=== PATIENT | female | born 1955 | race Caucasian/White ===

== ENCOUNTER 2022-10-06 12:01 | Inpatient (IN) | payer MEDICARE, OTHER ==
[~2022-10-06] VITALS: Ht 154.9 cm; Wt 30.0 kg
--- OUTSIDE RECORDS SUMMARY | ~2022-10-06 | XMS | Continuity of Care Document ---
Demographics + + + | Address | [address] | | | [place] [address] | + + + | Preferred Language | Unknown | + + + | Marital Status | | + + + | Mosque Affiliation | Unknown | + + + | Race | White | + + + | Ethnic Group | Not or | + + + Author + + + | Author | [facility] | + + + | Organization | [facility] | + + + | Address | [address] | | | [place] [address] | + + + | Phone | | + + + Care Team Providers + + + + | Care Market Sales Manager Name | Role | Phone | + + + + Unavailable | Unavailable | + + + + Unavailable | Unavailable | + + + + Unavailable | Unavailable | + + + + Unavailable | Unavailable | + + + + Unavailable | Unavailable | + + + + Unavailable | Unavailable | + + + + Unavailable | Unavailable | + + + + Allergies and Intolerances + + + + + + | date | description | facility | reaction | severity | + + + + + + | (no date) | [facility] | (no reaction) | (no severity) | [facility] | | | | | | Pc - Main | | | | | | Office | | | + + + + + + | (no date) | [facility] | [facility] | (no reaction) | (no severity) | | | [facility] | | | | | | [place] | | | + + + + + + | (no date) | Anaphylaxis | [facility] | (no reaction) | (no severity) | | | | [facility] | | | | | | Hospital | | | + + + + + + | (no date) | Anaphylaxis | [facility] | (no reaction) | (no severity) | | | | Advanced | | | | | | Illness | | | | | | Management | | | + + + + + + | (no date) | Anaphylaxis | [facility] | (no reaction) | (no severity) | | | | [facility] | | | | | | [place] | | | + + + + + + | (no date) | Anaphylaxis | [facility] | (no reaction) | (no severity) | | | | [facility] | | | | | | [place] | | | + + + + + + | (no date) | Anaphylaxis | [facility] | (no reaction) | (no severity) | | | | [facility] | | | | | | [facility] [place] | | | + + + + + + | (no date) | [facility] | [facility] | (no reaction) | (no severity) | | | | [facility] - | | | | | | [place] | | | + + + + + + | (no date) | [facility] | [facility] | (no reaction) | (no severity) | | | | [facility] - | | | | | | [facility] | | | + + + + + + | (no date) | [facility] | [facility] | (no reaction) | (no severity) | | | | [facility] - | | | | | | [place] | | | + + + + + + | (no date) | [facility] | [facility] | (no reaction) | (no severity) | | | | [facility] | | | + + + + + + | (no date) | [facility] | [facility] | (no reaction) | (no severity) | | | | Advanced | | | | | | Illness | | | | | | Management | | | + + + + + + | (no date) | [facility] | [facility] | (no reaction) | (no severity) | | | | [facility] | | | | | | [place] | | | + + + + + + | (no date) | [facility] | [facility] | (no reaction) | (no severity) | | | | [facility] | | | | | | [place] | | | + + + + + + | (no date) | [facility] | [facility] | (no reaction) | (no severity) | | | | Pulmonary | | | | | | [facility] [place] | | | + + + + + + | (no date) | Penicillin | [facility] | (no reaction) | (no severity) | | | | [facility] | | | | | | Hospital | | | + + + + + + | (no date) | Penicillin | [facility] | (no reaction) | (no severity) | | | | [facility] | | | | | | Hospital | | | + + + + + + | (no date) | Penicillins | [facility] | (no reaction) | (no severity) | + + + + + + | (no date) | Penicillin | [facility] | (no reaction) | (no severity) | | | | [facility] | | | | | | Hospital | | | + + + + + + | (no date) | Penicillin | [facility] | (no reaction) | (no severity) | | | | [facility] | | | | | | Hospital | | | + + + + + + Encounters No information. Functional Status No information. Immunizations + + + + | date | description | facility | + + + + | 2014-02-07 00:00 | pneumococcal conjugate PCV | OR - [facility] | | | 13 | - Main Office | + + + + | 2019-11-29 00:00 | pneumococcal conjugate PCV | OR - [facility] | | | 13 | - Main Office | + + + + | 2011-11-29 00:00 | influenza, seasonal, | OR - [facility] | | | injectable, preservative | - Main Office | | | free | | + + + + | 2012-10-31 00:00 | influenza, seasonal, | OR - [facility] | | | injectable, preservative | - Main Office | | | free | | + + + + | 2014-02-07 00:00 | influenza, seasonal, | [facility] | | | injectable, preservative | - Main Office | | | free | | + + + + | 2018-01-18 00:00 | influenza, injectable, | [facility] | | | quadrivalent, preservative | - Main Office | | | free | | + + + + | 2018-10-16 00:00 | influenza, injectable, | [facility] | | | quadrivalent, preservative | - Main Office | | | free | | + + + + | 2019-11-29 00:00 | influenza, injectable, | [facility] | | | quadrivalent, preservative | - Main Office | | | free | | + + + + | 2015-12-25 00:00 | influenza, injectable, | [facility] | | | quadrivalent | Pc - Main Office | + + + + | 2016-12-20 00:00 | influenza, injectable, | OR [facility] | | | quadrivalent | - Main Office | + + + + | 2020-05-21 00:00 | COVID-19, mRNA, LNP-S, PF, | [facility] | | | 100 mcg/0.5 mL dose | Pc - Main Office | | | (Moderna) | | + + + + | 2020-06-18 00:00 | COVID-19, mRNA, LNP-S, PF, | [facility] | | | 100 mcg/0.5 mL dose | Pc - Main Office | | | (Moderna) | | + + + + | 2021-03-26 00:00 | COVID-19, mRNA, LNP-S, PF, | OR - [facility] | | | 100 mcg/0.5 mL dose | Pc - Main Office | | | (Moderna) | | + + + + | 2011-11-29 00:00 | pneumococcal | OR - [facility] | | | polysaccharide PPV23 | Pc - Main Office | + + + + | 2018-01-18 00:00 | pneumococcal | OR - [facility] | | | polysaccharide PPV23 | P[facility] - Main Office | + + + + Medications + + + + | date | description | facility | + + + + | 2021-08-20 00:00 | {2 (480 ML) (Magnesium | [facility] | | | Sulfate 0.0277 MEQ/ML / | Illness Management | | | potassium sulfate 0.0374 | | | | MEQ/ML / sodium sulfate | | | | 0.257 MEQ/ML Oral Solution) | | | | } Pack [Suprep Bowel Prep | | | | Kit] | | + + + + | 2021-08-20 00:00 | {2 (480 ML) (Magnesium | [facility] | | | Sulfate 0.0277 MEQ/ML / | [place] | | | potassium sulfate 0.0374 | | | | MEQ/ML / sodium sulfate | | | | 0.257 MEQ/ML Oral Solution) | | | | } Pack [Suprep Bowel Prep | | | | Kit] | | + + + + | 2021-08-20 00:00 | {2 (480 ML) (Magnesium | [facility] | | | Sulfate 0.0277 MEQ/ML / | [place] | | | potassium sulfate 0.0374 | | | | MEQ/ML / sodium sulfate | | | | 0.257 MEQ/ML Oral Solution) | | | | } Pack [Suprep Bowel Prep | | | | Kit] | | + + + + | 2021-08-20 00:00 | {2 (480 ML) (Magnesium | [facility] | | | Sulfate 0.0277 MEQ/ML / | [facility] [place] | | | potassium sulfate 0.0374 | | | | MEQ/ML / sodium sulfate | | | | 0.257 MEQ/ML Oral Solution) | | | | } Pack [Suprep Bowel Prep | | | | Kit] | | + + + + | 2021-10-20 00:00 | abuse-deterrent 12 hr | [facility] | | | oxycodone hydrochloride 15 | [place] | | | mg extended release oral | | | | tablet [oxycontin] | | + + + + | 2021-09-08 00:00 | oxycodone hcl 5 mg oral | [facility] | | | tablet | [place] | + + + + | 2021-09-29 00:00 | oxycodone hcl 5 mg oral | [facility] | | | tablet | [place] | + + + + | 2021-10-27 00:00 | oxycodone hcl 5 mg oral | [facility] | | | tablet | [place] | + + + + | 2021 00:00 | oxycodone hcl 5 mg oral | [facility] | | | tablet | [place] | + + + + | 2021 00:00 | oxycodone hcl 5 mg oral | [facility] | | | tablet | [place] | + + + + | 2021-12-29 00:00 | oxycodone hcl 5 mg oral | [facility] | | | tablet | [place] | + + + + | 2021-09-08 00:00 | oxycodone hydrochloride 5 | [facility] | | | mg oral tablet [roxicodone] | [place] | | | | | + + + + | 2021-09-29 00:00 | oxycodone hydrochloride 5 | [facility] | | | mg oral tablet [roxicodone] | [place] | | | | | + + + + | 2021-08-18 00:00 | valtrex 500 mg oral tablet | [facility] | | | | Illness Management | + + + + | 2021-08-18 00:00 | valtrex 500 mg oral tablet | [facility] | | | | [place] | + + + + | 2021-08-18 00:00 | valtrex 500 mg oral tablet | [facility] | | | | [place] | + + + + | 2021-08-18 00:00 | valtrex 500 mg oral tablet | [facility] | | | | [facility] [place] | + + + + | 2021-10-20 00:00 | senokot-s 8.6 mg / 50 mg | [facility] | | | oral tablet | [place] | + + + + | 2021-10-20 00:00 | senokot-s 8.6 mg / 50 mg | [facility] | | | oral tablet | [place] | + + + + | 2021-02-26 00:00 | atorvastatin 80 MG Oral | OR - [facility] | | | Tablet | - Main Office | + + + + | 2021-02-27 00:00 | atorvastatin 80 MG Oral | OR - [facility] | | | Tablet | P[facility] - Main Office | + + + + | 2021-03-26 00:00 | atorvastatin 80 MG Oral | OR - [facility] | | | Tablet | [facility] - Main Office | + + + + | 2021-02-26 00:00 | potassium chloride 10 MEQ | OR - [facility] | | | Extended Release Oral | Pc - Main Office | | | Capsule | | + + + + | 2021-02-27 00:00 | potassium chloride 10 MEQ | OR - [facility] | | | Extended Release Oral | Pc - Main Office | | | Capsule | | + + + + | 2021-03-26 00:00 | potassium chloride 10 MEQ | OR - [facility] | | | Extended Release Oral | - Main Office | | | Capsule | | + + + + | 2021-09-04 00:00 | doxycycline hyclate 100 mg | [facility] | | | oral capsule | [place] | + + + + | 2021-09-04 00:00 | doxycycline hyclate 100 mg | [facility] | | | oral capsule | [facility] [place] | + + + + | 2021-02-26 00:00 | trazodone hydrochloride 50 | OR - [facility] | | | MG Oral Tablet | - Main Office | + + + + | 2021-02-27 00:00 | trazodone hydrochloride 50 | [facility] | | | MG Oral Tablet | - Main Office | + + + + | 2021-03-26 00:00 | trazodone hydrochloride 50 | [facility] | | | MG Oral Tablet | [facility] Main Office | + + + + | 2021-09-08 00:00 | naloxone hcl 4 mg per 0.1 | [facility] | | | ml nasal spray | Illness Management | + + + + | 2021-09-08 00:00 | naloxone hcl 4 mg per 0.1 | [facility] | | | ml nasal spray | [place] | + + + + | 2021-09-08 00:00 | naloxone hcl 4 mg per 0.1 | [facility] | | | ml nasal spray | [place] | + + + + | 2021-02-26 00:00 | naloxone hydrochloride 40 | OR [facility] | | | MG/ML Nasal [place] [Narcan] | - Main Office | + + + + | 2021-02-27 00:00 | naloxone hydrochloride 40 | [facility] | | | MG/ML Nasal [place] [Narcan] | - Main Office | + + + + | 2021-03-26 00:00 | naloxone hydrochloride 40 | OR [facility] | | | MG/ML Nasal [place] [Narcan] | - Main Office | + + + + | 2021-09-08 00:00 | naloxone hydrochloride 40 | [facility] | | | mg/ml nasal spray [narcan] | Illness Management | + + + + | 2021-09-08 00:00 | naloxone hydrochloride 40 | [facility] | | | mg/ml nasal spray [narcan] | [place] | + + + + | 2021-09-08 00:00 | naloxone hydrochloride 40 | [facility] | | | mg/ml nasal spray [narcan] | [place] | + + + + | 2021-02-26 00:00 | ibuprofen 800 MG Oral | OR - [facility] | | | Tablet | [facility] - Main Office | + + + + | 2021-02-27 00:00 | ibuprofen 800 MG Oral | OR - [facility] | | | Tablet | [facility] - Main Office | + + + + | 2021-03-26 00:00 | ibuprofen 800 MG Oral | OR - [facility] | | | Tablet | Pc - Main Office | + + + + | 2021-02-26 00:00 | tizanidine 4 MG Oral | OR - [facility] | | | Tablet | P[facility] - Main Office | + + + + | 2021-02-27 00:00 | tizanidine 4 MG Oral | OR - [facility] | | | Tablet | Pc - Main Office | + + + + | 2021-03-26 00:00 | tizanidine 4 MG Oral | OR - [facility] | | | Tablet | [facility] - Main Office | + + + + | 2021-02-26 00:00 | benzonatate 200 MG Oral | OR - [facility] | | | Capsule | - Main Office | + + + + | 2021-02-27 00:00 | benzonatate 200 MG Oral | OR - [facility] | | | Capsule | - Main Office | + + + + | 2021-03-26 00:00 | benzonatate 200 MG Oral | OR [facility] | | | Capsule | - Main Office | + + + + | 2021-09-29 00:00 | microencapsulated | [facility] | | | potassium chloride 10 meq | [place] | | | extended release oral | | | | tablet | | + + + + | 2021-09-29 00:00 | microencapsulated | [facility] | | | potassium chloride 10 meq | [place] | | | extended release oral | | | | tablet | | + + + + | 2021-02-26 00:00 | sucralfate 100 MG/ML Oral | OR - [facility] | | | Suspension | - Main Office | + + + + | 2021-02-27 00:00 | sucralfate 100 MG/ML Oral | OR - [facility] | | | Suspension | - Main Office | + + + + | 2021-03-26 00:00 | sucralfate 100 MG/ML Oral | OR - [facility] | | | Suspension | - Main Office | + + + + | 2021-10-20 00:00 | abuse-deterrent 12 hr | [facility] | | | oxycodone hydrochloride 15 | [place] | | | mg extended release oral | | | | tablet | | + + + + | 2021-12-22 00:00 | abuse-deterrent 12 hr | [facility] | | | oxycodone hydrochloride 10 | [place] | | | mg extended release oral | | | | tablet | | + + + + | 2021-12-22 00:00 | abuse-deterrent 12 hr | [facility] | | | oxycodone hydrochloride 10 | [place] | | | mg extended release oral | | | | tablet | | + + + + | 2022-01-06 00:00 | abuse-deterrent 12 hr | [facility] | | | oxycodone hydrochloride 10 | [place] | | | mg extended release oral | | | | tablet | | + + + + | 2021-02-26 00:00 | fluticasone furoate 0.1 | OR [facility] | | | MG/ACTUAT / umeclidinium | - Main Office | | | 0.0625 MG/ACTUAT / | | | | vilanterol 0.025 MG/ACTUAT | | | | Dry Powder Inhaler | | + + + + | 2021-02-27 00:00 | fluticasone furoate 0.1 | [facility] | | | MG/ACTUAT / umeclidinium | [facility] Main Office | | | 0.0625 MG/ACTUAT / | | | | vilanterol 0.025 MG/ACTUAT | | | | Dry Powder Inhaler | | + + + + | 2021-03-26 00:00 | fluticasone furoate 0.1 | [facility] | | | MG/ACTUAT / umeclidinium | [facility] Main Office | | | 0.0625 MG/ACTUAT / | | | | vilanterol 0.025 MG/ACTUAT | | | | Dry Powder Inhaler | | + + + + | 2021-08-19 00:00 | juventino garcia | [facility] | | | (fluticasone furoate 100 | [place] | | | mcg/actuat / umeclidinium | | | | (as umeclidinium br) 62.5 | | | | mcg/actuat / vilanterol (as | | | | vilanterol trifenatate) 25 | | | | mcg/actuat) dry powder | | | | inhaler, 30 actuat | | + + + + | 2021-09-05 00:00 | juventino garcia | [facility] | | | (fluticasone furoate 100 | [facility] [place] | | | mcg/actuat / umeclidinium | | | | (as umeclidinium br) 62.5 | | | | mcg/actuat / vilanterol (as | | | | vilanterol trifenatate) 25 | | | | mcg/actuat) dry powder | | | | inhaler, 30 actuat | | + + + + | 2021-09-09 00:00 | juventino garcia | [facility] | | | (fluticasone furoate 100 | [place] | | | mcg/actuat / umeclidinium | | | | (as umeclidinium br) 62.5 | | | | mcg/actuat / vilanterol (as | | | | vilanterol trifenatate) 25 | | | | mcg/actuat) dry powder | | | | inhaler, 30 actuat | | + + + + | 2021-09-29 00:00 | trelegy ellipta | [facility] | | | (fluticasone furoate 100 | [place] | | | mcg/actuat / umeclidinium | | | | (as umeclidinium br) 62.5 | | | | mcg/actuat / vilanterol (as | | | | vilanterol trifenatate) 25 | | | | mcg/actuat) dry powder | | | | inhaler, 30 actuat | | + + + + | 2021-09-29 00:00 | trelegy ellipta | [facility] | | | (fluticasone furoate 100 | [place] | | | mcg/actuat / umeclidinium | | | | (as umeclidinium br) 62.5 | | | | mcg/actuat / vilanterol (as | | | | vilanterol trifenatate) 25 | | | | mcg/actuat) dry powder | | | | inhaler, 30 actuat | | + + + + | 2021-09-30 00:00 | trelegy ellipta | [facility] | | | (fluticasone furoate 100 | [place] | | | mcg/actuat / umeclidinium | | | | (as umeclidinium br) 62.5 | | | | mcg/actuat / vilanterol (as | | | | vilanterol trifenatate) 25 | | | | mcg/actuat) dry powder | | | | inhaler, 30 actuat | | + + + + | 2021-07-21 00:00 | dexamethasone 4 mg oral | [facility] | | | tablet | [place] | + + + + | 2021-09-24 00:00 | dexamethasone 4 mg oral | [facility] | | | tablet | Illness Management | + + + + | 2021-09-24 00:00 | dexamethasone 4 mg oral | [facility] | | | tablet | [place] | + + + + | 2021-09-24 00:00 | dexamethasone 4 mg oral | [facility] | | | tablet | [place] | + + + + | 2021-02-26 00:00 | ibuprofen 800 MG Oral | OR - [facility] | | | Tablet | [facility] - Main Office | + + + + | 2021-02-27 00:00 | ibuprofen 800 MG Oral | OR - [facility] | | | Tablet | [facility] - Main [facility] | + + + + | 2021-03-26 00:00 | ibuprofen 800 MG Oral | OR - [facility] | | | Tablet | [facility] - Main Office | + + + + | 2020-10-08 00:00 | ibuprofen 800 mg oral | [facility] | | | tablet | Illness Management | + + + + | 2020-10-08 00:00 | ibuprofen 800 mg oral | [facility] | | | tablet | [place] | + + + + | 2020-10-08 00:00 | ibuprofen 800 mg oral | [facility] | | | tablet | [place] | + + + + | 2020-10-08 00:00 | ibuprofen 800 mg oral | [facility] | | | tablet | [facility] [place] | + + + + | 2021-07-21 00:00 | lorazepam 0.5 mg oral | [facility] | | | tablet | [place] | + + + + | 2021-02-26 00:00 | nitroglycerin 0.4 MG | OR - [facility] | | | Sublingual Tablet | - Main Office | + + + + | 2021-02-27 00:00 | nitroglycerin 0.4 MG | [facility] | | | Sublingual Tablet | [facility] - Main Office | + + + + | 2021-03-26 00:00 | nitroglycerin 0.4 MG | [facility] | | | Sublingual Tablet | [facility] - Main Office | + + + + | 2018-05-03 00:00 | nitroglycerin 400 mcg | [facility] | | | sublingual tablet | Illness Management | + + + + | 2018-05-03 00:00 | nitroglycerin 400 mcg | [facility] | | | sublingual tablet | [place] | + + + + | 2018-05-03 00:00 | nitroglycerin 400 mcg | [facility] | | | sublingual tablet | [place] | + + + + | 2018-05-03 00:00 | nitroglycerin 400 mcg | [facility] | | | sublingual tablet | [facility] [place] | + + + + | 2021-08-20 00:00 | ondansetron 4 mg oral | [facility] | | | tablet | [place] | + + + + | 2021-08-20 00:00 | ondansetron 4 mg oral | [facility] | | | tablet | [facility] [place] | + + + + | 2018-07-05 00:00 | ranitidine 150 mg (as | [facility] | | | ranitidine hcl 168 mg) oral | [place] | | | tablet | | + + + + | 2021-07-21 00:00 | prochlorperazine 10 mg | [facility] | | | oral tablet | [place] | + + + + | 2021-08-26 00:00 | prochlorperazine 10 mg | [facility] | | | oral tablet | Illness Management | + + + + | 2021-08-26 00:00 | prochlorperazine 10 mg | [facility] | | | oral tablet | [place] | + + + + | 2021-08-26 00:00 | prochlorperazine 10 mg | [facility] | | | oral tablet | [place] | + + + + | 2021-08-26 00:00 | prochlorperazine 10 mg | [facility] | | | oral tablet | [facility] [place] | + + + + | 2021-10-20 00:00 | levofloxacin 500 mg oral | [facility] | | | tablet | [place] | + + + + | 2021-07-21 00:00 | compazine 10 mg oral | [facility] | | | tablet | [place] | + + + + | 2021-05-21 00:00 | [id number] 200 actuat | [facility] | | | albuterol 0.09 mg/actuat | [place] | | | metered dose inhaler | | + + + + | 2021-06-25 00:00 | [id number] 200 actuat | [facility] | | | albuterol 0.09 mg/actuat | [place] | | | metered dose inhaler | | + + + + | 2021-07-08 00:00 | [id number] 200 actuat | [facility] | | | albuterol 0.09 mg/actuat | [place] | | | metered dose inhaler | | + + + + | 2021-07-16 00:00 | [id number] 200 actuat | [facility] | | | albuterol 0.09 mg/actuat | [place] | | | metered dose inhaler | | + + + + | 2021-07-29 00:00 | [id number] 200 actuat | [facility] | | | albuterol 0.09 mg/actuat | [place] | | | metered dose inhaler | | + + + + | 2021-08-19 00:00 | [id number] 200 actuat | [facility] | | | albuterol 0.09 mg/actuat | [place] | | | metered dose inhaler | | + + + + | 2021-09-05 00:00 | [id number] 200 actuat | [facility] | | | albuterol 0.09 mg/actuat | [facility] [place] | | | metered dose inhaler | | + + + + | 2021-09-09 00:00 | [id number] 200 actuat | [facility] | | | albuterol 0.09 mg/actuat | [place] | | | metered dose inhaler | | + + + + | 2021-09-30 00:00 | [id number] 200 actuat | [facility] | | | albuterol 0.09 mg/actuat | Ill[facility] | | | metered dose inhaler | | + + + + | 2021-09-30 00:00 | [id number] 200 actuat | [facility] | | | albuterol 0.09 mg/actuat | [place] | | | metered dose inhaler | | + + + + | 2021-10-21 00:00 | [id number] 200 actuat | [facility] | | | albuterol 0.09 mg/actuat | [place] | | | metered dose inhaler | | + + + + | 2021-10-28 00:00 | [id number] 200 actuat | [facility] | | | albuterol 0.09 mg/actuat | [place] | | | metered dose inhaler | | + + + + | 2021-11-18 00:00 | [id number] 200 actuat | [facility] | | | albuterol 0.09 mg/actuat | [place] | | | metered dose inhaler | | + + + + | 2021 00:00 | [id number] 200 actuat | [facility] | | | albuterol 0.09 mg/actuat | [place] | | | metered dose inhaler | | + + + + | 2021-12-23 00:00 | [id number] 200 actuat | [facility] | | | albuterol 0.09 mg/actuat | [place] | | | metered dose inhaler | | + + + + | 2021-12-25 00:00 | [id number] 200 actuat | [facility] | | | albuterol 0.09 mg/actuat | [place] | | | metered dose inhaler | | + + + + | 2021-12-31 00:00 | [id number] 200 actuat | [facility] | | | albuterol 0.09 mg/actuat | [place] | | | metered dose inhaler | | + + + + | 2022-01-20 00:00 | [id number] 200 actuat | [facility] | | | albuterol 0.09 mg/actuat | [place] | | | metered dose inhaler | | + + + + | 2021-02-26 00:00 | levothyroxine sodium 0.1 | OR [facility] | | | MG Oral Tablet | - Main Office | + + + + | 2021-02-27 00:00 | levothyroxine sodium 0.1 | OR - [facility] | | | MG Oral Tablet | - Main Office | + + + + | 2021-03-26 00:00 | levothyroxine sodium 0.1 | [facility] | | | MG Oral Tablet | - Main Office | + + + + | 2021-02-26 00:00 | pantoprazole 40 MG Delayed | [facility] | | | Release Oral Tablet | - Main Office | + + + + | 2021-02-27 00:00 | pantoprazole 40 MG Delayed | [facility] | | | Release Oral Tablet | - Main Office | + + + + | 2021-03-26 00:00 | pantoprazole 40 MG Delayed | [facility] | | | Release Oral Tablet | - Main Office | + + + + | 2021-02-26 00:00 | lisinopril 10 MG Oral | [facility] | | | Tablet | - Main Office | + + + + | 2021-02-27 00:00 | lisinopril 10 MG Oral | [facility] | | | Tablet | - Main Office | + + + + | 2021-03-26 00:00 | lisinopril 10 MG Oral | [facility] | | | Tablet | - Main Office | + + + + | 2021-02-26 00:00 | nitroglycerin 0.4 MG | [facility] | | | Sublingual Tablet | Pc - Main Office | + + + + | 2021-02-27 00:00 | nitroglycerin 0.4 MG | [facility] | | | Sublingual Tablet | [facility] - Main Office | + + + + | 2021-03-26 00:00 | nitroglycerin 0.4 MG | [facility] - [facility] [facility] | | | Sublingual Tablet | Pc - Main Office | + + + + | 2021-02-26 00:00 | atorvastatin 80 MG Oral | OR - [facility] | | | Tablet | Pc - Main Office | + + + + | 2021-02-27 00:00 | atorvastatin 80 MG Oral | OR - [facility] | | | Tablet | Pc - Main Office | + + + + | 2021-03-26 00:00 | atorvastatin 80 MG Oral | OR - [facility] | | | Tablet | Pc - Main Office | + + + + | 2015-03-26 00:00 | atorvastatin 80 mg oral | [facility] | | | tablet | Illness Management | + + + + | 2015-03-26 00:00 | atorvastatin 80 mg oral | [facility] | | | tablet | [place] | + + + + | 2015-03-26 00:00 | atorvastatin 80 mg oral | [facility] | | | tablet | [place] | + + + + | 2015-03-26 00:00 | atorvastatin 80 mg oral | [facility] | | | tablet | [facility] [place] | + + + + | 2021-02-26 00:00 | buspirone hydrochloride | OR [facility] | | | 7.5 MG Oral Tablet | - Main Office | + + + + | 2021-02-27 00:00 | buspirone hydrochloride | [facility] | | | 7.5 MG Oral Tablet | - Main Office | + + + + | 2021-03-26 00:00 | buspirone hydrochloride | [facility] | | | 7.5 MG Oral Tablet | - Main Office | + + + + | 2021-02-26 00:00 | hydrochlorothiazide 25 MG | [facility] | | | Oral Tablet | Pc - Main Office | + + + + | 2021-02-27 00:00 | hydrochlorothiazide 25 MG | [facility] | | | Oral Tablet | Pc - Main Office | + + + + | 2021-03-26 00:00 | hydrochlorothiazide 25 MG | OR - [facility] | | | Oral Tablet | Pc - Main Office | + + + + | 2021-02-26 00:00 | gabapentin 100 MG Oral | OR - [facility] | | | Capsule | Pc - Main Office | + + + + | 2021-02-27 00:00 | gabapentin 100 MG Oral | OR - [facility] | | | Capsule | Pc - Main Office | + + + + | 2021-03-26 00:00 | gabapentin 100 MG Oral | OR - [facility] | | | Capsule | Pc - Main Office | + + + + | 2021-02-26 00:00 | polyethylene glycol 3350 | [facility] | | | 65650 MG Powder for Oral | - Main Office | | | Solution | | + + + + | 2021-02-27 00:00 | polyethylene glycol 3350 | [facility] | | | 14294 MG Powder for Oral | - Main Office | | | Solution | | + + + + | 2021-03-26 00:00 | polyethylene glycol 3350 | [facility] | | | 33599 MG Powder for Oral | - Main Office | | | Solution | | + + + + | 2021-02-26 00:00 | benzonatate 200 MG Oral | OR [facility] | | | Capsule | - Main Office | + + + + | 2021-02-27 00:00 | benzonatate 200 MG Oral | [facility] | | | Capsule | Pc - Main Office | + + + + | 2021-03-26 00:00 | benzonatate 200 MG Oral | OR - [facility] | | | Capsule | Pc - Main Office | + + + + | 2020-07-03 00:00 | benzonatate 200 mg oral | [facility] | | | capsule | [place] | + + + + | 2021-07-14 00:00 | benzonatate 200 mg oral | [facility] | | | capsule | Illness Management | + + + + | 2021-07-14 00:00 | benzonatate 200 mg oral | [facility] | | | capsule | [place] | + + + + | 2021-07-14 00:00 | benzonatate 200 mg oral | [facility] | | | capsule | [place] | + + + + | 2021-07-14 00:00 | benzonatate 200 mg oral | [facility] | | | capsule | [facility] [place] | + + + + | 2021-12-08 00:00 | levofloxacin 750 mg oral | [facility] | | | tablet [levaquin] | [place] | + + + + | 2021-02-26 00:00 | gabapentin 100 MG Oral | OR [facility] | | | Capsule | - Main Office | + + + + | 2021-02-27 00:00 | gabapentin 100 MG Oral | OR - [facility] | | | Capsule | Pc - Main Office | + + + + | 2021-03-26 00:00 | gabapentin 100 MG Oral | OR [facility] | | | Capsule | Pc - Main Office | + + + + | 2020-08-06 00:00 | gabapentin 100 mg oral | [facility] | | | capsule | Illness Management | + + + + | 2020-08-06 00:00 | gabapentin 100 mg oral | [facility] | | | capsule | [place] | + + + + | 2020-08-06 00:00 | gabapentin 100 mg oral | [facility] | | | capsule | [place] | + + + + | 2020-08-06 00:00 | gabapentin 100 mg oral | [facility] | | | capsule | [facility] [place] | + + + + | 2021-02-26 00:00 | hydrochlorothiazide 25 MG | OR - [facility] | | | Oral Tablet | - Main Office | + + + + | 2021-02-27 00:00 | hydrochlorothiazide 25 MG | OR [facility] | | | Oral Tablet | Pc - Main Office | + + + + | 2021-03-26 00:00 | hydrochlorothiazide 25 MG | OR - [facility] | | | Oral Tablet | Pc - Main Office | + + + + | 2021-05-21 00:00 | hydrochlorothiazide 25 mg | [facility] | | | oral tablet | [place] | + + + + | 2021-06-25 00:00 | hydrochlorothiazide 25 mg | [facility] | | | oral tablet | [place] | + + + + | 2021-07-08 00:00 | hydrochlorothiazide 25 mg | [facility] | | | oral tablet | [place] | + + + + | 2021-07-16 00:00 | hydrochlorothiazide 25 mg | [facility] | | | oral tablet | [place] | + + + + | 2021-07-29 00:00 | hydrochlorothiazide 25 mg | [facility] | | | oral tablet | [place] | + + + + | 2021-08-19 00:00 | hydrochlorothiazide 25 mg | [facility] | | | oral tablet | [place] | + + + + | 2021-09-05 00:00 | hydrochlorothiazide 25 mg | [facility] | | | oral tablet | [facility] [place] | + + + + | 2021-09-09 00:00 | hydrochlorothiazide 25 mg | [facility] | | | oral tablet | [place] | + + + + | 2021-09-30 00:00 | hydrochlorothiazide 25 mg | [facility] | | | oral tablet | Illness Management | + + + + | 2021-09-30 00:00 | hydrochlorothiazide 25 mg | [facility] | | | oral tablet | [place] | + + + + | 2021-10-21 00:00 | hydrochlorothiazide 25 mg | [facility] | | | oral tablet | [place] | + + + + | 2021-10-28 00:00 | hydrochlorothiazide 25 mg | [facility] | | | oral tablet | [place] | + + + + | 2021-11-18 00:00 | hydrochlorothiazide 25 mg | [facility] | | | oral tablet | [place] | + + + + | 2021 00:00 | hydrochlorothiazide 25 mg | [facility] | | | oral tablet | [place] | + + + + | 2021-12-23 00:00 | hydrochlorothiazide 25 mg | [facility] | | | oral tablet | [place] | + + + + | 2021-12-25 00:00 | hydrochlorothiazide 25 mg | [facility] | | | oral tablet | [place] | + + + + | 2021-12-31 00:00 | hydrochlorothiazide 25 mg | [facility] | | | oral tablet | [place] | + + + + | 2022-01-20 00:00 | hydrochlorothiazide 25 mg | [facility] | | | oral tablet | [place] | + + + + | 2021-12-08 00:00 | levofloxacin 750 mg oral | [facility] | | | tablet | [place] | + + + + | 2021-10-06 00:00 | mirtazapine 15 mg oral | [facility] | | | tablet | [place] | + + + + | 2021-11-17 00:00 | mirtazapine 15 mg oral | [facility] | | | tablet | [place] | + + + + | 2021-11-17 00:00 | mirtazapine 15 mg oral | [facility] | | | tablet | [place] | + + + + | 2021-07-21 00:00 | ondansetron 8 mg oral | [facility] | | | tablet | [place] | + + + + | 2021-09-08 00:00 | ondansetron 8 mg oral | [facility] | | | tablet | Illness Management | + + + + | 2021-09-08 00:00 | ondansetron 8 mg oral | [facility] | | | tablet | [place] | + + + + | 2021-09-08 00:00 | ondansetron 8 mg oral | [facility] | | | tablet | [place] | + + + + | 2022-01-19 00:00 | ondansetron 8 mg oral | [facility] | | | tablet | [place] | + + + + | 2022-09-06 00:00 | ONDANSETRON | [facility] | + + + + | 2022-09-06 00:00 | ONDANSETRON | [facility] | + + + + | 2021-02-26 00:00 | potassium chloride 10 MEQ | OR [facility] | | | Extended Release Oral | Pc - Main Office | | | Capsule | | + + + + | 2021-02-27 00:00 | potassium chloride 10 MEQ | OR [facility] | | | Extended Release Oral | Pc - Main Office | | | Capsule | | + + + + | 2021-03-26 00:00 | potassium chloride 10 MEQ | OR [facility] | | | Extended Release Oral | Pc - Main Office | | | Capsule | | + + + + | 2018-08-03 00:00 | potassium chloride 10 meq | [facility] | | | extended release oral | Illness Management | | | capsule | | + + + + | 2018-08-03 00:00 | potassium chloride 10 meq | [facility] | | | extended release oral | [place] | | | capsule | | + + + + | 2018-08-03 00:00 | potassium chloride 10 meq | [facility] | | | extended release oral | [facility] [place] | | | capsule | | + + + + | 2021-09-04 00:00 | prednisone 20 mg oral | [facility] | | | tablet | [place] | + + + + | 2021-09-04 00:00 | prednisone 20 mg oral | [facility] | | | tablet | [facility] [place] | + + + + | 2021-10-20 00:00 | prednisone 20 mg oral | [facility] | | | tablet | [place] | + + + + | 2021-12-22 00:00 | prednisone 20 mg oral | [facility] | | | tablet | [place] | + + + + | 2021-12-22 00:00 | prednisone 20 mg oral | [facility] | | | tablet | [place] | + + + + | 2021-12-29 00:00 | prednisone 20 mg oral | [facility] | | | tablet | [place] | + + + + | 2022-01-12 00:00 | prednisone 5 mg oral | [facility] | | | tablet | [place] | + + + + | 2021-02-26 00:00 | sucralfate 100 MG/ML Oral | OR [facility] | | | Suspension | - Main Office | + + + + | 2021-02-27 00:00 | sucralfate 100 MG/ML Oral | OR [facility] | | | Suspension | Pc - Main Office | + + + + | 2021-03-26 00:00 | sucralfate 100 MG/ML Oral | OR [facility] | | | Suspension | Pc - Main Office | + + + + | 2021-02-26 00:00 | tizanidine 4 MG Oral | OR - [facility] | | | Tablet | Pc - Main Office | + + + + | 2021-02-27 00:00 | tizanidine 4 MG Oral | OR [facility] | | | Tablet | Pc - Main Office | + + + + | 2021-03-26 00:00 | tizanidine 4 MG Oral | OR - [facility] | | | Tablet | Pc - Main Office | + + + + | 2021-05-21 00:00 | tizanidine 4 mg oral | [facility] | | | tablet | [place] | + + + + | 2021-06-25 00:00 | tizanidine 4 mg oral | [facility] | | | tablet | [place] | + + + + | 2021-07-08 00:00 | tizanidine 4 mg oral | [facility] | | | tablet | [place] | + + + + | 2021-07-16 00:00 | tizanidine 4 mg oral | [facility] | | | tablet | [place] | + + + + | 2021-07-29 00:00 | tizanidine 4 mg oral | [facility] | | | tablet | [place] | + + + + | 2021-08-19 00:00 | tizanidine 4 mg oral | [facility] | | | tablet | [place] | + + + + | 2021-08-21 00:00 | tizanidine 4 mg oral | [facility] | | | tablet | Illness Management | + + + + | 2021-08-21 00:00 | tizanidine 4 mg oral | [facility] | | | tablet | [place] | + + + + | 2021-08-21 00:00 | tizanidine 4 mg oral | [facility] | | | tablet | [facility] [place] | + + + + | 2021-08-18 00:00 | valacyclovir 500 mg oral | [facility] | | | tablet | Illness Management | + + + + | 2021-08-18 00:00 | valacyclovir 500 mg oral | [facility] | | | tablet | [place] | + + + + | 2021-08-18 00:00 | valacyclovir 500 mg oral | [facility] | | | tablet | [place] | + + + + | 2021-08-18 00:00 | valacyclovir 500 mg oral | [facility] | | | tablet | [facility] [place] | + + + + | 2021-05-21 00:00 | acetaminophen 325 mg oral | [facility] | | | tablet | [place] | + + + + | 2021-02-26 00:00 | lisinopril 10 MG Oral | OR - [facility] | | | Tablet | Pc - Main Office | + + + + | 2021-02-27 00:00 | lisinopril 10 MG Oral | OR - [facility] | | | Tablet | Pc - Main Office | + + + + | 2021-03-26 00:00 | lisinopril 10 MG Oral | OR - [facility] | | | Tablet | Pc - Main Office | + + + + | 2018-06-01 00:00 | lisinopril 10 mg oral | [facility] | | | tablet | Illness Management | + + + + | 2018-06-01 00:00 | lisinopril 10 mg oral | [facility] | | | tablet | [place] | + + + + | 2018-06-01 00:00 | lisinopril 10 mg oral | [facility] | | | tablet | [place] | + + + + | 2018-06-01 00:00 | lisinopril 10 mg oral | [facility] | | | tablet | [facility] [place] | + + + + | 2021-02-26 00:00 | pantoprazole 40 MG Delayed | OR - [facility] | | | Release Oral Tablet | - Main Office | + + + + | 2021-02-27 00:00 | pantoprazole 40 MG Delayed | OR - [facility] | | | Release Oral Tablet | Pc - Main Office | + + + + | 2021-03-26 00:00 | pantoprazole 40 MG Delayed | OR - [facility] | | | Release Oral Tablet | - Main Office | + + + + | 2020-10-08 00:00 | pantoprazole sodium 40 mg | [facility] | | | delayed release oral tablet | Illness Management | | | | | + + + + | 2020-10-08 00:00 | pantoprazole sodium 40 mg | [facility] | | | delayed release oral tablet | [place] | | | | | + + + + | 2020-10-08 00:00 | pantoprazole sodium 40 mg | [facility] | | | delayed release oral tablet | [place] | | | | | + + + + | 2020-10-08 00:00 | pantoprazole sodium 40 mg | [facility] | | | delayed release oral tablet | [facility] [place] | | | | | + + + + | 2021-02-26 00:00 | escitalopram 10 MG Oral | OR - [facility] | | | Tablet | Pc - Main Office | + + + + | 2021-02-27 00:00 | escitalopram 10 MG Oral | OR - [facility] | | | Tablet | Pc - Main Office | + + + + | 2021-03-26 00:00 | escitalopram 10 MG Oral | OR - [facility] | | | Tablet | Pc - Main Office | + + + + | 2020-10-07 00:00 | escitalopram 10 mg oral | [facility] | | | tablet | Illness Management | + + + + | 2020-10-07 00:00 | escitalopram 10 mg oral | [facility] | | | tablet | [place] | + + + + | 2020-10-07 00:00 | escitalopram 10 mg oral | [facility] | | | tablet | [place] | + + + + | 2020-10-07 00:00 | escitalopram 10 mg oral | [facility] | | | tablet | [facility] [place] | + + + + | 2021-03-26 00:00 | buprenorphine 8 MG / | OR - [facility] | | | naloxone 2 MG Sublingual | - Main Office | | | Tablet | | + + + + | 2021-03-26 00:00 | buprenorphine 8 mg / | [facility] | | | naloxone 2 mg sublingual | [place] | | | tablet | | + + + + | 2021-05-21 00:00 | Drug or medicament | [facility] | | | (substance) | [place] | + + + + | 2021-06-25 00:00 | Drug or medicament | [facility] | | | (substance) | [place] | + + + + | 2021-07-08 00:00 | Drug or medicament | [facility] | | | (substance) | [place] | + + + + | 2021-07-16 00:00 | Drug or medicament | [facility] | | | (substance) | [place] | + + + + | 2021-07-29 00:00 | Drug or medicament | [facility] | | | (substance) | [place] | + + + + | 2021-02-26 00:00 | escitalopram 10 MG Oral | OR - [facility] | | | Tablet | Pc - Main Office | + + + + | 2021-02-27 00:00 | escitalopram 10 MG Oral | OR - [facility] | | | Tablet | Pc - Main Office | + + + + | 2021-03-26 00:00 | escitalopram 10 MG Oral | OR - [facility] | | | Tablet | Pc - Main Office | + + + + | 2021-03-26 00:00 | buprenorphine 8 MG / | OR - [facility] | | | naloxone 2 MG Sublingual | Pc - Main Office | | | Tablet | | + + + + | 2022-10-01 00:00 | NITROFURANTOIN MONOHYD | [facility] | | | MACROCR | | + + + + | 2021-02-26 00:00 | varenicline 1 MG Oral | OR - [facility] | | | Tablet | Pc - Main Office | + + + + | 2021-02-27 00:00 | varenicline 1 MG Oral | OR - [facility] | | | Tablet | Pc - Main Office | + + + + | 2021-03-26 00:00 | varenicline 1 MG Oral | OR [facility] | | | Tablet | Pc - Main Office | + + + + | 2021-02-26 00:00 | varenicline 0.5 MG Oral | OR - [facility] | | | Tablet | Pc - Main Office | + + + + | 2021-02-27 00:00 | varenicline 0.5 MG Oral | OR - [facility] | | | Tablet | Pc - Main Office | + + + + | 2021-03-26 00:00 | varenicline 0.5 MG Oral | OR - [facility] | | | Tablet | Pc - Main Office | + + + + | 2021-02-26 00:00 | [id number] 200 ACTUAT | OR [facility] | | | albuterol 0.09 MG/ACTUAT | Pc - Main Office | | | Metered Dose Inhaler | | | | [ProAir] | | + + + + | 2021-02-27 00:00 | [id number] 200 ACTUAT | OR - [facility] | | | albuterol 0.09 MG/ACTUAT | - Main Office | | | Metered Dose Inhaler | | | | [ProAir] | | + + + + | 2021-03-26 00:00 | [id number] 200 ACTUAT | OR [facility] | | | albuterol 0.09 MG/ACTUAT | - Main Office | | | Metered Dose Inhaler | | | | [ProAir] | | + + + + | 2021-02-26 00:00 | 100 ML zoledronic acid | OR - [facility] | | | 0.05 MG/ML Injection | - Main Office | | | [Reclast] | | + + + + | 2021-02-27 00:00 | 100 ML zoledronic acid | OR [facility] | | | 0.05 MG/ML Injection | - Main Office | | | [Reclast] | | + + + + | 2021-03-26 00:00 | 100 ML zoledronic acid | OR - [facility] | | | 0.05 MG/ML Injection | - Main Office | | | [Reclast] | | + + + + | 2022-10-01 00:00 | MEGESTROL ACETATE | [facility] | + + + + | 2021-02-26 00:00 | naloxone hydrochloride 40 | OR [facility] | | | MG/ML Nasal [place] [Narcan] | - Main Office | + + + + | 2021-02-27 00:00 | naloxone hydrochloride 40 | [facility] | | | MG/ML Nasal [place] [Narcan] | - Main Office | + + + + | 2021-03-26 00:00 | naloxone hydrochloride 40 | [facility] | | | MG/ML Nasal [place] [Narcan] | - Main Office | + + + + | 2021-02-26 00:00 | fluticasone furoate 0.1 | [facility] | | | MG/ACTUAT / umeclidinium | - Main Office | | | 0.0625 MG/ACTUAT / | | | | vilanterol 0.025 MG/ACTUAT | | | | Dry Powder Inhaler | | + + + + | 2021-02-27 00:00 | fluticasone furoate 0.1 | [facility] | | | MG/ACTUAT / umeclidinium | - Main Office | | | 0.0625 MG/ACTUAT / | | | | vilanterol 0.025 MG/ACTUAT | | | | Dry Powder Inhaler | | + + + + | 2021-03-26 00:00 | fluticasone furoate 0.1 | OR - [facility] | | | MG/ACTUAT / umeclidinium | Pc - Main Office | | | 0.0625 MG/ACTUAT / | | | | vilanterol 0.025 MG/ACTUAT | | | | Dry Powder Inhaler | | + + + + | 2021-02-26 00:00 | varenicline 0.5 MG Oral | OR - [facility] | | | Tablet | Pc - Main Office | + + + + | 2021-02-27 00:00 | varenicline 0.5 MG Oral | OR - [facility] | | | Tablet | Pc - Main Office | + + + + | 2021-03-26 00:00 | varenicline 0.5 MG Oral | OR - [facility] | | | Tablet | Pc - Main Office | + + + + | 2020-11-13 00:00 | varenicline 0.5 mg oral | [facility] | | | tablet | [place] | + + + + | 2021-02-26 00:00 | varenicline 1 MG Oral | OR - [facility] | | | Tablet | Pc - Main Office | + + + + | 2021-02-27 00:00 | varenicline 1 MG Oral | OR - [facility] | | | Tablet | Pc - Main Office | + + + + | 2021-03-26 00:00 | varenicline 1 MG Oral | OR - [facility] | | | Tablet | Pc - Main Office | + + + + | 2020-11-13 00:00 | chantix 0.5 mg oral tablet | [facility] | | | | [place] | + + + + | 2021-02-26 00:00 | 100 ML zoledronic acid | OR [facility] | | | 0.05 MG/ML Injection | - Main Office | | | [Reclast] | | + + + + | 2021-02-27 00:00 | 100 ML zoledronic acid | OR [facility] | | | 0.05 MG/ML Injection | Pc - Main Office | | | [Reclast] | | + + + + | 2021-03-26 00:00 | 100 ML zoledronic acid | OR [facility] | | | 0.05 MG/ML Injection | - Main Office | | | [Reclast] | | + + + + | 2021-02-26 00:00 | [id number] 200 ACTUAT | [facility] | | | albuterol 0.09 MG/ACTUAT | - Main Office | | | Metered Dose Inhaler | | | | [ProAir] | | + + + + | 2021-02-27 00:00 | [id number] 200 ACTUAT | [facility] | | | albuterol 0.09 MG/ACTUAT | - Main Office | | | Metered Dose Inhaler | | | | [ProAir] | | + + + + | 2021-03-26 00:00 | [id number] 200 ACTUAT | [facility] | | | albuterol 0.09 MG/ACTUAT | - Main Office | | | Metered Dose Inhaler | | | | [ProAir] | | + + + + | 2021-08-18 00:00 | cyclobenzaprine | [facility] | | | hydrochloride 5 mg oral | [place] | | | tablet | | + + + + | 2021-08-18 00:00 | cyclobenzaprine | [facility] | | | hydrochloride 5 mg oral | [facility] [place] | | | tablet | | + + + + | 2021-09-29 00:00 | cyclobenzaprine | [facility] | | | hydrochloride 5 mg oral | [place] | | | tablet | | + + + + | 2021-12-02 00:00 | cyclobenzaprine | [facility] | | | hydrochloride 5 mg oral | [place] | | | tablet | | + + + + | 2021-12-02 00:00 | cyclobenzaprine | [facility] | | | hydrochloride 5 mg oral | [place] | | | tablet | | + + + + | 2021-02-26 00:00 | trazodone hydrochloride 50 | OR [facility] | | | MG Oral Tablet | - Main Office | + + + + | 2021-02-27 00:00 | trazodone hydrochloride 50 | OR [facility] | | | MG Oral Tablet | - Main Office | + + + + | 2021-03-26 00:00 | trazodone hydrochloride 50 | OR [facility] | | | MG Oral Tablet | Pc - Main Office | + + + + | 2021-05-05 00:00 | trazodone hydrochloride 50 | [facility] | | | mg oral tablet | Ill[facility] | + + + + | 2021-05-05 00:00 | trazodone hydrochloride 50 | [facility] | | | mg oral tablet | [place] | + + + + | 2021-05-05 00:00 | trazodone hydrochloride 50 | [facility] | | | mg oral tablet | [place] | + + + + | 2021-05-05 00:00 | trazodone hydrochloride 50 | [facility] | | | mg oral tablet | [facility] [place] | + + + + | 2021-02-26 00:00 | buspirone hydrochloride | OR - [facility] | | | 7.5 MG Oral Tablet | - Main Office | + + + + | 2021-02-27 00:00 | buspirone hydrochloride | [facility] | | | 7.5 MG Oral Tablet | - Main Office | + + + + | 2021-03-26 00:00 | buspirone hydrochloride | [facility] | | | 7.5 MG Oral Tablet | - Main Office | + + + + | 2020-08-06 00:00 | buspirone hydrochloride | [facility] | | | 7.5 mg oral tablet | [facility] | + + + + | 2020-08-06 00:00 | buspirone hydrochloride | [facility] | | | 7.5 mg oral tablet | [place] | + + + + | 2020-08-06 00:00 | buspirone hydrochloride | [facility] | | | 7.5 mg oral tablet | [place] | + + + + | 2020-08-06 00:00 | buspirone hydrochloride | [facility] | | | 7.5 mg oral tablet | [facility] [place] | + + + + | 2021-10-20 00:00 | polyethylene glycol 3350 | [facility] | | | 17 gm powder for oral | [place] | | | solution | | + + + + | 2021-10-20 00:00 | polyethylene glycol 3350 | [facility] | | | 17 gm powder for oral | [place] | | | solution | | + + + + | 2021-02-26 00:00 | polyethylene glycol 3350 | OR [facility] | | | [address]40 MG Powder for Oral | [facility] Main Office | | | Solution | | + + + + | 2021-02-27 00:00 | polyethylene glycol 3350 | [facility] | | | 98152 MG Powder for Oral | - Main Office | | | Solution | | + + + + | 2021-03-26 00:00 | polyethylene glycol 3350 | [facility] | | | 10182 MG Powder for Oral | - Main Office | | | Solution | | + + + + | 2021-10-27 00:00 | morphine sulfate 15 mg | [facility] | | | extended release oral | [place] | | | tablet | | + + + + | 2021-11-17 00:00 | morphine sulfate 15 mg | [facility] | | | extended release oral | [place] | | | tablet | | + + + + | 2021-02-26 00:00 | levothyroxine sodium 0.1 | [facility] | | | MG Oral Tablet | Pc - Main Office | + + + + | 2021-02-27 00:00 | levothyroxine sodium 0.1 | [facility] | | | MG Oral Tablet | - Main Office | + + + + | 2021-03-26 00:00 | levothyroxine sodium 0.1 | [facility] | | | MG Oral Tablet | Pc - Main Office | + + + + | 2020-06-20 00:00 | levothyroxine sodium 100 | [facility] | | | mcg oral tablet | [place] | + + + + | 2021-09-08 00:00 | levothyroxine sodium 0.075 | [facility] | | | mg oral tablet [synthroid] | Illness Management | | | | | + + + + | 2021-09-08 00:00 | levothyroxine sodium 0.075 | [facility] | | | mg oral tablet [synthroid] | [place] | | | | | + + + + | 2021-10-20 00:00 | levothyroxine sodium 0.05 | [facility] | | | mg oral tablet | [place] | + + + + | 2021-09-08 00:00 | levothyroxine sodium 0.075 | [facility] | | | mg oral tablet | Illness Management | + + + + | 2021-09-08 00:00 | levothyroxine sodium 0.075 | [facility] | | | mg oral tablet | [place] | + + + + | 2021-10-20 00:00 | synthroid 50 mcg oral | [facility] | | | tablet | [place] | + + + + | 2020-06-20 00:00 | levothyroxine sodium 88 | [facility] | | | mcg oral tablet | [place] | + + + + | 2021-10-21 00:00 | levothyroxine sodium 88 | [facility] | | | mcg oral tablet | [place] | + + + + | 2021-12-22 00:00 | levothyroxine sodium 0.025 | [facility] | | | mg oral capsule | [place] | + + + + | 2021-12-22 00:00 | levothyroxine sodium 0.025 | [facility] | | | mg oral capsule | [place] | + + + + | 2022-01-12 00:00 | levothyroxine sodium 0.025 | [facility] | | | mg oral capsule | [place] | + + + + | 2021-12-22 00:00 | tirosint 25 mcg oral | [facility] | | | capsule | [place] | + + + + | 2021-12-22 00:00 | tirosint 25 mcg oral | [facility] | | | capsule | [place] | + + + + | 2022-01-12 00:00 | tirosint 25 mcg oral | [facility] | | | capsule | [place] | + + + + | 2021-10-20 00:00 | cindy sodium 50 mg / | [facility] | | | sennosides, mcc 8.6 mg oral | [place] | | | tablet | | + + + + | 2021-10-20 00:00 | cindy sodium 50 mg / | [facility] | | | sennosides, mcc 8.6 mg oral | [place] | | | tablet | | + + + + Problems + + + + | date | description | facility | + + + + | (no date) | 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, left bronchus | [place] | | | or lung | | + + + + | (no date) | 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, left bronchus | [place] | | | or lung | | + + + + | (no date) | Malignant neoplasm of | [facility] - | | | unspecified part of | [place] | | | unspecified bronchus or | | | | lung | | + + + + | (no date) | Malignant neoplasm of | [facility] - | | | unspecified part of | [place] | | | unspecified bronchus or | | | | lung | | + + + + | (no date) | 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 - | | | pulmonary disease with | [facility] | | | (acute) exacerbation | | + + + + | (no date) | Hemorrhage of anus and | [facility] - | | | rectum | [place] | + + + + | (no date) | Cardiac murmur, | [facility] - | | | unspecified | [place] | + + + + | (no date) | Cough | [facility] - | | | | [place] | + + + + | (no date) | Abnormal findings on | [facility] - | | | diagnostic imaging of other | [place] | | | specified body structures | | + + + + | (no date) | Abnormal findings on | [facility] - | | | diagnostic imaging of other | [place] | | | specified body structures | | + + + + | (no date) | Encounter for screening | [facility] - | | | for malignant neoplasm of | [facility] | | | colon | | + + + + | (no date) | Encounter for palliative | [facility] - | | | care | [place] | + + + + | 2012-09-11 00:00 | cafl - chronic airflow | [facility] | | | limitation | Illness Management | + + + + | 2012-09-11 00:00 | cafl - chronic airflow | [facility] | | | limitation | [place] | + + + + | 2012-09-11 00:00 | cafl - chronic airflow | [facility] | | | limitation | [place] | + + + + | 2012-09-11 00:00 | cafl - chronic airflow | [facility] | | | limitation | [facility] [place] | + + + + | 2012-09-11 00:00 | 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) | Illness Management | + + + + | 2012-09-11 00:00 | cobalamin deficiency | [facility]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) | [place] | + + + + | 2012-09-11 00:00 | cobalamin deficiency | [facility]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) | [place] | + + + + | 2012-09-11 00:00 | cobalamin deficiency | [facility]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) | [facility] [place] | + + + + | 2012-09-11 00:00 | sleeplessness | [facility] | | | | Ill[facility] | + + + + | 2012-09-11 00:00 | sleeplessness | [facility] | | | | [place] | + + + + | 2012-09-11 00:00 | sleeplessness | [facility] | | | | [place] | + + + + | 2012-09-11 00:00 | sleeplessness | [facility] | | | | [facility] [place] | + + + + | 2012-09-11 00:00 | fibromyalgia (disorder) | [facility] | | | | Ill[facility] | + + + + | 2012-09-11 00:00 | fibromyalgia (disorder) | [facility] | | | | [place] | + + + + | 2012-09-11 00:00 | fibromyalgia (disorder) | [facility] | | | | [place] | + + + + | 2012-09-11 00:00 | fibromyalgia (disorder) | [facility] | | | | [facility] [place] | + + + + | 2012-09-11 00:00 | depressive disorder | [facility]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) | Ill[facility] | + + + + | 2012-09-11 00:00 | depressive disorder | [facility]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) | [place] | + + + + | 2012-09-11 00:00 | depressive disorder | [facility]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) | [place] | + + + + | 2012-09-11 00:00 | depressive disorder | [facility]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) | [facility] [place] | + + + + | 2012-09-11 00:00 | arthritis (disorder) | [facility] | | | | Illness [facility] | + + + + | 2012-09-11 00:00 | arthritis (disorder) | [facility] | | | | [place] | + + + + | 2012-09-11 00:00 | arthritis (disorder) | [facility] | | | | [place] | + + + + | 2012-09-11 00:00 | arthritis (disorder) | [facility] | | | | [facility] [place] | + + + + | 2012-09-11 00:00 | hypertensive disorder, | [facility] | | | systemic arterial | Illness Management | + + + + | 2012-09-11 00:00 | hypertensive disorder, | [facility] | | | systemic arterial | [place] | + + + + | 2012-09-11 00:00 | hypertensive disorder, | [facility] | | | systemic arterial | [place] | + + + + | 2012-09-11 00:00 | hypertensive disorder, | [facility] | | | systemic arterial | [facility] [place] | + + + + | 2012-09-11 00:00 | hypothyroidism (disorder) | [facility] | | | | Illness [facility] | + + + + | 2012-09-11 00:00 | hypothyroidism (disorder) | [facility] | | | | [place] | + + + + | 2012-09-11 00:00 | hypothyroidism (disorder) | [facility] | | | | [place] | + + + + | 2012-09-11 00:00 | hypothyroidism (disorder) | [facility] | | | | [facility] [place] | + + + + | 2012-09-11 00:00 | anxiousness | [facility] | | | | Ill[facility] | + + + + | 2012-09-11 00:00 | anxiousness | [facility] | | | | [place] | + + + + | 2012-09-11 00:00 | anxiousness | [facility] | | | | [place] | + + + + | 2012-09-11 00:00 | anxiousness | [facility] | | | | [facility] [place] | + + + + | 2012-09-11 00:00 | hld - hyperlipidemia | [facility] | | | | Ill[facility] | + + + + | 2012-09-11 00:00 | hld - hyperlipidemia | [facility] | | | | [place] | + + + + | 2012-09-11 00:00 | hld - hyperlipidemia | [facility] | | | | [place] | + + + + | 2012-09-11 00:00 | hld - hyperlipidemia | [facility] | | | | [facility] [place] | + + + + | 2012-09-11 00:00 | chronic pain (finding) | [facility] | | | | Illness [facility] | + + + + | 2012-09-11 00:00 | chronic pain (finding) | [facility] | | | | [place] | + + + + | 2012-09-11 00:00 | chronic pain (finding) | [facility] | | | | [place] | + + + + | 2012-09-11 00:00 | chronic pain (finding) | [facility] | | | | [facility] [place] | + + + + | 2012-09-11 00:00 | fitting | [facility] | | | | Illness Management | + + + + | 2012-09-11 00:00 | fitting | [facility] | | | | [place] | + + + + | 2012-09-11 00:00 | fitting | [facility] | | | | [place] | + + + + | 2012-09-11 00:00 | fitting | [facility] | | | | [facility] [place] | + + + + | 2012-09-11 00:00 | Hypothyroidism | [facility] | | | | Illness [facility] | + + + + | 2012-09-11 00:00 | Hypothyroidism | [facility] | | | | [place] | + + + + | 2012-09-11 00:00 | Hypothyroidism | [facility] | | | | [place] | + + + + | 2012-09-11 00:00 | Hypothyroidism | [facility] | | | | [facility] [place] | + + + + | 2012-09-11 00:00 | Vitamin B12 deficiency | [facility] | | | | Illness [facility] | + + + + | 2012-09-11 00:00 | Vitamin B12 deficiency | [facility] | | | | [place] | + + + + | 2012-09-11 00:00 | Vitamin B12 deficiency | [facility] | | | | [place] | + + + + | 2012-09-11 00:00 | Vitamin B12 deficiency | [facility] | | | | [facility] [place] | + + + + | 2012-09-11 00:00 | Hyperlipidemia | [facility] | | | | Illness [facility] | + + + + | 2012-09-11 00:00 | Hyperlipidemia | [facility] | | | | [place] | + + + + | 2012-09-11 00:00 | Hyperlipidemia | [facility] | | | | [place] | + + + + | 2012-09-11 00:00 | Hyperlipidemia | [facility] | | | | [facility] [place] | + + + + | 2012-09-11 00:00 | Depression | [facility] | | | | Illness Management | + + + + | 2012-09-11 00:00 | Depression | [facility] | | | | [place] | + + + + | 2012-09-11 00:00 | Depression | [facility] | | | | [place] | + + + + | 2012-09-11 00:00 | Depression | [facility] | | | | [facility] [place] | + + + + | 2012-09-11 00:00 | Anxiety | [facility] | | | | Illness Management | + + + + | 2012-09-11 00:00 | Anxiety | [facility] | | | | [place] | + + + + | 2012-09-11 00:00 | Anxiety | [facility] | | | | [place] | + + + + | 2012-09-11 00:00 | Anxiety | [facility] | | | | [facility] [place] | + + + + | 2012-09-11 00:00 | Insomnia | [facility] | | | | Illness [facility] | + + + + | 2012-09-11 00:00 | Insomnia | [facility] | | | | [place] | + + + + | 2012-09-11 00:00 | Insomnia | [facility] | | | | [place] | + + + + | 2012-09-11 00:00 | Insomnia | [facility] | | | | [facility] [place] | + + + + | 2012-09-11 00:00 | Chronic pain | [facility] | | | | Illness Management | + + + + | 2012-09-11 00:00 | Chronic pain | [facility] | | | | [place] | + + + + | 2012-09-11 00:00 | Chronic pain | [facility] | | | | [place] | + + + + | 2012-09-11 00:00 | Chronic pain | [facility] | | | | [facility] [place] | + + + + | 2012-09-11 00:00 | Hypertension | [facility] | | | | Illness [facility] | + + + + | 2012-09-11 00:00 | Hypertension | [facility] | | | | [place] | + + + + | 2012-09-11 00:00 | Hypertension | [facility] | | | | [place] | + + + + | 2012-09-11 00:00 | Hypertension | [facility] | | | | [facility] [place] | + + + + | 2012-09-11 00:00 | Chronic obstructive | [facility] | | | pulmonary disease | Illness Management | + + + + | 2012-09-11 00:00 | Chronic obstructive | [facility] | | | pulmonary disease | [place] | + + + + | 2012-09-11 00:00 | Chronic obstructive | [facility] | | | pulmonary disease | [place] | + + + + | 2012-09-11 00:00 | Chronic obstructive | [facility] | | | pulmonary disease | [facility] [place] | + + + + | 2012-09-11 00:00 | Arthritis | [facility] | | | | Illness [facility] | + + + + | 2012-09-11 00:00 | Arthritis | [facility] | | | | [place] | + + + + | 2012-09-11 00:00 | Arthritis | [facility] | | | | [place] | + + + + | 2012-09-11 00:00 | Arthritis | [facility] | | | | [facility] [place] | + + + + | 2012-09-11 00:00 | Fibromyalgia | [facility] | | | | Illness Management | + + + + | 2012-09-11 00:00 | Fibromyalgia | [facility] | | | | [place] | + + + + | 2012-09-11 00:00 | Fibromyalgia | [facility] | | | | [place] | + + + + | 2012-09-11 00:00 | Fibromyalgia | [facility] | | | | [facility] [place] | + + + + | 2012-09-11 00:00 | Seizure | [facility] | | | | Illness Management | + + + + | 2012-09-11 00:00 | Seizure | [facility] | | | | [place] | + + + + | 2012-09-11 00:00 | Seizure | [facility] | | | | [place] | + + + + | 2012-09-11 00:00 | Seizure | [facility] | | | | [facility] [place] | + + + + | 2015-06-27 00:00 | bleeding per rectum | [facility] | | | | [place] | + + + + | 2015-06-27 00:00 | diastolic dysfunction | [facility] | | | (finding) | Illness Management | + + + + | 2015-06-27 00:00 | diastolic dysfunction | [facility] | | | (finding) | [place] | + + + + | 2015-06-27 00:00 | diastolic dysfunction | [facility] | | | (finding) | [place] | + + + + | 2015-06-27 00:00 | diastolic dysfunction | [facility] | | | (finding) | [facility] [place] | + + + + | 2015-06-27 00:00 | atherosclerosis of | [facility] | | | coronary artery | Illness Management | + + + + | 2015-06-27 00:00 | atherosclerosis of | [facility] | | | coronary artery | [place] | + + + + | 2015-06-27 00:00 | atherosclerosis of | [facility] | | | coronary artery | [place] | + + + + | 2015-06-27 00:00 | atherosclerosis of | [facility] | | | coronary artery | [facility] [place] | + + + + | 2015-06-27 00:00 | regurgitation of left | [facility] | | | atrioventricular valve | Illness Management | + + + + | 2015-06-27 00:00 | regurgitation of left | [facility] | | | atrioventricular valve | [place] | + + + + | 2015-06-27 00:00 | regurgitation of left | [facility] | | | atrioventricular valve | [place] | + + + + | 2015-06-27 00:00 | regurgitation of left | [facility] | | | atrioventricular valve | [facility] [place] | + + + + | 2015-06-27 00:00 | ar - aortic regurgitation | [facility] | | | | Illness Management | + + + + | 2015-06-27 00:00 | ar - aortic regurgitation | [facility] | | | | [place] | + + + + | 2015-06-27 00:00 | ar - aortic regurgitation | [facility] | | | | [place] | + + + + | 2015-06-27 00:00 | ar - aortic regurgitation | [facility] | | | | [facility] [place] | + + + + | 2015-06-27 00:00 | ic - intermittent | [facility] | | | claudication | [place] | + + + + | 2015-06-27 00:00 | Coronary atherosclerosis | [facility] | | | | Illness [facility] | + + + + | 2015-06-27 00:00 | Coronary atherosclerosis | [facility] | | | | [place] | + + + + | 2015-06-27 00:00 | Coronary atherosclerosis | [facility] | | | | [place] | + + + + | 2015-06-27 00:00 | Coronary atherosclerosis | [facility] | | | | [facility] [place] | + + + + | 2015-06-27 00:00 | Mitral valve insufficiency | [facility] | | | | Illness [facility] | + + + + | 2015-06-27 00:00 | Mitral valve insufficiency | [facility] | | | | [place] | + + + + | 2015-06-27 00:00 | Mitral valve insufficiency | [facility] | | | | [place] | + + + + | 2015-06-27 00:00 | Mitral valve insufficiency | [facility] | | | | [facility] [place] | + + + + | 2015-06-27 00:00 | Aortic valve insufficiency | [facility] | | | | Illness [facility] | + + + + | 2015-06-27 00:00 | Aortic valve insufficiency | [facility] | | | | [place] | + + + + | 2015-06-27 00:00 | Aortic valve insufficiency | [facility] | | | | [place] | + + + + | 2015-06-27 00:00 | Aortic valve insufficiency | [facility] | | | | [facility] [place] | + + + + | 2015-06-27 00:00 | Diastolic dysfunction | [facility] | | | | Illness [facility] | + + + + | 2015-06-27 00:00 | Diastolic dysfunction | [facility] | | | | [place] | + + + + | 2015-06-27 00:00 | Diastolic dysfunction | [facility] | | | | [place] | + + + + | 2015-06-27 00:00 | Diastolic dysfunction | [facility] | | | | [facility] [place] | + + + + | 2015-06-27 00:00 | Claudication | [facility] | | | | [place] | + + + + | 2015-06-27 00:00 | Blood per rectum | [facility] | | | | [place] | + + + + | 2015-06-27 00:00 | Rectal hemorrhage | [facility] | | | | [place] | + + + + | 2015-12-25 00:00 | Chronic obstructive lung | OR - [facility] | | | disease | Pc - Main Office | + + + + | 2015-12-25 00:00 | Insomnia | OR - [facility] | | | | Pc - Main Office | + + + + | 2015-12-25 00:00 | Fibromyalgia | [facility] - [facility] | | | | Pc - Main Office | + + + + | 2015-12-25 00:00 | Lumbar spondylosis | [facility] - [facility] | | | | Pc - Main Office | + + + + | 2015-12-25 00:00 | lumbar spondylosis | [facility]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) | Illness Management | + + + + | 2015-12-25 00:00 | lumbar spondylosis | [facility]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) | [place] | + + + + | 2015-12-25 00:00 | lumbar spondylosis | [facility]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) | [place] | + + + + | 2015-12-25 00:00 | lumbar spondylosis | [facility]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) | [facility] [place] | + + + + | 2015-12-25 00:00 | Depressive disorder | [facility] - [facility] | | | | Pc - Main Office | + + + + | 2015-12-25 00:00 | Hypertensive disorder | [facility] - [facility] | | | | Pc - Main Office | + + + + | 2015-12-25 00:00 | Hypothyroidism | OR - [facility] | | | | Pc - Main Office | + + + + | 2015-12-25 00:00 | Coronary arteriosclerosis | OR - [facility] | | | | Pc - Main Office | + + + + | 2015-12-25 00:00 | Hyperlipidemia | [facility] - [facility] | | | | Pc - Main Office | + + + + | 2015-12-25 00:00 | Epilepsy | OR - [facility] | | | | Pc - Main Office | + + + + | 2015-12-25 00:00 | ep - epilepsy | [facility] | | | | Ill[facility] | + + + + | 2015-12-25 00:00 | ep - epilepsy | [facility] | | | | [place] | + + + + | 2015-12-25 00:00 | ep - epilepsy | [facility] | | | | [place] | + + + + | 2015-12-25 00:00 | ep - epilepsy | [facility] | | | | [facility] [place] | + + + + | 2015-12-25 00:00 | Epilepsy | [facility] | | | | Illness [facility] | + + + + | 2015-12-25 00:00 | Epilepsy | [facility] | | | | [place] | + + + + | 2015-12-25 00:00 | Epilepsy | [facility] | | | | [place] | + + + + | 2015-12-25 00:00 | Epilepsy | [facility] | | | | [facility] [place] | + + + + | 2015-12-25 00:00 | Lumbar spondylosis | [facility] | | | | Ill[facility] | + + + + | 2015-12-25 00:00 | Lumbar spondylosis | [facility] | | | | [place] | + + + + | 2015-12-25 00:00 | Lumbar spondylosis | [facility] | | | | [place] | + + + + | 2015-12-25 00:00 | Lumbar spondylosis | [facility] | | | | [facility] [place] | + + + + | 2017-09-19 00:00 | Tobacco dependence, | [facility] - [facility] | | | continuous | Pc - Main Office | + + + + | 2018-06-11 00:00 | obstruction of esophagus | [facility]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) | Illness [facility] | + + + + | 2018-06-11 00:00 | obstruction of esophagus | [facility]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) | [place] | + + + + | 2018-06-11 00:00 | obstruction of esophagus | [facility]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) | [place] | + + + + | 2018-06-11 00:00 | obstruction of esophagus | [facility]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) | [facility] [place] | + + + + | 2018-06-11 00:00 | fb esophagus | [facility] | | | | Illness [facility] | + + + + | 2018-06-11 00:00 | fb esophagus | [facility] | | | | [place] | + + + + | 2018-06-11 00:00 | fb esophagus | [facility] | | | | [place] | + + + + | 2018-06-11 00:00 | fb esophagus | [facility] | | | | [facility] [place] | + + + + | 2018-06-11 00:00 | Obstruction of esophagus | [facility] | | | due to food impaction | Illness Management | + + + + | 2018-06-11 00:00 | Obstruction of esophagus | [facility] | | | due to food impaction | [place] | + + + + | 2018-06-11 00:00 | Obstruction of esophagus | [facility] | | | due to food impaction | [place] | + + + + | 2018-06-11 00:00 | Obstruction of esophagus | [facility] | | | due to food impaction | [facility] [place] | + + + + | 2018-06-11 00:00 | Foreign body in esophagus | [facility] | | | | [facility] | + + + + | 2018-06-11 00:00 | Foreign body in esophagus | [facility] | | | | [place] | + + + + | 2018-06-11 00:00 | Foreign body in esophagus | [facility] | | | | [place] | + + + + | 2018-06-11 00:00 | Foreign body in esophagus | [facility] | | | | [facility] [place] | + + + + | 2018-06-12 00:00 | malignant neoplasm of | [facility] | | | upper lobe of left lung | Illness Management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) | | + + + + | 2018-06-12 00:00 | malignant neoplasm of | [facility] | | | upper lobe of left lung | [place]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) | | + + + + | 2018-06-12 00:00 | malignant neoplasm of | [facility] | | | upper lobe of left lung | [place]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) | | + + + + | 2018-06-12 00:00 | malignant neoplasm of | [facility] | | | upper lobe of left lung | [facility] [place]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) | | + + + + | 2018-06-12 00:00 | Malignant neoplasm of | [facility] | | | upper lobe of left lung | Illness Management | + + + + | 2018-06-12 00:00 | Malignant neoplasm of | [facility] | | | upper lobe of left lung | [place] | + + + + | 2018-06-12 00:00 | Malignant neoplasm of | [facility] | | | upper lobe of left lung | [place] | + + + + | 2018-06-12 00:00 | Malignant neoplasm of | [facility] | | | upper lobe of left lung | [facility] [place] | + + + + | 2018-06-22 00:00 | tobacco user (finding) | [facility] | | | | [facility] | + + + + | 2018-06-22 00:00 | tobacco user (finding) | [facility] | | | | [place] | + + + + | 2018-06-22 00:00 | tobacco user (finding) | [facility] | | | | [place] | + + + + | 2018-06-22 00:00 | tobacco user (finding) | [facility] | | | | [facility] [place] | + + + + | 2018-06-22 00:00 | Tobacco abuse | [facility] | | | | [facility] | + + + + | 2018-06-22 00:00 | Tobacco abuse | [facility] | | | | [place] | + + + + | 2018-06-22 00:00 | Tobacco abuse | [facility] | | | | [place] | + + + + | 2018-06-22 00:00 | Tobacco abuse | [facility] | | | | [facility] [place] | + + + + | 2018-10-15 00:00 | osteoporosis (disorder) | [facility] | | | | Illness Management | + + + + | 2018-10-15 00:00 | osteoporosis (disorder) | [facility] | | | | [place] | + + + + | 2018-10-15 00:00 | osteoporosis (disorder) | [facility] | | | | [place] | + + + + | 2018-10-15 00:00 | osteoporosis (disorder) | [facility] | | | | [facility] [place] | + + + + | 2018-10-15 00:00 | Osteoporosis | [facility] | | | | Illness Management | + + + + | 2018-10-15 00:00 | Osteoporosis | [facility] | | | | [place] | + + + + | 2018-10-15 00:00 | Osteoporosis | [facility] | | | | [place] | + + + + | 2018-10-15 00:00 | Osteoporosis | [facility] | | | | [facility] [place] | + + + + | 2018-10-16 00:00 | Osteoporosis | OR - [facility] | | | | Pc - Main Office | + + + + | 2019-03-06 11:28:22 | Malignant neoplasm of | [facility] - | | | upper lobe, left bronchus | [place] | | | or lung | | + + + + | 2019-04-14 16:46:41 | Altered Mental Status | [facility] - | | | | [place] | + + + + | 2019-04-14 16:46:41 | Intestinal infectious | [facility] - | | | diseases ([id number]) | [place] | + + + + | 2019-04-14 16:46:41 | Elevated white blood cell | [facility] - | | | count, unspecified | [place] | + + + + | 2019-04-14 16:46:41 | Volume depletion, | [facility] - | | | unspecified | [place] | + + + + | 2019-04-14 16:46:41 | Other stimulant abuse, | [facility] - | | | uncomplicated | [place] | + + + + | 2019-04-14 16:46:41 | Acute kidney failure, | [facility] - | | | unspecified | [place] | + + + + | 2019-04-14 16:46:41 | Diarrhea, unspecified | [facility] - | | | | [place] | + + + + | 2019-04-14 16:46:41 | Transient alteration of | [facility] - | | | awareness | [place] | + + + + | 2019-05-01 16:53:50 | Chronic obstructive | [facility] - | | | pulmonary disease with | [place] | | | (acute) exacerbation | | + + + + | 2019-07-08 00:00 | frederic - generalized anxiety | [facility] | | | disorder | Illness Management | + + + + | 2019-07-08 00:00 | frederic - generalized anxiety | [facility] | | | disorder | [place] | + + + + | 2019-07-08 00:00 | frederic - generalized anxiety | [facility] | | | disorder | [place] | + + + + | 2019-07-08 00:00 | frederic - generalized anxiety | [facility] | | | disorder | [facility] [place] | + + + + | 2019-07-08 00:00 | Generalized anxiety | [facility] | | | disorder | Illness Management | + + + + | 2019-07-08 00:00 | Generalized anxiety | [facility] | | | disorder | [place] | + + + + | 2019-07-08 00:00 | Generalized anxiety | [facility] | | | disorder | [place] | + + + + | 2019-07-08 00:00 | Generalized anxiety | [facility] | | | disorder | [facility] [place] | + + + + | 2019-07-09 00:00 | Generalized anxiety | OR - [facility] | | | disorder | - Main Office | + + + + | 2019-07-13 10:33:51 | Hemorrhage of anus and | [facility] - | | | rectum | [place] | + + + + 2019-07-13 10:33:51 | Encounter for screening | [facility] - | | | for malignant neoplasm of | [place] | | | colon | | + + + + | 2019-07-17 00:00 | polyp of colon (disorder) | [facility] | | | | Illness Management | + + + + | 2019-07-17 00:00 | polyp of colon (disorder) | [facility] | | | | [place] | + + + + | 2019-07-17 00:00 | polyp of colon (disorder) | [facility] | | | | [place] | + + + + | 2019-07-17 00:00 | polyp of colon (disorder) | [facility] | | | | [facility] [place] | + + + + | 2019-07-17 00:00 | Colon polyps | [facility] | | | | Illness Management | + + + + | 2019-07-17 00:00 | Colon polyps | [facility] | | | | [place] | + + + + | 2019-07-17 00:00 | Colon polyps | [facility] | | | | [place] | + + + + 2019-07-17 00:00 | Colon polyps | [facility] | | | | [facility] [place] | + + + + 2019-07-17 07:35 | Hemorrhage of anus and | [facility] - | | | rectum | [place] | + + + + | 2019-07-17 07:35 | Encounter for screening | [facility] - | | | for malignant neoplasm of | [place] | | | colon | | + + + + | 2019-09-05 15:13:17 | Malignant neoplasm of | [facility] - | | | upper lobe, left bronchus | [place] | | | or lung | | + + + + | 2019-12-23 00:00 | pvd - peripheral vascular | [facility] | | | disease | Illness Management | + + + + | 2019-12-23 00:00 | pvd - peripheral vascular | [facility] | | | disease | [place] | + + + + | 2019-12-23 00:00 | pvd - peripheral vascular | [facility] | | | disease | [place] | + + + + | 2019-12-23 00:00 | pvd - peripheral vascular | [facility] | | | disease | [facility] [place] | + + + + | 2019-12-23 00:00 | Peripheral vascular | [facility] | | | disease | Illness Management | + + + + | 2019-12-23 00:00 | Peripheral vascular | [facility] | | | disease | [place] | + + + + | 2019-12-23 00:00 | Peripheral vascular | [facility] | | | disease | [place] | + + + + | 2019-12-23 00:00 | Peripheral vascular | [facility] | | | disease | [facility] [place] | + + + + | 2019-12-24 00:00 | Peripheral vascular | OR - [facility] | | | disease | Pc - Main Office | + + + + | 2019-12-24 00:00 | Atherosclerosis of aorta | OR - [facility] | | | | Pc - Main Office | + + + + | 2019-12-31 10:45:11 | Chronic obstructive | [facility] - | | | pulmonary disease with | [place] | | | (acute) exacerbation | | + + + + | 2019-12-31 10:45:11 | Cough | [facility] - | | | | [place] | + + + + | 2020-03-24 11:30:49 | Malignant neoplasm of | [facility] - | | | upper lobe, left bronchus | [place] | | | or lung | | + + + + | 2020-05-19 00:00 | 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 (disorder) | Illness Management | + + + + | 2020-05-19 00:00 | squamous cell carcinoma of | [facility]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 (disorder) | [place] | + + + + | 2020-05-19 00:00 | squamous cell carcinoma of | [facility]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 (disorder) | [place] | + + + + | 2020-05-19 00:00 | squamous cell carcinoma of | [facility]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 (disorder) | [facility] [place] | + + + + | 2020-05-19 00:00 | Squamous cell carcinoma of | [facility]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 | Illness Management | + + + + | 2020-05-19 00:00 | Squamous cell carcinoma of | [facility]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 | [place] | + + + + | 2020-05-19 00:00 | Squamous cell carcinoma of | [facility]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 | [place] | + + + + | 2020-05-19 00:00 | Squamous cell carcinoma of | [facility]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 | [facility] [place] | + + + + | 2020-05-20 00:00 | Squamous cell carcinoma of | [facility]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 | Pc - Main Office | + + + + | 2020-07-08 00:00 | Follow-up | [facility] - | | | | [place] | + + + + | 2020-07-08 12:59:44 | Follow-up | [facility] - | | | | [place] | + + + + | 2020-07-08 12:59:44 | Malignant neoplasm of | [facility] - | | | upper lobe, left bronchus | [place] | | | or lung | | + + + + | 2020-07-14 08:33:05 | Malignant neoplasm of | [facility] - | | | upper lobe, left bronchus | [place] | | | or lung | | + + + + | 2020-07-19 20:43 | Food in esophagus causing | [facility] | | | other injury, initial | [facility] | | | encounter | | + + + + | 2020-07-23 10:20:27 | Malignant neoplasm of | [facility] - | | | upper lobe, left bronchus | [place] | | | or lung | | + + + + | 2020-07-23 10:20:27 | Nicotine dependence, | [facility] - | | | unspecified, uncomplicated | [place] | + + + + | 2020-07-23 10:20:27 | Tobacco use | [facility] - | | | | [place] | + + + + | 2020-07-24 09:53:20 | Dysphagia, unspecified | [facility] - | | | | [place] | + + + + | 2020-07-25 00:00 | compulsive tobacco user | [facility] | | | syndrome | Illness Management | + + + + | 2020-07-25 00:00 | compulsive tobacco user | [facility] | | | syndrome | [place] | + + + + | 2020-07-25 00:00 | compulsive tobacco user | [facility] | | | syndrome | [place] | + + + + | 2020-07-25 00:00 | compulsive tobacco user | [facility] | | | syndrome | [facility] [place] | + + + + | 2020-07-25 00:00 | Tobacco dependence | [facility] | | | | Illness Management | + + + + | 2020-07-25 00:00 | Tobacco dependence | [facility] | | | | [place] | + + + + | 2020-07-25 00:00 | Tobacco dependence | [facility] | | | | [place] | + + + + | 2020-07-25 00:00 | Tobacco dependence | [facility] | | | | [facility] [place] | + + + + | 2020-07-28 09:18:01 | Malignant neoplasm of | [facility] - | | | upper lobe, left bronchus | [place] | | | or lung | | + + + + | 2020-08-11 10:48:39 | Malignant neoplasm of | [facility] - | | | upper lobe, left bronchus | [place] | | | or lung | | + + + + | 2020-08-15 13:12:55 | Malignant neoplasm of | [facility] - | | | upper lobe, left bronchus | [place] | | | or lung | | + + + + | 2020-08-18 00:00 | ca - lung cancer | [facility] | | | | Illness Management | + + + + | 2020-08-18 00:00 | ca - lung cancer | [facility] | | | | [place] | + + + + | 2020-08-18 00:00 | ca - lung cancer | [facility] | | | | [place] | + + + + | 2020-08-18 00:00 | ca - lung cancer | [facility] | | | | [facility] [place] | + + + + | 2020-08-18 00:00 | Lung cancer | [facility] | | | | Illness Management | + + + + | 2020-08-18 00:00 | Lung cancer | [facility] | | | | [place] | + + + + | 2020-08-18 00:00 | Lung cancer | [facility] | | | | [place] | + + + + | 2020-08-18 00:00 | Lung cancer | [facility] | | | | [facility] [place] | + + + + | 2020-08-18 05:50 | Malignant neoplasm of | [facility] - | | | upper lobe, left bronchus | [place] | | | or lung | | + + + + | 2020-08-18 05:50 | Malignant neoplasm of | [facility] - | | | unspecified part of left | [place] | | | bronchus or lung | | + + + + | 2020-08-18 05:50 | Deficiency of other | [facility] - | | | specified B group vitamins | [place] | + + + + | 2020-08-18 05:50 | Nicotine dependence, | [facility] - | | | unspecified, uncomplicated | [place] | + + + + | 2020-08-18 05:50 | Anxiety disorder, | [facility] - | | | unspecified | [place] | + + + + | 2020-08-18 05:50 | Other ill-defined heart | [facility] - | | | diseases | [place] | + + + + | 2020-08-18 05:50 | Peripheral vascular | [facility] - | | | disease, unspecified | [place] | + + + + | 2020-08-18 05:50 | Panlobular emphysema | [facility] - | | | | [place] | + + + + | 2020-08-18 05:50 | Esophageal obstruction | [facility] - | | | | [place] | + + + + | 2020-08-18 05:50 | Hemorrhage of anus and | [facility] - | | | rectum | [place] | + + + + | 2020-08-18 05:50 | Unspecified | [facility] - | | | osteoarthritis, unspecified | [place] | | | site | | + + + + | 2020-08-18 05:50 | 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, lumbar | | | | region | | + + + + | 2020-08-18 05:50 | Fibromyalgia | [facility] - | | | | [place] | + + + + | 2020-08-18 05:50 | Unspecified convulsions | [facility] - | | | | [place] | + + + + | 2020-08-18 05:50 | Food in esophagus causing | [facility] - | | | other injury, initial | [place] | | | encounter | | + + + + | 2020-08-18 05:50 | Tobacco use | [facility] - | | | | [place] | + + + + | 2020-09-09 15:55:59 | Malignant neoplasm of | [facility] - | | | unspecified part of left | [place] | | | bronchus or lung | | + + + + | 2020-09-10 09:44:54 | Malignant neoplasm of | [facility] - | | | unspecified part of left | [place] | | | bronchus or lung | | + + + + | 2020-09-23 12:08:23 | Malignant neoplasm of | [facility] - | | | upper lobe, left bronchus | [place] | | | or lung | | + + + + | 2020-09-23 16:37:09 | Malignant neoplasm of | [facility] - | | | upper lobe, left bronchus | [place] | | | or lung | | + + + + | 2020-11-12 09:45:07 | Malignant neoplasm of | [facility] - | | | upper lobe, left bronchus | [place] | | | or lung | | + + + + | 2020-11-12 09:45:07 | Tobacco use | [facility] - | | | | [place] | + + + + | 2020-12-04 00:00 | disease caused by 2018 | [facility] | | | novel coronavirus | Illness Management | + + + + | 2020-12-04 00:00 | disease caused by 2019 | [facility] | | | novel coronavirus | [place] | + + + + | 2020-12-04 00:00 | disease caused by 2019 | [facility] | | | novel coronavirus | [place] | + + + + | 2020-12-04 00:00 | disease caused by 2018 | [facility] | | | novel coronavirus | [facility] [place] | + + + + | 2020-12-04 00:00 | COVID | [facility] | | | | Illness Management | + + + + | 2020-12-04 00:00 | COVID | [facility] | | | | [place] | + + + + | 2020-12-04 00:00 | COVID | [facility] | | | | [place] | + + + + | 2020-12-04 00:00 | COVID | [facility] | | | | [facility] [place] | + + + + | 2020-12-05 13:15:37 | COVID-19 | [facility] - | | | | [place] | + + + + | 2021-03-23 12:56:50 | Cardiac murmur, | [facility] - | | | unspecified | [place] | + + + + | 2021-04-10 16:16:47 | Esophageal obstruction | [facility] | | | | Care | + + + + | 2021-04-10 16:16:52 | Esophageal obstruction | [facility] | | | | Care | + + + + | 2021-05-20 10:15:56 | Malignant neoplasm of | [facility] - | | | upper lobe, left bronchus | [place] | | | or lung | | + + + + | 2021-06-10 12:31:08 | Malignant neoplasm of | [facility] - | | | upper lobe, left bronchus | [place] | | | or lung | | + + + + | 2021-06-12 08:05:51 | Malignant neoplasm of | [facility] - | | | upper lobe, left bronchus | [place] | | | or lung | | + + + + | 2021-06-12 08:05:51 | Malignant neoplasm of | [facility] - | | | unspecified part of | [place] | | | unspecified bronchus or | | | | lung | | + + + + | 2021-06-12 08:05:51 | Malignant neoplasm of | [facility] - | | | unspecified part of left | [place] | | | bronchus or lung | | + + + + | 2021-06-24 11:35:48 | Malignant neoplasm of | [facility] - | | | upper lobe, left bronchus | [place] | | | or lung | | + + + + | 2021-06-28 16:21 | Black or Bloody Stool | [facility] - | | | | [place] | + + + + | 2021-06-28 16:21 | Gastrointestinal | [facility] - | | | hemorrhage, unspecified | [place] | + + + + | 2021-06-28 16:21 | Other specified abnormal | [facility] - | | | findings of blood chemistry | [place] | | | | | + + + + | 2021-07-01 10:48:39 | Malignant neoplasm of | [facility] - | | | upper lobe, left bronchus | [place] | | | or lung | | + + + + | 2021-07-07 10:43:42 | Malignant neoplasm of | [facility] - | | | upper lobe, left bronchus | [place] | | | or lung | | + + + + | 2021-07-08 10:30:17 | Colonoscopy | [facility] - | | | | [place] | + + + + | 2021-07-08 10:30:17 | Hemorrhage of anus and | [facility] - | | | rectum | [place] | + + + + | 2021-07-14 15:05:05 | Follow-up | [facility] - | | | | [place] | + + + + | 2021-07-14 15:05:05 | Malignant neoplasm of | [facility] - | | | upper lobe, left bronchus | [place] | | | or lung | | + + + + | 2021-07-14 15:05:05 | Malignant neoplasm of | [facility] - | | | unspecified part of left | [place] | | | bronchus or lung | | + + + + | 2021-07-15 08:03:32 | Malignant neoplasm of | [facility] - | | | upper lobe, left bronchus | [place] | | | or lung | | + + + + | 2021-07-15 08:43:09 | Malignant neoplasm of | [facility] - | | | upper lobe, left bronchus | [place] | | | or lung | | + + + + | 2021-07-15 08:43:09 | Chronic obstructive | [facility] - | | | pulmonary disease, | [place] | | | unspecified | | + + + + | 2021-07-21 00:00 | radiology result abnormal | [facility] | | | (finding) | Illness Management | + + + + | 2021-07-21 00:00 | radiology result abnormal | [facility] | | | (finding) | [place] | + + + + | 2021-07-21 00:00 | radiology result abnormal | [facility] | | | (finding) | [place] | + + + + | 2021-07-21 00:00 | radiology result abnormal | [facility] | | | (finding) | [facility] [place] | + + + + | 2021-07-21 00:00 | Abnormal findings on | [facility] | | | diagnostic imaging of other | Illness Management | | | specified body structures | | + + + + | 2021-07-21 00:00 | Abnormal findings on | [facility] | | | diagnostic imaging of other | [place] | | | specified body structures | | + + + + | 2021-07-21 00:00 | Abnormal findings on | [facility] | | | diagnostic imaging of other | [place] | | | specified body structures | | + + + + | 2021-07-21 00:00 | Abnormal findings on | [facility] | | | diagnostic imaging of other | [facility] [place] | | | specified body structures | | + + + + | 2021-07-27 15:15:31 | Malignant neoplasm of | [facility] - | | | unspecified part of | [place] | | | unspecified bronchus or | | | | lung | | + + + + | 2021-07-27 15:15:31 | Abnormal findings on | [facility] - | | | diagnostic imaging of other | [place] | | | specified body structures | | + + + + | 2021-07-27 15:56:26 | Malignant neoplasm of | [facility] - | | | unspecified part of | [place] | | | unspecified bronchus or | | | | lung | | + + + + | 2021-07-27 15:56:26 | Abnormal findings on | [facility] - | | | diagnostic imaging of other | [place] | | | specified body structures | | + + + + | 2021-07-28 07:43:55 | Malignant neoplasm of | [facility] - | | | upper lobe, left bronchus | [place] | | | or lung | | + + + + | 2021-07-28 07:43:55 | Malignant neoplasm of | [facility] - | | | unspecified part of | [place] | | | unspecified bronchus or | | | | lung | | + + + + | 2021-07-28 07:43:55 | Abnormal findings on | [facility] - | | | diagnostic imaging of other | [place] | | | specified body structures | | + + + + | 2021-07-28 08:38:08 | Malignant neoplasm of | [facility] - | | | unspecified part of | [place] | | | unspecified bronchus or | | | | lung | | + + + + | 2021-07-28 08:38:08 | Abnormal findings on | [facility] - | | | diagnostic imaging of other | [place] | | | specified body structures | | + + + + | 2021-08-05 00:00 | neutropenic fever | [facility] | | | | Illness Management | + + + + | 2021-08-05 00:00 | neutropenic fever | [facility] | | | | [place] | + + + + | 2021-08-05 00:00 | neutropenic fever | [facility] | | | | [place] | + + + + | 2021-08-05 00:00 | neutropenic fever | [facility] | | | | [facility] [place] | + + + + | 2021-08-05 00:00 | Neutropenic fever | [facility] | | | | Illness [facility] | + + + + | 2021-08-05 00:00 | Neutropenic fever | [facility] | | | | [place] | + + + + | 2021-08-05 00:00 | Neutropenic fever | [facility] | | | | [place] | + + + + | 2021-08-05 00:00 | Neutropenic fever | [facility] | | | | [facility] [place] | + + + + | 2021-08-05 15:51 | Vomiting | [facility] - | | | | [place] | + + + + | 2021-08-05 16:30 | Vomiting | [facility] - | | | | [place] | + + + + | 2021-08-05 16:30 | Imaging @ [facility] | [facility] - | | | System @ Computerized | [place] | | | Tomography (CT Scan) @ | | | | Cerebral Ventricle(s) | | + + + + | 2021-08-05 16:30 | Imaging @ [facility] | [facility] - | | | System @ Computerized | [place] | | | Tomography (CT Scan) @ | | | | Sella Turcica/Pituitary | | | | Gland | | + + + + | 2021-08-05 16:30 | Neutropenia, unspecified | [facility] - | | | | [place] | + + + + | 2021-08-05 16:30 | 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) | [place] | + + + + | 2021-08-05 16:30 | Acute kidney failure, | [facility] - | | | unspecified | [place] | + + + + | 2021-08-05 16:30 | Nausea with vomiting, | [facility] - | | | unspecified | [place] | + + + + | 2021-08-05 16:30 | Fever presenting with | [facility] - | | | conditions classified | [place] | | | elsewhere | | + + + + | 2021-08-18 07:50:49 | Imaging @ [facility] | [facility] - | | | System @ Computerized | [place] | | | Tomography (CT Scan) @ | | | | Cerebral Ventricle(s) | | + + + + | 2021-08-18 07:50:49 | Malignant neoplasm of | [facility] - | | | unspecified part of | [place] | | | unspecified bronchus or | | | | lung | | + + + + | 2021-08-18 07:50:49 | Abnormal findings on | [facility] - | | | diagnostic imaging of other | [place] | | | specified body structures | | + + + + | 2021-08-18 08:36:45 | Malignant neoplasm of | [facility] - | | | unspecified part of | [place] | | | unspecified bronchus or | | | | lung | | + + + + | 2021-08-18 08:36:45 | Abnormal findings on | [facility] - | | | diagnostic imaging of other | [place] | | | specified body structures | | + + + + | 2021-09-04 10:46:25 | Consult | [facility] - | | | | [place] | + + + + | 2021-09-04 10:46:25 | Centrilobular emphysema | [facility] - | | | | [place] | + + + + | 2021-09-08 07:48:16 | Malignant neoplasm of | [facility] - | | | upper lobe, left bronchus | [place] | | | or lung | | + + + + | 2021-09-08 07:48:16 | Malignant neoplasm of | [facility] - | | | unspecified part of | [place] | | | unspecified bronchus or | | | | lung | | + + + + | 2021-09-08 07:48:16 | Abnormal findings on | [facility] - | | | diagnostic imaging of other | [place] | | | specified body structures | | + + + + | 2021-09-08 08:49:05 | Malignant neoplasm of | [facility] - | | | unspecified part of | [place] | | | unspecified bronchus or | | | | lung | | + + + + | 2021-09-08 08:49:05 | Abnormal findings on | [facility] - | | | diagnostic imaging of other | [place] | | | specified body structures | | + + + + | 2021-09-29 08:06:19 | Malignant neoplasm of | [facility] - | | | upper lobe, left bronchus | [place] | | | or lung | | + + + + | 2021-09-29 08:07:04 | 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, left bronchus | [place] | | | or lung | | + + + + | 2021-09-29 08:07:04 | Malignant neoplasm of | [facility] [facility] - | | | unspecified part of | [place] | | | unspecified bronchus or | | | | lung | | + + + + | 2021-09-29 08:07:04 | Chronic obstructive | [facility] - | | | pulmonary disease, | [place] | | | unspecified | | + + + + | 2021-09-29 08:07:04 | Abnormal findings on | [facility] - | | | diagnostic imaging of other | [place] | | | specified body structures | | + + + + | 2021-09-29 09:09:08 | Malignant neoplasm of | [facility] - | | | unspecified part of | [place] | | | unspecified bronchus or | | | | lung | | + + + + | 2021-09-29 09:09:08 | Abnormal findings on | [facility] - | | | diagnostic imaging of other | [place] | | | specified body structures | | + + + + | 2021-10-20 08:46:57 | Malignant neoplasm of | [facility] - | | | upper lobe, left bronchus | [place] | | | or lung | | + + + + | 2021-10-20 08:46:57 | Encounter for palliative | [facility] - | | | care | [place] | + + + + | 2021-10-20 10:40:29 | Malignant neoplasm of | [facility] - | | | unspecified part of | [place] | | | unspecified bronchus or | | | | lung | | + + + + | 2021-10-20 10:40:29 | Abnormal findings on | [facility] - | | | diagnostic imaging of other | [place] | | | specified body structures | | + + + + | 2021-10-20 12:05:45 | Malignant neoplasm of | [facility] - | | | unspecified part of | [place] | | | unspecified bronchus or | | | | lung | | + + + + | 2021-10-20 12:05:45 | Abnormal findings on | [facility] - | | | diagnostic imaging of other | [place] | | | specified body structures | | + + + + | 2021-10-27 08:48:50 | 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, left bronchus | [place] | | | or lung | | + + + + | 2021-10-27 08:48:50 | Encounter for palliative | [facility] - | | | care | [place] | + + + + | 2021-10-27 13:32:51 | Malignant neoplasm of | [facility] - | | | unspecified part of | [place] | | | unspecified bronchus or | | | | lung | | + + + + | 2021-10-27 13:32:51 | Abnormal findings on | [facility] - | | | diagnostic imaging of other | [place] | | | specified body structures | | + + + + | 2021-10-27 14:40:02 | Malignant neoplasm of | [facility] - | | | unspecified part of | [place] | | | unspecified bronchus or | | | | lung | | + + + + | 2021-10-27 14:40:02 | Abnormal findings on | [facility] - | | | diagnostic imaging of other | [place] | | | specified body structures | | + + + + | 2021-11-17 00:00 | under care of palliative | [facility] | | | care physician (finding) | [place] | + + + + | 2021-11-17 00:00 | under care of palliative | [facility] | | | care physician (finding) | [place] | + + + + | 2021-11-17 00:00 | Palliative care by | [facility] | | | specialist | [place] | + + + + | 2021-11-17 00:00 | Palliative care by | [facility] | | | specialist | [place] | + + + + | 2021-11-17 08:53:12 | Malignant neoplasm of | [facility] - | | | upper lobe, left bronchus | [place] | | | or lung | | + + + + | 2021-11-17 08:53:12 | Generalized anxiety | [facility] - | | | disorder | [place] | + + + + | 2021-11-17 08:53:12 | Encounter for palliative | [facility] - | | | care | [place] | + + + + | 2021-11-17 12:52:52 | Follow-up | [facility] - | | | | [place] | + + + + | 2021-11-17 12:52:52 | Infusion/injection | [facility] - | | | | [place] | + + + + | 2021-11-17 12:52:52 | Malignant neoplasm of | [facility] - | | | unspecified part of | [place] | | | unspecified bronchus or | | | | lung | | + + + + | 2021-11-17 12:52:52 | Abnormal findings on | [facility] - | | | diagnostic imaging of other | [place] | | | specified body structures | | + + + + | 2021-11-17 14:07:36 | Malignant neoplasm of | [facility] - | | | unspecified part of | [place] | | | unspecified bronchus or | | | | lung | | + + + + | 2021-11-17 14:07:36 | Abnormal findings on | [facility] - | | | diagnostic imaging of other | [place] | | | specified body structures | | + + + + | 2021-11-23 00:00 | dysphagia (disorder) | [facility] | | | | [place] | + + + + | 2021-11-23 00:00 | dysphagia (disorder) | [facility] | | | | [place] | + + + + | 2021-11-23 00:00 | Other dysphagia | [facility] | | | | [place] | + + + + | 2021-11-23 00:00 | Other dysphagia | [facility] | | | | [place] | + + + + | 2021-11-23 13:24:44 | New Patient Consult | [facility] - | | | | [place] | + + + + | 2021-11-23 13:24:44 | Other dysphagia | [facility] - | | | | [place] | + + + + | 2021-12-08 13:53:13 | Malignant neoplasm of | [facility] - | | | unspecified part of | [place] | | | unspecified bronchus or | | | | lung | | + + + + | 2021-12-08 13:53:13 | Pneumonia, unspecified | [facility] - | | | organism | [place] | + + + + | 2021-12-08 13:53:13 | Abnormal findings on | [facility] - | | | diagnostic imaging of other | [place] | | | specified body structures | | + + + + | 2021-12-22 00:00 | diarrhea caused by drug | [facility] | | | | [place] | + + + + | 2021-12-22 00:00 | diarrhea caused by drug | [facility] | | | | [place] | + + + + | 2021-12-22 00:00 | Drug-induced diarrhea | [facility] | | | | [place] | + + + + | 2021-12-22 00:00 | Drug-induced diarrhea | [facility] | | | | [place] | + + + + | 2021-12-22 08:52:16 | Malignant neoplasm of | [facility] - | | | upper lobe, left bronchus | [place] | | | or lung | | + + + + | 2021-12-22 08:52:16 | 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) | [place] | + + + + | 2021-12-22 08:52:16 | Encounter for palliative | [facility] - | | | care | [place] | + + + + | 2021-12-22 13:20:25 | Malignant neoplasm of | [facility] - | | | unspecified part of | [place] | | | unspecified bronchus or | | | | lung | | + + + + | 2021-12-22 13:20:25 | Pneumonia, unspecified | [facility] - | | | organism | [place] | + + + + | 2021-12-22 13:20:25 | Toxic gastroenteritis and | [facility] - | | | colitis | [place] | + + + + | 2021-12-22 14:37:20 | Toxic gastroenteritis and | [facility] - | | | colitis | [place] | + + + + | 2021-12-24 15:13:14 | Malignant neoplasm of | [facility] - | | | unspecified part of | [place] | | | unspecified bronchus or | | | | lung | | + + + + | 2021-12-24 15:13:14 | Toxic gastroenteritis and | [facility] - | | | colitis | [place] | + + + + | 2021-12-29 13:35:35 | 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, left bronchus | [place] | | | or lung | | + + + + | 2021-12-29 13:35:35 | Malignant neoplasm of | [facility] - | | | unspecified part of | [place] | | | unspecified bronchus or | | | | lung | | + + + + | 2021-12-29 13:35:35 | Abnormal findings on | [facility] - | | | diagnostic imaging of other | [place] | | | specified body structures | | + + + + | 2022-01-05 07:48:34 | Malignant neoplasm of | [facility] - | | | unspecified part of | [place] | | | unspecified bronchus or | | | | lung | | + + + + | 2022-01-06 08:34:53 | Malignant neoplasm of | [facility] - | | | upper lobe, left bronchus | [place] | | | or lung | | + + + + | 2022-01-06 08:34:53 | Generalized anxiety | [facility] - | | | disorder | [place] | + + + + | 2022-01-06 08:34:53 | 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) | [place] | + + + + | 2022-01-06 08:34:53 | Encounter for palliative | [facility] - | | | care | [place] | + + + + | 2022-01-11 13:59:14 | Malignant neoplasm of | [facility] - | | | unspecified part of | [place] | | | unspecified bronchus or | | | | lung | | + + + + | 2022-01-19 09:03:30 | Malignant neoplasm of | [facility] - | | | upper lobe, left bronchus | [place] | | | or lung | | + + + + | 2022-01-19 09:03:30 | Generalized anxiety | [facility] - | | | disorder | [place] | + + + + | 2022-01-19 09:03:30 | 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) | [place] | + + + + | 2022-01-19 09:03:30 | Encounter for palliative | [facility] - | | | care | [place] | + + + + | 2022-01-19 13:25:57 | Malignant neoplasm of | [facility] - | | | lower lobe, unspecified | [place] | | | bronchus or lung | | + + + + | 2022-01-19 13:25:57 | Malignant neoplasm of | [facility] - | | | unspecified part of | [place] | | | unspecified bronchus or | | | | lung | | + + + + | 2022-01-19 13:25:57 | Abnormal findings on | [facility] - | | | diagnostic imaging of other | [place] | | | specified body structures | | + + + + | 2022-01-19 14:53:13 | Malignant neoplasm of | [facility] - | | | unspecified part of | [place] | | | unspecified bronchus or | | | | lung | | + + + + | 2022-01-19 14:53:13 | Abnormal findings on | [facility] - | | | diagnostic imaging of other | [place] | | | specified body structures | | + + + + | 2022-03-22 12:01 | MALIGNANT NEOPLASM OF UNSP | [facility] | | | PART OF UNSP BRONCHUS OR | | | | LUNG | | + + + + | 2022-03-22 12:01 | NEOPLASM RELATED PAIN | [facility] | | | (ACUTE) (CHRONIC) | | + + + + | 2022-04-15 19:17 | ACUTE KIDNEY FAILURE, | [facility] | | | UNSPECIFIED | | + + + + | 2022-04-19 09:30 | MALIGNANT NEOPLASM OF UNSP | [facility] | | | PART OF LEFT BRONCHUS O | | + + + + | 2022-04-19 09:30 | ENCOUNTER FOR | [facility] | | | ANTINEOPLASTIC CHEMOTHERAPY | | | | | | + + + + | 2022-05-10 10:05 | MALIGNANT NEOPLASM OF UNSP | [facility] | | | PART OF UNSP BRONCHUS O | | + + + + | 2022-05-10 10:05 | ENCOUNTER FOR | [facility] | | | ANTINEOPLASTIC CHEMOTHERAPY | | | | | | + + + + | 2022-05-12 11:00 | MALIGNANT NEOPLASM OF UNSP | [facility] | | | PART OF UNSP | | + + + + | 2022-05-31 10:26 | MALIGNANT NEOPLASM OF UNSP | [facility] | | | PART OF UNSP BRONCHUS OR | | | | LUNG | | + + + + | 2022-05-31 10:26 | MALIGNANT NEOPLASM OF UNSP | [facility] | | | PART OF LEFT BRONCHUS O | | + + + + | 2022-05-31 10:26 | 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 | | + + + + | 2022-05-31 10:26 | NEOPLASM RELATED PAIN | [facility] | | | (ACUTE) (CHRONIC) | | + + + + | 2022-05-31 10:26 | HYPERTENSIVE HEART DISEASE | [facility] | | | WITH HEART FAILURE | | + + + + | 2022-05-31 10:26 | HEART FAILURE, UNSPECIFIED | [facility] | | | | | + + + + | 2022-05-31 10:26 | CHRONIC OBSTRUCTIVE | [facility] | | | PULMONARY DISEASE, | | | | UNSPECIFIED | | + + + + | 2022-05-31 10:26 | ACUTE KIDNEY FAILURE, | [facility] | | | UNSPECIFIED | | + + + + | 2022-05-31 10:26 | ALLERGY STATUS TO | [facility] | | | PENICILLIN | | + + + + | 2022-06-21 10:15 | MALIGNANT NEOPLASM OF UNSP | [facility] | | | PART OF UNSP BRONCHUS OR | | | | LUNG | | + + + + | 2022-06-21 10:15 | MALIGNANT NEOPLASM OF UNSP | [facility] | | | PART OF LEFT BRONCHUS O | | + + + + | 2022-06-21 10:15 | ENCOUNTER FOR | [facility] | | | ANTINEOPLASTIC CHEMOTHERAPY | | | | | | + + + + | 2022-07-12 10:15 | MALIGNANT NEOPLASM OF UNSP | [facility] | | | PART OF UNSP BRONCHUS OR | | | | LUNG | | + + + + | 2022-07-12 10:15 | MALIGNANT NEOPLASM OF UNSP | [facility] | | | PART OF LEFT BRONCHUS O | | + + + + | 2022-07-12 10:15 | ENCOUNTER FOR | [facility] | | | ANTINEOPLASTIC CHEMOTHERAPY | | | | | | + + + + | 2022-08-02 10:02 | MALIGNANT NEOPLASM OF UNSP | [facility] | | | PART OF UNSP BRONCHUS O | | + + + + | 2022-08-02 10:02 | ENCOUNTER FOR | [facility] | | | ANTINEOPLASTIC CHEMOTHERAPY | | | | | | + + + + | 2022-08-13 14:58 | MALIGNANT NEOPLASM OF UNSP | [facility] | | | PART OF UNSP BRONCHUS OR | | | | LUNG | | + + + + | 2022-08-13 14:58 | MALIGNANT NEOPLASM OF UNSP | [facility] | | | PART OF UNSP | | + + + + | 2022-08-13 14:58 | 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 | | + + + + | 2022-08-13 14:58 | DISORDER OF BRAIN, | [facility] | | | UNSPECIFIED | | + + + + | 2022-08-13 15:00 | MALIGNANT NEOPLASM OF UNSP | [facility] | | | PART OF UNSP | | + + + + | 2022-08-20 13:49 | 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 | | + + + + | 2022-08-20 13:49 | MALIGNANT (PRIMARY) | [facility] | | | NEOPLASM, UNSPECIFIED | | + + + + | 2022-08-20 13:49 | ENCOUNTER FOR | [facility] | | | ANTINEOPLASTIC RADIATION | | | | THERAPY | | + + + + | 2022-08-20 14:00 | 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 | | + + + + | 2022-09-06 18:57 | MALIGNANT NEOPLASM OF UNSP | [facility] | | | PART OF UNSP BRONCHUS O | | + + + + | 2022-09-06 18:57 | 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 | | + + + + | 2022-09-06 18:57 | NAUSEA | [facility] | + + + + | 2022-09-06 18:57 | WEAKNESS | [facility] | + + + + | 2022-09-06 18:57 | ALLERGY STATUS TO | [facility] | | | PENICILLIN | | + + + + | 2022-10-01 00:00 | Malignant neoplasm of lung | [facility] | | | | | + + + + | 2022-10-01 00:00 | Malnutrition | [facility] | + + + + | 2022-10-01 00:00 | Urinary tract infection | [facility] | + + + + | 2022-10-01 12:15 | MALIGNANT NEOPLASM OF UNSP | [facility] | | | PART OF UNSP BRONCHUS O | | + + + + | 2022-10-01 12:15 | 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 | | + + + + | 2022-10-01 12:15 | Unspecified | [facility] | | | protein-calorie | | | | malnutrition | | + + + + | 2022-10-01 12:15 | URINARY TRACT INFECTION, | [facility] | | | SITE NOT SPECIFIED | | + + + + | 2022-10-01 12:15 | DIARRHEA, UNSPECIFIED | [facility] | + + + + | 2022-10-01 12:15 | BODY MASS INDEX (BMI) 19.9 | [facility] | | | OR LESS, ADULT | | + + + + | 2022-10-01 12:15 | ALLERGY STATUS TO | [facility] | | | PENICILLIN | | + + + + Procedures + + + + | date | description | facility | + + + + | 2020-08-18 00:00 | BRONCH EBUS MALLIKA 02/22 | OR - [facility] | | | NODE | Pc - Main Office | + + + + | 2021-02-26 00:00 | TOTAL HYSTERECTOMY | OR - [facility] | | | | Pc - Main Office | + + + + | 2021-02-27 00:00 | TOTAL HYSTERECTOMY | OR - [facility] | | | | Pc - Main Office | + + + + | 2021-03-26 00:00 | TOTAL HYSTERECTOMY | OR - [facility] | | | | Pc - Main Office | + + + + | 2021-09-08 00:00 | HC COMPREHENSIVE METABOLIC | [facility] | | | PANEL | [place] | + + + + | 2021-10-27 00:00 | HC COMPREHENSIVE METABOLIC | [facility] | | | PANEL | [place] | + + + + | 2021-09-08 00:00 | HC T4 FREE (THYROXINE | [facility] | | | FREE) | [place] | + + + + | 2021-09-08 00:00 | HC TSH | [facility] | | | | [place] | + + + + | 2021-09-08 00:00 | HC T3 FREE | [facility] | | | | [place] | + + + + | 2021-09-08 00:00 | HC CBC W AUTO DIFFERENTIAL | [facility] | | | | [place] | + + + + | 2021-10-27 00:00 | HC CBC W AUTO DIFFERENTIAL | [facility] | | | | [place] | + + + + Results/Labs +--------+--------+ +---------+--------+---------+ | test | date | facility | value | unit | notes | +--------+--------+ +---------+--------+---------+ + + | Result panel 1 | + + + + + + + + + | Specimen | (no date) | [facility] | (missing) | (missing) | (missing) | | collection | | Cancer | | | | | (procedure) | | [facility] [place] | | | | + + + + + + + + + | Result panel 2 | + + + + + + + + + | | (no date) | [facility] | (missing) | (missing) | (missing) | | (unavailable | | Cancer | | | | | ) | | [facility] [place] | | | | + + + + + + + + + | Result panel 3 | + + + + + + + + + | Specimen | (no date) | [facility] | (missing) | (missing) | (missing) | | collection | | Cancer | | | | | (procedure) | | [place] | | | | + + + + + + + + + | Result panel 4 | + + + + + + + + + | | (no date) | [facility] | (missing) | (missing) | (missing) | | (unavailable | | Cancer | | | | | ) | | [place] | | | | + + + + + + + + + | Result panel 5 | + + + + + + + + + | Specimen | (no date) | [facility] | (missing) | (missing) | (missing) | | collection | | Cancer | | | | | (procedure) | | [place] | | | | + + + + + + + + + | Result panel 6 | + + + + + + + + + | | (no date) | [facility] | (missing) | (missing) | (missing) | | (unavailable | | Cancer | | | | | ) | | [place] | | | | + + + + + + + + + | Result panel 7 | + + + + + + + + + | Specimen | (no date) | [facility] | (missing) | (missing) | (missing) | | collection | | Cancer | | | | | (procedure) | | [place] | | | | + + + + + + + + + | Result panel 8 | + + + + + + + + + | | (no date) | [facility] | (missing) | (missing) | (missing) | | (unavailable | | Cancer | | | | | ) | | [place] | | | | + + + + + + + + + | Result panel 9 | + + + + + + + + + | Specimen | (no date) | [facility] | (missing) | (missing) | (missing) | | collection | | Cancer | | | | | (procedure) | | [place] | | | | + + + + + + + + + | Result panel 10 | + + + + + + + + + | | (no date) | [facility] | (missing) | (missing) | (missing) | | (unavailable | | Cancer | | | | | ) | | [place] | | | | + + + + + + + + + | Result panel 11 | + + + + + + + + + | Specimen | (no date) | [facility] | (missing) | (missing) | (missing) | | collection | | Cancer | | | | | (procedure) | | [place] | | | | + + + + + + + + + | Result panel 12 | + + + + + + + + + | | (no date) | [facility] | (missing) | (missing) | (missing) | | (unavailable | | Cancer | | | | | ) | | [place] | | | | + + + + + + + + + | Result panel 13 | + + + + + + + + + | Specimen | (no date) | [facility] | (missing) | (missing) | (missing) | | collection | | Cancer | | | | | (procedure) | | [place] | | | | + + + + + + + + + | Result panel 14 | + + + + + + + + + | | (no date) | [facility] | (missing) | (missing) | (missing) | | (unavailable | | Cancer | | | | | ) | | [place] | | | | + + + + + + + + + | Result panel 15 | + + + + + + + + + | Specimen | (no date) | [facility] | (missing) | (missing) | (missing) | | collection | | Cancer | | | | | (procedure) | | [place] | | | | + + + + + + + + + | Result panel 16 | + + + + + + + + + | | (no date) | [facility] | (missing) | (missing) | (missing) | | (unavailable | | Cancer | | | | | ) | | [place] | | | | + + + + + + + + + | Result panel 17 | + + + + + + + + + | Specimen | (no date) | [facility] | (missing) | (missing) | (missing) | | collection | | Cancer | | | | | (procedure) | | [place] | | | | + + + + + + + + + | Result panel 18 | + + + + + + + + + | | (no date) | [facility] | (missing) | (missing) | (missing) | | (unavailable | | Cancer | | | | | ) | | [place] | | | | + + + + + + + + + | Result panel 19 | + + + + + + + + + | Specimen | (no date) | [facility] | (missing) | (missing) | (missing) | | collection | | Cancer | | | | | (procedure) | | [place] | | | | + + + + + + + + + | Result panel 20 | + + + + + + + + + | | (no date) | [facility] | (missing) | (missing) | (missing) | | (unavailable | | Cancer | | | | | ) | | [place] | | | | + + + + + + + + + | Result panel 21 | + + + + + + + + + | Specimen | (no date) | [facility] | (missing) | (missing) | (missing) | | collection | | Cancer | | | | | (procedure) | | [place] | | | | + + + + + + + + + | Result panel 22 | + + + + + + + + + | | (no date) | [facility] | (missing) | (missing) | (missing) | | (unavailable | | Cancer | | | | | ) | | [place] | | | | + + + + + + + + + | Result panel 23 | + + + + + + + + + | Specimen | (no date) | [facility] | (missing) | (missing) | (missing) | | collection | | Cancer | | | | | (procedure) | | [place] | | | | + + + + + + + + + | Result panel 24 | + + + + + + + + + | | (no date) | [facility] | (missing) | (missing) | (missing) | | (unavailable | | Cancer | | | | | ) | | [facility] [place] | | | | + + + + + + + + + | Result panel 25 | + + + + + + + + + | Specimen | (no date) | [facility] | (missing) | (missing) | (missing) | | collection | | Cancer | | | | | (procedure) | | [facility] [place] | | | | + + + + + + + + + | Result panel 26 | + + + + + + + + + | | (no date) | [facility] | (missing) | (missing) | (missing) | | (unavailable | | Cancer | | | | | ) | | [facility] [place] | | | | + + + + + + + + + | Result panel 27 | + + + + + + + + + | Specimen | (no date) | [facility] | (missing) | (missing) | (missing) | | collection | | Cancer | | | | | (procedure) | | [facility] [place] | | | | + + + + + + + + + | Result panel 28 | + + + + + + + + + | | (no date) | [facility] | (missing) | (missing) | (missing) | | (unavailable | | Cancer | | | | | ) | | [place] | | | | + + + + + + + + + | Result panel 29 | + + + + + + + + + | | 2019-02-26 | [facility] | (missing) | (missing) | (missing) | | (unavailable | 15:08:43 | Health | | | | | ) | | System - | | | | | | | [place] | | | | + + + + + + + | | 2019-02-26 | [facility] | 1. Compared | (missing) | (missing) | | (unavailable | 15:08:43 | Health | to 11/14/2018 | | | | ) | | System - | there is | | | | | | [place] | unchanged | | | | | | | rounded | | | | | | | atelectasis | | | | | | | and pleural | | | | | | | thickening | | | | | | | in the area | | | | | | | of a | | | | | | | previously | | | | | | | treated | | | | | | | pulmonary | | | | | | | malignancy. | | | | | | | There is no | | | | | | | new pleural | | | | | | | or pulmonary | | | | | | | parenchymal | | | | | | | nodularity | | | | | | | to suggest | | | | | | | recurrence. | | | + + + + + + + | | 2019-02-26 | [facility] | 2. Increased | (missing) | (missing) | | (unavailable | 15:08:43 | Health | thickening | | | | ) | | System - | of the | | | | | | [place] | interstitium | | | | | | | in the area | | | | | | | of the | | | | | | | previously | | | | | | | colon | | | | | | | malignancy, | | | | | | | probably | | | | | | | represent | | | | | | | sequelae of | | | | | | | radiation. | | | + + + + + + + | | 2019-02-26 | [facility] | 3. | (missing) | (missing) | | (unavailable | 15:08:43 | Health | Unchanged | | | | ) | | System - | extensive | | | | | | [place] | emphysema. | | | + + + + + + + | | 2019-02-26 | [facility] | AIRWAYS: No | (missing) | (missing) | | (unavailable | 15:08:43 | Health | | | | | ) | | System - | endobronchia | | | | | | [place] | l lesion | | | | | | | evident. | | | + + + + + + + | | 2019-02-26 | [facility] | | (missing) | (missing) | | (unavailable | 15:08:43 | Health | AXILLA/CHEST | | | | ) | | System - | WALL: No | | | | | | [place] | acute | | | | | | | abnormality | | | | | | | in chest | | | | | | | wall soft | | | | | | | tissues. | | | + + + + + + + | | 2019-02-26 | [facility] | BONES: No | (missing) | (missing) | | (unavailable | 15:08:43 | Health | concerning | | | | ) | | System - | lytic or | | | | | | [place] | blastic bony | | | | | | | lesions. | | | + + + + + + + | | 2019-02-26 | [facility] | COMPARISON: | (missing) | (missing) | | (unavailable | 15:08:43 | Health | Multiple | | | | ) | | System - | prior CTs of | | | | | | [place] | the chest, | | | | | | | most | | | | | | | recently | | | | | | | dated | | | | | | | 11/14/2018, | | | | | | | 07/03/2018, | | | | | | | 05/04/2018, | | | | | | | and 10/22/2016 | | | | | | | and PET | | | | | | | scan dated | | | | | | | 04/19/2018 | | | + + + + + + + | | 2019-02-26 | [facility] | Electronical | (missing) | (missing) | | (unavailable | 15:08:43 | Health | ly signed | | | | ) | | System - | by: Parker | | | | | | [place] | MD Anel on | | | | | | | 02/26/2019 | | | | | | | 3:06 PM at | | | | | | | workstation | | | | | | | [id number] | | | + + + + + + + | | 2019-02-26 | [facility] | FINDINGS: | (missing) | (missing) | | (unavailable | 15:08:43 | Health | | | | | ) | | System - | | | | | | | [place] | | | | + + + + + + + | | 2019-02-26 | [facility] | GREAT | (missing) | (missing) | | (unavailable | 15:08:43 | Health | VESSELS: | | | | ) | | System - | Calcified | | | | | | [place] | atherosclero | | | | | | | sis is | | | | | | | present. | | | | | | | Normal | | | | | | | caliber. | | | + + + + + + + | | 2019-02-26 | [facility] | HEART: | (missing) | (missing) | | (unavailable | | Health | Normal in | | | | ) | | System - | size. No | | | | | | [place] | pericardial | | | | | | | effusion. | | | | | | | Severe | | | | | | | coronary | | | | | | | artery | | | | | | | calcificatio | | | | | | | ns are | | | | | | | present. 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 | | | + + + + + + + | | 2019-02-26 | [facility] | LUNGS: | (missing) | (missing) | | (unavailable | 15:08:43 | Health | Pleural | | | | ) | | System - | thickening | | | | | | [place] | and rounded | | | | | | | atelectasis | | | | | | | within the | | | | | | | anterolatera | | | | | | | l aspect of | | | | | | | the left | | | | | | | upper lobe | | | | | | | is not | | | | | | | significantl | | | | | | | y changed | | | | | | | compared to | | | | | | | 11/14/2018 | | | | | | | given | | | | | | | differences | | | | | | | in phase of | | | | | | | respiration. | | | | | | | There is no | | | | | | | new | | | | | | | pulmonary or | | | | | | | pleural | | | | | | | nodularity. | | | | | | | Mild | | | | | | | increased | | | | | | | thickening | | | | | | | of the | | | | | | | interstitium | | | | | | | in the area | | | | | | | of rounded | | | | | | | atelectasis | | | | | | | is | | | | | | | consistent | | | | | | | with | | | | | | | sequelae of | | | | | | | radiation. | | | | | | | No other | | | | | | | suspicious | | | | | | | pulmonary | | | | | | | nodule | | | | | | | evident. | | | | | | | Extensive | | | | | | | emphysema is | | | | | | | again seen. | | | + + + + + + + | | 2019-02-26 | [facility] | | (missing) | (missing) | | (unavailable | 15:08:43 | Health | MEDIASTINUM: | | | | ) | | System - | No mass or | | | | | | [place] | significant | | | | | | | adenopathy. | | | + + + + + + + | | 2019-02-26 | [facility] | Not Vldtd | (missing) | (missing) | | (unavailable | 15:08:43 | Health | | | | | ) | | System - | | | | | | | [place] | | | | + + + + + + + | | 2019-02-26 | [facility] | PLEURA: No | (missing) | (missing) | | (unavailable | 15:08:43 | Health | pleural | | | | ) | | System - | effusion or | | | | | | [place] | pneumothorax | | | | | | | . | | | + + + + + + + | | 2019-02-26 | [facility] | PROCEDURE: | (missing) | (missing) | | (unavailable | 15:08:43 | Health | CT CHEST | | | | ) | | System - | WITHOUT | | | | | | [place] | CONTRAST | | | + + + + + + + | | 2019-02-26 | [facility] | PULMONARY | (missing) | (missing) | | (unavailable | 15:08:43 | Health | ARTERIES: | | | | ) | | System - | Normal | | | | | | [place] | caliber. | | | + + + + + + + | | 2019-02-26 | [facility] | | (missing) | (missing) | | (unavailable | 15:08:43 | Health | Procedure(s) | | | | ) | | System - | : * Surgery | | | | | | [place] | not found * | | | + + + + + + + | | 2019-02-26 | [facility] | | (missing) | Coordinate | | (unavailable | 15:08:43 | Health | Procedure(s) | | with follow | | ) | | System - | : * Surgery | | up | | | | [place] | not found * | | | + + + + + + + | | 2019-02-26 | [facility] | TECHNIQUE: | (missing) | (missing) | | (unavailable | 15:08:43 | Health | Thin section | | | | ) | | System - | images were | | | | | | [place] | obtained | | | | | | | from the | | | | | | | lung apices | | | | | | | through the | | | | | | | adrenal | | | | | | | glands | | | | | | | without | | | | | | | contrast. | | | | | | | Coronal | | | | | | | reformations | | | | | | | were | | | | | | | obtained. | | | | | | | One or more | | | | | | | of the | | | | | | | following | | | | | | | dose | | | | | | | lowering | | | | | | | techniques | | | | | | | was | | | | | | | utilized: | | | | | | | Automated | | | | | | | exposure | | | | | | | control, | | | | | | | adjustment | | | | | | | of the mA | | | | | | | and/or kV | | | | | | | according to | | | | | | | patient | | | | | | | size, or use | | | | | | | of | | | | | | | iterative | | | | | | | reconstructi | | | | | | | on. | | | + + + + + + + | | 2019-02-26 | [facility] | UPPER | (missing) | (missing) | | (unavailable | 15:08:43 | Health | ABDOMEN: | | | | ) | | System - | Scattered | | | | | | [place] | nonobstructi | | | | | | | ng | | | | | | | nephroliths | | | | | | | are again | | | | | | | noted. | | | + + + + + + + + + | Result panel 30 | + + + + + + + + + | ALCOHOL | 2019-04-14 | [facility] | < | g/dl | (missing) | | (G/DL) IN | 17:12:18 | Health | | | | | SER/PLAS | | System - | | | | | | | [place] | | | | + + + + + + + | ALCOHOL | 2019-04-14 | [facility] | < | g/dl | (missing) | | (G/DL) IN | 17:12:18 | Health | | | | | SER/PLAS | | System - | | | | | | | [place] | | | | + + + + + + + | TROPONIN T | 2019-04-14 | [facility] | < | ng/ml | (missing) | | CARDIAC | 17:12:18 | Health | | | | | (NG/ML) IN | | System - | | | | | SER/PLAS | | [place] | | | | + + + + + + + | TROPONIN T | 2019-04-14 | [facility] | < | ng/ml | (missing) | | CARDIAC | 17:12:18 | Health | | | | | (NG/ML) IN | | System - | | | | | SER/PLAS | | [place] | | | | + + + + + + + | NRBC/100 | 2019-04-14 | [facility] | 0.0 | % | (missing) | | WBCS BY | ::18 | Health | | | | | AUTOMATED | | System - | | | | | COUNT | | [place] | | | | + + + + + + + | NRBC/100 | 2019-04-14 | [facility] | 0.0 | % | (missing) | | WBCS BY | :18 | Health | | | | | AUTOMATED | | System - | | | | | COUNT | | [place] | | | | + + + + + + + | | 2019-04-14 | [facility] | 0.0 | k/mcl | (missing) | | NRBC(10*3/UL | ::18 | Health | | | | | ) IN BLOOD | | System - | | | | | BY AUTOMATED | | [place] | | | | | COUNT | | | | | | + + + + + + + | | 2019-04-14 | [facility] | 0.0 | k/mcl | (missing) | | NRBC(10*3/UL | 17:12:18 | Health | | | | | ) IN BLOOD | | System - | | | | | BY AUTOMATED | | [place] | | | | | COUNT | | | | | | + + + + + + + | BASOPHILS | 2019-04-14 | [facility] | 0.1 | k/mcl | (missing) | | (10*3/UL) IN | 17::18 | Health | | | | | BLOOD BY | | System - | | | | | AUTOMATED | | [place] | | | | | COUNT | | | | | | + + + + + + + | EOSINOPHILS | 2019-04-14 | [facility] | 0.1 | k/mcl | (missing) | | (10*3/UL) | 17:12:18 | Health | | | | | IN BLOOD BY | | System - | | | | | AUTOMATED | | [place] | | | | | COUNT | | | | | | + + + + + + + | BASOPHILS | 2019-04-14 | [facility] | 0.1 | k/mcl | (missing) | | (10*3/UL) IN | 17:12:18 | Health | | | | | BLOOD BY | | System - | | | | | AUTOMATED | | [place] | | | | | COUNT | | | | | | + + + + + + + | EOSINOPHILS | 2019-04-14 | [facility] | 0.1 | k/mcl | (missing) | | (10*3/UL) | 17:12:18 | Health | | | | | IN BLOOD BY | | System - | | | | | AUTOMATED | | [place] | | | | | COUNT | | | | | | + + + + + + + | IMMATURE | 2019-04-14 | [facility] | 0.33 | k/mcl | (missing) | | GRANULOCYTE | 17:12:18 | Health | | | | | (ABS) | | System - | | | | | | | [place] | | | | + + + + + + + | IMMATURE | 2019-04-14 | [facility] | 0.33 | k/mcl | (missing) | | GRANULOCYTE | 17:12:18 | Health | | | | | (ABS) | | System - | | | | | | | [place] | | | | + + + + + + + | | 2019-04-14 | [facility] | 0.5 | % | (missing) | | BASOPHILS/10 | 17:12:18 | Health | | | | | 0 LEUKOCYTES | | System - | | | | | IN BLOOD BY | | [place] | | | | | AUTOMATED | | | | | | | COUNT | | | | | | + + + + + + + | | 2019-04-14 | [facility] | 0.5 | % | (missing) | | BASOPHILS/10 | 17:12:18 | Health | | | | | 0 LEUKOCYTES | | System - | | | | | IN BLOOD BY | | [place] | | | | | AUTOMATED | | | | | | | COUNT | | | | | | + + + + + + + | | 2019-04-14 | [facility] | 0.6 | % | (missing) | | EOSINOPHILS/ | 17:12:18 | Health | | | | | 100 | | System - | | | | | LEUKOCYTES | | [place] | | | | | IN BLOOD BY | | | | | | | AUTOMATED | | | | | | | COUNT | | | | | | + + + + + + + | | 2019-04-14 | [facility] | 0.6 | % | (missing) | | EOSINOPHILS/ | 17:12:18 | Health | | | | | 100 | | System - | | | | | LEUKOCYTES | | [place] | | | | | IN BLOOD BY | | | | | | | AUTOMATED | | | | | | | COUNT | | | | | | + + + + + + + | BILIRUBIN | 2019-04-14 | [facility] | 0.6 | mg/dl | (missing) | | TOTAL | 17:12:18 | Health | | | | | (MG/DL) IN | | System - | | | | | SER/PLAS | | [place] | | | | + + + + + + + | BILIRUBIN | 2019-04-14 | [facility] | 0.6 | mg/dl | (missing) | | TOTAL | 17:12:18 | Health | | | | | (MG/DL) IN | | System - | | | | | SER/PLAS | | [place] | | | | + + + + + + + | MONOCYTES | 2019-04-14 | [facility] | 0.7 | k/mcl | (missing) | | (10*3/UL) IN | 17:12:18 | Health | | | | | BLOOD BY | | System - | | | | | AUTOMATED | | [place] | | | | | COUNT | | | | | | + + + + + + + | MONOCYTES | 2019-04-14 | [facility] | 0.7 | k/mcl | (missing) | | (10*3/UL) IN | 17::18 | Health | | | | | BLOOD BY | | System - | | | | | AUTOMATED | | [place] | | | | | COUNT | | | | | | + + + + + + + | HEMOGLOBIN | 2019-04-14 | [facility] | 1 | (missing) | (missing) | | PRESENCE IN | 17:12:18 | Health | | | | | URINE | | System - | | | | | | | [place] | | | | + + + + + + + | HEMOGLOBIN | 2019-04-14 | [facility] | 1 | (missing) | (missing) | | PRESENCE IN | 17:12:18 | Health | | | | | URINE | | System - | | | | | | | [place] | | | | + + + + + + + | RBC (#/HPF) | 2019-04-14 | [facility] | 1 | /hpf | (missing) | | IN URINE | 17::18 | Health | | | | | SEDIMENT | | System - | | | | | | | [place] | | | | + + + + + + + | RBC (#/HPF) | 2019-04-14 | [facility] | 1 | /hpf | (missing) | | IN URINE | 17:12:18 | Health | | | | | SEDIMENT | | System - | | | | | | | [place] | | | | + + + + + + + | | 2019-04-14 | [facility] | 1.0 | mg/dl | (missing) | | UROBILINOGEN | 17:12:18 | Health | | | | | (MG/DL) IN | | System - | | | | | URINE BY | | [place] | | | | | TEST STRIP | | | | | | + + + + + + + | | 2019-04-14 | [facility] | 1.0 | mg/dl | (missing) | | UROBILINOGEN | 17:12:18 | Health | | | | | (MG/DL) IN | | System - | | | | | URINE BY | | [place] | | | | | TEST STRIP | | | | | | + + + + + + + | SPECIFIC | 2019-04-14 | [facility] | 1.025 | (missing) | (missing) | | GRAVITY OF | ::18 | Health | | | | | URINE BY | | System - | | | | | AUTOMATED | | [place] | | | | | TEST STRIP | | | | | | + + + + + + + | SPECIFIC | 2019-04-14 | [facility] | 1.025 | (missing) | (missing) | | GRAVITY OF | :12:18 | Health | | | | | URINE BY | | System - | | | | | AUTOMATED | | [place] | | | | | TEST STRIP | | | | | | + + + + + + + | | 2019-04-14 | [facility] | 1.13 | :1 | (missing) | | ALBUMIN/GLOB | ::18 | Health | | | | | ULIN (A/G | | System - | | | | | RATIO) IN | | [place] | | | | | SER/PLAS | | | | | | + + + + + + + | | 2019-04-14 | [facility] | 1.13 | :1 | (missing) | | ALBUMIN/GLOB | :18 | Health | | | | | ULIN (A/G | | System - | | | | | RATIO) IN | | [place] | | | | | SER/PLAS | | | | | | + + + + + + + | CREATININE | 2019-04-14 | [facility] | 1.3 | mg/dl | (missing) | | (MG/DL) IN | :18 | Health | | | | | SER/PLAS | | System - | | | | | | | [place] | | | | + + + + + + + | CREATININE | 2019-04-14 | [facility] | 1.3 | mg/dl | (missing) | | (MG/DL) IN | ::18 | Health | | | | | SER/PLAS | | System - | | | | | | | [place] | | | | + + + + + + + | IMMATURE | 2019-04-14 | [facility] | 1.4 | % | (missing) | | GRANULOCYTE | ::18 | Health | | | | | % (AUTO) | | System - | | | | | | | [place] | | | | + + + + + + + | IMMATURE | 2019-04-14 | [facility] | 1.4 | % | (missing) | | GRANULOCYTE | ::18 | Health | | | | | % (AUTO) | | System - | | | | | | | [place] | | | | + + + + + + + | LYMPHOCYTES | 2019-04-14 | [facility] | 1.4 | k/mcl | (missing) | | (10*3/UL) | 17:12:18 | Health | | | | | IN BLOOD BY | | System - | | | | | AUTOMATED | | [place] | | | | | COUNT | | | | | | + + + + + + + | LYMPHOCYTES | 2019-04-14 | [facility] | 1.4 | k/mcl | (missing) | | (10*3/UL) | 17:12:18 | Health | | | | | IN BLOOD BY | | System - | | | | | AUTOMATED | | [place] | | | | | COUNT | | | | | | + + + + + + + | PLATELET | 2019-04-14 | [facility] | 10.0 | fl | (missing) | | MEAN VOLUME | 17:12:18 | Health | | | | | (FL) IN | | System - | | | | | BLOOD BY | | [place] | | | | | AUTOMATED | | | | | | | COUNT | | | | | | + + + + + + + | PLATELET | 2019-04-14 | [facility] | 10.0 | fl | (missing) | | MEAN VOLUME | 17::18 | Health | | | | | (FL) IN | | System - | | | | | BLOOD BY | | [place] | | | | | AUTOMATED | | | | | | | COUNT | | | | | | + + + + + + + | CALCIUM | 2019-04-14 | [facility] | 10.7 | mg/dl | (missing) | | (MG/DL) IN | 17:12:18 | Health | | | | | SER/PLAS | | System - | | | | | | | [place] | | | | + + + + + + + | CALCIUM | 2019-04-14 | [facility] | 10.7 | mg/dl | (missing) | | (MG/DL) IN | 17:12:18 | Health | | | | | SER/PLAS | | System - | | | | | | | [place] | | | | + + + + + + + | ERYTHROCYTE | 2019-04-14 | [facility] | 12.8 | % | (missing) | | | 17::18 | Health | | | | | DISTRIBUTION | | System - | | | | | WIDTH | | [place] | | | | | (RATIO) BY | | | | | | | AUTOMATED | | | | | | | COUNT | | | | | | + + + + + + + | ERYTHROCYTE | 2019-04-14 | [facility] | 12.8 | % | (missing) | | | ::18 | Health | | | | | DISTRIBUTION | | System - | | | | | WIDTH | | [place] | | | | | (RATIO) BY | | | | | | | AUTOMATED | | | | | | | COUNT | | | | | | + + + + + + + | SODIUM | 2019-04-14 | [facility] | 136 | mmol/l | (missing) | | (MMOL/L) IN | 17:12:18 | Health | | | | | SER/PLAS | | System - | | | | | | | [place] | | | | + + + + + + + | SODIUM | 2019-04-14 | [facility] | 136 | mmol/l | (missing) | | (MMOL/L) IN | 17:12:18 | Health | | | | | SER/PLAS | | System - | | | | | | | [place] | | | | + + + + + + + | GLUCOSE, | 2019-04-14 | [facility] | 157 | mg/dl | (missing) | | RANDOM | 17:12:18 | Health | | | | | (MG/DL) IN | | System - | | | | | SER/PLAS | | [place] | | | | + + + + + + + | GLUCOSE, | 2019-04-14 | [facility] | 157 | mg/dl | (missing) | | RANDOM | 17:12:18 | Health | | | | | (MG/DL) IN | | System - | | | | | SER/PLAS | | [place] | | | | + + + + + + + | ALKALINE | 2019-04-14 | [facility] | 160 | u/l | (missing) | | PHOSPHATASE | 17:12:18 | Health | | | | | (U/L) IN | | System - | | | | | SER/PLAS | | [place] | | | | + + + + + + + | ALKALINE | 2019-04-14 | [facility] | 160 | u/l | (missing) | | PHOSPHATASE | 17:12:18 | Health | | | | | (U/L) IN | | System - | | | | | SER/PLAS | | [place] | | | | + + + + + + + | ANION GAP | 2019-04-14 | [facility] | 17.0 | mmol/l | (missing) | | IN SER/PLAS | 17:12:18 | Health | | | | | | | System - | | | | | | | [place] | | | | + + + + + + + | ANION GAP | 2019-04-14 | [facility] | 17.0 | mmol/l | (missing) | | IN SER/PLAS | 17:12:18 | Health | | | | | | | System - | | | | | | | [place] | | | | + + + + + + + | HEMOGLOBIN | 2019-04-14 | [facility] | 17.9 | g/dl | (missing) | | (G/DL) IN | 18 | Health | | | | | BLOOD | | System - | | | | | | | [place] | | | | + + + + + + + | HEMOGLOBIN | 2019-04-14 | [facility] | 17.9 | g/dl | (missing) | | (G/DL) IN | ::18 | Health | | | | | BLOOD | | System - | | | | | | | [place] | | | | + + + + + + + | PROTEIN IN | 2019-04-14 | [facility] | 2 | (missing) | (missing) | | URINE BY | :18 | Health | | | | | TEST STRIP | | System - | | | | | | | [place] | | | | + + + + + + + | PROTEIN IN | 2019-04-14 | [facility] | 2 | (missing) | (missing) | | URINE BY | ::18 | Health | | | | | TEST STRIP | | System - | | | | | | | [place] | | | | + + + + + + + | | 2019-04-14 | [facility] | 2.8 | % | (missing) | | MONOCYTES/10 | :18 | Health | | | | | 0 LEUKOCYTES | | System - | | | | | IN BLOOD BY | | [place] | | | | | AUTOMATED | | | | | | | COUNT | | | | | | + + + + + + + | | 2019-04-14 | [facility] | 2.8 | % | (missing) | | MONOCYTES/10 | 17:12:18 | Health | | | | | 0 LEUKOCYTES | | System - | | | | | IN BLOOD BY | | [place] | | | | | AUTOMATED | | | | | | | COUNT | | | | | | + + + + + + + | NEUTROPHILS | 2019-04-14 | [facility] | 20.8 | k/mcl | (missing) | | (10*3/UL) | 17:12:18 | Health | | | | | IN BLOOD BY | | System - | | | | | AUTOMATED | | [place] | | | | | COUNT | | | | | | + + + + + + + | NEUTROPHILS | 2019-04-14 | [facility] | 20.8 | k/mcl | (missing) | | (10*3/UL) | 17:12:18 | Health | | | | | IN BLOOD BY | | System - | | | | | AUTOMATED | | [place] | | | | | COUNT | | | | | | + + + + + + + | BLOOD UREA | 2019-04-14 | [facility] | 23 | mg/dl | (missing) | | NITROGEN | 17:12:18 | Health | | | | | (BUN) | | System - | | | | | (MG/DL) IN | | [place] | | | | | SER/PLAS | | | | | | + + + + + + + | BLOOD UREA | 2019-04-14 | [facility] | 23 | mg/dl | (missing) | | NITROGEN | 17:12:18 | Health | | | | | (BUN) | | System - | | | | | (MG/DL) IN | | [place] | | | | | SER/PLAS | | | | | | + + + + + + + | CARBON | 2019-04-14 | [facility] | 23 | mmol/l | (missing) | | DIOXIDE | 17:12:18 | Health | | | | | (CO2), TOTAL | | System - | | | | | (MMOL/L) IN | | [place] | | | | | SER/PLAS | | | | | | + + + + + + + | CARBON | 2019-04-14 | [facility] | 23 | mmol/l | (missing) | | DIOXIDE | 17:12:18 | Health | | | | | (CO2), TOTAL | | System - | | | | | (MMOL/L) IN | | [place] | | | | | SER/PLAS | | | | | | + + + + + + + | | 2019-04-14 | [facility] | 23.4 | k/mcl | (missing) | | LEUKOCYTES(1 | 17:12:18 | Health | | | | | 0*3/UL) IN | | System - | | | | | BLOOD BY | | [place] | | | | | AUTOMATED | | | | | | | COUNT | | | | | | + + + + + + + | | 2019-04-14 | [facility] | 23.4 | k/mcl | (missing) | | LEUKOCYTES(1 | ::18 | Health | | | | | 0*3/UL) IN | | System - | | | | | BLOOD BY | | [place] | | | | | AUTOMATED | | | | | | | COUNT | | | | | | + + + + + + + | WBC | 2019-04-14 | [facility] | 3 | /hpf | (missing) | | (LEUKOCYTE) | 17:12:18 | Health | | | | | (#/HPF) IN | | System - | | | | | URINE | | [place] | | | | | SEDIMENT | | | | | | + + + + + + + | WBC | 2019-04-14 | [facility] | 3 | /hpf | (missing) | | (LEUKOCYTE) | 17:12:18 | Health | | | | | (#/HPF) IN | | System - | | | | | URINE | | [place] | | | | | SEDIMENT | | | | | | + + + + + + + | LACTIC ACID | 2019-04-14 | [facility] | 3.1 | mmol/l | (missing) | | (LACTATE) | 17:12:18 | Health | | | | | (MMOL/L) IN | | System - | | | | | BLOOD | | [place] | | | | + + + + + + + | LACTIC ACID | 2019-04-14 | [facility] | 3.1 | mmol/l | (missing) | | (LACTATE) | 17:12:18 | Health | | | | | (MMOL/L) IN | | System - | | | | | BLOOD | | [place] | | | | + + + + + + + | POTASSIUM | 2019-04-14 | [facility] | 3.2 | mmol/l | (missing) | | (MMOL/L) IN | 17::18 | Health | | | | | SER/PLAS | | System - | | | | | | | [place] | | | | + + + + + + + | POTASSIUM | 2019-04-14 | [facility] | 3.2 | mmol/l | (missing) | | (MMOL/L) IN | 17::18 | Health | | | | | SER/PLAS | | System - | | | | | | | [place] | | | | + + + + + + + | GLOBULIN | 2019-04-14 | [facility] | 3.8 | g/dl | (missing) | | (G/DL) IN | 17::18 | Health | | | | | SER/PLAS | | System - | | | | | | | [place] | | | | + + + + + + + | GLOBULIN | 2019-04-14 | [facility] | 3.8 | g/dl | (missing) | | (G/DL) IN | 17:12:18 | Health | | | | | SER/PLAS | | System - | | | | | | | [place] | | | | + + + + + + + | ERYTHROCYTE | 2019-04-14 | [facility] | 30.5 | pg | (missing) | | MEAN | 17:12:18 | Health | | | | | CORPUSCULAR | | System - | | | | | HEMOGLOBIN | | [place] | | | | | (PG) BY | | | | | | | AUTOMATED | | | | | | | COUNT | | | | | | + + + + + + + | ERYTHROCYTE | 2019-04-14 | [facility] | 30.5 | pg | (missing) | | MEAN | 17:12:18 | Health | | | | | CORPUSCULAR | | System - | | | | | HEMOGLOBIN | | [place] | | | | | (PG) BY | | | | | | | AUTOMATED | | | | | | | COUNT | | | | | | + + + + + + + | ASPARTATE | 2019-04-14 | [facility] | 32 | u/l | (missing) | | AMINOTRANSFE | 17:12:18 | Health | | | | | RASE (SGOT) | | System - | | | | | (U/L) IN | | [place] | | | | | SER/PLAS | | | | | | + + + + + + + | ASPARTATE | 2019-04-14 | [facility] | 32 | u/l | (missing) | | AMINOTRANSFE | 17:12:18 | Health | | | | | RASE (SGOT) | | System - | | | | | (U/L) IN | | [place] | | | | | SER/PLAS | | | | | | + + + + + + + | ALANINE | 2019-04-14 | [facility] | 33 | u/l | (missing) | | AMINOTRANSFE | 17:12:18 | Health | | | | | RASE (SGPT) | | System - | | | | | (U/L) IN | | [place] | | | | | SER/PLAS | | | | | | + + + + + + + | ALANINE | 2019-04-14 | [facility] | 33 | u/l | (missing) | | AMINOTRANSFE | 17:12:18 | Health | | | | | RASE (SGPT) | | System - | | | | | (U/L) IN | | [place] | | | | | SER/PLAS | | | | | | + + + + + + + | ERYTHROCYTE | 2019-04-14 | [facility] | 33.9 | g/dl | (missing) | | MEAN | 17:12:18 | Health | | | | | CORPUSCULAR | | System - | | | | | HEMOGLOBIN | | [place] | | | | | CONCENTRATIO | | | | | | | N (G/DL) BY | | | | | | | AUTOMATED | | | | | | + + + + + + + | ERYTHROCYTE | 2019-04-14 | [facility] | 33.9 | g/dl | (missing) | | MEAN | 17:12:18 | Health | | | | | CORPUSCULAR | | System - | | | | | HEMOGLOBIN | | [place] | | | | | CONCENTRATIO | | | | | | | N (G/DL) BY | | | | | | | AUTOMATED | | | | | | + + + + + + + | PLATELETS | 2019-04-14 | [facility] | 342 | k/mcl | (missing) | | (10*3/UL) IN | 17:12:18 | Health | | | | | BLOOD | | System - | | | | | AUTOMATED | | [place] | | | | | COUNT | | | | | | + + + + + + + | PLATELETS | 2019-04-14 | [facility] | 342 | k/mcl | (missing) | | (10*3/UL) IN | 17:12:18 | Health | | | | | BLOOD | | System - | | | | | AUTOMATED | | [place] | | | | | COUNT | | | | | | + + + + + + + | SQUAMOUS | 2019-04-14 | [facility] | 4 | /hpf | (missing) | | EPITHELIAL | 17:12:18 | Health | | | | | CELLS | | System - | | | | | (#/HPF) IN | | [place] | | | | | URINE | | | | | | | SEDIMENT | | | | | | + + + + + + + | SQUAMOUS | 2019-04-14 | [facility] | 4 | /hpf | (missing) | | EPITHELIAL | 17:18 | Health | | | | | CELLS | | System - | | | | | (#/HPF) IN | | [place] | | | | | URINE | | | | | | | SEDIMENT | | | | | | + + + + + + + | ALBUMIN | 2019-04-14 | [facility] | 4.3 | g/dl | (missing) | | (G/DL) IN | 18 | Health | | | | | SER/PLAS | | System - | | | | | | | [place] | | | | + + + + + + + | ALBUMIN | 2019-04-14 | [facility] | 4.3 | g/dl | (missing) | | (G/DL) IN | :18 | Health | | | | | SER/PLAS | | System - | | | | | | | [place] | | | | + + + + + + + | EGFR | 2019-04-14 | [facility] | 43 | | (missing) | | (GLOMERULAR | : | Health | | ml/min/1.73m | | | FILTRATION | | System - | | ? | | | RATE) | | [place] | | | | | ML/MIN/1.73 | | | | | | | SQ M. | | | | | | + + + + + + + | EGFR | 2019-04-14 | [facility] | 43 | | (missing) | | (GLOMERULAR | 17:12:18 | Health | | ml/min/1.73m | | | FILTRATION | | System - | | ? | | | RATE) | | [place] | | | | | ML/MIN/1.73 | | | | | | | SQ M. | | | | | | + + + + + + + | LIPASE | 2019-04-14 | [facility] | 45 | u/l | (missing) | | (U/L) IN | 17:12:18 | Health | | | | | SER/PLAS | | System - | | | | | | | [place] | | | | + + + + + + + | LIPASE | 2019-04-14 | [facility] | 45 | u/l | (missing) | | (U/L) IN | 17:12:18 | Health | | | | | SER/PLAS | | System - | | | | | | | [place] | | | | + + + + + + + | | 2019-04-14 | [facility] | 5.87 | m/mcl | (missing) | | ERYTHROCYTES | 17:12:18 | Health | | | | | (10*6/UL) | | System - | | | | | IN BLOOD BY | | [place] | | | | | AUTOMATED | | | | | | | COUNT | | | | | | + + + + + + + | | 2019-04-14 | [facility] | 5.87 | m/mcl | (missing) | | ERYTHROCYTES | 17:12:18 | Health | | | | | (10*6/UL) | | System - | | | | | IN BLOOD BY | | [place] | | | | | AUTOMATED | | | | | | | COUNT | | | | | | + + + + + + + | HEMATOCRIT | 2019-04-14 | [facility] | 52.8 | % | (missing) | | (%) IN BLOOD | 17:12:18 | Health | | | | | BY | | System - | | | | | AUTOMATED | | [place] | | | | | COUNT | | | | | | + + + + + + + | HEMATOCRIT | 2019-04-14 | [facility] | 52.8 | % | (missing) | | (%) IN BLOOD | 17::18 | Health | | | | | BY | | System - | | | | | AUTOMATED | | [place] | | | | | COUNT | | | | | | + + + + + + + | PH OF URINE | 2019-04-14 | [facility] | 6.0 | (missing) | (missing) | | | 17:12:18 | Health | | | | | | | System - | | | | | | | [place] | | | | + + + + + + + | PH OF URINE | 2019-04-14 | [facility] | 6.0 | (missing) | (missing) | | | 17:12:18 | Health | | | | | | | System - | | | | | | | [place] | | | | + + + + + + + | | 2019-04-14 | [facility] | 6.0 | % | (missing) | | LYMPHOCYTES/ | 17:12:18 | Health | | | | | 100 | | System - | | | | | LEUKOCYTES | | [place] | | | | | IN BLOOD BY | | | | | | | AUTOMATED | | | | | | | COUNT | | | | | | + + + + + + + | | 2019-04-14 | [facility] | 6.0 | % | (missing) | | LYMPHOCYTES/ | 17::18 | Health | | | | | 100 | | System - | | | | | LEUKOCYTES | | [place] | | | | | IN BLOOD BY | | | | | | | AUTOMATED | | | | | | | COUNT | | | | | | + + + + + + + | PROTEIN | 2019-04-14 | [facility] | 8.1 | g/dl | (missing) | | (G/DL) IN | 17:12:18 | Health | | | | | SER/PLAS | | System - | | | | | | | [place] | | | | + + + + + + + | PROTEIN | 2019-04-14 | [facility] | 8.1 | g/dl | (missing) | | (G/DL) IN | ::18 | Health | | | | | SER/PLAS | | System - | | | | | | | [place] | | | | + + + + + + + | | 2019-04-14 | [facility] | 88.7 | % | (missing) | | NEUTROPHILS/ | ::18 | Health | | | | | 100 | | System - | | | | | LEUKOCYTES | | [place] | | | | | IN BLOOD BY | | | | | | | AUTOMATED | | | | | | | COUNT | | | | | | + + + + + + + | | 2019-04-14 | [facility] | 88.7 | % | (missing) | | NEUTROPHILS/ | ::18 | Health | | | | | 100 | | System - | | | | | LEUKOCYTES | | [place] | | | | | IN BLOOD BY | | | | | | | AUTOMATED | | | | | | | COUNT | | | | | | + + + + + + + | ERYTHROCYTE | 2019-04-14 | [facility] | 89.9 | fl | (missing) | | MEAN | 17:12:18 | Health | | | | | CORPUSCULAR | | System - | | | | | VOLUME (FL) | | [place] | | | | | BY AUTOMATED | | | | | | | COUNT | | | | | | + + + + + + + | ERYTHROCYTE | 2019-04-14 | [facility] | 89.9 | fl | (missing) | | MEAN | 17:12:18 | Health | | | | | CORPUSCULAR | | System - | | | | | VOLUME (FL) | | [place] | | | | | BY AUTOMATED | | | | | | | COUNT | | | | | | + + + + + + + | CHLORIDE | 2019-04-14 | [facility] | 96 | mmol/l | (missing) | | (MMOL/L) IN | 17:12:18 | Health | | | | | SER/PLAS | | System - | | | | | | | [place] | | | | + + + + + + + | CHLORIDE | 2019-04-14 | [facility] | 96 | mmol/l | (missing) | | (MMOL/L) IN | 17:12:18 | Health | | | | | SER/PLAS | | System - | | | | | | | [place] | | | | + + + + + + + | CLARITY OF | 2019-04-14 | [facility] | Cloudy | (missing) | (missing) | | URINE | 17:12:18 | Health | | | | | | | System - | | | | | | | [place] | | | | + + + + + + + | CLARITY OF | 2019-04-14 | [facility] | Cloudy | (missing) | (missing) | | URINE | 17:12:18 | Health | | | | | | | System - | | | | | | | [place] | | | | + + + + + + + | | 2019-04-14 | [facility] | Negative | (missing) | (missing) | | BARBITURATES | 17:12:18 | Health | | | | | PRESENCE IN | | System - | | | | | URINE BY | | [place] | | | | | SCREEN | | | | | | | METHOD | | | | | | + + + + + + + | | 2019-04-14 | [facility] | Negative | (missing) | (missing) | | BENZODIAZEPI | 17:12:18 | Health | | | | | MYESHA | | System - | | | | | (PRESENCE) | | [place] | | | | | IN URINE BY | | | | | | | SCREEN | | | | | | | METHOD | | | | | | + + + + + + + | BILIRUBIN, | 2019-04-14 | [facility] | Negative | (missing) | (missing) | | TOTAL | 17:12:18 | Health | | | | | PRESENCE IN | | System - | | | | | URINE | | [place] | | | | + + + + + + + | COCAINE | 2019-04-14 | [facility] | Negative | (missing) | (missing) | | (PRESENCE) | 17:12:18 | Health | | | | | IN URINE BY | | System - | | | | | SCREEN | | [place] | | | | | METHOD | | | | | | + + + + + + + | GLUCOSE IN | 2019-04-14 | [facility] | Negative | (missing) | (missing) | | URINE | 17:12:18 | Health | | | | | | | System - | | | | | | | [place] | | | | + + + + + + + | ICTOTEST | 2019-04-14 | [facility] | Negative | (missing) | (missing) | | | 17:12:18 | Health | | | | | | | System - | | | | | | | [place] | | | | + + + + + + + | INFLUENZA B | 2019-04-14 | [facility] | Negative | (missing) | (missing) | | (CEPHEID) | 17:12:18 | Health | | | | | | | System - | | | | | | | [place] | | | | + + + + + + + | LEUKOCYTE | 2019-04-14 | [facility] | Negative | (missing) | (missing) | | ESTERASE | 17:12:18 | Health | | | | | PRESENCE IN | | System - | | | | | URINE BY | | [place] | | | | | TEST STRIP | | | | | | + + + + + + + | METHADONE | 2019-04-14 | [facility] | Negative | (missing) | (missing) | | (PRESENCE) | 17:12:18 | Health | | | | | IN URINE BY | | System - | | | | | SCREEN | | [place] | | | | | METHOD | | | | | | + + + + + + + | NITRITE | 2019-04-14 | [facility] | Negative | (missing) | (missing) | | PRESENCE IN | 17:12:18 | Health | | | | | URINE | | System - | | | | | | | [place] | | | | + + + + + + + | OXYCODONE | 2019-04-14 | [facility] | Negative | (missing) | (missing) | | (PRESENCE) | 17:12:18 | Health | | | | | IN URINE BY | | System - | | | | | SCREEN | | [place] | | | | | METHOD | | | | | | + + + + + + + | | 2019-04-14 | [facility] | Negative | (missing) | (missing) | | PHENCYCLIDIN | 17:12:18 | Health | | | | | E (PRESENCE) | | System - | | | | | IN URINE BY | | [place] | | | | | SCREEN | | | | | | | METHOD | | | | | | + + + + + + + | THC | 2019-04-14 | [facility] | Negative | (missing) | (missing) | | (CANNABINOID | 17:12:18 | Health | | | | | ) IN URINE | | System - | | | | | BY SCREEN | | [place] | | | | | METHOD | | | | | | + + + + + + + | TRICYCLIC | 2019-04-14 | [facility] | Negative | (missing) | (missing) | | ANTIDEPRESSA | ::18 | Health | | | | | NTS | | System - | | | | | (PRESENCE) | | [place] | | | | | IN URINE | | | | | | + + + + + + + | | 2019-04-14 | [facility] | Negative | (missing) | (missing) | | PHENCYCLIDIN | 18 | Health | | | | | E (PRESENCE) | | System - | | | | | IN URINE BY | | [place] | | | | | SCREEN | | | | | | | METHOD | | | | | | + + + + + + + | THC | 2019-04-14 | [facility] | Negative | (missing) | (missing) | | (CANNABINOID | 17::18 | Health | | | | | ) IN URINE | | System - | | | | | BY SCREEN | | [place] | | | | | METHOD | | | | | | + + + + + + + | TRICYCLIC | 2019-04-14 | [facility] | Negative | (missing) | (missing) | | ANTIDEPRESSA | 17:12:18 | Health | | | | | NTS | | System - | | | | | (PRESENCE) | | [place] | | | | | IN URINE | | | | | | + + + + + + + | OXYCODONE | 2019-04-14 | [facility] | Negative | (missing) | (missing) | | (PRESENCE) | 17:12:18 | Health | | | | | IN URINE BY | | System - | | | | | SCREEN | | [place] | | | | | METHOD | | | | | | + + + + + + + | BILIRUBIN, | 2019-04-14 | [facility] | Negative | (missing) | (missing) | | TOTAL | 17:12:18 | Health | | | | | PRESENCE IN | | System - | | | | | URINE | | [place] | | | | + + + + + + + | GLUCOSE IN | 2019-04-14 | [facility] | Negative | (missing) | (missing) | | URINE | 17:12:18 | Health | | | | | | | System - | | | | | | | [place] | | | | + + + + + + + | INFLUENZA A | 2019-04-14 | [facility] | Negative | (missing) | (missing) | | (CEPHEID) | 17:12:18 | Health | | | | | | | System - | | | | | | | [place] | | | | + + + + + + + | COCAINE | 2019-04-14 | [facility] | Negative | (missing) | (missing) | | (PRESENCE) | 17:12:18 | Health | | | | | IN URINE BY | | System - | | | | | SCREEN | | [place] | | | | | METHOD | | | | | | + + + + + + + | NITRITE | 2019-04-14 | [facility] | Negative | (missing) | (missing) | | PRESENCE IN | 17:12:18 | Health | | | | | URINE | | System - | | | | | | | [place] | | | | + + + + + + + | | 2019-04-14 | [facility] | Negative | (missing) | (missing) | | BARBITURATES | 17:12:18 | Health | | | | | PRESENCE IN | | System - | | | | | URINE BY | | [place] | | | | | SCREEN | | | | | | | METHOD | | | | | | + + + + + + + | | 2019-04-14 | [facility] | Negative | (missing) | (missing) | | BENZODIAZEPI | 17:12:18 | Health | | | | | MYESHA | | System - | | | | | (PRESENCE) | | [place] | | | | | IN URINE BY | | | | | | | SCREEN | | | | | | | METHOD | | | | | | + + + + + + + | METHADONE | 2019-04-14 | [facility] | Negative | (missing) | (missing) | | (PRESENCE) | 17:12:18 | Health | | | | | IN URINE BY | | System - | | | | | SCREEN | | [place] | | | | | METHOD | | | | | | + + + + + + + | LEUKOCYTE | 2019-04-14 | [facility] | Negative | (missing) | (missing) | | ESTERASE | 17::18 | Health | | | | | PRESENCE IN | | System - | | | | | URINE BY | | [place] | | | | | TEST STRIP | | | | | | + + + + + + + | INFLUENZA A | 2019-04-14 | [facility] | Negative | (missing) | This test | | (CEPHEID) | ::18 | Health | | | does not | | | | System - | | | distinguish | | | | [place] | | | between | | | | | | | pandemic and | | | | | | | seasonal | | | | | | | influenza A | | | | | | | virus | | | | | | | subtypes. | | | | | | | This assay | | | | | | | is not 100% | | | | | | | sensitive. | + + + + + + + | BLOOD | 2019-04-14 | [facility] | No growth | (missing) | (missing) | | CULTURE | 17::18 | Health | at 24 hours | | | | | | System - | | | | | | | [place] | | | | + + + + + + + | BLOOD | 2019-04-14 | [facility] | No growth | (missing) | (missing) | | CULTURE | 17:12:18 | Health | at 24 hours | | | | | | System - | | | | | | | [place] | | | | + + + + + + + | BLOOD | 2019-04-14 | [facility] | No growth | (missing) | (missing) | | CULTURE | 17:12:18 | Health | at 3 days | | | | | | System - | | | | | | | [place] | | | | + + + + + + + | BLOOD | 2019-04-14 | [facility] | No growth | (missing) | (missing) | | CULTURE | 17:12:18 | Health | at 3 days | | | | | | System - | | | | | | | [place] | | | | + + + + + + + | BLOOD | 2019-04-14 | [facility] | No growth | (missing) | (missing) | | CULTURE | 17:12:18 | Health | at 4 days | | | | | | System - | | | | | | | [place] | | | | + + + + + + + | BLOOD | 2019-04-14 | [facility] | No growth | (missing) | (missing) | | CULTURE | 17:12:18 | Health | at 4 days | | | | | | System - | | | | | | | [place] | | | | + + + + + + + | BLOOD | 2019-04-14 | [facility] | No growth | (missing) | (missing) | | CULTURE | 17:12:18 | Health | at 48 hours | | | | | | System - | | | | | | | [place] | | | | + + + + + + + | BLOOD | 2019-04-14 | [facility] | No growth | (missing) | (missing) | | CULTURE | 17:12:18 | Health | at 48 hours | | | | | | System - | | | | | | | [place] | | | | + + + + + + + | BLOOD | 2019-04-14 | [facility] | No growth | (missing) | (missing) | | CULTURE | 17:12:18 | Health | at 5 days | | | | | | System - | | | | | | | [place] | | | | + + + + + + + | BLOOD | 2019-04-14 | [facility] | No growth | (missing) | (missing) | | CULTURE | 17:12:18 | Health | at 5 days | | | | | | System - | | | | | | | [place] | | | | + + + + + + + | | 2019-04-14 | [facility] | Presumptive | (missing) | (missing) | | METHAMPHETAM | 17:12:18 | Health | Positive | | | | INE | | System - | | | | | (PRESENCE) | | [place] | | | | | IN URINE BY | | | | | | | SCREEN | | | | | | | METHOD | | | | | | + + + + + + + | OPIATES | 2019-04-14 | [facility] | Presumptive | (missing) | (missing) | | (PRESENCE) | 17:12:18 | Health | Positive | | | | IN URINE BY | | System - | | | | | SCREEN | | [place] | | | | | METHOD | | | | | | + + + + + + + | OPIATES | 2019-04-14 | [facility] | Presumptive | (missing) | (missing) | | (PRESENCE) | 17:12:18 | Health | Positive | | | | IN URINE BY | | System - | | | | | SCREEN | | [place] | | | | | METHOD | | | | | | + + + + + + + | AMPHETAMINE | 2019-04-14 | [facility] | Presumptive | (missing) | (missing) | | (PRESENCE) | 17:12:18 | Health | Positive | | | | IN URINE BY | | System - | | | | | SCREEN | | [place] | | | | | METHOD | | | | | | + + + + + + + | | 2019-04-14 | [facility] | Presumptive | (missing) | (missing) | | METHAMPHETAM | 17:12:18 | Health | Positive | | | | INE | | System - | | | | | (PRESENCE) | | [place] | | | | | IN URINE BY | | | | | | | SCREEN | | | | | | | METHOD | | | | | | + + + + + + + | AMPHETAMINE | 2019-04-14 | [facility] | Presumptive | (missing) | SCH[facility] URINE | | (PRESENCE) | 17:12:18 | Health | Positive | | DRUG SCREEN | | IN URINE BY | | System - | | | CUT OFF | | SCREEN | | [place] | | | VALUES: AMP | | METHOD | | | | | Amphetamines | | | | | | | 500 ng/mL | | | | | | | MAMP | | | | | | | Methamphetam | | | | | | | ine 500 | | | | | | | ng/mL BAR | | | | | | | Barbiturates | | | | | | | 200 ng/mL | | | | | | | BZO | | | | | | | Benzodiazepi | | | | | | | myesha 150 | | | | | | | ng/mL LEIGHTON | | | | | | | Cocaine 150 | | | | | | | ng/mL MTD | | | | | | | Methadone | | | | | | | 200 ng/mL | | | | | | | OPI Opiates | | | | | | | 100 ng/mL | | | | | | | OXY | | | | | | | Oxycodone | | | | | | | 100 ng/mL | | | | | | | PCP | | | | | | | Phencyclidin | | | | | | | e 25 ng/mL | | | | | | | THC THC 50 | | | | | | | ng/mL TCA | | | | | | | Tricyclic | | | | | | | Antidepressa | | | | | | | nts 300 | | | | | | | ng/mL | + + + + + + + | KETONES IN | 2019-04-14 | [facility] | Trace | (missing) | (missing) | | URINE | 17:12:18 | Health | | | | | | | System - | | | | | | | [place] | | | | + + + + + + + | KETONES IN | 2019-04-14 | [facility] | Trace | (missing) | (missing) | | URINE | 17:12:18 | Health | | | | | | | System - | | | | | | | [place] | | | | + + + + + + + | BACTERIA | 2019-04-14 | [facility] | Trace | /hpf | (missing) | | (#/HPF) IN | 17::18 | Health | | | | | URINE | | System - | | | | | | | [place] | | | | + + + + + + + | BACTERIA | 2019-04-14 | [facility] | Trace | /hpf | (missing) | | (#/HPF) IN | :18 | Health | | | | | URINE | | System - | | | | | | | [place] | | | | + + + + + + + | COLOR OF | 2019-04-14 | [facility] | Yellow | (missing) | (missing) | | URINE | 17:12:18 | Health | | | | | | | System - | | | | | | | [place] | | | | + + + + + + + | COLOR OF | 2019-04-14 | [facility] | Yellow | (missing) | Urine | | URINE | 17:12:18 | Health | | | volume 2ml | | | | System - | | | Urine | | | | [place] | | | culture not | | | | | | | indicated. | + + + + + + + + + | Result panel 31 | + + + + + + + + + | | 2019-04-14 | [facility] | (missing) | (missing) | (missing) | | (unavailable | 17:13 | Health | | | | | ) | | System - | | | | | | | [place] | | | | + + + + + + + | | 2019-04-14 | [facility] | BONES: | (missing) | (missing) | | (unavailable | 17:13 | Health | Degenerative | | | | ) | | System - | changes in | | | | | | [place] | the thoracic | | | | | | | spine. | | | + + + + + + + | | 2019-04-14 | [facility] | COMPARISON: | (missing) | (missing) | | (unavailable | 17:13 | Health | 10/27/2018 | | | | ) | | System - | radiograph | | | | | | [place] | | | | + + + + + + + | | 2019-04-14 | [facility] | Electronical | (missing) | (missing) | | (unavailable | 17:13 | Health | ly signed | | | | ) | | System - | by: | | | | | | [place] | Junior | | | | | | | MD Chava | | | | | | | on 04/14/2019 | | | | | | | 6:22 PM at | | | | | | | workstation | | | | | | | [id number] | | | + + + + + + + | | 2019-04-14 | [facility] | Evidence of | (missing) | (missing) | | (unavailable | 17:13 | Health | obstructive | | | | ) | | System - | lung disease | | | | | | [place] | with areas | | | | | | | of scarring. | | | | | | | No | | | | | | | superimposed | | | | | | | pneumonia. | | | + + + + + + + | | 2019-04-14 | [facility] | FINDINGS: | (missing) | (missing) | | (unavailable | 17:13 | Health | | | | | ) | | System - | | | | | | | [place] | | | | + + + + + + + | | 2019-04-14 | [facility] | HEART: No | (missing) | (missing) | | (unavailable | 17:13 | Health | significant | | | | ) | | System - | enlargement | | | | | | [place] | of the | | | | | | | cardiac | | | | | | | silhouette. | | | + + + + + + + | | 2019-04-14 | [facility] | | (missing) | (missing) | | (unavailable | 17:13 | Health | INDICATIONS: | | | | ) | | System - | cough | | | | | | [place] | | | | + + + + + + + | | 2019-04-14 | [facility] | LUNGS: | (missing) | (missing) | | (unavailable | 17:13 | Health | Hyperexpande | | | | ) | | System - | d lungs. | | | | | | [place] | Coarsening | | | | | | | of | | | | | | | interstitial | | | | | | | markings. | | | | | | | Scarring in | | | | | | | the left | | | | | | | lateral | | | | | | | midlung. No | | | | | | | focal | | | | | | | consolidatio | | | | | | | n. | | | + + + + + + + | | 2019-04-14 | [facility] | MEDIASTINUM: | (missing) | (missing) | | (unavailable | 17:13 | Health | Normal | | | | ) | | System - | upper | | | | | | [place] | mediastinal | | | | | | | contours | | | | | | | without | | | | | | | radiographic | | | | | | | evidence of | | | | | | | | | | | | | | lymphadenopa | | | | | | | thy. | | | + + + + + + + | | 2019-04-14 | [facility] | PLEURAL | (missing) | (missing) | | (unavailable | 17:13 | Health | SPACES: No | | | | ) | | System - | pleural | | | | | | [place] | effusion or | | | | | | | pneumothorax | | | | | | | . | | | + + + + + + + | | 2019-04-14 | [facility] | PROCEDURE: | (missing) | (missing) | | (unavailable | 17:13 | Health | CHEST - TWO | | | | ) | | System - | VIEWS | | | | | | [place] | | | | + + + + + + + | | 2019-04-14 | [facility] | | (missing) | (missing) | | (unavailable | 17:13 | Health | Procedure(s) | | | | ) | | System - | : * No | | | | | | [place] | procedures | | | | | | | listed * | | | + + + + + + + + + | Result panel 32 | + + + + + + + + + | | 2019-04-14 | [facility] | (missing) | (missing) | (missing) | | (unavailable | 17:20 | Health | | | | | ) | | System - | | | | | | | [place] | | | | + + + + + + + | | 2019-04-14 | [facility] | 8 | (missing) | (missing) | | (unavailable | 17:20 | Health | | | | | ) | | System - | | | | | | | [place] | | | | + + + + + + + | | 2019-04-14 | [facility] | BRAIN STEM: | (missing) | (missing) | | (unavailable | 17:20 | Health | Within | | | | ) | | System - | normal | | | | | | [place] | limits. | | | + + + + + + + | | 2019-04-14 | [facility] | CEREBELLUM: | (missing) | (missing) | | (unavailable | 17:20 | Health | Within | | | | ) | | System - | normal | | | | | | [place] | limits. | | | + + + + + + + | | 2019-04-14 | [facility] | CEREBRUM: No | (missing) | (missing) | | (unavailable | 17:20 | Health | mass, mass | | | | ) | | System - | effect, | | | | | | [place] | shift of the | | | | | | | midline | | | | | | | structures, | | | | | | | obvious | | | | | | | acute | | | | | | | infarct, or | | | | | | | hemorrhage. 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 | | | | | | | There is | | | | | | | mild diffuse | | | | | | | cerebral | | | | | | | volume loss. | | | + + + + + + + | | 2019-04-14 | [facility] | COMPARISON: | (missing) | (missing) | | (unavailable | 17:20 | Health | Brain MRI | | | | ) | | System - | 06/23/2018, | | | | | | [place] | brain CT | | | | | | | 08/31/2012 | | | + + + + + + + | | 2019-04-14 | [facility] | EXTRA-AXIAL | (missing) | (missing) | | (unavailable | 17:20 | Health | SPACES: No | | | | ) | | System - | acute | | | | | | [place] | abnormal | | | | | | | fluid | | | | | | | collection | | | | | | | or mass. | | | + + + + + + + | | 2019-04-14 | [facility] | Electronical | (missing) | (missing) | | (unavailable | 17:20 | Health | ly signed | | | | ) | | System - | by: | | | | | | [place] | Junior | | | | | | | MD Chava | | | | | | | on 04/14/2019 | | | | | | | 6:19 PM at | | | | | | | workstation | | | | | | | [phone] | | | + + + + + + + | | 2019-04-14 | [facility] | FINDINGS: | (missing) | (missing) | | (unavailable | 17:20 | Health | | | | | ) | | System - | | | | | | | [place] | | | | + + + + + + + | | 2019-04-14 | [facility] | | (missing) | (missing) | | (unavailable | 17:20 | Health | INDICATIONS: | | | | ) | | System - | Altered | | | | | | [place] | mental | | | | | | | status | | | + + + + + + + | | 2019-04-14 | [facility] | No evidence | (missing) | (missing) | | (unavailable | 17:20 | Health | of an acute | | | | ) | | System - | intracranial | | | | | | [place] | abnormality | | | | | | | or | | | | | | | significant | | | | | | | interval | | | | | | | change. | | | + + + + + + + | | 2019-04-14 | [facility] | ORBITS: | (missing) | (missing) | | (unavailable | 17:20 | Health | Orbital soft | | | | ) | | System - | tissues are | | | | | | [place] | normal. | | | + + + + + + + | | 2019-04-14 | [facility] | PROCEDURE: | (missing) | (missing) | | (unavailable | 17:20 | Health | CT BRAIN | | | | ) | | System - | WITHOUT | | | | | | [place] | CONTRAST | | | + + + + + + + | | 2019-04-14 | [facility] | | (missing) | (missing) | | (unavailable | 17:20 | Health | Procedure(s) | | | | ) | | System - | : * No | | | | | | [place] | procedures | | | | | | | listed * | | | + + + + + + + | | 2019-04-14 | [facility] | SINUSES: | (missing) | (missing) | | (unavailable | 17:20 | Health | Visualized | | | | ) | | System - | paranasal | | | | | | [place] | sinuses are | | | | | | | clear. | | | + + + + + + + | | 2019-04-14 | [facility] | SKULL: No | (missing) | (missing) | | (unavailable | 17:20 | Health | acute | | | | ) | | System - | calvarial | | | | | | [place] | abnormality. | | | | | | | | | | + + + + + + + | | 2019-04-14 | [facility] | SOFT | (missing) | (missing) | | (unavailable | 17:20 | Health | TISSUES: | | | | ) | | System - | Visualized | | | | | | [place] | extracranial | | | | | | | soft | | | | | | | tissues are | | | | | | | unremarkable | | | | | | | . | | | + + + + + + + | | 2019-04-14 | [facility] | TECHNIQUE: | (missing) | (missing) | | (unavailable | 17:20 | Health | Thin-section | | | | ) | | System - | images were | | | | | | [place] | obtained at | | | | | | | the skull | | | | | | | base, and | | | | | | | thin-section | | | | | | | images were | | | | | | | obtained | | | | | | | through the | | | | | | | brain | | | | | | | without | | | | | | | intravenous | | | | | | | contrast. | | | | | | | One or more | | | | | | | of the | | | | | | | following | | | | | | | dose | | | | | | | lowering | | | | | | | techniques | | | | | | | was | | | | | | | utilized: | | | | | | | Automated | | | | | | | exposure | | | | | | | control, | | | | | | | adjustment | | | | | | | of the mA | | | | | | | and/or kV | | | | | | | according to | | | | | | | patient | | | | | | | size, or use | | | | | | | of | | | | | | | iterative | | | | | | | reconstructi | | | | | | | on. | | | + + + + + + + | | 2019-04-14 | [facility] | VENTRICLES: | (missing) | (missing) | | (unavailable | 17:20 | Health | No | | | | ) | | System - | hydrocephalu | | | | | | [place] | s or | | | | | | | intraventric | | | | | | | ular mass. | | | + + + + + + + + + | Result panel 33 | + + + + + +-------+---------+ + | POCT | 2019-04-14 | [facility] | 138 | mg/dl | (missing) | | GLUCOMETER | 17:29:32 | Health | | | | | | | System - | | | | | | | [place] | | | | + + + +-------+---------+ + | POCT | 2019-04-14 | [facility] | 138 | mg/dl | Test results | | GLUCOMETER | 17:29:32 | Health | | | may be | | | | System - | | | erroneously | | | | [place] | | | low if the | | | | | | | patient is | | | | | | | severely | | | | | | | dehydrated, | | | | | | | severely | | | | | | | hypotensive, | | | | | | | in shock or | | | | | | | in a | | | | | | | hyperglycemi | | | | | | | c-hyperosmol | | | | | | | ar state | | | | | | | (with or | | | | | | | without | | | | | | | ketosis). | | | | | | | Per | | | | | | | manufacture' | | | | | | | s | | | | | | | stipulations | | | | | | | and Federal | | | | | | | | | | | | | | Regulations, | | | | | | | the [facility] | | | | | | | glucometer | | | | | | | can not be | | | | | | | used on | | | | | | | patients | | | | | | | with | | | | | | | hematocrits | | | | | | | less than | | | | | | | 20% or | | | | | | | greater than | | | | | | | 70%. | | | | | | | Glucose | | | | | | | testing must | | | | | | | be sent to | | | | | | | the | | | | | | | laboratory | | | | | | | for these | | | | | | | patients. | + + + +-------+---------+ + + + | Result panel 34 | + + + + + + + + + | ASTROVIRUS | 2019-04-14 | [facility] | Not | (missing) | (missing) | | | 18:30:21 | Health | Detected | | | | | | System - | | | | | | | [place] | | | | + + + + + + + | C DIFFICILE | 2019-04-14 | [facility] | Not | (missing) | (missing) | | TOXINS A + | 18:30:21 | Health | Detected | | | | B | | System - | | | | | | | [place] | | | | + + + + + + + | | 2019-04-14 | [facility] | Not | (missing) | (missing) | | CAMPYLOBACTE | 18:30:21 | Health | Detected | | | | R | | System - | | | | | | | [place] | | | | + + + + + + + | | 2019-04-14 | [facility] | Not | (missing) | (missing) | | CRYPTOSPORID | 18:30:21 | Health | Detected | | | | IUM | | System - | | | | | | | [place] | | | | + + + + + + + | CYCLOSPORA | 2019-04-14 | [facility] | Not | (missing) | (missing) | | CAYETANENSIS | 18:30:21 | Health | Detected | | | | | | System - | | | | | | | [place] | | | | + + + + + + + | ENTAMOEBA | 2019-04-14 | [facility] | Not | (missing) | (missing) | | HISTOLYTICA | 18:30:21 | Health | Detected | | | | | | System - | | | | | | | [place] | | | | + + + + + + + | | 2019-04-14 | [facility] | Not | (missing) | (missing) | | ENTEROAGGREG | 18:30:21 | Health | Detected | | | | ATIVE E. | | System - | | | | | [facility] ([facility]) | | [place] | | | | + + + + + + + | | 2019-04-14 | [facility] | Not | (missing) | (missing) | | ENTEROPATHOG | 1830: | Health | Detected | | | | ENIC E. [facility] | | System - | | | | | (EPEC) | | [place] | | | | + + + + + + + | | 2019-04-14 | [facility] | Not | (missing) | (missing) | | ENTEROTOXIGE | 1830: | Health | Detected | | | | TINO [facility] | | System - | | | | | (ETEC) | | [place] | | | | + + + + + + + | GIARDIA | 2019-04-14 | [facility] | Not | (missing) | (missing) | | LAMBLIA | 30: | Health | Detected | | | | | | System - | | | | | | | [place] | | | | + + + + + + + | NOROVIRUS | 2019-04-14 | [facility] | Not | (missing) | (missing) | | GI/GII | 1830: | Health | Detected | | | | | | System - | | | | | | | [place] | | | | + + + + + + + | PLESIOMONAS | 2019-04-14 | [facility] | Not | (missing) | (missing) | | | 18:30:21 | Health | Detected | | | | SHIGELLOIDES | | System - | | | | | | | [place] | | | | + + + + + + + | ROTAVIRUS A | 2019-04-14 | [facility] | Not | (missing) | (missing) | | | 18:30:21 | Health | Detected | | | | | | System - | | | | | | | [place] | | | | + + + + + + + | SALMONELLA | 2019-04-14 | [facility] | Not | (missing) | (missing) | | | 18:30:21 | Health | Detected | | | | | | System - | | | | | | | [place] | | | | + + + + + + + | SAPOVIRUS | 2019-04-14 | [facility] | Not | (missing) | (missing) | | | 18:30:21 | Health | Detected | | | | | | System - | | | | | | | [place] | | | | + + + + + + + | SHIGA-LIKE | 2019-04-14 | [facility] | Not | (missing) | (missing) | | TOXIN-PRODUC | 18:30:21 | Health | Detected | | | | ING E. COLI | | System - | | | | | (STEC) | | [place] | | | | | STX1/STX2 | | | | | | + + + + + + + | | 2019-04-14 | [facility] | Not | (missing) | (missing) | | SHIGELLA/ENT | 18:30:21 | Health | Detected | | | | EROINVASIVE | | System - | | | | | E. COLI | | [place] | | | | | (EIEC) | | | | | | + + + + + + + | VIBRIO | 2019-04-14 | [facility] | Not | (missing) | (missing) | | CHOLERAE | 18:30:21 | Health | Detected | | | | | | System - | | | | | | | [place] | | | | + + + + + + + | VIBRIO | 2019-04-14 | [facility] | Not | (missing) | (missing) | | | 18:30:21 | Health | Detected | | | | | | System - | | | | | | | [place] | | | | + + + + + + + | YERSINIA | 2019-04-14 | [facility] | Not | (missing) | (missing) | | ENTEROCOLITI | 18:30:21 | Health | Detected | | | | CA | | System - | | | | | | | [place] | | | | + + + + + + + | SHIGA-LIKE | 2019-04-14 | [facility] | Not | (missing) | (missing) | | TOXIN-PRODUC | 18:30:21 | Health | Detected | | | | ING E. COLI | | System - | | | | | (STEC) | | [place] | | | | | STX1/STX2 | | | | | | + + + + + + + | ADENOVIRUS | 2019-04-14 | [facility] | Not | (missing) | (missing) | | F 40/41 | 18:30:21 | Health | Detected | | | | | | System - | | | | | | | [place] | | | | + + + + + + + | GIARDIA | 2019-04-14 | [facility] | Not | (missing) | (missing) | | LAMBLIA | 18:30:21 | Health | Detected | | | | | | System - | | | | | | | [place] | | | | + + + + + + + | VIBRIO | 2019-04-14 | [facility] | Not | (missing) | (missing) | | | 18:30:21 | Health | Detected | | | | | | System - | | | | | | | [place] | | | | + + + + + + + | SALMONELLA | 2019-04-14 | [facility] | Not | (missing) | (missing) | | | 18:30:21 | Health | Detected | | | | | | System - | | | | | | | [place] | | | | + + + + + + + | | 2019-04-14 | [facility] | Not | (missing) | (missing) | | CAMPYLOBACTE | 18:30:21 | Health | Detected | | | | R | | System - | | | | | | | [place] | | | | + + + + + + + | | 2019-04-14 | [facility] | Not | (missing) | (missing) | | CRYPTOSPORID | 18:30:21 | Health | Detected | | | | IUM | | System - | | | | | | | [place] | | | | + + + + + + + | VIBRIO | 2019-04-14 | [facility] | Not | (missing) | (missing) | | CHOLERAE | 18:30:21 | Health | Detected | | | | | | System - | | | | | | | [place] | | | | + + + + + + + | ENTAMOEBA | 2019-04-14 | [facility] | Not | (missing) | (missing) | | HISTOLYTICA | 18:30:21 | Health | Detected | | | | | | System - | | | | | | | [place] | | | | + + + + + + + | ASTROVIRUS | 2019-04-14 | [facility] | Not | (missing) | (missing) | | | 18:30:21 | Health | Detected | | | | | | System - | | | | | | | [place] | | | | + + + + + + + | PLESIOMONAS | 2019-04-14 | [facility] | Not | (missing) | (missing) | | | 18:30:21 | Health | Detected | | | | SHIGELLOIDES | | System - | | | | | | | [place] | | | | + + + + + + + | SAPOVIRUS | 2019-04-14 | [facility] | Not | (missing) | (missing) | | | 18:30:21 | Health | Detected | | | | | | System - | | | | | | | [place] | | | | + + + + + + + | NOROVIRUS | 2019-04-14 | [facility] | Not | (missing) | (missing) | | GI/GII | :30: | Health | Detected | | | | | | System - | | | | | | | [place] | | | | + + + + + + + | | 2019-04-14 | [facility] | Not | (missing) | (missing) | | ENTEROPATHOG | 30: | Health | Detected | | | | ENIC E. COLI | | System - | | | | | (EPEC) | | [place] | | | | + + + + + + + | | 2019-04-14 | [facility] | Not | (missing) | (missing) | | ENTEROAGGREG | 18:30:21 | Health | Detected | | | | ATIVE E. | | System - | | | | | COLI (EAEC) | | [place] | | | | + + + + + + + | | 2019-04-14 | [facility] | Not | (missing) | (missing) | | SHIGELLA/ENT | 18:30:21 | Health | Detected | | | | EROINVASIVE | | System - | | | | | E. COLI | | [place] | | | | | (EIEC) | | | | | | + + + + + + + | | 2019-04-14 | [facility] | Not | (missing) | (missing) | | ENTEROTOXIGE | 18:30:21 | Health | Detected | | | | TINO E. COLI | | System - | | | | | (ETEC) | | [place] | | | | + + + + + + + | C DIFFICILE | 2019-04-14 | [facility] | Not | (missing) | (missing) | | TOXINS A + | 18:30:21 | Health | Detected | | | | B | | System - | | | | | | | [place] | | | | + + + + + + + | YERSINIA | 2019-04-14 | [facility] | Not | (missing) | (missing) | | ENTEROCOLITI | 18:30:21 | Health | Detected | | | | CA | | System - | | | | | | | [place] | | | | + + + + + + + | CYCLOSPORA | 2019-04-14 | [facility] | Not | (missing) | (missing) | | CAYETANENSIS | 18:30:21 | Health | Detected | | | | | | System - | | | | | | | [place] | | | | + + + + + + + | ROTAVIRUS A | 2019-04-14 | [facility] | Not | (missing) | (missing) | | | 18:30:21 | Health | Detected | | | | | | System - | | | | | | | [place] | | | | + + + + + + + | ADENOVIRUS | 2019-04-14 | [facility] | Not | (missing) | Virus, | | F 40/41 | 18:30:21 | Health | Detected | | bacteria and | | | | System - | | | parasite | | | | [place] | | | nucleic acid | | | | | | | may persist | | | | | | | in vivo | | | | | | | independentl | | | | | | | y of | | | | | | | organism | | | | | | | viability. | | | | | | | Additionally | | | | | | | , some | | | | | | | organisms | | | | | | | may be | | | | | | | carried | | | | | | | asymptomatic | | | | | | | ally. | | | | | | | Detection of | | | | | | | organism | | | | | | | targets does | | | | | | | not imply | | | | | | | that the | | | | | | | correspondin | | | | | | | g organisms | | | | | | | are | | | | | | | infectious | | | | | | | or are the | | | | | | | causative | | | | | | | agents for | | | | | | | clinical | | | | | | | symptoms. | | | | | | | Results from | | | | | | | this test | | | | | | | must be | | | | | | | correlated | | | | | | | with the | | | | | | | clinical | | | | | | | history, | | | | | | | epidemiologi | | | | | | | ryan data, | | | | | | | and other | | | | | | | data | | | | | | | available to | | | | | | | the | | | | | | | clinician | | | | | | | evaluating | | | | | | | the patient. | + + + + + + + + + | Result panel 35 | + + + + + + + + + | C DIFF | 2019-04-14 | [facility] | Negative | (missing) | (missing) | | TOXIN B | 18:31:24 | Health | | | | | | | System - | | | | | | | [place] | | | | + + + + + + + | C DIFF 027 | 2019-04-14 | [facility] | Negative | (missing) | (missing) | | STRAIN | 18:31:24 | Health | | | | | | | System - | | | | | | | [place] | | | | + + + + + + + | C DIFF 027 | 2019-04-14 | [facility] | Negative | (missing) | | | STRAIN | 18:31:24 | Health | | | | | | | System - | | | | | | | [place] | | | | + + + + + + + Social History + + + + | date | description | facility | + + + + | 2020-09-02 00:00 | Ex-smoker | [facility] | | | | [place] | + + + + | 2021-02-26 00:00 | Current Some Day Smoker | OR - [facility] | | | | [facility] - Main Office | + + + + | 2021-02-27 00:00 | Current Some Day Smoker | OR - [facility] | | | | Pc - Main Office | + + + + | 2021-03-26 00:00 | Current Some Day Smoker | OR - [facility] | | | | - Main Office | + + + + | 2021-05-21 00:00 | Current smoker | [facility] | | | | [place] | + + + + | 2021-06-10 00:00 | Smokes tobacco daily | [facility] | | | | Ill[facility] | + + + + | 2021-06-10 00:00 | Smokes tobacco daily | [facility] | | | | [place] | + + + + | 2021-06-10 00:00 | Smokes tobacco daily | [facility] | | | | [place] | + + + + | 2021-06-10 00:00 | Smokes tobacco daily | [facility] | | | | [facility] [place] | + + + + | 2021-09-09 00:00 | Smokes tobacco daily | [facility] | | | | [place] | + + + + | 2021-09-30 00:00 | Smokes tobacco daily | [facility] | | | | Ill[facility] | + + + + | 2021-09-30 00:00 | Smokes tobacco daily | [facility] | | | | [place] | + + + + | 2021-10-21 00:00 | Smokes tobacco daily | [facility] | | | | [place] | + + + + | 2021-10-28 00:00 | Smokes tobacco daily | [facility] | | | | [place] | + + + + | 2021-11-18 00:00 | Smokes tobacco daily | [facility] | | | | [place] | + + + + | 2021 00:00 | Smokes tobacco daily | [facility] | | | | [place] | + + + + | 2021-12-23 00:00 | Smokes tobacco daily | [facility] | | | | [place] | + + + + | 2021-12-25 00:00 | Smokes tobacco daily | [facility] | | | | [place] | + + + + | 2021-12-31 00:00 | Smokes tobacco daily | [facility] | | | | [place] | + + + + | 2022-01-20 00:00 | Smokes tobacco daily | [facility] | | | | [place] | + + + + | 2022-09-07 00:00 | Unknown if ever smoked | [facility] | + + + + | 2022-10-01 00:00 | Unknown if ever smoked | [facility] | + + + + Vital Signs + + + +---------+ | date | measurement | value | units | + + + +---------+ | 2021-02-26 00:00 | BMI | 18.3 | kg/m2 | + + + +---------+ | 2021-02-26 00:00 | BP_diastolic | 100 | mmHg | + + + +---------+ | 2021-02-26 00:00 | BP_systolic | 160 | mmHg | + + + +---------+ | 2021-02-26 00:00 | height_metric | 154.94 | cm | + + + +---------+ | 2021-02-26 00:00 | height_standard | 61 | in | + + + +---------+ | 2021-02-26 00:00 | weight_metric | 1552 | oz_av | + + + +---------+ | 2021-02-26 00:00 | weight_standard | 1552 | oz_av | + + + +---------+ | 2021-03-26 00:00 | BMI | 18.1 | kg/m2 | + + + +---------+ | 2021-03-26 00:00 | BP_diastolic | 60 | mmHg | + + + +---------+ | 2021-03-26 00:00 | BP_systolic | 98 | mmHg | + + + +---------+ | 2021-03-26 00:00 | height_metric | 154.94 | cm | + + + +---------+ | 2021-03-26 00:00 | height_standard | 61 | in | + + + +---------+ | 2021-03-26 00:00 | weight_metric | 1536 | oz_av | + + + +---------+ | 2021-03-26 00:00 | weight_standard | 1536 | oz_av | + + + +---------+ | 2021-05-20 00:00 | BMI | 19.05 | kg/m2 | + + + +---------+ | 2021-05-20 00:00 | BP_diastolic | 71 | mmHg | + + + +---------+ | 2021-05-20 00:00 | BP_systolic | 140 | mmHg | + + + +---------+ | 2021-05-20 00:00 | heart_rate | 64 | /min | + + + +---------+ | 2021-05-20 00:00 | o2_saturation | 97 | % | + + + +---------+ | 2021-05-20 00:00 | temperature_metric | 36.44 | C | | | | | | + + + +---------+ | 2021-05-20 00:00 | | 97.59 | F | | | temperature_standar | | | | | d | | | + + + +---------+ | 2021-05-20 00:00 | weight_metric | 45.72 | kg | + + + +---------+ | 2021-05-20 00:00 | weight_standard | 100.8 | lb | + + + +---------+ | 2021-06-24 00:00 | BMI | 18.71 | kg/m2 | + + + +---------+ | 2021-06-24 00:00 | BP_diastolic | 67 | mmHg | + + + +---------+ | 2021-06-24 00:00 | BP_systolic | 117 | mmHg | + + + +---------+ | 2021-06-24 00:00 | heart_rate | 72 | /min | + + + +---------+ | 2021-06-24 00:00 | o2_saturation | 93 | % | + + + +---------+ | 2021-06-24 00:00 | temperature_metric | 36.61 | C | | | | | | + + + +---------+ | 2021-06-24 00:00 | | 97.9 | F | | | temperature_standar | | | | | d | | | + + + +---------+ | 2021-06-24 00:00 | weight_metric | 44.91 | kg | + + + +---------+ | 2021-06-24 00:00 | weight_standard | 99 | lb | + + + +---------+ | 2021-07-07 00:00 | BMI | 18.64 | kg/m2 | + + + +---------+ | 2021-07-07 00:00 | BP_diastolic | 72 | mmHg | + + + +---------+ | 2021-07-07 00:00 | BP_systolic | 132 | mmHg | + + + +---------+ | 2021-07-07 00:00 | heart_rate | 91 | /min | + + + +---------+ | 2021-07-07 00:00 | respiration_rate | 16 | /min | + + + +---------+ | 2021-07-07 00:00 | temperature_metric | 36.83 | C | | | | | | + + + +---------+ | 2021-07-07 00:00 | | 98.29 | F | | | temperature_standar | | | | | d | | | + + + +---------+ | 2021-07-07 00:00 | weight_metric | 44.09 | kg | + + + +---------+ | 2021-07-07 00:00 | weight_standard | 97.2 | lb | + + + +---------+ | 2021-07-15 00:00 | BMI | 18.79 | kg/m2 | + + + +---------+ | 2021-07-15 00:00 | BP_diastolic | 77 | mmHg | + + + +---------+ | 2021-07-15 00:00 | BP_systolic | 128 | mmHg | + + + +---------+ | 2021-07-15 00:00 | heart_rate | 83 | /min | + + + +---------+ | 2021-07-15 00:00 | o2_saturation | 97 | % | + + + +---------+ | 2021-07-15 00:00 | respiration_rate | 16 | /min | + + + +---------+ | 2021-07-15 00:00 | temperature_metric | 36.83 | C | | | | | | + + + +---------+ | 2021-07-15 00:00 | | 98.29 | F | | | temperature_standar | | | | | d | | | + + + +---------+ | 2021-07-15 00:00 | weight_metric | 44.45 | kg | + + + +---------+ | 2021-07-15 00:00 | weight_standard | 98 | lb | + + + +---------+ | 2021-07-28 00:00 | BMI | 19.06 | kg/m2 | + + + +---------+ | 2021-07-28 00:00 | BP_diastolic | 80 | mmHg | + + + +---------+ | 2021-07-28 00:00 | BP_systolic | 151 | mmHg | + + + +---------+ | 2021-07-28 00:00 | heart_rate | 63 | /min | + + + +---------+ | 2021-07-28 00:00 | o2_saturation | 96 | % | + + + +---------+ | 2021-07-28 00:00 | respiration_rate | 16 | /min | + + + +---------+ | 2021-07-28 00:00 | temperature_metric | 36.28 | C | | | | | | + + + +---------+ | 2021-07-28 00:00 | | 97.3 | F | | | temperature_standar | | | | | d | | | + + + +---------+ | 2021-07-28 00:00 | weight_metric | 45.09 | kg | + + + +---------+ | 2021-07-28 00:00 | weight_standard | 99.4 | lb | + + + +---------+ | 2021-08-18 00:00 | BMI | 18.55 | kg/m2 | + + + +---------+ | 2021-08-18 00:00 | BP_diastolic | 72 | mmHg | + + + +---------+ | 2021-08-18 00:00 | BP_systolic | 151 | mmHg | + + + +---------+ | 2021-08-18 00:00 | heart_rate | 84 | /min | + + + +---------+ | 2021-08-18 00:00 | o2_saturation | 93 | % | + + + +---------+ | 2021-08-18 00:00 | respiration_rate | 16 | /min | + + + +---------+ | 2021-08-18 00:00 | temperature_metric | 36.44 | C | | | | | | + + + +---------+ | 2021-08-18 00:00 | | 97.59 | F | | | temperature_standar | | | | | d | | | + + + +---------+ | 2021-08-18 00:00 | weight_metric | 44.54 | kg | + + + +---------+ | 2021-08-18 00:00 | weight_standard | 98.2 | lb | + + + +---------+ | 2021-09-04 00:00 | BMI | 17.69 | kg/m2 | + + + +---------+ | 2021-09-04 00:00 | BP_diastolic | 82 | mmHg | + + + +---------+ | 2021-09-04 00:00 | BP_systolic | 122 | mmHg | + + + +---------+ | 2021-09-04 00:00 | heart_rate | 90 | /min | + + + +---------+ | 2021-09-04 00:00 | o2_saturation | 99 | % | + + + +---------+ | 2021-09-04 00:00 | temperature_metric | 36.39 | C | | | | | | + + + +---------+ | 2021-09-04 00:00 | | 97.5 | F | | | temperature_standar | | | | | d | | | + + + +---------+ | 2021-09-04 00:00 | weight_metric | 42.46 | kg | + + + +---------+ | 2021-09-04 00:00 | weight_standard | 93.6 | lb | + + + +---------+ | 2021-09-08 00:00 | BMI | 17.48 | kg/m2 | + + + +---------+ | 2021-09-08 00:00 | BP_diastolic | 81 | mmHg | + + + +---------+ | 2021-09-08 00:00 | BP_systolic | 155 | mmHg | + + + +---------+ | 2021-09-08 00:00 | heart_rate | 95 | /min | + + + +---------+ | 2021-09-08 00:00 | o2_saturation | 96 | % | + + + +---------+ | 2021-09-08 00:00 | respiration_rate | 20 | /min | + + + +---------+ | 2021-09-08 00:00 | temperature_metric | 36.67 | C | | | | | | + + + +---------+ | 2021-09-08 00:00 | | 98.01 | F | | | temperature_standar | | | | | d | | | + + + +---------+ | 2021-09-08 00:00 | weight_metric | 41.96 | kg | + + + +---------+ | 2021-09-08 00:00 | weight_standard | 92.5 | lb | + + + +---------+ | 2021-09-29 00:00 | BMI | 16.85 | kg/m2 | + + + +---------+ | 2021-09-29 00:00 | BP_diastolic | 75 | mmHg | + + + +---------+ | 2021-09-29 00:00 | BP_systolic | 124 | mmHg | + + + +---------+ | 2021-09-29 00:00 | heart_rate | 101 | /min | + + + +---------+ | 2021-09-29 00:00 | o2_saturation | 97 | % | + + + +---------+ | 2021-09-29 00:00 | temperature_metric | 36.72 | C | | | | | | + + + +---------+ | 2021-09-29 00:00 | | 98.1 | F | | | temperature_standar | | | | | d | | | + + + +---------+ | 2021-09-29 00:00 | weight_metric | 40.46 | kg | + + + +---------+ | 2021-09-29 00:00 | weight_standard | 89.2 | lb | + + + +---------+ | 2021-10-20 00:00 | BMI | 17.12 | kg/m2 | + + + +---------+ | 2021-10-20 00:00 | BP_diastolic | 82 | mmHg | + + + +---------+ | 2021-10-20 00:00 | BP_systolic | 129 | mmHg | + + + +---------+ | 2021-10-20 00:00 | heart_rate | 76 | /min | + + + +---------+ | 2021-10-20 00:00 | o2_saturation | 100 | % | + + + +---------+ | 2021-10-20 00:00 | weight_metric | 41.1 | kg | + + + +---------+ | 2021-10-20 00:00 | weight_standard | 90.6 | lb | + + + +---------+ | 2021-10-27 00:00 | BMI | 16.93 | kg/m2 | + + + +---------+ | 2021-10-27 00:00 | BP_diastolic | 65 | mmHg | + + + +---------+ | 2021-10-27 00:00 | BP_systolic | 103 | mmHg | + + + +---------+ | 2021-10-27 00:00 | heart_rate | 103 | /min | + + + +---------+ | 2021-10-27 00:00 | o2_saturation | 95 | % | + + + +---------+ | 2021-10-27 00:00 | temperature_metric | 36.67 | C | | | | | | + + + +---------+ | 2021-10-27 00:00 | | 98.01 | F | | | temperature_standar | | | | | d | | | + + + +---------+ | 2021-10-27 00:00 | weight_metric | 40.64 | kg | + + + +---------+ | 2021-10-27 00:00 | weight_standard | 89.6 | lb | + + + +---------+ | 2021-11-17 00:00 | BMI | 17.16 | kg/m2 | + + + +---------+ | 2021-11-17 00:00 | BP_diastolic | 65 | mmHg | + + + +---------+ | 2021-11-17 00:00 | BP_systolic | 104 | mmHg | + + + +---------+ | 2021-11-17 00:00 | heart_rate | 87 | /min | + + + +---------+ | 2021-11-17 00:00 | o2_saturation | 90 | % | + + + +---------+ | 2021-11-17 00:00 | temperature_metric | 36.39 | C | | | | | | + + + +---------+ | 2021-11-17 00:00 | | 97.5 | F | | | temperature_standar | | | | | d | | | + + + +---------+ | 2021-11-17 00:00 | weight_metric | 41.19 | kg | + + + +---------+ | 2021-11-17 00:00 | weight_standard | 90.8 | lb | + + + +---------+ | 2021-12-08 00:00 | BMI | 16.93 | kg/m2 | + + + +---------+ | 2021-12-08 00:00 | BP_diastolic | 63 | mmHg | + + + +---------+ | 2021-12-08 00:00 | BP_systolic | 114 | mmHg | + + + +---------+ | 2021-12-08 00:00 | heart_rate | 89 | /min | + + + +---------+ | 2021-12-08 00:00 | o2_saturation | 95 | % | + + + +---------+ | 2021-12-08 00:00 | temperature_metric | 36.5 | C | | | | | | + + + +---------+ | 2021-12-08 00:00 | | 97.7 | F | | | temperature_standar | | | | | d | | | + + + +---------+ | 2021-12-08 00:00 | weight_metric | 40.64 | kg | + + + +---------+ | 2021-12-08 00:00 | weight_standard | 89.6 | lb | + + + +---------+ | 2021-12-22 00:00 | BMI | 16.40 | kg/m2 | + + + +---------+ | 2021-12-22 00:00 | BP_diastolic | 79 | mmHg | + + + +---------+ | 2021-12-22 00:00 | BP_systolic | 128 | mmHg | + + + +---------+ | 2021-12-22 00:00 | heart_rate | 97 | /min | + + + +---------+ | 2021-12-22 00:00 | o2_saturation | 97 | % | + + + +---------+ | 2021-12-22 00:00 | temperature_metric | 36.67 | C | | | | | | + + + +---------+ | 2021-12-22 00:00 | | 98.01 | F | | | temperature_standar | | | | | d | | | + + + +---------+ | 2021-12-22 00:00 | weight_metric | 39.37 | kg | + + + +---------+ | 2021-12-22 00:00 | weight_standard | 86.8 | lb | + + + +---------+ | 2021-12-24 00:00 | BMI | 17.21 | kg/m2 | + + + +---------+ | 2021-12-24 00:00 | BP_diastolic | 61 | mmHg | + + + +---------+ | 2021-12-24 00:00 | BP_systolic | 150 | mmHg | + + + +---------+ | 2021-12-24 00:00 | heart_rate | 82 | /min | + + + +---------+ | 2021-12-24 00:00 | o2_saturation | 94 | % | + + + +---------+ | 2021-12-24 00:00 | temperature_metric | 36.67 | C | | | | | | + + + +---------+ | 2021-12-24 00:00 | | 98.01 | F | | | temperature_standar | | | | | d | | | + + + +---------+ | 2021-12-24 00:00 | weight_metric | 41.32 | kg | + + + +---------+ | 2021-12-24 00:00 | weight_standard | 91.1 | lb | + + + +---------+ | 2021-12-29 00:00 | BMI | 16.70 | kg/m2 | + + + +---------+ | 2021-12-29 00:00 | BP_diastolic | 82 | mmHg | + + + +---------+ | 2021-12-29 00:00 | BP_systolic | 176 | mmHg | + + + +---------+ | 2021-12-29 00:00 | heart_rate | 88 | /min | + + + +---------+ | 2021-12-29 00:00 | o2_saturation | 95 | % | + + + +---------+ | 2021-12-29 00:00 | temperature_metric | 36.33 | C | | | | | | + + + +---------+ | 2021-12-29 00:00 | | 97.39 | F | | | temperature_standar | | | | | d | | | + + + +---------+ | 2021-12-29 00:00 | weight_metric | 40.1 | kg | + + + +---------+ | 2021-12-29 00:00 | weight_standard | 88.4 | lb | + + + +---------+ | 2022-01-19 00:00 | BMI | 16.44 | kg/m2 | + + + +---------+ | 2022-01-19 00:00 | BP_diastolic | 69 | mmHg | + + + +---------+ | 2022-01-19 00:00 | BP_systolic | 110 | mmHg | + + + +---------+ | 2022-01-19 00:00 | heart_rate | 92 | /min | + + + +---------+ | 2022-01-19 00:00 | o2_saturation | 92 | % | + + + +---------+ | 2022-01-19 00:00 | temperature_metric | 36.94 | C | | | | | | + + + +---------+ | 2022-01-19 00:00 | | 98.49 | F | | | temperature_standar | | | | | d | | | + + + +---------+ | 2022-01-19 00:00 | weight_metric | 39.46 | kg | + + + +---------+ | 2022-01-19 00:00 | weight_standard | 87 | lb | + + + +---------+ | 2022-09-06 00:00 | BMI | 13.8 | kg/m2 | + + + +---------+ | 2022-09-06 00:00 | BP_diastolic | 77 | mmHg | + + + +---------+ | 2022-09-06 00:00 | BP_systolic | 119 | mmHg | + + + +---------+ | 2022-09-06 00:00 | heart_rate | 70 | /min | + + + +---------+ | 2022-09-06 00:00 | height_metric | 154.94 | cm | + + + +---------+ | 2022-09-06 00:00 | height_standard | 61 | in | + + + +---------+ | 2022-09-06 00:00 | o2_saturation | 99 | % | + + + +---------+ | 2022-09-06 00:00 | respiration_rate | 17 | /min | + + + +---------+ | 2022-09-06 00:00 | temperature_metric | 36.17 | C | | | | | | + + + +---------+ | 2022-09-06 00:00 | | 97.1 | F | | | temperature_standar | | | | | d | | | + + + +---------+ | 2022-09-06 00:00 | weight_metric | 33.11 | kg | + + + +---------+ | 2022-09-06 00:00 | weight_standard | 73 | lb | + + + +---------+ | 2022-10-01 00:00 | BMI | 12.5 | kg/m2 | + + + +---------+ | 2022-10-01 00:00 | BP_diastolic | 62 | mmHg | + + + +---------+ | 2022-10-01 00:00 | BP_systolic | 136 | mmHg | + + + +---------+ | 2022-10-01 00:00 | heart_rate | 71 | /min | + + + +---------+ | 2022-10-01 00:00 | height_metric | 154.94 | cm | + + + +---------+ | 2022-10-01 00:00 | height_standard | 61 | in | + + + +---------+ | 2022-10-01 00:00 | o2_saturation | 97 | % | + + + +---------+ | 2022-10-01 00:00 | respiration_rate | 16 | /min | + + + +---------+ | 2022-10-01 00:00 | temperature_metric | 37.17 | C | | | | | | + + + +---------+ | 2022-10-01 00:00 | | 98.9 | F | | | temperature_standar | | | | | d | | | + + + +---------+ | 2022-10-01 00:00 | weight_metric | 30.1 | kg | + + + +---------+ | 2022-10-01 00:00 | weight_standard | 66.36 | lb | + + + +---------+"
--- OUTSIDE RECORDS SUMMARY | ~2022-10-06 | XMS | Continuity of Care Document ---
Demographics + + + | Address | [address] | | | [place] [address] | + + + | Preferred Language | Unknown | + + + | Marital Status | | + + + | Yarsani Affiliation | Unknown | + + + | Race | White | + + + | Ethnic Group | Not or | + + + Author + + + | Author | [facility] | + + + | Organization | [facility] | + + + | Address | [address] | | | [place] [address] | + + + | Phone | | + + + Care Team Providers + + + + | Care Training Engineer Name | Role | Phone | + [...] (no date) | [place] | [place] - [place] | (no reaction) | (no severity) | [...] Center | | | | | | [place] | | | + + + + [...] - | | | | | | [place] | | | + + + + + + | (no date) | [facility] | [facility] | (no reaction) | (no severity) | | | | [facility] - | | | | | | [facility] | | | + + + + + + | (no date) | [place] | [facility] | (no reaction) | (no severity) [...] Center | | | | | | [place] | | | + + + + [...] | pneumococcal conjugate PCV | [place] - [facility] | | | 13 | - Main Office | + + + + | 2019-11-29 00:00 | pneumococcal conjugate PCV | [place] - [facility] | | | 13 | - Main Office | + + + + | 2011-11-29 00:00 | influenza, seasonal, | [place] - [facility] | | | injectable, preservative | - Main Office | | | free | | + + + + | 2012-10-31 00:00 | influenza, seasonal, | [place] - [facility] | | | injectable, preservative | - Main Office | | | free | | + + + + | 2014-02-07 00:00 | influenza, seasonal, | [facility] | | | injectable, preservative | - Main Office | | | free | | + + + + | 2018-01-18 00:00 | influenza, injectable, | [facility] | | | quadrivalent, preservative | - Main Office | | | free | | + + + + | 2018-10-16 00:00 | influenza, injectable, | [facility] | | | quadrivalent, preservative | - Main Office | | | free | | + + + + | 2019-11-29 00:00 | influenza, injectable, | [facility] | | | quadrivalent, preservative | - Main Office | | | free | | + + + + | 2015-12-25 00:00 | influenza, injectable, | [facility] | | | quadrivalent | [facility] - [facility] Office | + + + + | 2016-12-20 00:00 | influenza, injectable, | [place] [facility] | | | quadrivalent | - Main Office | + + + + | 2020-05-21 00:00 | COVID-19, mRNA, LNP-S, PF, | [facility] | | | 100 mcg/0.5 mL dose | [facility] - Main Office | | | (Moderna) | | + + + + | 2020-06-18 00:00 | COVID-19, mRNA, LNP-S, PF, | [facility] | | | 100 mcg/0.5 mL dose | [facility] - Main Office | | | (Moderna) | | + + + + | 2021-03-26 00:00 | COVID-19, mRNA, LNP-S, PF, | [place] - [facility] | | | 100 mcg/0.5 mL dose | [facility] - Main Office | | | (Moderna) | | + + + + | 2011-11-29 00:00 | pneumococcal | [place] - [facility] | | | polysaccharide PPV23 | [facility] - Main Office | + + + + | 2018-01-18 00:00 | pneumococcal | [place] - [facility] | | | polysaccharide PPV23 | [facility] - Main Office | + + + + Medications + + + + | date | description | facility | + + + + | 2021-08-20 00:00 | {2 (480 ML) (Magnesium | [facility] | | | Sulfate 0.0277 MEQ/ML / | [facility] | | | potassium sulfate 0.0374 | | | | MEQ/ML / sodium sulfate | | | | 0.257 MEQ/ML Oral Solution) | | | | } Pack [Suprep Bowel Prep | | | | Kit] | | + + + + | 2021-08-20 00:00 | {2 (480 ML) (Magnesium | [facility] | | | Sulfate 0.0277 MEQ/ML / | [place] | | | potassium sulfate 0.0374 | | | | MEQ/ML / sodium sulfate | | | | 0.257 MEQ/ML Oral Solution) | | | | } Pack [Suprep Bowel Prep | | | | Kit] | | + + + + | 2021-08-20 00:00 | {2 (480 ML) (Magnesium | [facility] | | | Sulfate 0.0277 MEQ/ML / | [place] | | | potassium sulfate 0.0374 | | | | MEQ/ML / sodium sulfate | | | | 0.257 MEQ/ML Oral Solution) | | | | } Pack [Suprep Bowel Prep | | | | Kit] | | + + + + | 2021-08-20 00:00 | {2 (480 ML) (Magnesium | [facility] | | | Sulfate 0.0277 MEQ/ML / | [facility] [place] | | | potassium sulfate 0.0374 | | | | MEQ/ML / sodium sulfate | | | | 0.257 MEQ/ML Oral Solution) | | | | } Pack [Suprep Bowel Prep | | | | Kit] | | + + + + | 2021-10-20 00:00 | abuse-deterrent 12 hr | [facility] | | | oxycodone hydrochloride 15 | [place] | | | mg extended release oral | | | | tablet [oxycontin] | | + + + + | 2021-09-08 00:00 | oxycodone hcl 5 mg oral | [facility] | | | tablet | [place] | + + + + | 2021-09-29 00:00 | oxycodone hcl 5 mg oral | [facility] | | | tablet | [place] | + + + + | 2021-10-27 00:00 | oxycodone hcl 5 mg oral | [facility] | | | tablet | [place] | + + + + | 2021 00:00 | oxycodone hcl 5 mg oral | [facility] | | | tablet | [place] | + + + + | 2021 00:00 | oxycodone hcl 5 mg oral | [facility] | | | tablet | [place] | + + + + | 2021-12-29 00:00 | oxycodone hcl 5 mg oral | [facility] | | | tablet | [place] | + + + + | 2021-09-08 00:00 | oxycodone hydrochloride 5 | [facility] | | | mg oral tablet [roxicodone] | [place] | | | | | + + + + | 2021-09-29 00:00 | oxycodone hydrochloride 5 | [facility] | | | mg oral tablet [roxicodone] | [place] | | | | | + + + + | 2021-08-18 00:00 | valtrex 500 mg oral tablet | [facility] | | | | Ill[facility] | + + + + | 2021-08-18 00:00 | valtrex 500 mg oral tablet | [facility] | | | | [place] | + + + + | 2021-08-18 00:00 | valtrex 500 mg oral tablet | [facility] | | | | [place] | + + + + | 2021-08-18 00:00 | valtrex 500 mg oral tablet | [facility] | | | | [facility] [place] | + + + + | 2021-10-20 00:00 | senokot-s 8.6 mg / 50 mg | [facility] | | | oral tablet | [place] | + + + + | 2021-10-20 00:00 | senokot-s 8.6 mg / 50 mg | [facility] | | | oral tablet | [place] | + + + + | 2021-02-26 00:00 | atorvastatin 80 MG Oral | [place] - [place] [facility] | | | Tablet | - Main Office | + + + + | 2021-02-27 00:00 | atorvastatin 80 MG Oral | OR - [facility] | | | Tablet | [facility] - Main Office | + + + + | 2021-03-26 00:00 | atorvastatin 80 MG Oral | [place] - [facility] | | | Tablet | [facility] - Main Office | + + + + | 2021-02-26 00:00 | potassium chloride 10 MEQ | [place] - [facility] | | | Extended Release Oral | [facility] - Main Office | | | Capsule | | + + + + | 2021-02-27 00:00 | potassium chloride 10 MEQ | [place] - [place] [facility] | | | Extended Release Oral | [facility] - Main Office | | | Capsule | | + + + + | 2021-03-26 00:00 | potassium chloride 10 MEQ | [place] - [facility] | | | Extended Release Oral | - Main Office | | | Capsule | | + + + + | 2021-09-04 00:00 | doxycycline hyclate 100 mg | [facility] | | | oral capsule | [place] | + + + + | 2021-09-04 00:00 | doxycycline hyclate 100 mg | [facility] | | | oral capsule | [facility] [place] | + + + + | 2021-02-26 00:00 | trazodone hydrochloride 50 | [place] - [facility] | | | MG Oral Tablet | - Main Office | + + + + | 2021-02-27 00:00 | trazodone hydrochloride 50 | [facility] | | | MG Oral Tablet | - Main Office | + + + + | 2021-03-26 00:00 | trazodone hydrochloride 50 | [facility] | | | MG Oral Tablet | [facility] Main Office | + + + + | 2021-09-08 00:00 | naloxone hcl 4 mg per 0.1 | [facility] | | | ml nasal spray | Illness Management | + + + + | 2021-09-08 00:00 | naloxone hcl 4 mg per 0.1 | [facility] | | | ml nasal spray | [place] | + + + + | 2021-09-08 00:00 | naloxone hcl 4 mg per 0.1 | [facility] | | | ml nasal spray | [place] | + + + + | 2021-02-26 00:00 | naloxone hydrochloride 40 | [place] [facility] | | | MG/ML Nasal [place] [Narcan] | - Main Office | + + + + | 2021-02-27 00:00 | naloxone hydrochloride 40 | [facility] | | | MG/ML Nasal [place] [Narcan] | - Main Office | + + + + | 2021-03-26 00:00 | naloxone hydrochloride 40 | [place] [facility] | | | MG/ML Nasal [place] [Narcan] | - Main Office | + + + + | 2021-09-08 00:00 | naloxone hydrochloride 40 | [facility] | | | mg/ml nasal spray [narcan] | [facility] | + + + + | 2021-09-08 00:00 | naloxone hydrochloride 40 | [facility] | | | mg/ml nasal spray [narcan] | [place] | + + + + | 2021-09-08 00:00 | naloxone hydrochloride 40 | [facility] | | | mg/ml nasal spray [narcan] | [place] | + + + + | 2021-02-26 00:00 | ibuprofen 800 MG Oral | [place] - [facility] | | | Tablet | [facility] - Main Office | + + + + | 2021-02-27 00:00 | ibuprofen 800 MG Oral | [place] - [place] [facility] | | | Tablet | [facility] - Main Office | + + + + | 2021-03-26 00:00 | ibuprofen 800 MG Oral | [place] - [facility] [place] [facility] | | | Tablet | [facility] - Main Office | + + + + | 2021-02-26 00:00 | tizanidine 4 MG Oral | [place] - [facility] [place] [facility] | | | Tablet | [facility] - Main Office | + + + + | 2021-02-27 00:00 | tizanidine 4 MG Oral | [place] - [facility] | | | Tablet | [facility] - Main Office | + + + + | 2021-03-26 00:00 | tizanidine 4 MG Oral | [place] - [facility] [place] [facility] | | | Tablet | [facility] - Main Office | + + + + | 2021-02-26 00:00 | benzonatate 200 MG Oral | [place] - [place] [facility] | | | Capsule | - Main Office | + + + + | 2021-02-27 00:00 | benzonatate 200 MG Oral | [place] - [facility] | | | Capsule | - Main Office | + + + + | 2021-03-26 00:00 | benzonatate 200 MG Oral | [place] [facility] | | | Capsule | - Main Office | + + + + | 2021-09-29 00:00 | microencapsulated | [facility] | | | potassium chloride 10 meq | [place] | | | extended release oral | | | | tablet | | + + + + | 2021-09-29 00:00 | microencapsulated | [facility] | | | potassium chloride 10 meq | [place] | | | extended release oral | | | | tablet | | + + + + | 2021-02-26 00:00 | sucralfate 100 MG/ML Oral | [place] - [facility] | | | Suspension | - Main Office | + + + + | 2021-02-27 00:00 | sucralfate 100 MG/ML Oral | [place] - [facility] | | | Suspension | - Main Office | + + + + | 2021-03-26 00:00 | sucralfate 100 MG/ML Oral | [place] - [facility] | | | Suspension | - Main Office | + + + + | 2021-10-20 00:00 | abuse-deterrent 12 hr | [facility] | | | oxycodone hydrochloride 15 | [place] | | | mg extended release oral | | | | tablet | | + + + + | 2021-12-22 00:00 | abuse-deterrent 12 hr | [facility] | | | oxycodone hydrochloride 10 | [place] | | | mg extended release oral | | | | tablet | | + + + + | 2021-12-22 00:00 | abuse-deterrent 12 hr | [facility] | | | oxycodone hydrochloride 10 | [place] | | | mg extended release oral | | | | tablet | | + + + + | 2022-01-06 00:00 | abuse-deterrent 12 hr | [facility] | | | oxycodone hydrochloride 10 | [place] | | | mg extended release oral | | | | tablet | | + + + + | 2021-02-26 00:00 | fluticasone furoate 0.1 | [place] [facility] | | | MG/ACTUAT / umeclidinium | - Main Office | | | 0.0625 MG/ACTUAT / | | | | vilanterol 0.025 MG/ACTUAT | | | | Dry Powder Inhaler | | + + + + | 2021-02-27 00:00 | fluticasone furoate 0.1 | [facility] | | | MG/ACTUAT / umeclidinium | [facility] Main Office | | | 0.0625 MG/ACTUAT / | | | | vilanterol 0.025 MG/ACTUAT | | | | Dry Powder Inhaler | | + + + + | 2021-03-26 00:00 | fluticasone furoate 0.1 | [facility] | | | MG/ACTUAT / umeclidinium | [facility] Main Office | | | 0.0625 MG/ACTUAT / | | | | vilanterol 0.025 MG/ACTUAT | | | | Dry Powder Inhaler | | + + + + | 2021-08-19 00:00 | juventino garcia | [facility] | | | (fluticasone furoate 100 | [...] | 2021-09-05 00:00 | juventino garcia | [facility] | | | (fluticasone furoate 100 [...] | 2021-09-09 00:00 | juventino garcia | [facility] | | | (fluticasone furoate 100 | [...] | 2021-09-29 00:00 | trelegy ellipta | [facility] | | | (fluticasone furoate 100 | [...] | 2021-09-29 00:00 | trelegy ellipta | [facility] | | | (fluticasone furoate 100 | [...] | 2021-09-30 00:00 | trelegy ellipta | [facility] | | | (fluticasone furoate 100 | [...] 00:00 | dexamethasone 4 mg oral | [facility] | | | tablet | [place] | + + + + | 2021-09-24 00:00 | dexamethasone 4 mg oral | [facility] | | | tablet | Ill[facility] | + + + + | 2021-09-24 00:00 | dexamethasone 4 mg oral | [facility] | | | tablet | [place] | + + + + | 2021-09-24 00:00 | dexamethasone 4 mg oral | [facility] | | | tablet | [place] | + + + + | 2021-02-26 00:00 | ibuprofen 800 MG Oral | [place] - [facility] | | | Tablet | [facility] - Main Office | + + + + | 2021-02-27 00:00 | ibuprofen 800 MG Oral | [place] - [facility] [place] [facility] | | | Tablet | [facility] - Main Office | + + + + | 2021-03-26 00:00 | ibuprofen 800 MG Oral | [place] - [facility] [place] [facility] | | | Tablet | [facility] - Main Office | + + + + | 2020-10-08 00:00 | ibuprofen 800 mg oral | [facility] | | | tablet | [facility] | + + + + | 2020-10-08 00:00 | ibuprofen 800 mg oral | [facility] | | | tablet | [place] | + + + + | 2020-10-08 00:00 | ibuprofen 800 mg oral | [facility] | | | tablet | [place] | + + + + | 2020-10-08 00:00 | ibuprofen 800 mg oral | [facility] | | | tablet | [facility] [place] | + + + + | 2021-07-21 00:00 | lorazepam 0.5 mg oral | [facility] | | | tablet | [place] | + + + + | 2021-02-26 00:00 | nitroglycerin 0.4 MG | [place] - [facility] | | | Sublingual Tablet | - Main Office | + + + + | 2021-02-27 00:00 | nitroglycerin 0.4 MG | [facility] | | | Sublingual Tablet | Pc - Main Office | + + + + | 2021-03-26 00:00 | nitroglycerin 0.4 MG | [facility] | | | Sublingual Tablet | [facility] - Main Office | + + + + | 2018-05-03 00:00 | nitroglycerin 400 mcg | [facility] | | | sublingual tablet | Illness Management | + + + + | 2018-05-03 00:00 | nitroglycerin 400 mcg | [facility] | | | sublingual tablet | [place] | + + + + | 2018-05-03 00:00 | nitroglycerin 400 mcg | [facility] | | | sublingual tablet | [place] | + + + + | 2018-05-03 00:00 | nitroglycerin 400 mcg | [facility] | | | sublingual tablet | [facility] [place] | + + + + | 2021-08-20 00:00 | ondansetron 4 mg oral | [facility] | | | tablet | [place] | + + + + | 2021-08-20 00:00 | ondansetron 4 mg oral | [facility] | | | tablet | [facility] [place] | + + + + | 2018-07-05 00:00 | ranitidine 150 mg (as | [facility] | | | ranitidine hcl 168 mg) oral | [place] | | | tablet | | + + + + | 2021-07-21 00:00 | prochlorperazine 10 mg | [facility] | | | oral tablet | [place] | + + + + | 2021-08-26 00:00 | prochlorperazine 10 mg | [facility] | | | oral tablet | Ill[facility] | + + + + | 2021-08-26 00:00 | prochlorperazine 10 mg | [facility] | | | oral tablet | [place] | + + + + | 2021-08-26 00:00 | prochlorperazine 10 mg | [facility] | | | oral tablet | [place] | + + + + | 2021-08-26 00:00 | prochlorperazine 10 mg | [facility] | | | oral tablet | [facility] [place] | + + + + | 2021-10-20 00:00 | levofloxacin 500 mg oral | [facility] | | | tablet | [place] | + + + + | 2021-07-21 00:00 | compazine 10 mg oral | [facility] | | | tablet | [place] | + + + + | 2021-05-21 00:00 | [id number] 200 actuat | [facility] | | | albuterol 0.09 mg/actuat | [place] | | | metered dose inhaler | | + + + + | 2021-06-25 00:00 | [id number] 200 actuat | [facility] | | | albuterol 0.09 mg/actuat | [place] | | | metered dose inhaler | | + + + + | 2021-07-08 00:00 | [id number] 200 actuat | [facility] | | | albuterol 0.09 mg/actuat | [place] | | | metered dose inhaler | | + + + + | 2021-07-16 00:00 | [id number] 200 actuat | [facility] | | | albuterol 0.09 mg/actuat | [place] | | | metered dose inhaler | | + + + + | 2021-07-29 00:00 | [id number] 200 actuat | [facility] | | | albuterol 0.09 mg/actuat | [place] | | | metered dose inhaler | | + + + + | 2021-08-19 00:00 | [id number] 200 actuat | [facility] | | | albuterol 0.09 mg/actuat | [place] | | | metered dose inhaler | | + + + + | 2021-09-05 00:00 | [id number] 200 actuat | [facility] | | | albuterol 0.09 mg/actuat | [facility] [place] | | | metered dose inhaler | | + + + + | 2021-09-09 00:00 | [id number] 200 actuat | [facility] | | | albuterol 0.09 mg/actuat | [place] | | | metered dose inhaler | | + + + + | 2021-09-30 00:00 | [id number] 200 actuat | [facility] | | | albuterol 0.09 mg/actuat | Ill[facility] | | | metered dose inhaler | | + + + + | 2021-09-30 00:00 | [id number] 200 actuat | [facility] | | | albuterol 0.09 mg/actuat | [place] | | | metered dose inhaler | | + + + + | 2021-10-21 00:00 | [id number] 200 actuat | [facility] | | | albuterol 0.09 mg/actuat | [place] | | | metered dose inhaler | | + + + + | 2021-10-28 00:00 | [id number] 200 actuat | [facility] | | | albuterol 0.09 mg/actuat | [place] | | | metered dose inhaler | | + + + + | 2021-11-18 00:00 | [id number] 200 actuat | [facility] | | | albuterol 0.09 mg/actuat | [place] | | | metered dose inhaler | | + + + + | 2021 00:00 | [id number] 200 actuat | [facility] | | | albuterol 0.09 mg/actuat | [place] | | | metered dose inhaler | | + + + + | 2021-12-23 00:00 | [id number] 200 actuat | [facility] | | | albuterol 0.09 mg/actuat | [place] | | | metered dose inhaler | | + + + + | 2021-12-25 00:00 | [id number] 200 actuat | [facility] | | | albuterol 0.09 mg/actuat | [place] | | | metered dose inhaler | | + + + + | 2021-12-31 00:00 | [id number] 200 actuat | [facility] | | | albuterol 0.09 mg/actuat | [place] | | | metered dose inhaler | | + + + + | 2022-01-20 00:00 | [id number] 200 actuat | [facility] | | | albuterol 0.09 mg/actuat | [place] | | | metered dose inhaler | | + + + + | 2021-02-26 00:00 | levothyroxine sodium 0.1 | [place] [facility] | | | MG Oral Tablet | - Main Office | + + + + | 2021-02-27 00:00 | levothyroxine sodium 0.1 | [place] - [facility] | | | MG Oral Tablet | - Main Office | + + + + | 2021-03-26 00:00 | levothyroxine sodium 0.1 | [facility] | | | MG Oral Tablet | - Main Office | + + + + | 2021-02-26 00:00 | pantoprazole 40 MG Delayed | [facility] | | | Release Oral Tablet | - Main Office | + + + + | 2021-02-27 00:00 | pantoprazole 40 MG Delayed | [facility] | | | Release Oral Tablet | - Main Office | + + + + | 2021-03-26 00:00 | pantoprazole 40 MG Delayed | [place] [facility] | | | Release Oral Tablet | - Main Office | + + + + | 2021-02-26 00:00 | lisinopril 10 MG Oral | [place] [facility] | | | Tablet | - Main Office | + + + + | 2021-02-27 00:00 | lisinopril 10 MG Oral | [facility] | | | Tablet | - Main Office | + + + + | 2021-03-26 00:00 | lisinopril 10 MG Oral | [place] [facility] | | | Tablet | - Main Office | + + + + | 2021-02-26 00:00 | nitroglycerin 0.4 MG | [facility] | | | Sublingual Tablet | Pc - Main Office | + + + + | 2021-02-27 00:00 | nitroglycerin 0.4 MG | [facility] | | | Sublingual Tablet | Pc - Main Office | + + + + | 2021-03-26 00:00 | nitroglycerin 0.4 MG | [place] - [facility] | | | Sublingual Tablet | [facility] - Main Office | + + + + | 2021-02-26 00:00 | atorvastatin 80 MG Oral | [place] - [facility] | | | Tablet | P[facility] - Main Office | + + + + | 2021-02-27 00:00 | atorvastatin 80 MG Oral | [place] - [facility] | | | Tablet | Pc - Main Office | + + + + | 2021-03-26 00:00 | atorvastatin 80 MG Oral | [place] - [facility] | | | Tablet | Pc - Main Office | + + + + | 2015-03-26 00:00 | atorvastatin 80 mg oral | [facility] | | | tablet | [facility] | + + + + | 2015-03-26 00:00 | atorvastatin 80 mg oral | [facility] | | | tablet | [place] | + + + + | 2015-03-26 00:00 | atorvastatin 80 mg oral | [facility] | | | tablet | [place] | + + + + | 2015-03-26 00:00 | atorvastatin 80 mg oral | [facility] | | | tablet | [facility] [place] | + + + + | 2021-02-26 00:00 | buspirone hydrochloride | [place] [facility] | | | 7.5 MG Oral Tablet | - Main Office | + + + + | 2021-02-27 00:00 | buspirone hydrochloride | [facility] | | | 7.5 MG Oral Tablet | - Main Office | + + + + | 2021-03-26 00:00 | buspirone hydrochloride | [facility] | | | 7.5 MG Oral Tablet | - Main Office | + + + + | 2021-02-26 00:00 | hydrochlorothiazide 25 MG | [facility] | | | Oral Tablet | Pc - Main Office | + + + + | 2021-02-27 00:00 | hydrochlorothiazide 25 MG | [facility] | | | Oral Tablet | Pc - Main Office | + + + + | 2021-03-26 00:00 | hydrochlorothiazide 25 MG | [place] - [facility] | | | Oral Tablet | Pc - Main Office | + + + + | 2021-02-26 00:00 | gabapentin 100 MG Oral | [place] - [facility] | | | Capsule | Pc - Main Office | + + + + | 2021-02-27 00:00 | gabapentin 100 MG Oral | [place] - [facility] | | | Capsule | Pc - Main Office | + + + + | 2021-03-26 00:00 | gabapentin 100 MG Oral | [place] - [facility] | | | Capsule | Pc - Main Office | + + + + | 2021-02-26 00:00 | polyethylene glycol 3350 | [facility] | | | 07653 MG Powder for Oral | - Main Office | | | Solution | | + + + + | 2021-02-27 00:00 | polyethylene glycol 3350 | [facility] | | | 79006 MG Powder for Oral | - Main Office | | | Solution | | + + + + | 2021-03-26 00:00 | polyethylene glycol 3350 | [facility] | | | 44096 MG Powder for Oral | - Main Office | | | Solution | | + + + + | 2021-02-26 00:00 | benzonatate 200 MG Oral | [place] [facility] | | | Capsule | - Main Office | + + + + | 2021-02-27 00:00 | benzonatate 200 MG Oral | [facility] | | | Capsule | Pc - Main Office | + + + + | 2021-03-26 00:00 | benzonatate 200 MG Oral | [place] - [facility] | | | Capsule | Pc - Main Office | + + + + | 2020-07-03 00:00 | benzonatate 200 mg oral | [facility] | | | capsule | [place] | + + + + | 2021-07-14 00:00 | benzonatate 200 mg oral | [facility] | | | capsule | [facility] | + + + + | 2021-07-14 00:00 | benzonatate 200 mg oral | [facility] | | | capsule | [place] | + + + + | 2021-07-14 00:00 | benzonatate 200 mg oral | [facility] | | | capsule | [place] | + + + + | 2021-07-14 00:00 | benzonatate 200 mg oral | [facility] | | | capsule | [facility] [place] | + + + + | 2021-12-08 00:00 | levofloxacin 750 mg oral | [facility] | | | tablet [levaquin] | [place] | + + + + | 2021-02-26 00:00 | [facility] 100 MG Oral [facility] | | | Caps[facility] | - Main [facility] | + + + + | 2021-02-27 00:00 | gabapentin 100 MG Oral | [place] - [facility] | | | Capsule | [facility] - Main Office | + + + + | 2021-03-26 00:00 | gabapentin 100 MG Oral | [facility] | | | Capsule | Pc - Main Office | + + + + | 2020-08-06 00:00 | gabapentin 100 mg oral | [facility] | | | capsule | [facility] | + + + + | 2020-08-06 00:00 | gabapentin 100 mg oral | [facility] | | | capsule | [place] | + + + + | 2020-08-06 00:00 | gabapentin 100 mg oral | [facility] | | | capsule | [place] | + + + + | 2020-08-06 00:00 | gabapentin 100 mg oral | [facility] | | | capsule | [facility] [place] | + + + + | 2021-02-26 00:00 | hydrochlorothiazide 25 MG | [place] - [facility] | | | Oral Tablet | - Main Office | + + + + | 2021-02-27 00:00 | hydrochlorothiazide 25 MG | [facility] | | | Oral Tablet | Pc - Main Office | + + + + | 2021-03-26 00:00 | hydrochlorothiazide 25 MG | [place] - [facility] | | | Oral Tablet | Pc - Main Office | + + + + | 2021-05-21 00:00 | hydrochlorothiazide 25 mg | [facility] | | | oral tablet | [place] | + + + + | 2021-06-25 00:00 | hydrochlorothiazide 25 mg | [facility] | | | oral tablet | [place] | + + + + | 2021-07-08 00:00 | hydrochlorothiazide 25 mg | [facility] | | | oral tablet | [place] | + + + + | 2021-07-16 00:00 | hydrochlorothiazide 25 mg | [facility] | | | oral tablet | [place] | + + + + | 2021-07-29 00:00 | hydrochlorothiazide 25 mg | [facility] | | | oral tablet | [place] | + + + + | 2021-08-19 00:00 | hydrochlorothiazide 25 mg | [facility] | | | oral tablet | [place] | + + + + | 2021-09-05 00:00 | hydrochlorothiazide 25 mg | [facility] | | | oral tablet | [facility] [place] | + + + + | 2021-09-09 00:00 | hydrochlorothiazide 25 mg | [facility] | | | oral tablet | [place] | + + + + | 2021-09-30 00:00 | hydrochlorothiazide 25 mg | [facility] | | | oral tablet | [facility] | + + + + | 2021-09-30 00:00 | hydrochlorothiazide 25 mg | [facility] | | | oral tablet | [place] | + + + + | 2021-10-21 00:00 | hydrochlorothiazide 25 mg | [facility] | | | oral tablet | [place] | + + + + | 2021-10-28 00:00 | hydrochlorothiazide 25 mg | [facility] | | | oral tablet | [place] | + + + + | 2021-11-18 00:00 | hydrochlorothiazide 25 mg | [facility] | | | oral tablet | [place] | + + + + | 2021 00:00 | hydrochlorothiazide 25 mg | [facility] | | | oral tablet | [place] | + + + + | 2021-12-23 00:00 | hydrochlorothiazide 25 mg | [facility] | | | oral tablet | [place] | + + + + | 2021-12-25 00:00 | hydrochlorothiazide 25 mg | [facility] | | | oral tablet | [place] | + + + + | 2021-12-31 00:00 | hydrochlorothiazide 25 mg | [facility] | | | oral tablet | [place] | + + + + | 2022-01-20 00:00 | hydrochlorothiazide 25 mg | [facility] | | | oral tablet | [place] | + + + + | 2021-12-08 00:00 | levofloxacin 750 mg oral | [facility] | | | tablet | [place] | + + + + | 2021-10-06 00:00 | mirtazapine 15 mg oral | [facility] | | | tablet | [place] | + + + + | 2021-11-17 00:00 | mirtazapine 15 mg oral | [facility] | | | tablet | [place] | + + + + | 2021-11-17 00:00 | mirtazapine 15 mg oral | [facility] | | | tablet | [place] | + + + + | 2021-07-21 00:00 | ondansetron 8 mg oral | [facility] | | | tablet | [place] | + + + + | 2021-09-08 00:00 | ondansetron 8 mg oral | [facility] | | | tablet | [facility] | + + + + | 2021-09-08 00:00 | ondansetron 8 mg oral | [facility] | | | tablet | [place] | + + + + | 2021-09-08 00:00 | ondansetron 8 mg oral | [facility] | | | tablet | [place] | + + + + | 2022-01-19 00:00 | ondansetron 8 mg oral | [facility] | | | tablet | [place] | + + + + | 2022-09-06 00:00 | ONDANSETRON | [facility] | + + + + | 2022-09-06 00:00 | ONDANSETRON | [facility] | + + + + | 2021-02-26 00:00 | potassium chloride 10 MEQ | [facility] | | | Extended Release Oral | [facility] - Main Office | | | Capsule | | + + + + | 2021-02-27 00:00 | potassium chloride 10 MEQ | [facility] | | | Extended Release Oral | [facility] - [facility] | | | Capsule | | + + + + | 2021-03-26 00:00 | potassium chloride 10 MEQ | [facility] | | | Extended Release Oral | [facility] - [facility] | | | Capsule | | + + + + | 2018-08-03 00:00 | potassium chloride 10 meq | [facility] | | | extended release oral | [facility] | | | capsule | | + + + + | 2018-08-03 00:00 | potassium chloride 10 meq | [facility] | | | extended release oral | [place] | | | capsule | | + + + + | 2018-08-03 00:00 | potassium chloride 10 meq | [facility] | | | extended release oral | [facility] [place] | | | capsule | | + + + + | 2021-09-04 00:00 | prednisone 20 mg oral | [facility] | | | tablet | [place] | + + + + | 2021-09-04 00:00 | prednisone 20 mg oral | [facility] | | | tablet | [facility] [place] | + + + + | 2021-10-20 00:00 | prednisone 20 mg oral | [facility] | | | tablet | [place] | + + + + | 2021-12-22 00:00 | prednisone 20 mg oral | [facility] | | | tablet | [place] | + + + + | 2021-12-22 00:00 | prednisone 20 mg oral | [facility] | | | tablet | [place] | + + + + | 2021-12-29 00:00 | prednisone 20 mg oral | [facility] | | | tablet | [place] | + + + + | 2022-01-12 00:00 | prednisone 5 mg oral | [facility] | | | tablet | [place] | + + + + | 2021-02-26 00:00 | sucralfate 100 MG/ML Oral | [facility] | | | Suspension | - Main Office | + + + + | 2021-02-27 00:00 | sucralfate 100 MG/ML Oral | [facility] | | | Suspension | [facility] - Main [facility] | + + + + | 2021-03-26 00:00 | sucralfate 100 MG/ML Oral | [facility] | | | Suspension | [facility] - [facility] | + + + + | 2021-02-26 00:00 | tizanidine 4 MG Oral | OR - [facility] | | | Tablet | [facility] - Main [facility] | + + + + | 2021-02-27 00:00 | tizanidine 4 MG Oral | [facility] | | | Tablet | [facility] - Main [facility] | + + + + | 2021-03-26 00:00 | tizanidine 4 MG Oral | OR - [facility] | | | Tablet | [facility] - [facility] | + + + + | 2021-05-21 00:00 | tizanidine 4 mg oral | [facility] | | | tablet | [place] | + + + + | 2021-06-25 00:00 | tizanidine 4 mg oral | [facility] | | | tablet | [place] | + + + + | 2021-07-08 00:00 | tizanidine 4 mg oral | [facility] | | | tablet | [place] | + + + + | 2021-07-16 00:00 | tizanidine 4 mg oral | [facility] | | | tablet | [place] | + + + + | 2021-07-29 00:00 | tizanidine 4 mg oral | [facility] | | | tablet | [place] | + + + + | 2021-08-19 00:00 | tizanidine 4 mg oral | [facility] | | | tablet | [place] | + + + + | 2021-08-21 00:00 | tizanidine 4 mg oral | [facility] | | | tablet | [facility] | + + + + | 2021-08-21 00:00 | tizanidine 4 mg oral | [facility] | | | tablet | [place] | [...] 00:00 | valacyclovir 500 mg oral | [facility] | | | tablet | [place] | + + + + | 2021-08-18 00:00 | valacyclovir 500 mg oral | [facility] | | | tablet | [place] | + + + + | 2021-08-18 00:00 | valacyclovir 500 mg oral | [facility] | | | tablet | [facility] [place] | + + + + | 2021-05-21 00:00 | acetaminophen 325 mg oral | [facility] | | | tablet | [place] | + + + + | 2021-02-26 00:00 | lisinopril 10 MG Oral | OR - [facility] | | | Tablet | [facility] - Main [facility] | + + + + | 2021-02-27 00:00 | lisinopril 10 MG Oral | OR - [facility] | | | Tablet | [facility] - [facility] | + + + + | 2021-03-26 00:00 | lisinopril 10 MG Oral | OR - [facility] | | | Tablet | [facility] | + + + + | 2018-06-01 00:00 | lisinopril 10 mg oral | [facility] | | | tablet | [facility] | + + + + | 2018-06-01 00:00 | lisinopril 10 mg oral | [facility] | | | tablet | [place] | + + + + | 2018-06-01 00:00 | lisinopril 10 mg oral | [facility] | | | tablet | [place] | + + + + | 2018-06-01 00:00 | lisinopril 10 mg oral | [facility] | | | tablet | [facility] [place] | + + + + | 2021-02-26 00:00 | pantoprazole 40 MG Delayed | OR - [facility] | | | Release Oral Tablet | - Main Office | + + + + | 2021-02-27 00:00 | pantoprazole 40 MG Delayed | OR - [facility] | | | Release Oral Tablet | P[facility] - Main Office | + + + + | 2021-03-26 00:00 | pantoprazole 40 MG Delayed | OR - [facility] | | | Release Oral Tablet | - Main Office | + + + + | 2020-10-08 00:00 | pantoprazole sodium 40 mg | [facility] | | | delayed release oral tablet | [facility] | | | | | + + + + | 2020-10-08 00:00 | pantoprazole sodium 40 mg | [facility] | | | delayed release oral tablet | [place] | | | | | + + + + | 2020-10-08 00:00 | pantoprazole sodium 40 mg | [facility] | | | delayed release oral tablet | [place] | | | | | + + + + | 2020-10-08 00:00 | pantoprazole sodium 40 mg | [facility] | | | delayed release oral tablet | [facility] [place] | | | | | + + + + | 2021-02-26 00:00 | escitalopram 10 MG Oral | OR - [facility] | | | Tablet | [facility] - Main [facility] | + + + + | 2021-02-27 00:00 | escitalopram 10 MG Oral | OR - [facility] | | | Tablet | [facility] - [facility] | + + + + | 2021-03-26 00:00 | escitalopram 10 MG Oral | OR - [facility] | | | Tablet | [facility] - [facility] | + + + + | 2020-10-07 00:00 | escitalopram 10 mg oral | [facility] | | | tablet | [facility] | + + + + | 2020-10-07 00:00 | escitalopram 10 mg oral | [facility] | | | tablet | [place] | + + + + | 2020-10-07 00:00 | escitalopram 10 mg oral | [facility] | | | tablet | [place] | + + + + | 2020-10-07 00:00 | escitalopram 10 mg oral | [facility] | | | tablet | [facility] [place] | + + + + | 2021-03-26 00:00 | buprenorphine 8 MG / | OR - [facility] | | | naloxone 2 MG Sublingual | - Main Office | | | Tablet | | + + + + | 2021-03-26 00:00 | buprenorphine 8 mg / | [facility] | | | naloxone 2 mg sublingual | [place] | | | tablet | | + + + + | 2021-05-21 00:00 | Drug or medicament | [facility] | | | (substance) | [place] | + + + + | 2021-06-25 00:00 | Drug or medicament | [facility] | | | (substance) | [place] | + + + + | 2021-07-08 00:00 | Drug or medicament | [facility] | | | (substance) | [place] | + + + + | 2021-07-16 00:00 | Drug or medicament | [facility] | | | (substance) | [place] | + + + + | 2021-07-29 00:00 | Drug or medicament | [facility] | | | (substance) | [place] | + + + + | 2021-02-26 00:00 | escitalopram 10 MG Oral | OR - [facility] | | | Tablet | [facility] - [facility] | + + + + | 2021-02-27 00:00 | escitalopram 10 MG Oral | OR - [facility] | | | Tablet | [facility] - [facility] | + + + + | 2021-03-26 00:00 | escitalopram 10 MG Oral | OR - [facility] | | | Tablet | [facility] - [facility] | + + + + | 2021-03-26 00:00 | buprenorphine 8 MG / | OR - [facility] | | | naloxone 2 MG Sublingual | Pc - Main Office | | | Tablet | | + + + + | 2022-10-01 00:00 | NITROFURANTOIN MONOHYD | [facility] | | | MACROCR | | + + + + | 2021-02-26 00:00 | varenicline 1 MG Oral | OR - [facility] | | | Tablet | [facility] - Main [facility] | + + + + | 2021-02-27 00:00 | varenicline 1 MG Oral | OR - [facility] | | | Tablet | [facility]c - [facility] | + + + + | 2021-03-26 00:00 | varenicline 1 MG Oral | [facility] | | | Tablet | [facility] - Main [facility] | + + + + | 2021-02-26 00:00 | varenicline 0.5 MG Oral | OR - [facility] | | | Tablet | [facility]c - Main Office | + + + + | 2021-02-27 00:00 | varenicline 0.5 MG Oral | OR - [facility] | | | Tablet | Pc - Main Office | + + + + | 2021-03-26 00:00 | varenicline 0.5 MG Oral | OR - [facility] | | | Tablet | Pc - [facility] Office | + + + + | 2021-02-26 00:00 | [id number] 200 ACTUAT | [facility] | | | albuterol 0.09 MG/ACTUAT | Pc - Main Office | | | Metered Dose Inhaler | | | | [ProAir] | | + + + + | 2021-02-27 00:00 | [id number] 200 ACTUAT | OR - [facility] | | | albuterol 0.09 MG/ACTUAT | - Main Office | | | Metered Dose Inhaler | | | | [ProAir] | | + + + + | 2021-03-26 00:00 | [id number] 200 ACTUAT | [facility] | | | albuterol 0.09 MG/ACTUAT | - Main Office | | | Metered Dose Inhaler | | | | [ProAir] | | + + + + | 2021-02-26 00:00 | 100 ML zoledronic acid | OR - [facility] | | | 0.05 MG/ML Injection | - Main Office | | | [Reclast] | | + + + + | 2021-02-27 00:00 | 100 ML zoledronic acid | [facility] | | | 0.05 MG/ML Injection | - Main Office | | | [Reclast] | | + + + + | 2021-03-26 00:00 | 100 ML zoledronic acid | OR - [facility] | | | 0.05 MG/ML Injection | - Main Office | | | [Reclast] | | + + + + | 2022-10-01 00:00 | MEGESTROL ACETATE | [facility] | + + + + | 2021-02-26 00:00 | naloxone hydrochloride 40 | [facility] | | | MG/ML Nasal [place] [Narcan] | - Main Office | + + + + | 2021-02-27 00:00 | naloxone hydrochloride 40 | [facility] | | | MG/ML Nasal [place] [Narcan] | - Main Office | + + + + | 2021-03-26 00:00 | naloxone hydrochloride 40 | [facility] | | | MG/ML Nasal [place] [Narcan] | - Main Office | + + + + | 2021-02-26 00:00 | fluticasone furoate 0.1 | [facility] | | | MG/ACTUAT / umeclidinium | - Main Office | | | 0.0625 MG/ACTUAT / | | | | vilanterol 0.025 MG/ACTUAT | | | | Dry Powder Inhaler | | + + + + | 2021-02-27 00:00 | fluticasone furoate 0.1 | [facility] | | | MG/ACTUAT / umeclidinium | - Main Office | | | 0.0625 MG/ACTUAT / | | | | vilanterol 0.025 MG/ACTUAT | | | | Dry Powder Inhaler | | + + + + | 2021-03-26 00:00 | fluticasone furoate 0.1 | OR - [facility] | | | MG/ACTUAT / umeclidinium | Pc - Main Office | | | 0.0625 MG/ACTUAT / | | | | vilanterol 0.025 MG/ACTUAT | | | | Dry Powder Inhaler | | + + + + | 2021-02-26 00:00 | varenicline 0.5 MG Oral | OR - [facility] | | | Tablet | Pc - Main Office | + + + + | 2021-02-27 00:00 | varenicline 0.5 MG Oral | OR - [facility] | | | Tablet | Pc - Main Office | + + + + | 2021-03-26 00:00 | varenicline 0.5 MG Oral | OR - [facility] | | | Tablet | Pc - Main Office | + + + + | 2020-11-13 00:00 | varenicline 0.5 mg oral | [facility] | | | tablet | [place] | + + + + | 2021-02-26 00:00 | varenicline 1 MG Oral | OR - [facility] | | | Tablet | Pc - Main Office | + + + + | 2021-02-27 00:00 | varenicline 1 MG Oral | OR - [facility] | | | Tablet | Pc - Main Office | + + + + | 2021-03-26 00:00 | varenicline 1 MG Oral | OR - [facility] | | | Tablet | Pc - Main Office | + + + + | 2020-11-13 00:00 | chantix 0.5 mg oral tablet | [facility] | | | | [place] | + + + + | 2021-02-26 00:00 | 100 ML zoledronic acid | [place] [facility] | | | 0.05 MG/ML Injection | - Main Office | | | [Reclast] | | + + + + | 2021-02-27 00:00 | 100 ML zoledronic acid | [facility] | | | 0.05 MG/ML Injection | Pc - Main Office | | | [Reclast] | | + + + + | 2021-03-26 00:00 | 100 ML zoledronic acid | [facility] | | | 0.05 MG/ML Injection | - Main Office | | | [Reclast] | | + + + + | 2021-02-26 00:00 | [id number] 200 ACTUAT | [facility] | | | albuterol 0.09 MG/ACTUAT | - Main Office | | | Metered Dose Inhaler | | | | [ProAir] | | + + + + | 2021-02-27 00:00 | [id number] 200 ACTUAT | [facility] | | | albuterol 0.09 MG/ACTUAT | - Main Office | | | Metered Dose Inhaler | | | | [ProAir] | | + + + + | 2021-03-26 00:00 | [id number] 200 ACTUAT | [facility] | | | albuterol 0.09 MG/ACTUAT | - Main Office | | | Metered Dose Inhaler | | | | [ProAir] | | + + + + | 2021-08-18 00:00 | cyclobenzaprine | [facility] | | | hydrochloride 5 mg oral | [place] | | | tablet | | + + + + | 2021-08-18 00:00 | cyclobenzaprine | [facility] | | | hydrochloride 5 mg oral | [facility] [place] | | | tablet | | + + + + | 2021-09-29 00:00 | cyclobenzaprine | [facility] | | | hydrochloride 5 mg oral | [place] | | | tablet | | + + + + | 2021-12-02 00:00 | cyclobenzaprine | [facility] | | | hydrochloride 5 mg oral | [place] | | | tablet | | + + + + | 2021-12-02 00:00 | cyclobenzaprine | [facility] | | | hydrochloride 5 mg oral | [place] | | | tablet | | + + + + | 2021-02-26 00:00 | trazodone hydrochloride 50 | [place] [facility] | | | MG Oral Tablet | - Main Office | + + + + | 2021-02-27 00:00 | trazodone hydrochloride 50 | [facility] | | | MG Oral Tablet | - Main Office | + + + + | 2021-03-26 00:00 | trazodone hydrochloride 50 | [facility] | | | MG Oral Tablet | Pc - Main Office | + + + + | 2021-05-05 00:00 | trazodone hydrochloride 50 | [facility] | | | mg oral tablet | [facility] | + + + + | 2021-05-05 00:00 | trazodone hydrochloride 50 | [facility] | | | mg oral tablet | [place] | + + + + | 2021-05-05 00:00 | trazodone hydrochloride 50 | [facility] | | | mg oral tablet | [place] | + + + + | 2021-05-05 00:00 | trazodone hydrochloride 50 | [facility] | | | mg oral tablet | [facility] [place] | + + + + | 2021-02-26 00:00 | buspirone hydrochloride | OR - [facility] | | | 7.5 MG Oral Tablet | - Main Office | + + + + | 2021-02-27 00:00 | buspirone hydrochloride | [facility] | | | 7.5 MG Oral Tablet | - Main Office | + + + + | 2021-03-26 00:00 | buspirone hydrochloride | [facility] | | | 7.5 MG Oral Tablet | - Main Office | + + + + | 2020-08-06 00:00 | buspirone hydrochloride | [facility] | | | 7.5 mg oral tablet | [facility] | + + + + | 2020-08-06 00:00 | buspirone hydrochloride | [facility] | | | 7.5 mg oral tablet | [place] | + + + + | 2020-08-06 00:00 | buspirone hydrochloride | [facility] | | | 7.5 mg oral tablet | [place] | + + + + | 2020-08-06 00:00 | buspirone hydrochloride | [facility] | | | 7.5 mg oral tablet | [facility] [place] | + + + + | 2021-10-20 00:00 | polyethylene glycol 3350 | [facility] | | | 17 gm powder for oral | [place] | | | solution | | + + + + | 2021-10-20 00:00 | polyethylene glycol 3350 | [facility] | | | 17 gm powder for oral | [place] | | | solution | | + + + + | 2021-02-26 00:00 | polyethylene glycol 3350 | [place] [facility] | | | 35208 MG Powder for Oral | [facility] Main Office | | | Solution | | + + + + | 2021-02-27 00:00 | polyethylene glycol 3350 | [facility] | | | 31685 MG Powder for Oral | - Main Office | | | Solution | | + + + + | 2021-03-26 00:00 | polyethylene glycol 3350 | [facility] | | | 57186 MG Powder for Oral | - Main Office | | | Solution | | + + + + | 2021-10-27 00:00 | morphine sulfate 15 mg | [facility] | | | extended release oral | [place] | | | tablet | | + + + + | 2021-11-17 00:00 | morphine sulfate 15 mg | [facility] | | | extended release oral | [place] | | | tablet | | + + + + | 2021-02-26 00:00 | levothyroxine sodium 0.1 | [facility] | | | MG Oral Tablet | Pc - Main Office | + + + + | 2021-02-27 00:00 | levothyroxine sodium 0.1 | [facility] | | | MG Oral Tablet | - Main Office | + + + + | 2021-03-26 00:00 | levothyroxine sodium 0.1 | [facility] | | | MG Oral Tablet | Pc - Main Office | + + + + | 2020-06-20 00:00 | levothyroxine sodium 100 | [facility] | | | mcg oral tablet | [place] | + + + + | 2021-09-08 00:00 | levothyroxine sodium 0.075 | [facility] | | | mg oral tablet [synthroid] | [facility] | | | | | + + + + | 2021-09-08 00:00 | levothyroxine sodium 0.075 | [facility] | | | mg oral tablet [synthroid] | [place] | | | | | + + + + | 2021-10-20 00:00 | levothyroxine sodium 0.05 | [facility] | | | mg oral tablet | [place] | + + + + | 2021-09-08 00:00 | levothyroxine sodium 0.075 | [facility] | | | mg oral tablet | [facility] | + + + + | 2021-09-08 00:00 | levothyroxine sodium 0.075 | [facility] | | | mg oral tablet | [place] | + + + + | 2021-10-20 00:00 | synthroid 50 mcg oral | [facility] | | | tablet | [place] | + + + + | 2020-06-20 00:00 | levothyroxine sodium 88 | [facility] | | | mcg oral tablet | [place] | + + + + | 2021-10-21 00:00 | levothyroxine sodium 88 | [facility] | | | mcg oral tablet | [place] | + + + + | 2021-12-22 00:00 | levothyroxine sodium 0.025 | [facility] | | | mg oral capsule | [place] | + + + + | 2021-12-22 00:00 | levothyroxine sodium 0.025 | [facility] | | | mg oral capsule | [place] | + + + + | 2022-01-12 00:00 | levothyroxine sodium 0.025 | [facility] | | | mg oral capsule | [place] | + + + + | 2021-12-22 00:00 | tirosint 25 mcg oral | [facility] | | | capsule | [place] | + + + + | 2021-12-22 00:00 | tirosint 25 mcg oral | [facility] | | | capsule | [place] | + + + + | 2022-01-12 00:00 | tirosint 25 mcg oral | [facility] | | | capsule | [place] | + + + + | 2021-10-20 00:00 | cindy sodium 50 mg / | [facility] | | | [facility]enn[facility], group home 8.6 mg oral | [place] | | | tablet | | + + + + | 2021-10-20 00:00 | cindy sodium 50 mg / | [facility] | | | sennosides, group home 8.6 mg oral | [place] | | | tablet | | + + + + Problems + + + + | date | description | facility | + + + + | (no date) | Malignant neoplasm of | [facility] - | | | upper lobe, left bronchus | [place] | | | or lung | | + + + + | (no date) | Malignant neoplasm of | [facility] - | | | upper lobe, left bronchus | [place] | | | or lung | | + + + + | (no date) | Malignant neoplasm of | [facility] - | | | unspecified part of | [place] | | | unspecified bronchus or | | | | lung | | + + + + | (no date) | Malignant neoplasm of | [facility] - | | | unspecified part of | [place] | | | unspecified bronchus or | | | | lung | | + + + + | (no date) | 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) | [place] | + + + + | (no date) | Chronic obstructive | [facility] - | | | pulmonary disease with | [place] | | | (acute) exacerbation | | + + + + | (no date) | Hemorrhage of anus and | [facility] - | | | rectum | [place] | + + + + | (no date) | Cardiac murmur, | [facility] - | | | unspecified | [place] | + + + + | (no date) | Cough | [facility] - | | | | [place] | + + + + | (no date) | Abnormal findings on | [facility] - | | | diagnostic imaging of other | [place] | | | specified body structures | | + + + + | (no date) | Abnormal findings on | [facility] - | | | diagnostic imaging of other | [place] | | | specified body structures | | + + + + | (no date) | Encounter for screening | [facility] - | | | for malignant neoplasm of | [place] | | | colon | | + + + + | (no date) | Encounter for palliative | [facility] - | | | care | [place] | + + + + | 2012-09-11 00:00 | cafl - chronic airflow | [facility] | | | limitation | [facility] | + + + + | 2012-09-11 00:00 | cafl - chronic airflow | [facility] | | | limitation | [place] | + + + + | 2012-09-11 00:00 | cafl - chronic airflow | [facility] | | | limitation | [place] | + + + + | 2012-09-11 00:00 | cafl - chronic airflow | [facility] | | | limitation | [facility] [place] | + + + + | 2012-09-11 00:00 | 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) | [facility] | + + + + | 2012-09-11 00:00 | 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) | [place] | + + + + | 2012-09-11 00:00 | 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) | [place] | + + + + | 2012-09-11 00:00 | cobalamin deficiency | [facility]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) | [facility] [place] | + + + + | 2012-09-11 00:00 | sleeplessness | [facility] | | | | [facility] | + + + + | 2012-09-11 00:00 | sleeplessness | [facility] | | | | [place] | + + + + | 2012-09-11 00:00 | sleeplessness | [facility] | | | | [place] | + + + + | 2012-09-11 00:00 | sleeplessness | [facility] | | | | [facility] [place] | + + + + | 2012-09-11 00:00 | fibromyalgia (disorder) | [facility] | | | | [facility] | + + + + | 2012-09-11 00:00 | fibromyalgia (disorder) | [facility] | | | | [place] | + + + + | 2012-09-11 00:00 | fibromyalgia (disorder) | [facility] | | | | [place] | + + + + | 2012-09-11 00:00 | fibromyalgia (disorder) | [facility] | | | | [facility] [place] | + + + + | 2012-09-11 00:00 | depressive disorder | [facility]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) | [facility] | + + + + | 2012-09-11 00:00 | depressive disorder | [facility]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) | [place] | + + + + | 2012-09-11 00:00 | depressive disorder | [facility]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) | [place] | + + + + | 2012-09-11 00:00 | depressive disorder | [facility]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) | [facility] [place] | + + + + | 2012-09-11 00:00 | arthritis (disorder) | [facility] | | | | Illness Management | + + + + | 2012-09-11 00:00 | arthritis (disorder) | [facility] | | | | [place] | + + + + | 2012-09-11 00:00 | arthritis (disorder) | [facility] | | | | [place] | + + + + | 2012-09-11 00:00 | arthritis (disorder) | [facility] | | | | [facility] [place] | + + + + | 2012-09-11 00:00 | hypertensive disorder, | [facility] | | | systemic arterial | Illness Management | + + + + | 2012-09-11 00:00 | hypertensive disorder, | [facility] | | | systemic arterial | [place] | + + + + | 2012-09-11 00:00 | hypertensive disorder, | [facility] | | | systemic arterial | [place] | + + + + | 2012-09-11 00:00 | hypertensive disorder, | [facility] | | | systemic arterial | [facility] [place] | + + + + | 2012-09-11 00:00 | hypothyroidism (disorder) | [facility] | | | | Illness Management | + + + + | 2012-09-11 00:00 | hypothyroidism (disorder) | [facility] | | | | [place] | + + + + | 2012-09-11 00:00 | hypothyroidism (disorder) | [facility] | | | | [place] | + + + + | 2012-09-11 00:00 | hypothyroidism (disorder) | [facility] | | | | [facility] [place] | + + + + | 2012-09-11 00:00 | anxiousness | [facility] | | | | Illness Management | + + + + | 2012-09-11 00:00 | anxiousness | [facility] | | | | [place] | + + + + | 2012-09-11 00:00 | anxiousness | [facility] | | | | [place] | + + + + | 2012-09-11 00:00 | anxiousness | [facility] | | | | [facility] [place] | + + + + | 2012-09-11 00:00 | hld - hyperlipidemia | [facility] | | | | Illness Management | + + + + | 2012-09-11 00:00 | hld - hyperlipidemia | [facility] | | | | [place] | + + + + | 2012-09-11 00:00 | hld - hyperlipidemia | [facility] | | | | [place] | + + + + | 2012-09-11 00:00 | hld - hyperlipidemia | [facility] | | | | [facility] [place] | + + + + | 2012-09-11 00:00 | chronic pain (finding) | [facility] | | | | Illness Management | + + + + | 2012-09-11 00:00 | chronic pain (finding) | [facility] | | | | [place] | + + + + | 2012-09-11 00:00 | chronic pain (finding) | [facility] | | | | [place] | + + + + | 2012-09-11 00:00 | chronic pain (finding) | [facility] | | | | [facility] [place] | + + + + | 2012-09-11 00:00 | fitting | [facility] | | | | Illness Management | + + + + | 2012-09-11 00:00 | fitting | [facility] | | | | [place] | + + + + | 2012-09-11 00:00 | fitting | [facility] | | | | [place] | + + + + | 2012-09-11 00:00 | fitting | [facility] | | | | [facility] [place] | + + + + | 2012-09-11 00:00 | Hypothyroidism | [facility] | | | | Illness Management | + + + + | 2012-09-11 00:00 | Hypothyroidism | [facility] | | | | [place] | + + + + | 2012-09-11 00:00 | Hypothyroidism | [facility] | | | | [place] | + + + + | 2012-09-11 00:00 | Hypothyroidism | [facility] | | | | [facility] [place] | + + + + | 2012-09-11 00:00 | Vitamin B12 deficiency | [facility] | | | | Illness Management | + + + + | 2012-09-11 00:00 | Vitamin B12 deficiency | [facility] | | | | [place] | + + + + | 2012-09-11 00:00 | Vitamin B12 deficiency | [facility] | | | | [place] | + + + + | 2012-09-11 00:00 | Vitamin B12 deficiency | [facility] | | | | [facility] [place] | + + + + | 2012-09-11 00:00 | Hyperlipidemia | [facility] | | | | Illness [facility] | + + + + | 2012-09-11 00:00 | Hyperlipidemia | [facility] | | | | [place] | + + + + | 2012-09-11 00:00 | Hyperlipidemia | [facility] | | | | [place] | + + + + | 2012-09-11 00:00 | Hyperlipidemia | [facility] | | | | [facility] [place] | + + + + | 2012-09-11 00:00 | Depression | [facility] | | | | Illness [facility] | + + + + | 2012-09-11 00:00 | Depression | [facility] | | | | [place] | + + + + | 2012-09-11 00:00 | Depression | [facility] | | | | [place] | + + + + | 2012-09-11 00:00 | Depression | [facility] | | | | [facility] [place] | + + + + | 2012-09-11 00:00 | Anxiety | [facility] | | | | Illness [facility] | + + + + | 2012-09-11 00:00 | Anxiety | [facility] | | | | [place] | + + + + | 2012-09-11 00:00 | Anxiety | [facility] | | | | [place] | + + + + | 2012-09-11 00:00 | Anxiety | [facility] | | | | [facility] [place] | + + + + | 2012-09-11 00:00 | Insomnia | [facility] | | | | Ill[facility] | + + + + | 2012-09-11 00:00 | Insomnia | [facility] | | | | [place] | + + + + | 2012-09-11 00:00 | Insomnia | [facility] | | | | [place] | + + + + | 2012-09-11 00:00 | Insomnia | [facility] | | | | [facility] [place] | + + + + | 2012-09-11 00:00 | Chronic pain | [facility] | | | | Ill[facility] | + + + + | 2012-09-11 00:00 | Chronic pain | [facility] | | | | [place] | + + + + | 2012-09-11 00:00 | Chronic pain | [facility] | | | | [place] | + + + + | 2012-09-11 00:00 | Chronic pain | [facility] | | | | [facility] [place] | + + + + | 2012-09-11 00:00 | Hypertension | [facility] | | | | Illness [facility] | + + + + | 2012-09-11 00:00 | Hypertension | [facility] | | | | [place] | + + + + | 2012-09-11 00:00 | Hypertension | [facility] | | | | [place] | + + + + | 2012-09-11 00:00 | Hypertension | [facility] | | | | [facility] [place] | + + + + | 2012-09-11 00:00 | Chronic obstructive | [facility] | | | pulmonary disease | Illness [facility] | + + + + | 2012-09-11 00:00 | Chronic obstructive | [facility] | | | pulmonary disease | [place] | + + + + | 2012-09-11 00:00 | Chronic obstructive | [facility] | | | pulmonary disease | [place] | + + + + | 2012-09-11 00:00 | Chronic obstructive | [facility] | | | pulmonary disease | [facility] [place] | + + + + | 2012-09-11 00:00 | Arthritis | [facility] | | | | Illness [facility] | + + + + | 2012-09-11 00:00 | Arthritis | [facility] | | | | [place] | + + + + | 2012-09-11 00:00 | Arthritis | [facility] | | | | [place] | + + + + | 2012-09-11 00:00 | Arthritis | [facility] | | | | [facility] [place] | + + + + | 2012-09-11 00:00 | Fibromyalgia | [facility] | | | | Ill[facility] | + + + + | 2012-09-11 00:00 | Fibromyalgia | [facility] | | | | [place] | + + + + | 2012-09-11 00:00 | Fibromyalgia | [facility] | | | | [place] | + + + + | 2012-09-11 00:00 | Fibromyalgia | [facility] | | | | [facility] [place] | + + + + | 2012-09-11 00:00 | Seizure | [facility] | | | | Ill[facility] | + + + + | 2012-09-11 00:00 | Seizure | [facility] | | | | [place] | + + + + | 2012-09-11 00:00 | Seizure | [facility] | | | | [place] | + + + + | 2012-09-11 00:00 | Seizure | [facility] | | | | [facility] [place] | + + + + | 2015-06-27 00:00 | bleeding per rectum | [facility] | | | | [place] | + + + + | 2015-06-27 00:00 | diastolic dysfunction | [facility] | | | (finding) | Illness [facility] | + + + + | 2015-06-27 00:00 | diastolic dysfunction | [facility] | | | (finding) | [place] | + + + + | 2015-06-27 00:00 | diastolic dysfunction | [facility] | | | (finding) | [place] | + + + + | 2015-06-27 00:00 | diastolic dysfunction | [facility] | | | (finding) | [facility] [place] | + + + + | 2015-06-27 00:00 | atherosclerosis of | [facility] | | | coronary artery | Ill[facility] | + + + + | 2015-06-27 00:00 | atherosclerosis of | [facility] | | | coronary artery | [place] | + + + + | 2015-06-27 00:00 | atherosclerosis of | [facility] | | | coronary artery | [place] | + + + + | 2015-06-27 00:00 | atherosclerosis of | [facility] | | | coronary artery | [facility] [place] | + + + + | 2015-06-27 00:00 | regurgitation of left | [facility] | | | atrioventricular valve | Illness [facility] | + + + + | 2015-06-27 00:00 | regurgitation of left | [facility] | | | atrioventricular valve | [place] | + + + + | 2015-06-27 00:00 | regurgitation of left | [facility] | | | atrioventricular valve | [place] | + + + + | 2015-06-27 00:00 | regurgitation of left | [facility] | | | atrioventricular valve | [facility] [place] | + + + + | 2015-06-27 00:00 | ar - aortic regurgitation | [facility] | | | | Illness [facility] | + + + + | 2015-06-27 00:00 | ar - aortic regurgitation | [facility] | | | | [place] | + + + + | 2015-06-27 00:00 | ar - aortic regurgitation | [facility] | | | | [place] | + + + + | 2015-06-27 00:00 | ar - aortic regurgitation | [facility] | | | | [facility] [place] | + + + + | 2015-06-27 00:00 | ic - intermittent | [facility] | | | claudication | [place] | + + + + | 2015-06-27 00:00 | Coronary atherosclerosis | [facility] | | | | Ill[facility] | + + + + | 2015-06-27 00:00 | Coronary atherosclerosis | [facility] | | | | [place] | + + + + | 2015-06-27 00:00 | Coronary atherosclerosis | [facility] | | | | [place] | + + + + | 2015-06-27 00:00 | Coronary atherosclerosis | [facility] | | | | [facility] [place] | + + + + | 2015-06-27 00:00 | Mitral valve insufficiency | [facility] | | | | Ill[facility] | + + + + | 2015-06-27 00:00 | Mitral valve insufficiency | [facility] | | | | [place] | + + + + | 2015-06-27 00:00 | Mitral valve insufficiency | [facility] | | | | [place] | + + + + | 2015-06-27 00:00 | Mitral valve insufficiency | [facility] | | | | [facility] [place] | + + + + | 2015-06-27 00:00 | Aortic valve insufficiency | [facility] | | | | Ill[facility] | + + + + | 2015-06-27 00:00 | Aortic valve insufficiency | [facility] | | | | [place] | + + + + | 2015-06-27 00:00 | Aortic valve insufficiency | [facility] | | | | [place] | + + + + | 2015-06-27 00:00 | Aortic valve insufficiency | [facility] | | | | [facility] [place] | + + + + | 2015-06-27 00:00 | Diastolic dysfunction | [facility] | | | | Ill[facility] | + + + + | 2015-06-27 00:00 | Diastolic dysfunction | [facility] | | | | [place] | + + + + | 2015-06-27 00:00 | Diastolic dysfunction | [facility] | | | | [place] | + + + + | 2015-06-27 00:00 | Diastolic dysfunction | [facility] | | | | [facility] [place] | + + + + | 2015-06-27 00:00 | Claudication | [facility] | | | | [place] | + + + + | 2015-06-27 00:00 | Blood per rectum | [facility] | | | | [place] | + + + + | 2015-06-27 00:00 | Rectal hemorrhage | [facility] | | | | [place] | + + + + | 2015-12-25 00:00 | Chronic obstructive lung | [place] - [facility] | | | disease | Pc - Main Office | + + + + | 2015-12-25 00:00 | Insomnia | [place] - [facility] | | | | P[facility] - [facility] | + + + + | 2015-12-25 00:00 | Fibromyalgia | [place] - [facility] | | | | Pc - Main Office | + + + + | 2015-12-25 00:00 | Lumbar spondylosis | [place] - [facility] | | | | P[facility] - Main Office | + + + + | 2015-12-25 00:00 | lumbar spondylosis | [facility]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) | [facility] | + + + + | 2015-12-25 00:00 | lumbar spondylosis | [facility]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) | [place] | + + + + | 2015-12-25 00:00 | lumbar spondylosis | [facility]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) | [place] | + + + + | 2015-12-25 00:00 | lumbar spondylosis | [facility]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) | [facility] [place] | + + + + | 2015-12-25 00:00 | Depressive disorder | [place] - [facility] | | | | [facility] - Main Office | + + + + | 2015-12-25 00:00 | Hypertensive disorder | [place] - [facility] | | | | P[facility] - Main [facility] | + + + + | 2015-12-25 00:00 | Hypothyroidism | [place] - [facility] | | | | P[facility] - [facility] | + + + + | 2015-12-25 00:00 | Coronary arteriosclerosis | [place] - [facility] | | | | Pc - [facility] | + + + + | 2015-12-25 00:00 | Hyperlipidemia | [place] - [facility] | | | | P[facility] - [facility] | + + + + | 2015-12-25 00:00 | Epilepsy | [place] - [facility] | | | | Pc - Main Office | + + + + | 2015-12-25 00:00 | ep - epilepsy | [facility] | | | | Illness [facility] | + + + + | 2015-12-25 00:00 | ep - epilepsy | [facility] | | | | [place] | + + + + | 2015-12-25 00:00 | ep - epilepsy | [facility] | | | | [place] | + + + + | 2015-12-25 00:00 | ep - epilepsy | [facility] | | | | [facility] [place] | + + + + | 2015-12-25 00:00 | Epilepsy | [facility] | | | | Ill[facility] | + + + + | 2015-12-25 00:00 | Epilepsy | [facility] | | | | [place] | + + + + | 2015-12-25 00:00 | Epilepsy | [facility] | | | | [place] | + + + + | 2015-12-25 00:00 | Epilepsy | [facility] | | | | [facility] [place] | + + + + | 2015-12-25 00:00 | Lumbar spondylosis | [facility] | | | | Ill[facility] | + + + + | 2015-12-25 00:00 | Lumbar spondylosis | [facility] | | | | [place] | + + + + | 2015-12-25 00:00 | Lumbar spondylosis | [facility] | | | | [place] | + + + + | 2015-12-25 00:00 | Lumbar spondylosis | [facility] | | | | [facility] [place] | + + + + | 2017-09-19 00:00 | Tobacco dependence, | [place] [facility] | | | continuous | [facility] - [facility] Office | + + + + | 2018-06-11 00:00 | obstruction of esophagus | [facility]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) | [facility] | + + + + | 2018-06-11 00:00 | obstruction of esophagus | [facility]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) | [place] | + + + + | 2018-06-11 00:00 | obstruction of esophagus | [facility]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) | [place] | + + + + | 2018-06-11 00:00 | obstruction of esophagus | [facility]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) | [facility] [place] | + + + + | 2018-06-11 00:00 | fb esophagus | [facility] | | | | Ill[facility] | + + + + | 2018-06-11 00:00 | fb esophagus | [facility] | | | | [place] | + + + + | 2018-06-11 00:00 | fb esophagus | [facility] | | | | [place] | + + + + | 2018-06-11 00:00 | fb esophagus | [facility] | | | | [facility] [place] | + + + + | 2018-06-11 00:00 | Obstruction of esophagus | [facility] | | | due to food impaction | Illness [facility] | + + + + | 2018-06-11 00:00 | Obstruction of esophagus | [facility] | | | due to food impaction | [place] | + + + + | 2018-06-11 00:00 | Obstruction of esophagus | [facility] | | | due to food impaction | [place] | + + + + | 2018-06-11 00:00 | Obstruction of esophagus | [facility] | | | due to food impaction | [facility] [place] | + + + + | 2018-06-11 00:00 | Foreign body in esophagus | [facility] | | | | Ill[facility] | + + + + | 2018-06-11 00:00 | Foreign body in esophagus | [facility] | | | | [place] | + + + + | 2018-06-11 00:00 | Foreign body in esophagus | [facility] | | | | [place] | + + + + | 2018-06-11 00:00 | Foreign body in esophagus | [facility] | | | | [facility] [place] | + + + + | 2018-06-12 00:00 | malignant neoplasm of | [facility] | | | upper lobe of left lung | Ill[facility]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) | | + + + + | 2018-06-12 00:00 | malignant neoplasm of | [facility] | | | upper lobe of left lung | [place]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) | | + + + + | 2018-06-12 00:00 | malignant neoplasm of | [facility] | | | upper lobe of left lung | [place]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) | | + + + + | 2018-06-12 00:00 | malignant neoplasm of | [facility] | | | upper lobe of left lung | [facility] [place]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) | | + + + + | 2018-06-12 00:00 | Malignant neoplasm of | [facility] | | | upper lobe of left lung | Ill[facility] | + + + + | 2018-06-12 00:00 | Malignant neoplasm of | [facility] | | | upper lobe of left lung | [place] | + + + + | 2018-06-12 00:00 | Malignant neoplasm of | [facility] | | | upper lobe of left lung | [place] | + + + + | 2018-06-12 00:00 | Malignant neoplasm of | [facility] | | | upper lobe of left lung | [facility] [place] | + + + + | 2018-06-22 00:00 | tobacco user (finding) | [facility] | | | | Ill[facility] | + + + + | 2018-06-22 00:00 | tobacco user (finding) | [facility] | | | | [place] | + + + + | 2018-06-22 00:00 | tobacco user (finding) | [facility] | | | | [place] | + + + + | 2018-06-22 00:00 | tobacco user (finding) | [facility] | | | | [facility] [place] | + + + + | 2018-06-22 00:00 | Tobacco abuse | [facility] | | | | Ill[facility] | + + + + | 2018-06-22 00:00 | Tobacco abuse | [facility] | | | | [place] | + + + + | 2018-06-22 00:00 | Tobacco abuse | [facility] | | | | [place] | + + + + | 2018-06-22 00:00 | Tobacco abuse | [facility] | | | | [facility] [place] | + + + + | 2018-10-15 00:00 | osteoporosis (disorder) | [facility] | | | | Ill[facility] | + + + + | 2018-10-15 00:00 | osteoporosis (disorder) | [facility] | | | | [place] | + + + + | 2018-10-15 00:00 | osteoporosis (disorder) | [facility] | | | | [place] | + + + + | 2018-10-15 00:00 | osteoporosis (disorder) | [facility] | | | | [facility] [place] | + + + + | 2018-10-15 00:00 | Osteoporosis | [facility] | | | | Ill[facility] | + + + + | 2018-10-15 00:00 | Osteoporosis | [facility] | | | | [place] | + + + + | 2018-10-15 00:00 | Osteoporosis | [facility] | | | | [place] | + + + + | 2018-10-15 00:00 | Osteoporosis | [facility] | | | | [facility] [place] | + + + + | 2018-10-16 00:00 | Osteoporosis | [place] - [facility] | | | | Pc - Main Office | + + + + | 2019-03-06 11:28:22 | Malignant neoplasm of | [facility] - | | | upper lobe, left bronchus | [place] | | | or lung | | + + + + | 2019-04-14 16:46:41 | Altered Mental Status | [facility] - | | | | [place] | + + + + | 2019-04-14 16:46:41 | Intestinal infectious | [facility] - | | | diseases ([id number]) | [facility] | + + + + | 2019-04-14 16:46:41 | Elevated white blood cell | [facility] - | | | count, unspecified | [place] | + + + + | 2019-04-14 16:46:41 | Volume depletion, | [facility] - | | | unspecified | [place] | + + + + | 2019-04-14 16:46:41 | Other stimulant abuse, | [facility] - | | | uncomplicated | [place] | + + + + | 2019-04-14 16:46:41 | Acute kidney failure, | [facility] - | | | unspecified | [place] | + + + + | 2019-04-14 16:46:41 | Diarrhea, unspecified | [facility] - | | | | [place] | + + + + | 2019-04-14 16:46:41 | Transient alteration of | [facility] - | | | awareness | [place] | + + + + | 2019-05-01 16:53:50 | Chronic obstructive | [facility] - | | | pulmonary disease with | [place] | | | (acute) exacerbation | | + + + + | 2019-07-08 00:00 | frederic - generalized anxiety | [facility] | | | disorder | [facility] | + + + + | 2019-07-08 00:00 | frederic - generalized anxiety | [facility] | | | disorder | [place] | + + + + | 2019-07-08 00:00 | frederic - generalized anxiety | [facility] | | | disorder | [place] | + + + + | 2019-07-08 00:00 | frederic - generalized anxiety | [facility] | | | disorder | [facility] [place] | + + + + | 2019-07-08 00:00 | Generalized anxiety | [facility] | | | disorder | [facility] | + + + + | 2019-07-08 00:00 | Generalized anxiety | [facility] | | | disorder | [place] | + + + + | 2019-07-08 00:00 | Generalized anxiety | [facility] | | | disorder | [place] | + + + + | 2019-07-08 00:00 | Generalized anxiety | [facility] | | | disorder | [facility] [place] | + + + + | 2019-07-09 00:00 | Generalized anxiety | [place] - [facility] | | | disorder | - Main Office | + + + + | 2019-07-13 10:33:51 | Hemorrhage of anus and | [facility] - | | | rectum | [place] | + + + + 2019-07-13 10:33:51 | Encounter for screening | [facility] - | | | for malignant neoplasm of | [facility] | | | colon | | + + + + | 2019-07-17 00:00 | polyp of colon (disorder) | [facility] | | | | [facility] | + + + + | 2019-07-17 00:00 | polyp of colon (disorder) | [facility] | | | | [place] | + + + + | 2019-07-17 00:00 | polyp of colon (disorder) | [facility] | | | | [place] | + + + + | 2019-07-17 00:00 | polyp of colon (disorder) | [facility] | | | | [facility] [place] | + + + + | 2019-07-17 00:00 | Colon polyps | [facility] | | | | [facility] | + + + + | 2019-07-17 00:00 | Colon polyps | [facility] | | | | [place] | + + + + | 2019-07-17 00:00 | Colon polyps | [facility] | | | | [place] | + + + + 2019-07-17 00:00 | Colon polyps | [facility] | | | | [facility] [place] | + + + + 2019-07-17 07:35 | Hemorrhage of anus and | [facility] - | | | rectum | [place] | + + + + | 2019-07-17 07:35 | Encounter for screening | [facility] - | | | for malignant neoplasm of | [place] | | | colon | | + + + + | 2019-09-05 15:13:17 | Malignant neoplasm of | [facility] - | | | upper lobe, left bronchus | [place] | | | or lung | | + + + + | 2019-12-23 00:00 | pvd - peripheral vascular | [facility] | | | disease | [facility] | + + + + | 2019-12-23 00:00 | pvd - peripheral vascular | [facility] | | | disease | [place] | + + + + | 2019-12-23 00:00 | pvd - peripheral vascular | [facility] | | | disease | [place] | + + + + | 2019-12-23 00:00 | pvd - peripheral vascular | [facility] | | | disease | [facility] [place] | + + + + | 2019-12-23 00:00 | Peripheral vascular | [facility] | | | disease | [facility] | + + + + | 2019-12-23 00:00 | Peripheral vascular | [facility] | | | disease | [place] | + + + + | 2019-12-23 00:00 | Peripheral vascular | [facility] | | | disease | [place] | + + + + | 2019-12-23 00:00 | Peripheral vascular | [facility] | | | disease | [facility] [place] | + + + + | 2019-12-24 00:00 | Peripheral vascular | [place] - [facility] | | | disease | Pc - Main Office | + + + + | 2019-12-24 00:00 | Atherosclerosis of aorta | [place] - [facility] | | | | Pc - Main Office | + + + + | 2019-12-31 10:45:11 | Chronic obstructive | [facility] - | | | pulmonary disease with | [place] | | | (acute) exacerbation | | + + + + | 2019-12-31 10:45:11 | Cough | [facility] - | | | | [place] | + + + + | 2020-03-24 11:30:49 | Malignant neoplasm of | [facility] - | | | upper lobe, left bronchus | [place] | | | or lung | | + + + + | 2020-05-19 00:00 | 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 (disorder) | [facility] | + + + + | 2020-05-19 00:00 | squamous cell carcinoma of | [facility]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 (disorder) | [place] | + + + + | 2020-05-19 00:00 | squamous cell carcinoma of | [facility]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 (disorder) | [place] | + + + + | 2020-05-19 00:00 | squamous cell carcinoma of | [facility]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 (disorder) | [facility] [place] | + + + + | 2020-05-19 00:00 | Squamous cell carcinoma of | [facility]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 | [facility] | + + + + | 2020-05-19 00:00 | Squamous cell carcinoma of | [facility]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 | [place] | + + + + | 2020-05-19 00:00 | Squamous cell carcinoma of | [facility]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 | [place] | + + + + | 2020-05-19 00:00 | Squamous cell carcinoma of | [facility]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 | [facility] [place] | + + + + | 2020-05-20 00:00 | Squamous cell carcinoma of | [facility]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 | Pc - Main Office | + + + + | 2020-07-08 00:00 | Follow-up | [facility] - | | | | [place] | + + + + | 2020-07-08 12:59:44 | Follow-up | [facility] - | | | | [place] | + + + + | 2020-07-08 12:59:44 | Malignant neoplasm of | [facility] - | | | upper lobe, left bronchus | [place] | | | or lung | | + + + + | 2020-07-14 08:33:05 | Malignant neoplasm of | [facility] - | | | upper lobe, left bronchus | [place] | | | or lung | | + + + + | 2020-07-19 20:43 | Food in esophagus causing | [facility] | | | other injury, initial | [facility] | | | encounter | | + + + + | 2020-07-23 10:20:27 | Malignant neoplasm of | [facility] - | | | upper lobe, left bronchus | [place] | | | or lung | | + + + + | 2020-07-23 10:20:27 | Nicotine dependence, | [facility] - | | | unspecified, uncomplicated | [place] | + + + + | 2020-07-23 10:20:27 | Tobacco use | [facility] - | | | | [place] | + + + + | 2020-07-24 09:53:20 | Dysphagia, unspecified | [facility] - | | | | [place] | + + + + | 2020-07-25 00:00 | compulsive tobacco user | [facility] | | | syndrome | [facility] | + + + + | 2020-07-25 00:00 | compulsive tobacco user | [facility] | | | syndrome | [place] | + + + + | 2020-07-25 00:00 | compulsive tobacco user | [facility] | | | syndrome | [place] | + + + + | 2020-07-25 00:00 | compulsive tobacco user | [facility] | | | syndrome | [facility] [place] | + + + + | 2020-07-25 00:00 | Tobacco dependence | [facility] | | | | [facility] | + + + + | 2020-07-25 00:00 | Tobacco dependence | [facility] | | | | [place] | + + + + | 2020-07-25 00:00 | Tobacco dependence | [facility] | | | | [place] | + + + + | 2020-07-25 00:00 | Tobacco dependence | [facility] | | | | [facility] [place] | + + + + | 2020-07-28 09:18:01 | Malignant neoplasm of | [facility] - | | | upper lobe, left bronchus | [place] | | | or lung | | + + + + | 2020-08-11 10:48:39 | Malignant neoplasm of | [facility] - | | | upper lobe, left bronchus | [place] | | | or lung | | + + + + | 2020-08-15 13:12:55 | Malignant neoplasm of | [facility] - | | | upper lobe, left bronchus | [place] | | | or lung | | + + + + | 2020-08-18 00:00 | ca - lung cancer | [facility] | | | | [facility] | + + + + | 2020-08-18 00:00 | ca - lung cancer | [facility] | | | | [place] | + + + + | 2020-08-18 00:00 | ca - lung cancer | [facility] | | | | [place] | + + + + | 2020-08-18 00:00 | ca - lung cancer | [facility] | | | | [facility] [place] | + + + + | 2020-08-18 00:00 | Lung cancer | [facility] | | | | [facility]ness [facility] | + + + + | 2020-08-18 00:00 | Lung cancer | [facility] | | | | [place] | + + + + | 2020-08-18 00:00 | Lung cancer | [facility] | | | | [place] | + + + + | 2020-08-18 00:00 | Lung cancer | [facility] | | | | [facility] [place] | + + + + | 2020-08-18 05:50 | Malignant neoplasm of | [facility] - | | | upper lobe, left bronchus | [place] | | | or lung | | + + + + | 2020-08-18 05:50 | Malignant neoplasm of | [facility] - | | | unspecified part of left | [place] | | | bronchus or lung | | + + + + | 2020-08-18 05:50 | Deficiency of other | [facility] - | | | specified B group vitamins | [place] | + + + + | 2020-08-18 05:50 | Nicotine dependence, | [facility] - | | | unspecified, uncomplicated | [place] | + + + + | 2020-08-18 05:50 | Anxiety disorder, | [facility] - | | | unspecified | [place] | + + + + | 2020-08-18 05:50 | Other ill-defined heart | [facility] - | | | diseases | [place] | + + + + | 2020-08-18 05:50 | Peripheral vascular | [facility] - | | | disease, unspecified | [place] | + + + + | 2020-08-18 05:50 | Panlobular emphysema | [facility] - | | | | [place] | + + + + | 2020-08-18 05:50 | Esophageal obstruction | [facility] - | | | | [place] | + + + + | 2020-08-18 05:50 | Hemorrhage of anus and | [facility] - | | | rectum | [place] | + + + + | 2020-08-18 05:50 | Unspecified | [facility] - | | | osteoarthritis, unspecified | [place] | | | site | | + + + + | 2020-08-18 05:50 | Spondylosis without | [facility] - | | | myelopathy or | [place] | | | radiculopathy, lumbar | | | | region | | + + + + | 2020-08-18 05:50 | Fibromyalgia | [facility] - | | | | [place] | + + + + | 2020-08-18 05:50 | Unspecified convulsions | [facility] - | | | | [place] | + + + + | 2020-08-18 05:50 | Food in esophagus causing | [facility] - | | | other injury, initial | [place] | | | encounter | | + + + + | 2020-08-18 05:50 | Tobacco use | [facility] - | | | | [place] | + + + + | 2020-09-09 15:55:59 | Malignant neoplasm of | [facility] - | | | unspecified part of left | [place] | | | bronchus or lung | | + + + + | 2020-09-10 09:44:54 | Malignant neoplasm of | [facility] - | | | unspecified part of left | [place] | | | bronchus or lung | | + + + + | 2020-09-23 12:08:23 | Malignant neoplasm of | [facility] - | | | upper lobe, left bronchus | [place] | | | or lung | | + + + + | 2020-09-23 16:37:09 | Malignant neoplasm of | [facility] - | | | upper lobe, left bronchus | [place] | | | or lung | | + + + + | 2020-11-12 09:45:07 | Malignant neoplasm of | [facility] - | | | upper lobe, left bronchus | [place] | | | or lung | | + + + + | 2020-11-12 09:45:07 | Tobacco use | [facility] - | | | | [place] | + + + + | 2020-12-04 00:00 | disease caused by 2018 | [facility] | | | novel coronavirus | Illness [facility] | + + + + | 2020-12-04 00:00 | disease caused by 2019 | [facility] | | | novel coronavirus | [place] | + + + + | 2020-12-04 00:00 | disease caused by 2019 | [facility] | | | novel coronavirus | [place] | + + + + | 2020-12-04 00:00 | disease caused by 2018 | [facility] | | | novel coronavirus | [facility] [place] | + + + + | 2020-12-04 00:00 | COVID | [facility] | | | | [facility] | + + + + | 2020-12-04 00:00 | COVID | [facility] | | | | [place] | + + + + | 2020-12-04 00:00 | COVID | [facility] | | | | [place] | + + + + | 2020-12-04 00:00 | COVID | [facility] | | | | [facility] [place] | + + + + | 2020-12-05 13:15:37 | COVID-19 | [facility] - | | | | [place] | + + + + | 2021-03-23 12:56:50 | Cardiac murmur, | [facility] - | | | unspecified | [place] | + + + + | 2021-04-10 16:16:47 | Esophageal obstruction | [facility] | | | | Care | + + + + | 2021-04-10 16:16:52 | Esophageal obstruction | [facility] | | | | Care | + + + + | 2021-05-20 10:15:56 | Malignant neoplasm of | [facility] - | | | upper lobe, left bronchus | [place] | | | or lung | | + + + + | 2021-06-10 12:31:08 | Malignant neoplasm of | [facility] - | | | upper lobe, left bronchus | [place] | | | or lung | | + + + + | 2021-06-12 08:05:51 | Malignant neoplasm of | [facility] - | | | upper lobe, left bronchus | [place] | | | or lung | | + + + + | 2021-06-12 08:05:51 | Malignant neoplasm of | [facility] - | | | unspecified part of | [place] | | | unspecified bronchus or | | | | lung | | + + + + | 2021-06-12 08:05:51 | Malignant neoplasm of | [facility] - | | | unspecified part of left | [place] | | | bronchus or lung | | + + + + | 2021-06-24 11:35:48 | Malignant neoplasm of | [facility] - | | | upper lobe, left bronchus | [place] | | | or lung | | + + + + | 2021-06-28 16:21 | Black or Bloody Stool | [facility] - | | | | [place] | + + + + | 2021-06-28 16:21 | Gastrointestinal | [facility] - | | | hemorrhage, unspecified | [place] | + + + + | 2021-06-28 16:21 | Other specified abnormal | [facility] - | | | findings of blood chemistry | [place] | | | | | + + + + | 2021-07-01 10:48:39 | Malignant neoplasm of | [facility] - | | | upper lobe, left bronchus | [place] | | | or lung | | + + + + | 2021-07-07 10:43:42 | Malignant neoplasm of | [facility] - | | | upper lobe, left bronchus | [place] | | | or lung | | + + + + | 2021-07-08 10:30:17 | Colonoscopy | [facility] - | | | | [place] | + + + + | 2021-07-08 10:30:17 | Hemorrhage of anus and | [facility] - | | | rectum | [place] | + + + + | 2021-07-14 15:05:05 | Follow-up | [facility] - | | | | [place] | + + + + | 2021-07-14 15:05:05 | Malignant neoplasm of | [facility] - | | | upper lobe, left bronchus | [place] | | | or lung | | + + + + | 2021-07-14 15:05:05 | Malignant neoplasm of | [facility] - | | | unspecified part of left | [place] | | | bronchus or lung | | + + + + | 2021-07-15 08:03:32 | Malignant neoplasm of | [facility] - | | | upper lobe, left bronchus | [place] | | | or lung | | + + + + | 2021-07-15 08:43:09 | Malignant neoplasm of | [facility] - | | | upper lobe, left bronchus | [place] | | | or lung | | + + + + | 2021-07-15 08:43:09 | Chronic obstructive | [facility] - | | | pulmonary disease, | [place] | | | unspecified | | + + + + | 2021-07-21 00:00 | radiology result abnormal | [facility] | | | (finding) | [facility] | + + + + | 2021-07-21 00:00 | radiology result abnormal | [facility] | | | (finding) | [place] | + + + + | 2021-07-21 00:00 | radiology result abnormal | [facility] | | | (finding) | [place] | + + + + | 2021-07-21 00:00 | radiology result abnormal | [facility] | | | (finding) | [facility] [place] | + + + + | 2021-07-21 00:00 | Abnormal findings on | [facility] | | | diagnostic imaging of other | [facility] | | | specified body structures | | + + + + | 2021-07-21 00:00 | Abnormal findings on | [facility] | | | diagnostic imaging of other | [place] | | | specified body structures | | + + + + | 2021-07-21 00:00 | Abnormal findings on | [facility] | | | diagnostic imaging of other | [place] | | | specified body structures | | + + + + | 2021-07-21 00:00 | Abnormal findings on | [facility] | | | diagnostic imaging of other | [facility] [place] | | | specified body structures | | + + + + | 2021-07-27 15:15:31 | Malignant neoplasm of | [facility] - | | | unspecified part of | [place] | | | unspecified bronchus or | | | | lung | | + + + + | 2021-07-27 15:15:31 | Abnormal findings on | [facility] - | | | diagnostic imaging of [...] 2021-07-27 15:56:26 | Abnormal findings on | [facility] - | | | diagnostic imaging of other | [place] | | | specified body structures | | + + + + | 2021-07-28 07:43:55 | Malignant neoplasm of | [facility] - | | | upper lobe, left bronchus | [place] | | | or lung | | + + + + | 2021-07-28 07:43:55 | Malignant neoplasm of | [facility] - | | | unspecified part of | [place] | | | unspecified bronchus or | | | | lung | | + + + + | 2021-07-28 07:43:55 | Abnormal findings on | [facility] - | | | diagnostic imaging of other | [place] | | | specified body structures | | + + + + | 2021-07-28 08:38:08 | Malignant neoplasm of | [facility] - | | | unspecified part of | [place] | | | unspecified bronchus or | | | | lung | | + + + + | 2021-07-28 08:38:08 | Abnormal findings on | [facility] - | | | diagnostic imaging of other | [place] | | | specified body structures | | + + + + | 2021-08-05 00:00 | neutropenic fever | [facility] | | | | Illness [facility] | + + + + | 2021-08-05 00:00 | neutropenic fever | [facility] | | | | [place] | + + + + | 2021-08-05 00:00 | neutropenic fever | [facility] | | | | [place] | + + + + | 2021-08-05 00:00 | neutropenic fever | [facility] | | | | [facility] [place] | + + + + | 2021-08-05 00:00 | Neutropenic fever | [facility] | | | | [facility] | + + + + | 2021-08-05 00:00 | Neutropenic fever | [facility] | | | | [place] | + + + + | 2021-08-05 00:00 | Neutropenic fever | [facility] | | | | [place] | + + + + | 2021-08-05 00:00 | Neutropenic fever | [facility] | | | | [facility] [place] | + + + + | 2021-08-05 15:51 | Vomiting | [facility] - | | | | [place] | + + + + | 2021-08-05 16:30 | Vomiting | [facility] - | | | | [place] | + + + + | 2021-08-05 16:30 | Imaging @ [facility] | [facility] - | | | System @ Computerized | [place] | | | Tomography (CT Scan) @ | | | | Cerebral Ventricle(s) | | + + + + | 2021-08-05 16:30 | Imaging @ [facility] | [facility] - | | | System @ Computerized | [place] | | | Tomography (CT Scan) @ | | | | Sella Turcica/Pituitary | | | | Gland | | + + + + | 2021-08-05 16:30 | Neutropenia, unspecified | [facility] - | | | | [place] | + + + + | 2021-08-05 16:30 | 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) | [place] | + + + + | 2021-08-05 16:30 | Acute kidney failure, | [facility] - | | | unspecified | [place] | + + + + | 2021-08-05 16:30 | Nausea with vomiting, | [facility] - | | | unspecified | [place] | + + + + | 2021-08-05 16:30 | Fever presenting with | [facility] - | | | conditions classified | [place] | | | elsewhere | | + + + + | 2021-08-18 07:50:49 | Imaging @ [facility] | [facility] - | | | System @ Computerized | [place] | | | Tomography (CT Scan) @ | | | | Cerebral Ventricle(s) | | + + + + | 2021-08-18 07:50:49 | Malignant neoplasm of | [facility] - | | | unspecified part of | [place] | | | unspecified bronchus or | | | | lung | | + + + + | 2021-08-18 07:50:49 | Abnormal findings on | [facility] - | | | diagnostic imaging of other | [place] | | | specified body structures | | + + + + | 2021-08-18 08:36:45 | Malignant neoplasm of | [facility] - | | | unspecified part of | [place] | | | unspecified bronchus or | | | | lung | | + + + + | 2021-08-18 08:36:45 | Abnormal findings on | [facility] - | | | diagnostic imaging of other | [place] | | | specified body structures | | + + + + | 2021-09-04 10:46:25 | Consult | [facility] - | | | | [place] | + + + + | 2021-09-04 10:46:25 | Centrilobular emphysema | [facility] - | | | | [place] | + + + + | 2021-09-08 07:48:16 | Malignant neoplasm of | [facility] - | | | upper lobe, left bronchus | [place] | | | or lung | | + + + + | 2021-09-08 07:48:16 | Malignant neoplasm of | [facility] - | | | unspecified part of | [place] | | | unspecified bronchus or | | | | lung | | + + + + | 2021-09-08 07:48:16 | Abnormal findings on | [facility] - | | | diagnostic imaging of other | [place] | | | specified body structures | | + + + + | 2021-09-08 08:49:05 | Malignant neoplasm of | [facility] - | | | unspecified part of | [place] | | | unspecified bronchus or | | | | lung | | + + + + | 2021-09-08 08:49:05 | Abnormal findings on | [facility] - | | | diagnostic imaging of other | [place] | | | specified body structures | | + + + + | 2021-09-29 08:06:19 | Malignant neoplasm of | [facility] - | | | upper lobe, left bronchus | [place] | | | or lung | | + + + + | 2021-09-29 08:07:04 | Malignant neoplasm of | [facility] - | | | upper lobe, left bronchus | [place] | | | or lung | | + + + + | 2021-09-29 08:07:04 | Malignant neoplasm of | [facility] - | | | unspecified part of | [place] | | | unspecified bronchus or | | | | lung | | + + + + | 2021-09-29 08:07:04 | Chronic obstructive | [facility] - | | | pulmonary disease, | [place] | | | unspecified | | + + + + | 2021-09-29 08:07:04 | Abnormal findings on | [facility] - | | | diagnostic imaging of other | [place] | | | specified body structures | | + + + + | 2021-09-29 09:09:08 | Malignant neoplasm of | [facility] - | | | unspecified part of | [place] | | | unspecified bronchus or | | | | lung | | + + + + | 2021-09-29 09:09:08 | Abnormal findings on | [facility] - | | | diagnostic imaging of other | [place] | | | specified body structures | | + + + + | 2021-10-20 08:46:57 | Malignant neoplasm of | [facility] - | | | upper lobe, left bronchus | [place] | | | or lung | | + + + + | 2021-10-20 08:46:57 | Encounter for palliative | [facility] - | | | care | [place] | + + + + | 2021-10-20 10:40:29 | Malignant neoplasm of | [facility] - | | | unspecified part of | [place] | | | unspecified bronchus or | | | | lung | | + + + + | 2021-10-20 10:40:29 | Abnormal findings on | [facility] - | | | diagnostic imaging of other | [place] | | | specified body structures | | + + + + | 2021-10-20 12:05:45 | Malignant neoplasm of | [facility] - | | | unspecified part of | [place] | | | unspecified bronchus or | | | | lung | | + + + + | 2021-10-20 12:05:45 | Abnormal findings on | [facility] - | | | diagnostic imaging of other | [place] | | | specified body structures | | + + + + | 2021-10-27 08:48:50 | Malignant neoplasm of | [facility] - | | | upper lobe, left bronchus | [place] | | | or lung | | + + + + | 2021-10-27 08:48:50 | Encounter for palliative | [facility] - | | | care | [place] | + + + + | 2021-10-27 13:32:51 | Malignant neoplasm of | [facility] - | | | unspecified part of | [place] | | | unspecified bronchus or | | | | lung | | + + + + | 2021-10-27 13:32:51 | Abnormal findings on | [facility] - | | | diagnostic imaging of other | [place] | | | specified body structures | | + + + + | 2021-10-27 14:40:02 | Malignant neoplasm of | [facility] - | | | unspecified part of | [place] | | | unspecified bronchus or | | | | lung | | + + + + | 2021-10-27 14:40:02 | Abnormal findings on | [facility] - | | | diagnostic imaging of other | [place] | | | specified body structures | | + + + + | 2021-11-17 00:00 | under care of palliative | [facility] | | | care physician (finding) | [place] | + + + + | 2021-11-17 00:00 | under care of palliative | [facility] | | | care physician (finding) | [place] | + + + + | 2021-11-17 00:00 | Palliative care by | [facility] | | | specialist | [place] | + + + + | 2021-11-17 00:00 | Palliative care by | [facility] | | | specialist | [place] | + + + + | 2021-11-17 08:53:12 | Malignant neoplasm of | [facility] - | | | upper lobe, left bronchus | [place] | | | or lung | | + + + + | 2021-11-17 08:53:12 | Generalized anxiety | [facility] - | | | disorder | [place] | + + + + | 2021-11-17 08:53:12 | Encounter for palliative | [facility] - | | | care | [place] | + + + + | 2021-11-17 12:52:52 | Follow-up | [facility] - | | | | [place] | + + + + | 2021-11-17 12:52:52 | Infusion/injection | [facility] - | | | | [place] | + + + + | 2021-11-17 12:52:52 | Malignant neoplasm of | [facility] - | | | unspecified part of | [place] | | | unspecified bronchus or | | | | lung | | + + + + | 2021-11-17 12:52:52 | Abnormal findings on | [facility] - | | | diagnostic imaging of other | [place] | | | specified body structures | | + + + + | 2021-11-17 14:07:36 | Malignant neoplasm of | [facility] - | | | unspecified part of | [place] | | | unspecified bronchus or | | | | lung | | + + + + | 2021-11-17 14:07:36 | Abnormal findings on | [facility] - | | | diagnostic imaging of other | [place] | | | specified body structures | | + + + + | 2021-11-23 00:00 | dysphagia (disorder) | [facility] | | | | [place] | + + + + | 2021-11-23 00:00 | dysphagia (disorder) | [facility] | | | | [place] | + + + + | 2021-11-23 00:00 | Other dysphagia | [facility] | | | | [place] | + + + + | 2021-11-23 00:00 | Other dysphagia | [facility] | | | | [place] | + + + + | 2021-11-23 13:24:44 | New Patient Consult | [facility] - | | | | [place] | + + + + | 2021-11-23 13:24:44 | Other dysphagia | [facility] - | | | | [place] | + + + + | 2021-12-08 13:53:13 | Malignant neoplasm of | [facility] - | | | unspecified part of | [place] | | | unspecified bronchus or | | | | lung | | + + + + | 2021-12-08 13:53:13 | Pneumonia, unspecified | [facility] - | | | organism | [place] | + + + + | 2021-12-08 13:53:13 | Abnormal findings on | [facility] - | | | diagnostic imaging of other | [place] | | | specified body structures | | + + + + | 2021-12-22 00:00 | diarrhea caused by drug | [facility] | | | | [place] | + + + + | 2021-12-22 00:00 | diarrhea caused by drug | [facility] | | | | [place] | + + + + | 2021-12-22 00:00 | Drug-induced diarrhea | [facility] | | | | [place] | + + + + | 2021-12-22 00:00 | Drug-induced diarrhea | [facility] | | | | [place] | + + + + | 2021-12-22 08:52:16 | Malignant neoplasm of | [facility] - | | | upper lobe, left bronchus | [place] | | | or lung | | + + + + | 2021-12-22 08:52:16 | 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) | [place] | + + + + | 2021-12-22 08:52:16 | Encounter for palliative | [facility] - | | | care | [place] | + + + + | 2021-12-22 13:20:25 | Malignant neoplasm of | [facility] - | | | unspecified part of | [place] | | | unspecified bronchus or | | | | lung | | + + + + | 2021-12-22 13:20:25 | Pneumonia, unspecified | [facility] - | | | organism | [place] | + + + + | 2021-12-22 13:20:25 | Toxic gastroenteritis and | [facility] - | | | colitis | [place] | + + + + | 2021-12-22 14:37:20 | Toxic gastroenteritis and | [facility] - | | | colitis | [place] | + + + + | 2021-12-24 15:13:14 | Malignant neoplasm of | [facility] - | | | unspecified part of | [place] | | | unspecified bronchus or | | | | lung | | + + + + | 2021-12-24 15:13:14 | Toxic gastroenteritis and | [facility] - | | | colitis | [place] | + + + + | 2021-12-29 13:35:35 | Malignant neoplasm of | [facility] - | | | upper lobe, left bronchus | [place] | | | or lung | | + + + + | 2021-12-29 13:35:35 | Malignant neoplasm of | [facility] - | | | unspecified part of | [place] | | | unspecified bronchus or | | | | lung | | + + + + | 2021-12-29 13:35:35 | Abnormal findings on | [facility] - | | | diagnostic imaging of other | [place] | | | specified body structures | | + + + + | 2022-01-05 07:48:34 | Malignant neoplasm of | [facility] - | | | unspecified part of | [place] | | | unspecified bronchus or | | | | lung | | + + + + | 2022-01-06 08:34:53 | Malignant neoplasm of | [facility] - | | | upper lobe, left bronchus | [place] | | | or lung | | + + + + | 2022-01-06 08:34:53 | Generalized anxiety | [facility] - | | | disorder | [place] | + + + + | 2022-01-06 08:34:53 | 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) | [place] | + + + + | 2022-01-06 08:34:53 | Encounter for palliative | [facility] - | | | care | [place] | + + + + | 2022-01-11 13:59:14 | Malignant neoplasm of | [facility] - | | | unspecified part of | [place] | | | unspecified bronchus or | | | | lung | | + + + + | 2022-01-19 09:03:30 | Malignant neoplasm of | [facility] - | | | upper lobe, left bronchus | [place] | | | or lung | | + + + + | 2022-01-19 09:03:30 | Generalized anxiety | [facility] - | | | disorder | [place] | + + + + | 2022-01-19 09:03:30 | 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) | [place] | + + + + | 2022-01-19 09:03:30 | Encounter for palliative | [facility] - | | | care | [place] | + + + + | 2022-01-19 13:25:57 | Malignant neoplasm of | [facility] - | | | lower lobe, unspecified | [place] | | | bronchus or lung | | + + + + | 2022-01-19 13:25:57 | Malignant neoplasm of | [facility] - | | | unspecified part of | [place] | | | unspecified bronchus or | | | | lung | | + + + + | 2022-01-19 13:25:57 | Abnormal findings on | [facility] - | | | diagnostic imaging of other | [place] | | | specified body structures | | + + + + | 2022-01-19 14:53:13 | Malignant neoplasm of | [facility] - | | | unspecified part of | [place] | | | unspecified bronchus or | | | | lung | | + + + + | 2022-01-19 14:53:13 | Abnormal findings on | [facility] - | | | diagnostic imaging of [...] 00:00 | Malignant neoplasm of lung | [facility] | | | | | + + + + | 2022-10-01 00:00 | Malnutrition | [facility] | + + + + | 2022-10-01 00:00 | Urinary tract infection | [facility] | + + + + | 2022-10-01 [...] BRONCH EBUS MALLIKA 02/22 | OR - [facility] | | | NODE | P[facility] - Main Office | + + + + | 2021-02-26 00:00 | TOTAL HYSTERECTOMY | OR - [facility] | | | | Pc - Main Office | + + + + | 2021-02-27 00:00 | TOTAL HYSTERECTOMY | OR - [facility] | | | | Pc - Main Office | + + + + | 2021-03-26 00:00 | TOTAL HYSTERECTOMY | OR - [facility] | | | | Pc - Main Office | + + + + | 2021-09-08 00:00 | HC COMPREHENSIVE METABOLIC | [facility] | | | PANEL | [place] | + + + + | 2021-10-27 00:00 | HC COMPREHENSIVE METABOLIC | [facility] | | | PANEL | [place] | + + + + | 2021-09-08 00:00 | HC T4 FREE (THYROXINE | [facility] | | | FREE) | [place] | + + + + | 2021-09-08 00:00 | HC TSH | [facility] | | | | [place] | + + + + | 2021-09-08 00:00 | HC T3 FREE | [facility] | | | | [place] | + + + + | 2021-09-08 00:00 | HC CBC W AUTO DIFFERENTIAL | [facility] | | | | [place] | + + + + | 2021-10-27 00:00 | HC CBC W AUTO DIFFERENTIAL | [facility] | | | | [place] | + [...] + | SQUAMOUS | 2019-04-14 | [facility] | 4 | /hpf | (missing) | [...] + | LIPASE | 2019-04-14 | [facility] | 45 | u/l | (missing) | [...] | | | | | | | [id number] | | | + + + + [...] + + | | 2019-04-14 | [facility] | Not | (missing) | (missing) | [...] + | 2020-09-02 00:00 | Ex-smoker | [facility] | | | | [place] | + + + + | 2021-02-26 00:00 | Current Some Day Smoker | OR - [facility] | | | | Pc - Main Office | + + + + | 2021-02-27 00:00 | Current Some Day Smoker | OR - [facility] | | | | Pc - Main Office | + + + + | 2021-03-26 00:00 | Current Some Day Smoker | OR - [facility] | | | | - Main Office | + + + + | 2021-05-21 00:00 | Current smoker | [facility] | | | | [place] | + + + + | 2021-06-10 00:00 | Smokes tobacco daily | [facility] | | | | Illness Management | + + + + | 2021-06-10 00:00 | Smokes tobacco daily | [facility] | | | | [place] | + + + + | 2021-06-10 00:00 | Smokes tobacco daily | [facility] | | | | [place] | + + + + | 2021-06-10 00:00 | Smokes tobacco daily | [facility] | | | | [facility] [place] | + + + + | 2021-09-09 00:00 | Smokes tobacco daily | [facility] | | | | [place] | + + + + | 2021-09-30 00:00 | Smokes tobacco daily | [facility] | | | | Illness [facility] | + + + + | 2021-09-30 00:00 | Smokes tobacco daily | [facility] | | | | [place] | + + + + | 2021-10-21 00:00 | Smokes tobacco daily | [facility] | | | | [place] | + + + + | 2021-10-28 00:00 | Smokes tobacco daily | [facility] | | | | [place] | + + + + | 2021-11-18 00:00 | Smokes tobacco daily | [facility] | | | | [place] | + + + + | 2021 00:00 | Smokes tobacco daily | [facility] | | | | [place] | + + + + | 2021-12-23 00:00 | Smokes tobacco daily | [facility] | | | | [place] | + + + + | 2021-12-25 00:00 | Smokes tobacco daily | [facility] | | | | [place] | + + + + | 2021-12-31 00:00 | Smokes tobacco daily | [facility] | | | | [place] | + + + + | 2022-01-20 00:00 | Smokes tobacco daily | [facility] | | | | [place] | + + + + | 2022-09-07 00:00 | Unknown if ever smoked | [facility] | + + + + | 2022-10-01 00:00 | Unknown if ever smoked | [facility] | + + + + Vital Signs [...]
--- OUTSIDE RECORDS SUMMARY | ~2022-10-06 | XMS | Continuity of Care Document ---
Demographics + + + | Address | [address] | | | [place] [address] | + + + | Preferred Language | Unknown | + + + | Marital Status | | + + + | Oriental Orthodox Affiliation | Unknown | + + + | Race | White | + + + | Ethnic Group | Not or | + + + Author + + + | Author | [facility] | + + + | Organization | [facility] | + + + | Address | [address] | | | [place] [address] | + + + | Phone | | + + + Care Team Providers + + + + | Care Pizza Chef Name | Role | Phone | + [...] (no date) | P[place]ICILLINS | [place] - [place] | (no reaction) | (no severity) | [...] Center | | | | | | [place] | | | + + + + [...] - | | | | | | [place] | | | + + + + + + | (no date) | P[facility]ICILLINS | [facility] | (no reaction) | (no severity) | | | | [facility] - | | | | | | [place] | | | + + + + + + | (no date) | PENICILLINS | [facility] | (no reaction) | (no severity) [...] | (no date) | P[facility]ICILLINS | [facility] | (no reaction) | (no severity) | | | | [facility] | | | | | | [place] | | | + + + + [...] | pneumococcal conjugate PCV | [place] - [facility] | | | 13 | - Main Office | + + + + | 2019-11-29 00:00 | pneumococcal conjugate PCV | [place] - [facility] | | | 13 | - Main Office | + + + + | 2011-11-29 00:00 | influenza, seasonal, | [place] - [facility] | | | injectable, preservative | - Main Office | | | free | | + + + + | 2012-10-31 00:00 | influenza, seasonal, | [place] - [facility] | | | injectable, preservative | - Main Office | | | free | | + + + + | 2014-02-07 00:00 | influenza, seasonal, | [facility] | | | injectable, preservative | - Main Office | | | free | | + + + + | 2018-01-18 00:00 | influenza, injectable, | [facility] | | | quadrivalent, preservative | - Main Office | | | free | | + + + + | 2018-10-16 00:00 | influenza, injectable, | [facility] | | | quadrivalent, preservative | - Main Office | | | free | | + + + + | 2019-11-29 00:00 | influenza, injectable, | [facility] | | | quadrivalent, preservative | - Main Office | | | free | | + + + + | 2015-12-25 00:00 | influenza, injectable, | [facility] | | | quadrivalent | [facility] - Main Office | + + + + | 2016-12-20 00:00 | influenza, injectable, | [facility] | | | quadrivalent | - Main Office | + + + + | 2020-05-21 00:00 | COVID-19, mRNA, LNP-S, PF, | [facility] | | | 100 mcg/0.5 mL dose | [facility] - Main Office | | | (Moderna) | | + + + + | 2020-06-18 00:00 | COVID-19, mRNA, LNP-S, PF, | [facility] | | | 100 mcg/0.5 mL dose | [facility] - Main Office | | | (Moderna) | | + + + + | 2021-03-26 00:00 | COVID-19, mRNA, LNP-S, PF, | [place] - [facility] | | | 100 mcg/0.5 mL dose | [facility] - Main Office | | | (Moderna) | | + + + + | 2011-11-29 00:00 | pneumococcal | [place] - [facility] | | | polysaccharide PPV23 | [facility] - Main Office | + + + + | 2018-01-18 00:00 | pneumococcal | [place] - [facility] | | | polysaccharide PPV23 | [facility] - Main Office | + + + + Medications + + + + | date | description | facility | + + + + | 2021-08-20 00:00 | {2 (480 ML) (Magnesium | [facility] | | | Sulfate 0.0277 MEQ/ML / | [facility] | | | potassium sulfate 0.0374 | | | | MEQ/ML / sodium sulfate | | | | 0.257 MEQ/ML Oral Solution) | | | | } Pack [Suprep Bowel Prep | | | | Kit] | | + + + + | 2021-08-20 00:00 | {2 (480 ML) (Magnesium | [facility] | | | Sulfate 0.0277 MEQ/ML / | [place] | | | potassium sulfate 0.0374 | | | | MEQ/ML / sodium sulfate | | | | 0.257 MEQ/ML Oral Solution) | | | | } Pack [Suprep Bowel Prep | | | | Kit] | | + + + + | 2021-08-20 00:00 | {2 (480 ML) (Magnesium | [facility] | | | Sulfate 0.0277 MEQ/ML / | [place] | | | potassium sulfate 0.0374 | | | | MEQ/ML / sodium sulfate | | | | 0.257 MEQ/ML Oral Solution) | | | | } Pack [Suprep Bowel Prep | | | | Kit] | | + + + + | 2021-08-20 00:00 | {2 (480 ML) (Magnesium | [facility] | | | Sulfate 0.0277 MEQ/ML / | [facility] [place] | | | potassium sulfate 0.0374 | | | | MEQ/ML / sodium sulfate | | | | 0.257 MEQ/ML Oral Solution) | | | | } Pack [Suprep Bowel Prep | | | | Kit] | | + + + + | 2021-10-20 00:00 | abuse-deterrent 12 hr | [facility] | | | oxycodone hydrochloride 15 | [place] | | | mg extended release oral | | | | tablet [oxycontin] | | + + + + | 2021-09-08 00:00 | oxycodone hcl 5 mg oral | [facility] | | | tablet | [place] | + + + + | 2021-09-29 00:00 | oxycodone hcl 5 mg oral | [facility] | | | tablet | [place] | + + + + | 2021-10-27 00:00 | oxycodone hcl 5 mg oral | [facility] | | | tablet | [place] | + + + + | 2021 00:00 | oxycodone hcl 5 mg oral | [facility] | | | tablet | [place] | + + + + | 2021 00:00 | oxycodone hcl 5 mg oral | [facility] | | | tablet | [place] | + + + + | 2021-12-29 00:00 | oxycodone hcl 5 mg oral | [facility] | | | tablet | [place] | + + + + | 2021-09-08 00:00 | oxycodone hydrochloride 5 | [facility] | | | mg oral tablet [roxicodone] | [place] | | | | | + + + + | 2021-09-29 00:00 | oxycodone hydrochloride 5 | [facility] | | | mg oral tablet [roxicodone] | [place] | | | | | + + + + | 2021-08-18 00:00 | valtrex 500 mg oral tablet | [facility] | | | | Illness Management | + + + + | 2021-08-18 00:00 | valtrex 500 mg oral tablet | [facility] | | | | [place] | + + + + | 2021-08-18 00:00 | valtrex 500 mg oral tablet | [facility] | | | | [place] | + + + + | 2021-08-18 00:00 | valtrex 500 mg oral tablet | [facility] | | | | [facility] [place] | + + + + | 2021-10-20 00:00 | senokot-s 8.6 mg / 50 mg | [facility] | | | oral tablet | [place] | + + + + | 2021-10-20 00:00 | senokot-s 8.6 mg / 50 mg | [facility] | | | oral tablet | [place] | + + + + | 2021-02-26 00:00 | atorvastatin 80 MG Oral | [place] - [facility] | | | Tablet | - Main Office | + + + + | 2021-02-27 00:00 | atorvastatin 80 MG Oral | [place] - [facility] | | | Tablet | [facility] - Main Office | + + + + | 2021-03-26 00:00 | atorvastatin 80 MG Oral | [place] - [facility] | | | Tablet | [facility] - Main Office | + + + + | 2021-02-26 00:00 | potassium chloride 10 MEQ | [place] - [facility] | | | Extended Release Oral | [facility] - Main Office | | | Capsule | | + + + + | 2021-02-27 00:00 | potassium chloride 10 MEQ | [place] - [facility] | | | Extended Release Oral | [facility] - Main Office | | | Capsule | | + + + + | 2021-03-26 00:00 | potassium chloride 10 MEQ | [place] - [facility] | | | Extended Release Oral | - Main Office | | | Capsule | | + + + + | 2021-09-04 00:00 | doxycycline hyclate 100 mg | [facility] | | | oral capsule | [place] | + + + + | 2021-09-04 00:00 | doxycycline hyclate 100 mg | [facility] | | | oral capsule | [facility] [place] | + + + + | 2021-02-26 00:00 | trazodone hydrochloride 50 | [place] - [facility] | | | MG Oral Tablet | - Main Office | + + + + | 2021-02-27 00:00 | trazodone hydrochloride 50 | [facility] | | | MG Oral Tablet | - Main Office | + + + + | 2021-03-26 00:00 | trazodone hydrochloride 50 | [facility] | | | MG Oral Tablet | [facility] Main Office | + + + + | 2021-09-08 00:00 | naloxone hcl 4 mg per 0.1 | [facility] | | | ml nasal spray | Illness Management | + + + + | 2021-09-08 00:00 | naloxone hcl 4 mg per 0.1 | [facility] | | | ml nasal spray | [place] | + + + + | 2021-09-08 00:00 | naloxone hcl 4 mg per 0.1 | [facility] | | | ml nasal spray | [place] | + + + + | 2021-02-26 00:00 | naloxone hydrochloride 40 | [place] [facility] | | | MG/ML Nasal [place] [Narcan] | - Main Office | + + + + | 2021-02-27 00:00 | naloxone hydrochloride 40 | [facility] | | | MG/ML Nasal [place] [Narcan] | - Main Office | + + + + | 2021-03-26 00:00 | naloxone hydrochloride 40 | [place] [facility] | | | MG/ML Nasal [place] [Narcan] | - Main Office | + + + + | 2021-09-08 00:00 | naloxone hydrochloride 40 | [facility] | | | mg/ml nasal spray [narcan] | Illness Management | + + + + | 2021-09-08 00:00 | naloxone hydrochloride 40 | [facility] | | | mg/ml nasal spray [narcan] | [place] | + + + + | 2021-09-08 00:00 | naloxone hydrochloride 40 | [facility] | | | mg/ml nasal spray [narcan] | [place] | + + + + | 2021-02-26 00:00 | ibuprofen 800 MG Oral | [place] - [facility] | | | Tablet | [facility] - Main Office | + + + + | 2021-02-27 00:00 | ibuprofen 800 MG Oral | [place] - [facility] | | | Tablet | [facility] - Main Office | + + + + | 2021-03-26 00:00 | ibuprofen 800 MG Oral | [place] - [facility] | | | Tablet | [facility] - Main Office | + + + + | 2021-02-26 00:00 | tizanidine 4 MG Oral | [place] - [facility] | | | Tablet | [facility] - Main Office | + + + + | 2021-02-27 00:00 | tizanidine 4 MG Oral | [place] - [facility] | | | Tablet | [facility] - Main Office | + + + + | 2021-03-26 00:00 | tizanidine 4 MG Oral | [place] - [facility] | | | Tablet | [facility] - Main Office | + + + + | 2021-02-26 00:00 | benzonatate 200 MG Oral | [place] - [facility] | | | Capsule | - Main Office | + + + + | 2021-02-27 00:00 | benzonatate 200 MG Oral | [place] - [facility] | | | Capsule | - Main Office | + + + + | 2021-03-26 00:00 | benzonatate 200 MG Oral | [place] [facility] | | | Capsule | - Main Office | + + + + | 2021-09-29 00:00 | microencapsulated | [facility] | | | potassium chloride 10 meq | [place] | | | extended release oral | | | | tablet | | + + + + | 2021-09-29 00:00 | microencapsulated | [facility] | | | potassium chloride 10 meq | [place] | | | extended release oral | | | | tablet | | + + + + | 2021-02-26 00:00 | sucralfate 100 MG/ML Oral | [place] - [facility] | | | Suspension | - Main Office | + + + + | 2021-02-27 00:00 | sucralfate 100 MG/ML Oral | [place] - [facility] | | | Suspension | - Main Office | + + + + | 2021-03-26 00:00 | sucralfate 100 MG/ML Oral | [place] - [facility] | | | Suspension | - Main Office | + + + + | 2021-10-20 00:00 | abuse-deterrent 12 hr | [facility] | | | oxycodone hydrochloride 15 | [place] | | | mg extended release oral | | | | tablet | | + + + + | 2021-12-22 00:00 | abuse-deterrent 12 hr | [facility] | | | oxycodone hydrochloride 10 | [place] | | | mg extended release oral | | | | tablet | | + + + + | 2021-12-22 00:00 | abuse-deterrent 12 hr | [facility] | | | oxycodone hydrochloride 10 | [place] | | | mg extended release oral | | | | tablet | | + + + + | 2022-01-06 00:00 | abuse-deterrent 12 hr | [facility] | | | oxycodone hydrochloride 10 | [place] | | | mg extended release oral | | | | tablet | | + + + + | 2021-02-26 00:00 | fluticasone furoate 0.1 | [place] [facility] | | | MG/ACTUAT / umeclidinium | - Main Office | | | 0.0625 MG/ACTUAT / | | | | vilanterol 0.025 MG/ACTUAT | | | | Dry Powder Inhaler | | + + + + | 2021-02-27 00:00 | fluticasone furoate 0.1 | [facility] | | | MG/ACTUAT / umeclidinium | [facility] Main Office | | | 0.0625 MG/ACTUAT / | | | | vilanterol 0.025 MG/ACTUAT | | | | Dry Powder Inhaler | | + + + + | 2021-03-26 00:00 | fluticasone furoate 0.1 | [facility] | | | MG/ACTUAT / umeclidinium | [facility] Main Office | | | 0.0625 MG/ACTUAT / | | | | vilanterol 0.025 MG/ACTUAT | | | | Dry Powder Inhaler | | + + + + | 2021-08-19 00:00 | juventino garcia | [facility] | | | (fluticasone furoate 100 [...] | 2021-09-05 00:00 | juventino garcia | [facility] | | | (fluticasone furoate 100 | [...] | 2021-09-09 00:00 | juventino garcia | [facility] | | | (fluticasone furoate 100 [...] | 2021-09-29 00:00 | trelegy ellipta | [facility] | | | (fluticasone furoate 100 [...] | 2021-09-29 00:00 | trelegy ellipta | [facility] | | | (fluticasone furoate 100 [...] | 2021-09-30 00:00 | trelegy ellipta | [facility] | | | (fluticasone furoate 100 [...] 00:00 | dexamethasone 4 mg oral | [facility] | | | tablet | [place] | + + + + | 2021-09-24 00:00 | dexamethasone 4 mg oral | [facility] | | | tablet | Ill[facility] | + + + + | 2021-09-24 00:00 | dexamethasone 4 mg oral | [facility] | | | tablet | [place] | + + + + | 2021-09-24 00:00 | dexamethasone 4 mg oral | [facility] | | | tablet | [place] | + + + + | 2021-02-26 00:00 | ibuprofen 800 MG Oral | [place] - [facility] | | | Tablet | [facility] - Main Office | + + + + | 2021-02-27 00:00 | ibuprofen 800 MG Oral | [place] - [facility] | | | Tablet | [facility] - Main Office | + + + + | 2021-03-26 00:00 | ibuprofen 800 MG Oral | [place] - [facility] | | | Tablet | [facility] - Main Office | + + + + | 2020-10-08 00:00 | ibuprofen 800 mg oral | [facility] | | | tablet | Illness [facility] | + + + + | 2020-10-08 00:00 | ibuprofen 800 mg oral | [facility] | | | tablet | [place] | + + + + | 2020-10-08 00:00 | ibuprofen 800 mg oral | [facility] | | | tablet | [place] | + + + + | 2020-10-08 00:00 | ibuprofen 800 mg oral | [facility] | | | tablet | [facility] [place] | + + + + | 2021-07-21 00:00 | lorazepam 0.5 mg oral | [facility] | | | tablet | [place] | + + + + | 2021-02-26 00:00 | nitroglycerin 0.4 MG | [place] - [facility] | | | Sublingual Tablet | - Main Office | + + + + | 2021-02-27 00:00 | nitroglycerin 0.4 MG | [facility] | | | Sublingual Tablet | Pc - Main Office | + + + + | 2021-03-26 00:00 | nitroglycerin 0.4 MG | [facility] | | | Sublingual Tablet | [facility] - Main Office | + + + + | 2018-05-03 00:00 | nitroglycerin 400 mcg | [facility] | | | sublingual tablet | Illness Management | + + + + | 2018-05-03 00:00 | nitroglycerin 400 mcg | [facility] | | | sublingual tablet | [place] | + + + + | 2018-05-03 00:00 | nitroglycerin 400 mcg | [facility] | | | sublingual tablet | [place] | + + + + | 2018-05-03 00:00 | nitroglycerin 400 mcg | [facility] | | | sublingual tablet | [facility] [place] | + + + + | 2021-08-20 00:00 | ondansetron 4 mg oral | [facility] | | | tablet | [place] | + + + + | 2021-08-20 00:00 | ondansetron 4 mg oral | [facility] | | | tablet | [facility] [place] | + + + + | 2018-07-05 00:00 | ranitidine 150 mg (as | [facility] | | | ranitidine hcl 168 mg) oral | [place] | | | tablet | | + + + + | 2021-07-21 00:00 | prochlorperazine 10 mg | [facility] | | | oral tablet | [place] | + + + + | 2021-08-26 00:00 | prochlorperazine 10 mg | [facility] | | | oral tablet | Illness Management | + + + + | 2021-08-26 00:00 | prochlorperazine 10 mg | [facility] | | | oral tablet | [place] | + + + + | 2021-08-26 00:00 | prochlorperazine 10 mg | [facility] | | | oral tablet | [place] | + + + + | 2021-08-26 00:00 | prochlorperazine 10 mg | [facility] | | | oral tablet | [facility] [place] | + + + + | 2021-10-20 00:00 | levofloxacin 500 mg oral | [facility] | | | tablet | [place] | + + + + | 2021-07-21 00:00 | compazine 10 mg oral | [facility] | | | tablet | [place] | + + + + | 2021-05-21 00:00 | [id number] 200 actuat | [facility] | | | albuterol 0.09 mg/actuat | [place] | | | metered dose inhaler | | + + + + | 2021-06-25 00:00 | [id number] 200 actuat | [facility] | | | albuterol 0.09 mg/actuat | [place] | | | metered dose inhaler | | + + + + | 2021-07-08 00:00 | [id number] 200 actuat | [facility] | | | albuterol 0.09 mg/actuat | [place] | | | metered dose inhaler | | + + + + | 2021-07-16 00:00 | [id number] 200 actuat | [facility] | | | albuterol 0.09 mg/actuat | [place] | | | metered dose inhaler | | + + + + | 2021-07-29 00:00 | [id number] 200 actuat | [facility] | | | albuterol 0.09 mg/actuat | [place] | | | metered dose inhaler | | + + + + | 2021-08-19 00:00 | [id number] 200 actuat | [facility] | | | albuterol 0.09 mg/actuat | [place] | | | metered dose inhaler | | + + + + | 2021-09-05 00:00 | [id number] 200 actuat | [facility] | | | albuterol 0.09 mg/actuat | [facility] [place] | | | metered dose inhaler | | + + + + | 2021-09-09 00:00 | [id number] 200 actuat | [facility] | | | albuterol 0.09 mg/actuat | [place] | | | metered dose inhaler | | + + + + | 2021-09-30 00:00 | [id number] 200 actuat | [facility] | | | albuterol 0.09 mg/actuat | Ill[facility] Management | | | metered dose inhaler | | + + + + | 2021-09-30 00:00 | [id number] 200 actuat | [facility] | | | albuterol 0.09 mg/actuat | [place] | | | metered dose inhaler | | + + + + | 2021-10-21 00:00 | [id number] 200 actuat | [facility] | | | albuterol 0.09 mg/actuat | [place] | | | metered dose inhaler | | + + + + | 2021-10-28 00:00 | [id number] 200 actuat | [facility] | | | albuterol 0.09 mg/actuat | [place] | | | metered dose inhaler | | + + + + | 2021-11-18 00:00 | [id number] 200 actuat | [facility] | | | albuterol 0.09 mg/actuat | [place] | | | metered dose inhaler | | + + + + | 2021 00:00 | [id number] 200 actuat | [facility] | | | albuterol 0.09 mg/actuat | [place] | | | metered dose inhaler | | + + + + | 2021-12-23 00:00 | [id number] 200 actuat | [facility] | | | albuterol 0.09 mg/actuat | [place] | | | metered dose inhaler | | + + + + | 2021-12-25 00:00 | [id number] 200 actuat | [facility] | | | albuterol 0.09 mg/actuat | [place] | | | metered dose inhaler | | + + + + | 2021-12-31 00:00 | [id number] 200 actuat | [facility] | | | albuterol 0.09 mg/actuat | [place] | | | metered dose inhaler | | + + + + | 2022-01-20 00:00 | [id number] 200 actuat | [facility] | | | albuterol 0.09 mg/actuat | [place] | | | metered dose inhaler | | + + + + | 2021-02-26 00:00 | levothyroxine sodium 0.1 | [place] [facility] | | | MG Oral Tablet | - Main Office | + + + + | 2021-02-27 00:00 | levothyroxine sodium 0.1 | [place] - [facility] | | | MG Oral Tablet | - Main Office | + + + + | 2021-03-26 00:00 | levothyroxine sodium 0.1 | [facility] | | | MG Oral Tablet | - Main Office | + + + + | 2021-02-26 00:00 | pantoprazole 40 MG Delayed | [facility] | | | Release Oral Tablet | - Main Office | + + + + | 2021-02-27 00:00 | pantoprazole 40 MG Delayed | [facility] | | | Release Oral Tablet | - Main Office | + + + + | 2021-03-26 00:00 | pantoprazole 40 MG Delayed | [place] [facility] | | | Release Oral Tablet | - Main Office | + + + + | 2021-02-26 00:00 | lisinopril 10 MG Oral | [place] [facility] | | | Tablet | - Main Office | + + + + | 2021-02-27 00:00 | lisinopril 10 MG Oral | [place] [facility] | | | Tablet | - Main Office | + + + + | 2021-03-26 00:00 | lisinopril 10 MG Oral | [facility] | | | Tablet | - Main Office | + + + + | 2021-02-26 00:00 | nitroglycerin 0.4 MG | [facility] | | | Sublingual Tablet | Pc - Main Office | + + + + | 2021-02-27 00:00 | nitroglycerin 0.4 MG | [facility] | | | Sublingual Tablet | [facility] - Main Office | + + + + | 2021-03-26 00:00 | nitroglycerin 0.4 MG | [place] - [facility] | | | Sublingual Tablet | [facility] - Main Office | + + + + | 2021-02-26 00:00 | atorvastatin 80 MG Oral | [place] - [facility] | | | Tablet | P[facility] - Main Office | + + + + | 2021-02-27 00:00 | atorvastatin 80 MG Oral | [place] - [facility] | | | Tablet | P[facility] - Main Office | + + + + | 2021-03-26 00:00 | atorvastatin 80 MG Oral | [place] - [facility] | | | Tablet | Pc - Main Office | + + + + | 2015-03-26 00:00 | atorvastatin 80 mg oral | [facility] | | | tablet | [facility] | + + + + | 2015-03-26 00:00 | atorvastatin 80 mg oral | [facility] | | | tablet | [place] | + + + + | 2015-03-26 00:00 | atorvastatin 80 mg oral | [facility] | | | tablet | [place] | + + + + | 2015-03-26 00:00 | atorvastatin 80 mg oral | [facility] | | | tablet | [facility] [place] | + + + + | 2021-02-26 00:00 | buspirone hydrochloride | [facility] | | | 7.5 MG Oral Tablet | - Main Office | + + + + | 2021-02-27 00:00 | buspirone hydrochloride | [facility] | | | 7.5 MG Oral Tablet | - Main Office | + + + + | 2021-03-26 00:00 | buspirone hydrochloride | [facility] | | | 7.5 MG Oral Tablet | - Main Office | + + + + | 2021-02-26 00:00 | hydrochlorothiazide 25 MG | [facility] | | | Oral Tablet | Pc - Main Office | + + + + | 2021-02-27 00:00 | hydrochlorothiazide 25 MG | [facility] | | | Oral Tablet | Pc - Main Office | + + + + | 2021-03-26 00:00 | hydrochlorothiazide 25 MG | [place] - [facility] | | | Oral Tablet | Pc - Main Office | + + + + | 2021-02-26 00:00 | gabapentin 100 MG Oral | [facility] - [facility] | | | Capsule | Pc - Main Office | + + + + | 2021-02-27 00:00 | gabapentin 100 MG Oral | [place] - [facility] | | | Capsule | Pc - Main Office | + + + + | 2021-03-26 00:00 | gabapentin 100 MG Oral | [facility] - [facility] | | | Capsule | Pc - Main Office | + + + + | 2021-02-26 00:00 | polyethylene glycol 3350 | [facility] | | | 88713 MG Powder for Oral | - Main Office | | | Solution | | + + + + | 2021-02-27 00:00 | polyethylene glycol 3350 | [facility] | | | 10204 MG Powder for Oral | - Main Office | | | Solution | | + + + + | 2021-03-26 00:00 | polyethylene glycol 3350 | [facility] | | | 18239 MG Powder for Oral | - Main Office | | | Solution | | + + + + | 2021-02-26 00:00 | benzonatate 200 MG Oral | [facility] | | | Capsule | - Main Office | + + + + | 2021-02-27 00:00 | benzonatate 200 MG Oral | [facility] | | | Capsule | Pc - Main Office | + + + + | 2021-03-26 00:00 | benzonatate 200 MG Oral | [place] - [facility] | | | Capsule | Pc - Main Office | + + + + | 2020-07-03 00:00 | benzonatate 200 mg oral | [facility] | | | capsule | [place] | + + + + | 2021-07-14 00:00 | benzonatate 200 mg oral | [facility] | | | capsule | [facility] | + + + + | 2021-07-14 00:00 | benzonatate 200 mg oral | [facility] | | | capsule | [place] | + + + + | 2021-07-14 00:00 | benzonatate 200 mg oral | [facility] | | | capsule | [place] | + + + + | 2021-07-14 00:00 | benzonatate 200 mg oral | [facility] | | | capsule | [facility] [place] | + + + + | 2021-12-08 00:00 | levofloxacin 750 mg oral | [facility] | | | tablet [levaquin] | [place] | + + + + | 2021-02-26 00:00 | gabapentin 100 MG Oral | [facility] | [facility] | [facility] | - Main Office | + + + + | 2021-02-27 00:00 | gabapentin 100 MG Oral | OR - [facility] | | | Capsule | Pc - Main Office | + + + + | 2021-03-26 00:00 | gabapentin 100 MG Oral | OR [facility] | | | Capsule | Pc - Main Office | + + + + | 2020-08-06 00:00 | gabapentin 100 mg oral | [facility] | | | capsule | Illness Management | + + + + | 2020-08-06 00:00 | gabapentin 100 mg oral | [facility] | | | capsule | [place] | + + + + | 2020-08-06 00:00 | gabapentin 100 mg oral | [facility] | | | capsule | [place] | + + + + | 2020-08-06 00:00 | gabapentin 100 mg oral | [facility] | | | capsule | [facility] [place] | + + + + | 2021-02-26 00:00 | hydrochlorothiazide 25 MG | OR - [facility] | | | Oral Tablet | - Main Office | + + + + | 2021-02-27 00:00 | hydrochlorothiazide 25 MG | OR [facility] | | | Oral Tablet | Pc - Main Office | + + + + | 2021-03-26 00:00 | hydrochlorothiazide 25 MG | OR - [facility] | | | Oral Tablet | Pc - Main Office | + + + + | 2021-05-21 00:00 | hydrochlorothiazide 25 mg | [facility] | | | oral tablet | [place] | + + + + | 2021-06-25 00:00 | hydrochlorothiazide 25 mg | [facility] | | | oral tablet | [place] | + + + + | 2021-07-08 00:00 | hydrochlorothiazide 25 mg | [facility] | | | oral tablet | [place] | + + + + | 2021-07-16 00:00 | hydrochlorothiazide 25 mg | [facility] | | | oral tablet | [place] | + + + + | 2021-07-29 00:00 | hydrochlorothiazide 25 mg | [facility] | | | oral tablet | [place] | + + + + | 2021-08-19 00:00 | hydrochlorothiazide 25 mg | [facility] | | | oral tablet | [place] | + + + + | 2021-09-05 00:00 | hydrochlorothiazide 25 mg | [facility] | | | oral tablet | [facility] [place] | + + + + | 2021-09-09 00:00 | hydrochlorothiazide 25 mg | [facility] | | | oral tablet | [place] | + + + + | 2021-09-30 00:00 | hydrochlorothiazide 25 mg | [facility] | | | oral tablet | Illness Management | + + + + | 2021-09-30 00:00 | hydrochlorothiazide 25 mg | [facility] | | | oral tablet | [place] | + + + + | 2021-10-21 00:00 | hydrochlorothiazide 25 mg | [facility] | | | oral tablet | [place] | + + + + | 2021-10-28 00:00 | hydrochlorothiazide 25 mg | [facility] | | | oral tablet | [place] | + + + + | 2021-11-18 00:00 | hydrochlorothiazide 25 mg | [facility] | | | oral tablet | [place] | + + + + | 2021 00:00 | hydrochlorothiazide 25 mg | [facility] | | | oral tablet | [place] | + + + + | 2021-12-23 00:00 | hydrochlorothiazide 25 mg | [facility] | | | oral tablet | [place] | + + + + | 2021-12-25 00:00 | hydrochlorothiazide 25 mg | [facility] | | | oral tablet | [place] | + + + + | 2021-12-31 00:00 | hydrochlorothiazide 25 mg | [facility] | | | oral tablet | [place] | + + + + | 2022-01-20 00:00 | hydrochlorothiazide 25 mg | [facility] | | | oral tablet | [place] | + + + + | 2021-12-08 00:00 | levofloxacin 750 mg oral | [facility] | | | tablet | [place] | + + + + | 2021-10-06 00:00 | mirtazapine 15 mg oral | [facility] | | | tablet | [place] | + + + + | 2021-11-17 00:00 | mirtazapine 15 mg oral | [facility] | | | tablet | [place] | + + + + | 2021-11-17 00:00 | mirtazapine 15 mg oral | [facility] | | | tablet | [place] | + + + + | 2021-07-21 00:00 | ondansetron 8 mg oral | [facility] | | | tablet | [place] | + + + + | 2021-09-08 00:00 | ondansetron 8 mg oral | [facility] | | | tablet | Illness Management | + + + + | 2021-09-08 00:00 | ondansetron 8 mg oral | [facility] | | | tablet | [place] | + + + + | 2021-09-08 00:00 | ondansetron 8 mg oral | [facility] | | | tablet | [place] | + + + + | 2022-01-19 00:00 | ondansetron 8 mg oral | [facility] | | | tablet | [place] | + + + + | 2022-09-06 00:00 | ONDANSETRON | [facility] | + + + + | 2022-09-06 00:00 | ONDANSETRON | [facility] | + + + + | 2021-02-26 00:00 | potassium chloride 10 MEQ | [facility] | | | Extended Release Oral | Pc - Main Office | | | Capsule | | + + + + | 2021-02-27 00:00 | potassium chloride 10 MEQ | [facility] | | | Extended Release Oral | Pc - Main Office | | | Capsule | | + + + + | 2021-03-26 00:00 | potassium chloride 10 MEQ | [facility] | | | Extended Release Oral | Pc - Main Office | | | Capsule | | + + + + | 2018-08-03 00:00 | potassium chloride 10 meq | [facility] | | | extended release oral | Illness Management | | | capsule | | + + + + | 2018-08-03 00:00 | potassium chloride 10 meq | [facility] | | | extended release oral | [place] | | | capsule | | + + + + | 2018-08-03 00:00 | potassium chloride 10 meq | [facility] | | | extended release oral | [facility] [place] | | | capsule | | + + + + | 2021-09-04 00:00 | prednisone 20 mg oral | [facility] | | | tablet | [place] | + + + + | 2021-09-04 00:00 | prednisone 20 mg oral | [facility] | | | tablet | [facility] [place] | + + + + | 2021-10-20 00:00 | prednisone 20 mg oral | [facility] | | | tablet | [place] | + + + + | 2021-12-22 00:00 | prednisone 20 mg oral | [facility] | | | tablet | [place] | + + + + | 2021-12-22 00:00 | prednisone 20 mg oral | [facility] | | | tablet | [place] | + + + + | 2021-12-29 00:00 | prednisone 20 mg oral | [facility] | | | tablet | [place] | + + + + | 2022-01-12 00:00 | prednisone 5 mg oral | [facility] | | | tablet | [place] | + + + + | 2021-02-26 00:00 | sucralfate 100 MG/ML Oral | [facility] | | | Suspension | - Main Office | + + + + | 2021-02-27 00:00 | sucralfate 100 MG/ML Oral | [facility] | | | Suspension | Pc - Main Office | + + + + | 2021-03-26 00:00 | sucralfate 100 MG/ML Oral | [facility] | | | Suspension | Pc - Main Office | + + + + | 2021-02-26 00:00 | tizanidine 4 MG Oral | OR - [facility] | | | Tablet | Pc - Main Office | + + + + | 2021-02-27 00:00 | tizanidine 4 MG Oral | [facility] | | | Tablet | Pc - Main Office | + + + + | 2021-03-26 00:00 | tizanidine 4 MG Oral | OR - [facility] | | | Tablet | Pc - Main Office | + + + + | 2021-05-21 00:00 | tizanidine 4 mg oral | [facility] | | | tablet | [place] | + + + + | 2021-06-25 00:00 | tizanidine 4 mg oral | [facility] | | | tablet | [place] | + + + + | 2021-07-08 00:00 | tizanidine 4 mg oral | [facility] | | | tablet | [place] | + + + + | 2021-07-16 00:00 | tizanidine 4 mg oral | [facility] | | | tablet | [place] | + + + + | 2021-07-29 00:00 | tizanidine 4 mg oral | [facility] | | | tablet | [place] | + + + + | 2021-08-19 00:00 | tizanidine 4 mg oral | [facility] | | | tablet | [place] | + + + + | 2021-08-21 00:00 | tizanidine 4 mg oral | [facility] | | | tablet | Illness Management | + + + + | 2021-08-21 00:00 | tizanidine 4 mg oral | [facility] | | | tablet | [place] [...] 00:00 | valacyclovir 500 mg oral | [facility] | | | tablet | [place] | + + + + | 2021-08-18 00:00 | valacyclovir 500 mg oral | [facility] | | | tablet | [place] | + + + + | 2021-08-18 00:00 | valacyclovir 500 mg oral | [facility] | | | tablet | [facility] [place] | + + + + | 2021-05-21 00:00 | acetaminophen 325 mg oral | [facility] | | | tablet | [place] | + + + + | 2021-02-26 00:00 | lisinopril 10 MG Oral | OR - [facility] | | | Tablet | Pc - Main Office | + + + + | 2021-02-27 00:00 | lisinopril 10 MG Oral | OR - [facility] | | | Tablet | Pc - Main Office | + + + + | 2021-03-26 00:00 | lisinopril 10 MG Oral | OR - [facility] | | | Tablet | Pc - Main Office | + + + + | 2018-06-01 00:00 | lisinopril 10 mg oral | [facility] | | | tablet | Illness Management | + + + + | 2018-06-01 00:00 | lisinopril 10 mg oral | [facility] | | | tablet | [place] | + + + + | 2018-06-01 00:00 | lisinopril 10 mg oral | [facility] | | | tablet | [place] | + + + + | 2018-06-01 00:00 | lisinopril 10 mg oral | [facility] | | | tablet | [facility] [place] | + + + + | 2021-02-26 00:00 | pantoprazole 40 MG Delayed | OR - [facility] | | | Release Oral Tablet | - Main Office | + + + + | 2021-02-27 00:00 | pantoprazole 40 MG Delayed | OR - [facility] | | | Release Oral Tablet | Pc - Main Office | + + + + | 2021-03-26 00:00 | pantoprazole 40 MG Delayed | [place] - [facility] | | | Release Oral Tablet | - Main Office | + + + + | 2020-10-08 00:00 | pantoprazole sodium 40 mg | [facility] | | | delayed release oral tablet | Illness Management | | | | | + + + + | 2020-10-08 00:00 | pantoprazole sodium 40 mg | [facility] | | | delayed release oral tablet | [place] | | | | | + + + + | 2020-10-08 00:00 | pantoprazole sodium 40 mg | [facility] | | | delayed release oral tablet | [place] | | | | | + + + + | 2020-10-08 00:00 | pantoprazole sodium 40 mg | [facility] | | | delayed release oral tablet | [facility] [place] | | | | | + + + + | 2021-02-26 00:00 | escitalopram 10 MG Oral | OR - [facility] | | | Tablet | Pc - Main Office | + + + + | 2021-02-27 00:00 | escitalopram 10 MG Oral | [place] - [facility] | | | Tablet | Pc - Main Office | + + + + | 2021-03-26 00:00 | escitalopram 10 MG Oral | OR - [facility] | | | Tablet | Pc - Main Office | + + + + | 2020-10-07 00:00 | escitalopram 10 mg oral | [facility] | | | tablet | Illness Management | + + + + | 2020-10-07 00:00 | escitalopram 10 mg oral | [facility] | | | tablet | [place] | + + + + | 2020-10-07 00:00 | escitalopram 10 mg oral | [facility] | | | tablet | [place] | + + + + | 2020-10-07 00:00 | escitalopram 10 mg oral | [facility] | | | tablet | [facility] [place] | + + + + | 2021-03-26 00:00 | buprenorphine 8 MG / | OR - [facility] | | | naloxone 2 MG Sublingual | - Main Office | | | Tablet | | + + + + | 2021-03-26 00:00 | buprenorphine 8 mg / | [facility] | | | naloxone 2 mg sublingual | [place] | | | tablet | | + + + + | 2021-05-21 00:00 | Drug or medicament | [facility] | | | (substance) | [place] | + + + + | 2021-06-25 00:00 | Drug or medicament | [facility] | | | (substance) | [place] | + + + + | 2021-07-08 00:00 | Drug or medicament | [facility] | | | (substance) | [place] | + + + + | 2021-07-16 00:00 | Drug or medicament | [facility] | | | (substance) | [place] | + + + + | 2021-07-29 00:00 | Drug or medicament | [facility] | | | (substance) | [place] | + + + + | 2021-02-26 00:00 | escitalopram 10 MG Oral | OR - [facility] | | | Tablet | Pc - Main Office | + + + + | 2021-02-27 00:00 | escitalopram 10 MG Oral | [place] - [facility] | | | Tablet | Pc - Main Office | + + + + | 2021-03-26 00:00 | escitalopram 10 MG Oral | OR - [facility] | | | Tablet | Pc - Main Office | + + + + | 2021-03-26 00:00 | buprenorphine 8 MG / | OR - [facility] | | | naloxone 2 MG Sublingual | Pc - Main Office | | | Tablet | | + + + + | 2022-10-01 00:00 | NITROFURANTOIN MONOHYD | [facility] | | | MACROCR | | + + + + | 2021-02-26 00:00 | varenicline 1 MG Oral | OR - [facility] | | | Tablet | Pc - Main Office | + + + + | 2021-02-27 00:00 | varenicline 1 MG Oral | OR - [facility] | | | Tablet | Pc - Main Office | + + + + | 2021-03-26 00:00 | varenicline 1 MG Oral | [facility] | | | Tablet | Pc - Main Office | + + + + | 2021-02-26 00:00 | varenicline 0.5 MG Oral | OR - [facility] | | | Tablet | Pc - Main Office | + + + + | 2021-02-27 00:00 | varenicline 0.5 MG Oral | OR - [facility] | | | Tablet | Pc - Main Office | + + + + | 2021-03-26 00:00 | varenicline 0.5 MG Oral | OR - [facility] | | | Tablet | Pc - Main Office | + + + + | 2021-02-26 00:00 | [id number] ACTUAT | [facility] | | | albuterol 0.09 MG/ACTUAT | Pc - Main Office | | | Metered Dose Inhaler | | | | [ProAir] | | + + + + | 2021-02-27 00:00 | [id number] 200 ACTUAT | OR - [facility] | | | albuterol 0.09 MG/ACTUAT | - Main Office | | | Metered Dose Inhaler | | | | [ProAir] | | + + + + | 2021-03-26 00:00 | [id number] 200 ACTUAT | [facility] | | | albuterol 0.09 MG/ACTUAT | - Main Office | | | Metered Dose Inhaler | | | | [ProAir] | | + + + + | 2021-02-26 00:00 | 100 ML zoledronic acid | OR - [facility] | | | 0.05 MG/ML Injection | - Main Office | | | [Reclast] | | + + + + | 2021-02-27 00:00 | 100 ML zoledronic acid | [facility] | | | 0.05 MG/ML Injection | - Main Office | | | [Reclast] | | + + + + | 2021-03-26 00:00 | 100 ML zoledronic acid | OR - [facility] | | | 0.05 MG/ML Injection | - Main Office | | | [Reclast] | | + + + + | 2022-10-01 00:00 | MEGESTROL ACETATE | [facility] | + + + + | 2021-02-26 00:00 | naloxone hydrochloride 40 | [facility] | | | MG/ML Nasal [place] [Narcan] | - Main Office | + + + + | 2021-02-27 00:00 | naloxone hydrochloride 40 | [facility] | | | MG/ML Nasal [place] [Narcan] | - Main Office | + + + + | 2021-03-26 00:00 | naloxone hydrochloride 40 | [facility] | | | MG/ML Nasal [place] [Narcan] | - Main Office | + + + + | 2021-02-26 00:00 | fluticasone furoate 0.1 | [facility] | | | MG/ACTUAT / umeclidinium | - Main Office | | | 0.0625 MG/ACTUAT / | | | | vilanterol 0.025 MG/ACTUAT | | | | Dry Powder Inhaler | | + + + + | 2021-02-27 00:00 | fluticasone furoate 0.1 | [facility] | | | MG/ACTUAT / umeclidinium | - Main Office | | | 0.0625 MG/ACTUAT / | | | | vilanterol 0.025 MG/ACTUAT | | | | Dry Powder Inhaler | | + + + + | 2021-03-26 00:00 | fluticasone furoate 0.1 | OR - [facility] | | | MG/ACTUAT / umeclidinium | Pc - Main Office | | | 0.0625 MG/ACTUAT / | | | | vilanterol 0.025 MG/ACTUAT | | | | Dry Powder Inhaler | | + + + + | 2021-02-26 00:00 | varenicline 0.5 MG Oral | OR - [facility] | | | Tablet | Pc - Main Office | + + + + | 2021-02-27 00:00 | varenicline 0.5 MG Oral | OR - [facility] | | | Tablet | Pc - Main Office | + + + + | 2021-03-26 00:00 | varenicline 0.5 MG Oral | OR - [facility] | | | Tablet | Pc - Main Office | + + + + | 2020-11-13 00:00 | varenicline 0.5 mg oral | [facility] | | | tablet | [place] | + + + + | 2021-02-26 00:00 | varenicline 1 MG Oral | OR - [facility] | | | Tablet | Pc - Main Office | + + + + | 2021-02-27 00:00 | varenicline 1 MG Oral | OR - [facility] | | | Tablet | Pc - Main Office | + + + + | 2021-03-26 00:00 | varenicline 1 MG Oral | OR - [facility] | | | Tablet | Pc - Main Office | + + + + | 2020-11-13 00:00 | chantix 0.5 mg oral tablet | [facility] | | | | [place] | + + + + | 2021-02-26 00:00 | 100 ML zoledronic acid | [facility] | | | 0.05 MG/ML Injection | - Main Office | | | [Reclast] | | + + + + | 2021-02-27 00:00 | 100 ML zoledronic acid | [facility] | | | 0.05 MG/ML Injection | Pc - Main Office | | | [Reclast] | | + + + + | 2021-03-26 00:00 | 100 ML zoledronic acid | [facility] | | | 0.05 MG/ML Injection | - Main Office | | | [Reclast] | | + + + + | 2021-02-26 00:00 | [id number] 200 ACTUAT | [facility] | | | albuterol 0.09 MG/ACTUAT | - Main Office | | | Metered Dose Inhaler | | | | [ProAir] | | + + + + | 2021-02-27 00:00 | [id number] 200 ACTUAT | [facility] | | | albuterol 0.09 MG/ACTUAT | - Main Office | | | Metered Dose Inhaler | | | | [ProAir] | | + + + + | 2021-03-26 00:00 | [id number] 200 ACTUAT | [facility] | | | albuterol 0.09 MG/ACTUAT | - Main Office | | | Metered Dose Inhaler | | | | [ProAir] | | + + + + | 2021-08-18 00:00 | cyclobenzaprine | [facility] | | | hydrochloride 5 mg oral | [place] | | | tablet | | + + + + | 2021-08-18 00:00 | cyclobenzaprine | [facility] | | | hydrochloride 5 mg oral | [facility] [place] | | | tablet | | + + + + | 2021-09-29 00:00 | cyclobenzaprine | [facility] | | | hydrochloride 5 mg oral | [place] | | | tablet | | + + + + | 2021-12-02 00:00 | cyclobenzaprine | [facility] | | | hydrochloride 5 mg oral | [place] | | | tablet | | + + + + | 2021-12-02 00:00 | cyclobenzaprine | [facility] | | | hydrochloride 5 mg oral | [place] | | | tablet | | + + + + | 2021-02-26 00:00 | trazodone hydrochloride 50 | [facility] | | | MG Oral Tablet | - Main Office | + + + + | 2021-02-27 00:00 | trazodone hydrochloride 50 | [facility] | | | MG Oral Tablet | - Main Office | + + + + | 2021-03-26 00:00 | trazodone hydrochloride 50 | [facility] | | | MG Oral Tablet | Pc - Main Office | + + + + | 2021-05-05 00:00 | trazodone hydrochloride 50 | [facility] | | | mg oral tablet | Illness Management | + + + + | 2021-05-05 00:00 | trazodone hydrochloride 50 | [facility] | | | mg oral tablet | [place] | + + + + | 2021-05-05 00:00 | trazodone hydrochloride 50 | [facility] | | | mg oral tablet | [place] | + + + + | 2021-05-05 00:00 | trazodone hydrochloride 50 | [facility] | | | mg oral tablet | [facility] [place] | + + + + | 2021-02-26 00:00 | buspirone hydrochloride | OR - [facility] | | | 7.5 MG Oral Tablet | - Main Office | + + + + | 2021-02-27 00:00 | buspirone hydrochloride | [facility] | | | 7.5 MG Oral Tablet | - Main Office | + + + + | 2021-03-26 00:00 | buspirone hydrochloride | [facility] | | | 7.5 MG Oral Tablet | - Main Office | + + + + | 2020-08-06 00:00 | buspirone hydrochloride | [facility] | | | 7.5 mg oral tablet | Illness Management | + + + + | 2020-08-06 00:00 | buspirone hydrochloride | [facility] | | | 7.5 mg oral tablet | [place] | + + + + | 2020-08-06 00:00 | buspirone hydrochloride | [facility] | | | 7.5 mg oral tablet | [place] | + + + + | 2020-08-06 00:00 | buspirone hydrochloride | [facility] | | | 7.5 mg oral tablet | [facility] [place] | + + + + | 2021-10-20 00:00 | polyethylene glycol 3350 | [facility] | | | 17 gm powder for oral | [place] | | | solution | | + + + + | 2021-10-20 00:00 | polyethylene glycol 3350 | [facility] | | | 17 gm powder for oral | [place] | | | solution | | + + + + | 2021-02-26 00:00 | polyethylene glycol 3350 | [place] [facility] | | | [address]152 MG Powder for Oral | [facility] Main Office | | | Solution | | + + + + | 2021-02-27 00:00 | polyethylene glycol 3350 | [facility] | | | 06759 MG Powder for Oral | - Main Office | | | Solution | | + + + + | 2021-03-26 00:00 | polyethylene glycol 3350 | [facility] | | | 93588 MG Powder for Oral | - Main Office | | | Solution | | + + + + | 2021-10-27 00:00 | morphine sulfate 15 mg | [facility] | | | extended release oral | [place] | | | tablet | | + + + + | 2021-11-17 00:00 | morphine sulfate 15 mg | [facility] | | | extended release oral | [place] | | | tablet | | + + + + | 2021-02-26 00:00 | levothyroxine sodium 0.1 | [facility] | | | MG Oral Tablet | Pc - Main Office | + + + + | 2021-02-27 00:00 | levothyroxine sodium 0.1 | [facility] | | | MG Oral Tablet | - Main Office | + + + + | 2021-03-26 00:00 | levothyroxine sodium 0.1 | [facility] | | | MG Oral Tablet | Pc - Main Office | + + + + | 2020-06-20 00:00 | levothyroxine sodium 100 | [facility] | | | mcg oral tablet | [place] | + + + + | 2021-09-08 00:00 | levothyroxine sodium 0.075 | [facility] | | | mg oral tablet [synthroid] | Illness Management | | | | | + + + + | 2021-09-08 00:00 | levothyroxine sodium 0.075 | [facility] | | | mg oral tablet [synthroid] | [place] | | | | | + + + + | 2021-10-20 00:00 | levothyroxine sodium 0.05 | [facility] | | | mg oral tablet | [place] | + + + + | 2021-09-08 00:00 | levothyroxine sodium 0.075 | [facility] | | | mg oral tablet | Ill[facility] Management | + + + + | 2021-09-08 00:00 | levothyroxine sodium 0.075 | [facility] | | | mg oral tablet | [place] | + + + + | 2021-10-20 00:00 | synthroid 50 mcg oral | [facility] | | | tablet | [place] | + + + + | 2020-06-20 00:00 | levothyroxine sodium 88 | [facility] | | | mcg oral tablet | [place] | + + + + | 2021-10-21 00:00 | levothyroxine sodium 88 | [facility] | | | mcg oral tablet | [place] | + + + + | 2021-12-22 00:00 | levothyroxine sodium 0.025 | [facility] | | | mg oral capsule | [place] | + + + + | 2021-12-22 00:00 | levothyroxine sodium 0.025 | [facility] | | | mg oral capsule | [place] | + + + + | 2022-01-12 00:00 | levothyroxine sodium 0.025 | [facility] | | | mg oral capsule | [place] | + + + + | 2021-12-22 00:00 | tirosint 25 mcg oral | [facility] | | | capsule | [place] | + + + + | 2021-12-22 00:00 | tirosint 25 mcg oral | [facility] | | | capsule | [place] | + + + + | 2022-01-12 00:00 | tirosint 25 mcg oral | [facility] | | | capsule | [place] | + + + + | 2021-10-20 00:00 | cindy sodium 50 mg / | [facility] | | | sennosides, custodial 8.6 mg oral | [place] | | | tablet | | + + + + | 2021-10-20 00:00 | cindy sodium 50 mg / | [facility] | | | sennosides, custodial 8.6 mg oral | [place] | | | tablet | | + + + + Problems + + + + | date | description | facility | + + + + | (no date) | Malignant neoplasm of | [facility] - | | | upper lobe, left bronchus | [place] | | | or lung | | + + + + | (no date) | Malignant neoplasm of | [facility] - | | | upper lobe, left bronchus | [place] | | | or lung | | + + + + | (no date) | Malignant neoplasm of | [facility] - | | | unspecified part of | [place] | | | unspecified bronchus or | | | | lung | | + + + + | (no date) | Malignant neoplasm of | [facility] - | | | unspecified part of | [place] | | | unspecified bronchus or | | | | lung | | + + + + | (no date) | 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) | [place] | + + + + | (no date) | Chronic obstructive | [facility] - | | | pulmonary disease with | [place] | | | (acute) exacerbation | | + + + + | (no date) | Hemorrhage of anus and | [facility] [facility] - | | | rectum | [place] | + + + + | (no date) | Cardiac murmur, | [facility] - | | | unspecified | [place] | + + + + | (no date) | Cough | [facility] - | | | | [place] | + + + + | (no date) | Abnormal findings on | [facility] - | | | diagnostic imaging of other | [place] | | | specified body structures | | + + + + | (no date) | Abnormal findings on | [facility] - | | | diagnostic imaging of other | [place] | | | specified body structures | | + + + + | (no date) | Encounter for screening | [facility] - | | | for malignant neoplasm of | [place] | | | colon | | + + + + | (no date) | Encounter for palliative | [facility] - | | | care | [place] | + + + + | 2012-09-11 00:00 | cafl - chronic airflow | [facility] | | | limitation | Illness [facility] | + + + + | 2012-09-11 00:00 | cafl - chronic airflow | [facility] | | | limitation | [place] | + + + + | 2012-09-11 00:00 | cafl - chronic airflow | [facility] | | | limitation | [place] | + + + + | 2012-09-11 00:00 | cafl - chronic airflow | [facility] | | | limitation | [facility] [place] | + + + + | 2012-09-11 00:00 | 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) | Illness [facility] | + + + + | 2012-09-11 00:00 | 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) | [place] | + + + + | 2012-09-11 00:00 | 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) | [place] | + + + + | 2012-09-11 00:00 | cobalamin deficiency | [facility]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) | [facility] [place] | + + + + | 2012-09-11 00:00 | sleeplessness | [facility] | | | | Illness Management | + + + + | 2012-09-11 00:00 | sleeplessness | [facility] | | | | [place] | + + + + | 2012-09-11 00:00 | sleeplessness | [facility] | | | | [place] | + + + + | 2012-09-11 00:00 | sleeplessness | [facility] | | | | [facility] [place] | + + + + | 2012-09-11 00:00 | fibromyalgia (disorder) | [facility] | | | | Illness [facility] | + + + + | 2012-09-11 00:00 | fibromyalgia (disorder) | [facility] | | | | [place] | + + + + | 2012-09-11 00:00 | fibromyalgia (disorder) | [facility] | | | | [place] | + + + + | 2012-09-11 00:00 | fibromyalgia (disorder) | [facility] | | | | [facility] [place] | + + + + | 2012-09-11 00:00 | depressive disorder | [facility]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) | Illness Management | + + + + | 2012-09-11 00:00 | depressive disorder | [facility]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) | [place] | + + + + | 2012-09-11 00:00 | depressive disorder | [facility]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) | [place] | + + + + | 2012-09-11 00:00 | depressive disorder | [facility]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) | [facility] [place] | + + + + | 2012-09-11 00:00 | arthritis (disorder) | [facility] | | | | Illness Management | + + + + | 2012-09-11 00:00 | arthritis (disorder) | [facility] | | | | [place] | + + + + | 2012-09-11 00:00 | arthritis (disorder) | [facility] | | | | [place] | + + + + | 2012-09-11 00:00 | arthritis (disorder) | [facility] | | | | [facility] [place] | + + + + | 2012-09-11 00:00 | hypertensive disorder, | [facility] | | | systemic arterial | Illness Management | + + + + | 2012-09-11 00:00 | hypertensive disorder, | [facility] | | | systemic arterial | [place] | + + + + | 2012-09-11 00:00 | hypertensive disorder, | [facility] | | | systemic arterial | [place] | + + + + | 2012-09-11 00:00 | hypertensive disorder, | [facility] | | | systemic arterial | [facility] [place] | + + + + | 2012-09-11 00:00 | hypothyroidism (disorder) | [facility] | | | | Illness Management | + + + + | 2012-09-11 00:00 | hypothyroidism (disorder) | [facility] | | | | [place] | + + + + | 2012-09-11 00:00 | hypothyroidism (disorder) | [facility] | | | | [place] | + + + + | 2012-09-11 00:00 | hypothyroidism (disorder) | [facility] | | | | [facility] [place] | + + + + | 2012-09-11 00:00 | anxiousness | [facility] | | | | Illness Management | + + + + | 2012-09-11 00:00 | anxiousness | [facility] | | | | [place] | + + + + | 2012-09-11 00:00 | anxiousness | [facility] | | | | [place] | + + + + | 2012-09-11 00:00 | anxiousness | [facility] | | | | [facility] [place] | + + + + | 2012-09-11 00:00 | hld - hyperlipidemia | [facility] | | | | Illness [facility] | + + + + | 2012-09-11 00:00 | hld - hyperlipidemia | [facility] | | | | [place] | + + + + | 2012-09-11 00:00 | hld - hyperlipidemia | [facility] | | | | [place] | + + + + | 2012-09-11 00:00 | hld - hyperlipidemia | [facility] | | | | [facility] [place] | + + + + | 2012-09-11 00:00 | chronic pain (finding) | [facility] | | | | Illness [facility] | + + + + | 2012-09-11 00:00 | chronic pain (finding) | [facility] | | | | [place] | + + + + | 2012-09-11 00:00 | chronic pain (finding) | [facility] | | | | [place] | + + + + | 2012-09-11 00:00 | chronic pain (finding) | [facility] | | | | [facility] [place] | + + + + | 2012-09-11 00:00 | fitting | [facility] | | | | Illness [facility] | + + + + | 2012-09-11 00:00 | fitting | [facility] | | | | [place] | + + + + | 2012-09-11 00:00 | fitting | [facility] | | | | [place] | + + + + | 2012-09-11 00:00 | fitting | [facility] | | | | [facility] [place] | + + + + | 2012-09-11 00:00 | Hypothyroidism | [facility] | | | | Illness Management | + + + + | 2012-09-11 00:00 | Hypothyroidism | [facility] | | | | [place] | + + + + | 2012-09-11 00:00 | Hypothyroidism | [facility] | | | | [place] | + + + + | 2012-09-11 00:00 | Hypothyroidism | [facility] | | | | [facility] [place] | + + + + | 2012-09-11 00:00 | Vitamin B12 deficiency | [facility] | | | | Illness [facility] | + + + + | 2012-09-11 00:00 | Vitamin B12 deficiency | [facility] | | | | [place] | + + + + | 2012-09-11 00:00 | Vitamin B12 deficiency | [facility] | | | | [place] | + + + + | 2012-09-11 00:00 | Vitamin B12 deficiency | [facility] | | | | [facility] [place] | + + + + | 2012-09-11 00:00 | Hyperlipidemia | [facility] | | | | Illness [facility] | + + + + | 2012-09-11 00:00 | Hyperlipidemia | [facility] | | | | [place] | + + + + | 2012-09-11 00:00 | Hyperlipidemia | [facility] | | | | [place] | + + + + | 2012-09-11 00:00 | Hyperlipidemia | [facility] | | | | [facility] [place] | + + + + | 2012-09-11 00:00 | Depression | [facility] | | | | Ill[facility] | + + + + | 2012-09-11 00:00 | Depression | [facility] | | | | [place] | + + + + | 2012-09-11 00:00 | Depression | [facility] | | | | [place] | + + + + | 2012-09-11 00:00 | Depression | [facility] | | | | [facility] [place] | + + + + | 2012-09-11 00:00 | Anxiety | [facility] | | | | Illness [facility] | + + + + | 2012-09-11 00:00 | Anxiety | [facility] | | | | [place] | + + + + | 2012-09-11 00:00 | Anxiety | [facility] | | | | [place] | + + + + | 2012-09-11 00:00 | Anxiety | [facility] | | | | [facility] [place] | + + + + | 2012-09-11 00:00 | Insomnia | [facility] | | | | Ill[facility] | + + + + | 2012-09-11 00:00 | Insomnia | [facility] | | | | [place] | + + + + | 2012-09-11 00:00 | Insomnia | [facility] | | | | [place] | + + + + | 2012-09-11 00:00 | Insomnia | [facility] | | | | [facility] [place] | + + + + | 2012-09-11 00:00 | Chronic pain | [facility] | | | | Ill[facility] | + + + + | 2012-09-11 00:00 | Chronic pain | [facility] | | | | [place] | + + + + | 2012-09-11 00:00 | Chronic pain | [facility] | | | | [place] | + + + + | 2012-09-11 00:00 | Chronic pain | [facility] | | | | [facility] [place] | + + + + | 2012-09-11 00:00 | Hypertension | [facility] | | | | Illness [facility] | + + + + | 2012-09-11 00:00 | Hypertension | [facility] | | | | [place] | + + + + | 2012-09-11 00:00 | Hypertension | [facility] | | | | [place] | + + + + | 2012-09-11 00:00 | Hypertension | [facility] | | | | [facility] [place] | + + + + | 2012-09-11 00:00 | Chronic obstructive | [facility] | | | pulmonary disease | Illness Management | + + + + | 2012-09-11 00:00 | Chronic obstructive | [facility] | | | pulmonary disease | [place] | + + + + | 2012-09-11 00:00 | Chronic obstructive | [facility] | | | pulmonary disease | [place] | + + + + | 2012-09-11 00:00 | Chronic obstructive | [facility] | | | pulmonary disease | [facility] [place] | + + + + | 2012-09-11 00:00 | Arthritis | [facility] | | | | Illness Management | + + + + | 2012-09-11 00:00 | Arthritis | [facility] | | | | [place] | + + + + | 2012-09-11 00:00 | Arthritis | [facility] | | | | [place] | + + + + | 2012-09-11 00:00 | Arthritis | [facility] | | | | [facility] [place] | + + + + | 2012-09-11 00:00 | Fibromyalgia | [facility] | | | | Illness [facility] | + + + + | 2012-09-11 00:00 | Fibromyalgia | [facility] | | | | [place] | + + + + | 2012-09-11 00:00 | Fibromyalgia | [facility] | | | | [place] | + + + + | 2012-09-11 00:00 | Fibromyalgia | [facility] | | | | [facility] [place] | + + + + | 2012-09-11 00:00 | Seizure | [facility] | | | | Illness [facility] | + + + + | 2012-09-11 00:00 | Seizure | [facility] | | | | [place] | + + + + | 2012-09-11 00:00 | Seizure | [facility] | | | | [place] | + + + + | 2012-09-11 00:00 | Seizure | [facility] | | | | [facility] [place] | + + + + | 2015-06-27 00:00 | bleeding per rectum | [facility] | | | | [place] | + + + + | 2015-06-27 00:00 | diastolic dysfunction | [facility] | | | (finding) | Illness Management | + + + + | 2015-06-27 00:00 | diastolic dysfunction | [facility] | | | (finding) | [place] | + + + + | 2015-06-27 00:00 | diastolic dysfunction | [facility] | | | (finding) | [place] | + + + + | 2015-06-27 00:00 | diastolic dysfunction | [facility] | | | (finding) | [facility] [place] | + + + + | 2015-06-27 00:00 | atherosclerosis of | [facility] | | | coronary artery | Illness Management | + + + + | 2015-06-27 00:00 | atherosclerosis of | [facility] | | | coronary artery | [place] | + + + + | 2015-06-27 00:00 | atherosclerosis of | [facility] | | | coronary artery | [place] | + + + + | 2015-06-27 00:00 | atherosclerosis of | [facility] | | | coronary artery | [facility] [place] | + + + + | 2015-06-27 00:00 | regurgitation of left | [facility] | | | atrioventricular valve | Illness Management | + + + + | 2015-06-27 00:00 | regurgitation of left | [facility] | | | atrioventricular valve | [place] | + + + + | 2015-06-27 00:00 | regurgitation of left | [facility] | | | atrioventricular valve | [place] | + + + + | 2015-06-27 00:00 | regurgitation of left | [facility] | | | atrioventricular valve | [facility] [place] | + + + + | 2015-06-27 00:00 | ar - aortic regurgitation | [facility] | | | | Illness [facility] | + + + + | 2015-06-27 00:00 | ar - aortic regurgitation | [facility] | | | | [place] | + + + + | 2015-06-27 00:00 | ar - aortic regurgitation | [facility] | | | | [place] | + + + + | 2015-06-27 00:00 | ar - aortic regurgitation | [facility] | | | | [facility] [place] | + + + + | 2015-06-27 00:00 | ic - intermittent | [facility] | | | claudication | [place] | + + + + | 2015-06-27 00:00 | Coronary atherosclerosis | [facility] | | | | Illness [facility] | + + + + | 2015-06-27 00:00 | Coronary atherosclerosis | [facility] | | | | [place] | + + + + | 2015-06-27 00:00 | Coronary atherosclerosis | [facility] | | | | [place] | + + + + | 2015-06-27 00:00 | Coronary atherosclerosis | [facility] | | | | [facility] [place] | + + + + | 2015-06-27 00:00 | Mitral valve insufficiency | [facility] | | | | Illness Management | + + + + | 2015-06-27 00:00 | Mitral valve insufficiency | [facility] | | | | [place] | + + + + | 2015-06-27 00:00 | Mitral valve insufficiency | [facility] | | | | [place] | + + + + | 2015-06-27 00:00 | Mitral valve insufficiency | [facility] | | | | [facility] [place] | + + + + | 2015-06-27 00:00 | Aortic valve insufficiency | [facility] | | | | Illness Management | + + + + | 2015-06-27 00:00 | Aortic valve insufficiency | [facility] | | | | [place] | + + + + | 2015-06-27 00:00 | Aortic valve insufficiency | [facility] | | | | [place] | + + + + | 2015-06-27 00:00 | Aortic valve insufficiency | [facility] | | | | [facility] [place] | + + + + | 2015-06-27 00:00 | Diastolic dysfunction | [facility] | | | | Illness Management | + + + + | 2015-06-27 00:00 | Diastolic dysfunction | [facility] | | | | [place] | + + + + | 2015-06-27 00:00 | Diastolic dysfunction | [facility] | | | | [place] | + + + + | 2015-06-27 00:00 | Diastolic dysfunction | [facility] | | | | [facility] [place] | + + + + | 2015-06-27 00:00 | Claudication | [facility] | | | | [place] | + + + + | 2015-06-27 00:00 | Blood per rectum | [facility] | | | | [place] | + + + + | 2015-06-27 00:00 | Rectal hemorrhage | [facility] | | | | [place] | + + + + | 2015-12-25 00:00 | Chronic obstructive lung | [place] - [place] [facility] | | | disease | P[facility] - Main Office | + + + + | 2015-12-25 00:00 | Insomnia | [place] - [facility] | | | | P[facility] - Main Office | + + + + | 2015-12-25 00:00 | Fibromyalgia | [place] [facility] [place] [facility] | | | | [facility] - [facility] | + + + + | 2015-12-25 00:00 | Lumbar spondylosis | [place] [facility] | | | | [facility] - [facility] | + + + + | 2015-12-25 00:00 | lumbar spondylosis | [facility]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) | Illness Management | + + + + | 2015-12-25 00:00 | lumbar spondylosis | [facility]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) | [place] | + + + + | 2015-12-25 00:00 | lumbar spondylosis | [facility]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) | [place] | + + + + | 2015-12-25 00:00 | lumbar spondylosis | [facility]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) | [facility] [place] | + + + + | 2015-12-25 00:00 | Depressive disorder | [place] [facility] | | | | [facility] - [facility] | + + + + | 2015-12-25 00:00 | Hypertensive disorder | [place] [facility] | | | | [facility] - [facility] | + + + + | 2015-12-25 00:00 | Hypothyroidism | [place] - [facility] | | | | Pc - Main Office | + + + + | 2015-12-25 00:00 | Coronary arteriosclerosis | [place] - [facility] | | | | Pc - Main Office | + + + + | 2015-12-25 00:00 | Hyperlipidemia | [place] - [place] [facility] | | | | P[facility] - Main Office | + + + + | 2015-12-25 00:00 | Epilepsy | [place] - [facility] | | | | Pc - Main Office | + + + + | 2015-12-25 00:00 | ep - epilepsy | [facility] | | | | Illness Management | + + + + | 2015-12-25 00:00 | ep - epilepsy | [facility] | | | | [place] | + + + + | 2015-12-25 00:00 | ep - epilepsy | [facility] | | | | [place] | + + + + | 2015-12-25 00:00 | ep - epilepsy | [facility] | | | | [facility] [place] | + + + + | 2015-12-25 00:00 | Epilepsy | [facility] | | | | Illness [facility] | + + + + | 2015-12-25 00:00 | Epilepsy | [facility] | | | | [place] | + + + + | 2015-12-25 00:00 | Epilepsy | [facility] | | | | [place] | + + + + | 2015-12-25 00:00 | Epilepsy | [facility] | | | | [facility] [place] | + + + + | 2015-12-25 00:00 | Lumbar spondylosis | [facility] | | | | Illness Management | + + + + | 2015-12-25 00:00 | Lumbar spondylosis | [facility] | | | | [place] | + + + + | 2015-12-25 00:00 | Lumbar spondylosis | [facility] | | | | [place] | + + + + | 2015-12-25 00:00 | Lumbar spondylosis | [facility] | | | | [facility] [place] | + + + + | 2017-09-19 00:00 | Tobacco dependence, | [place] - [facility] | | | continuous | P[facility] - Main Office | + + + + | 2018-06-11 00:00 | obstruction of esophagus | [facility]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) | Illness Management | + + + + | 2018-06-11 00:00 | obstruction of esophagus | [facility]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) | [place] | + + + + | 2018-06-11 00:00 | obstruction of esophagus | [facility]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) | [place] | + + + + | 2018-06-11 00:00 | obstruction of esophagus | [facility]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) | [facility] [place] | + + + + | 2018-06-11 00:00 | fb esophagus | [facility] | | | | Illness [facility] | + + + + | 2018-06-11 00:00 | fb esophagus | [facility] | | | | [place] | + + + + | 2018-06-11 00:00 | fb esophagus | [facility] | | | | [place] | + + + + | 2018-06-11 00:00 | fb esophagus | [facility] | | | | [facility] [place] | + + + + | 2018-06-11 00:00 | Obstruction of esophagus | [facility] | | | due to food impaction | Illness Management | + + + + | 2018-06-11 00:00 | Obstruction of esophagus | [facility] | | | due to food impaction | [place] | + + + + | 2018-06-11 00:00 | Obstruction of esophagus | [facility] | | | due to food impaction | [place] | + + + + | 2018-06-11 00:00 | Obstruction of esophagus | [facility] | | | due to food impaction | [facility] [place] | + + + + | 2018-06-11 00:00 | Foreign body in esophagus | [facility] | | | | Illness Management | + + + + | 2018-06-11 00:00 | Foreign body in esophagus | [facility] | | | | [place] | + + + + | 2018-06-11 00:00 | Foreign body in esophagus | [facility] | | | | [place] | + + + + | 2018-06-11 00:00 | Foreign body in esophagus | [facility] | | | | [facility] [place] | + + + + | 2018-06-12 00:00 | malignant neoplasm of | [facility] | | | upper lobe of left lung | Illness Management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) | | + + + + | 2018-06-12 00:00 | malignant neoplasm of | [facility] | | | upper lobe of left lung | [place]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) | | + + + + | 2018-06-12 00:00 | malignant neoplasm of | [facility] | | | upper lobe of left lung | [place]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) | | + + + + | 2018-06-12 00:00 | malignant neoplasm of | [facility] | | | upper lobe of left lung | [facility] [place]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) | | + + + + | 2018-06-12 00:00 | Malignant neoplasm of | [facility] | | | upper lobe of left lung | Illness Management | + + + + | 2018-06-12 00:00 | Malignant neoplasm of | [facility] | | | upper lobe of left lung | [place] | + + + + | 2018-06-12 00:00 | Malignant neoplasm of | [facility] | | | upper lobe of left lung | [place] | + + + + | 2018-06-12 00:00 | Malignant neoplasm of | [facility] | | | upper lobe of left lung | [facility] [place] | + + + + | 2018-06-22 00:00 | tobacco user (finding) | [facility] | | | | Illness Management | + + + + | 2018-06-22 00:00 | tobacco user (finding) | [facility] | | | | [place] | + + + + | 2018-06-22 00:00 | tobacco user (finding) | [facility] | | | | [place] | + + + + | 2018-06-22 00:00 | tobacco user (finding) | [facility] | | | | [facility] [place] | + + + + | 2018-06-22 00:00 | Tobacco abuse | [facility] | | | | Illness Management | + + + + | 2018-06-22 00:00 | Tobacco abuse | [facility] | | | | [place] | + + + + | 2018-06-22 00:00 | Tobacco abuse | [facility] | | | | [place] | + + + + | 2018-06-22 00:00 | Tobacco abuse | [facility] | | | | [facility] [place] | + + + + | 2018-10-15 00:00 | osteoporosis (disorder) | [facility] | | | | Illness Management | + + + + | 2018-10-15 00:00 | osteoporosis (disorder) | [facility] | | | | [place] | + + + + | 2018-10-15 00:00 | osteoporosis (disorder) | [facility] | | | | [place] | + + + + | 2018-10-15 00:00 | osteoporosis (disorder) | [facility] | | | | [facility] [place] | + + + + | 2018-10-15 00:00 | Osteoporosis | [facility] | | | | Illness Management | + + + + | 2018-10-15 00:00 | Osteoporosis | [facility] | | | | [place] | + + + + | 2018-10-15 00:00 | Osteoporosis | [facility] | | | | [place] | + + + + | 2018-10-15 00:00 | Osteoporosis | [facility] | | | | [facility] [place] | + + + + | 2018-10-16 00:00 | Osteoporosis | [place] - [facility] | | | | Pc - Main Office | + + + + | 2019-03-06 11:28:22 | Malignant neoplasm of | [facility] - | | | upper lobe, left bronchus | [place] | | | or lung | | + + + + | 2019-04-14 16:46:41 | Altered Mental Status | [facility] - | | | | [place] | + + + + | 2019-04-14 16:46:41 | Intestinal infectious | [facility] - | | | diseases ([id number]) | [facility] | + + + + | 2019-04-14 16:46:41 | Elevated white blood cell | [facility] - | | | count, unspecified | [place] | + + + + | 2019-04-14 16:46:41 | Volume depletion, | [facility] - | | | unspecified | [place] | + + + + | 2019-04-14 16:46:41 | Other stimulant abuse, | [facility] | | | uncomplicated | [place] | + + + + | 2019-04-14 16:46:41 | Acute kidney failure, | [facility] - | | | unspecified | [place] | + + + + | 2019-04-14 16:46:41 | Diarrhea, unspecified | [facility] - | | | | [place] | + + + + | 2019-04-14 16:46:41 | Transient alteration of | [facility] - | | | awareness | [place] | + + + + | 2019-05-01 16:53:50 | Chronic obstructive | [facility] - | | | pulmonary disease with | [place] | | | (acute) exacerbation | | + + + + | 2019-07-08 00:00 | frederic - generalized anxiety | [facility] | | | disorder | Illness Management | + + + + | 2019-07-08 00:00 | frederic - generalized anxiety | [facility] | | | disorder | [place] | + + + + | 2019-07-08 00:00 | frederic - generalized anxiety | [facility] | | | disorder | [place] | + + + + | 2019-07-08 00:00 | frederic - generalized anxiety | [facility] | | | disorder | [facility] [place] | + + + + | 2019-07-08 00:00 | Generalized anxiety | [facility] | | | disorder | Illness Management | + + + + | 2019-07-08 00:00 | Generalized anxiety | [facility] | | | disorder | [place] | + + + + | 2019-07-08 00:00 | Generalized anxiety | [facility] | | | disorder | [place] | + + + + | 2019-07-08 00:00 | Generalized anxiety | [facility] | | | disorder | [facility] [place] | + + + + | 2019-07-09 00:00 | Generalized anxiety | [place] - [facility] | | | disorder | - Main Office | + + + + | 2019-07-13 10:33:51 | Hemorrhage of anus and | [facility] - | | | rectum | [place] | + + + + 2019-07-13 10:33:51 | Encounter for screening | [facility] - | | | for malignant neoplasm of | [place] | | | colon | | + + + + | 2019-07-17 00:00 | polyp of colon (disorder) | [facility] | | | | Illness Management | + + + + | 2019-07-17 00:00 | polyp of colon (disorder) | [facility] | | | | [place] | + + + + | 2019-07-17 00:00 | polyp of colon (disorder) | [facility] | | | | [place] | + + + + | 2019-07-17 00:00 | polyp of colon (disorder) | [facility] | | | | [facility] [place] | + + + + | 2019-07-17 00:00 | Colon polyps | [facility] | | | | Illness Management | + + + + | 2019-07-17 00:00 | Colon polyps | [facility] | | | | [place] | + + + + | 2019-07-17 00:00 | Colon polyps | [facility] | | | | [place] | + + + + 2019-07-17 00:00 | Colon polyps | [facility] | | | | [facility] [place] | + + + + 2019-07-17 07:35 | Hemorrhage of anus and | [facility] - | | | rectum | [place] | + + + + | 2019-07-17 07:35 | Encounter for screening | [facility] - | | | for malignant neoplasm of | [place] | | | colon | | + + + + | 2019-09-05 15:13:17 | Malignant neoplasm of | [facility] - | | | upper lobe, left bronchus | [place] | | | or lung | | + + + + | 2019-12-23 00:00 | pvd - peripheral vascular | [facility] | | | disease | Illness Management | + + + + | 2019-12-23 00:00 | pvd - peripheral vascular | [facility] | | | disease | [place] | + + + + | 2019-12-23 00:00 | pvd - peripheral vascular | [facility] | | | disease | [place] | + + + + | 2019-12-23 00:00 | pvd - peripheral vascular | [facility] | | | disease | [facility] [place] | + + + + | 2019-12-23 00:00 | Peripheral vascular | [facility] | | | disease | Illness Management | + + + + | 2019-12-23 00:00 | Peripheral vascular | [facility] | | | disease | [place] | + + + + | 2019-12-23 00:00 | Peripheral vascular | [facility] | | | disease | [place] | + + + + | 2019-12-23 00:00 | Peripheral vascular | [facility] | | | disease | [facility] [place] | + + + + | 2019-12-24 00:00 | Peripheral vascular | [place] - [facility] | | | disease | Pc - Main Office | + + + + | 2019-12-24 00:00 | Atherosclerosis of aorta | [place] - [place] [facility] | | | | Pc - Main Office | + + + + | 2019-12-31 10:45:11 | Chronic obstructive | [facility] - | | | pulmonary disease with | [place] | | | (acute) exacerbation | | + + + + | 2019-12-31 10:45:11 | Cough | [facility] - | | | | [place] | + + + + | 2020-03-24 11:30:49 | Malignant neoplasm of | [facility] - | | | upper lobe, left bronchus | [place] | | | or lung | | + + + + | 2020-05-19 00:00 | 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 (disorder) | Illness Management | + + + + | 2020-05-19 00:00 | squamous cell carcinoma of | [facility]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 (disorder) | [place] | + + + + | 2020-05-19 00:00 | squamous cell carcinoma of | [facility]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 (disorder) | [place] | + + + + | 2020-05-19 00:00 | squamous cell carcinoma of | [facility]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 (disorder) | [facility] [place] | + + + + | 2020-05-19 00:00 | Squamous cell carcinoma of | [facility]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 | Illness Management | + + + + | 2020-05-19 00:00 | Squamous cell carcinoma of | [facility]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 | [place] | + + + + | 2020-05-19 00:00 | Squamous cell carcinoma of | [facility]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 | [place] | + + + + | 2020-05-19 00:00 | Squamous cell carcinoma of | [facility]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 | [facility] [place] | + + + + | 2020-05-20 00:00 | Squamous cell carcinoma of | [facility]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 | Pc - Main Office | + + + + | 2020-07-08 00:00 | Follow-up | [facility] - | | | | [place] | + + + + | 2020-07-08 12:59:44 | Follow-up | [facility] - | | | | [place] | + + + + | 2020-07-08 12:59:44 | Malignant neoplasm of | [facility] - | | | upper lobe, left bronchus | [place] | | | or lung | | + + + + | 2020-07-14 08:33:05 | Malignant neoplasm of | [facility] - | | | upper lobe, left bronchus | [place] | | | or lung | | + + + + | 2020-07-19 20:43 | Food in esophagus causing | [facility] | | | other injury, initial | [facility] | | | encounter | | + + + + | 2020-07-23 10:20:27 | Malignant neoplasm of | [facility] - | | | upper lobe, left bronchus | [place] | | | or lung | | + + + + | 2020-07-23 10:20:27 | Nicotine dependence, | [facility] - | | | unspecified, uncomplicated | [place] | + + + + | 2020-07-23 10:20:27 | Tobacco use | [facility] - | | | | [place] | + + + + | 2020-07-24 09:53:20 | Dysphagia, unspecified | [facility] - | | | | [place] | + + + + | 2020-07-25 00:00 | compulsive tobacco user | [facility] | | | syndrome | Illness Management | + + + + | 2020-07-25 00:00 | compulsive tobacco user | [facility] | | | syndrome | [place] | + + + + | 2020-07-25 00:00 | compulsive tobacco user | [facility] | | | syndrome | [place] | + + + + | 2020-07-25 00:00 | compulsive tobacco user | [facility] | | | syndrome | [facility] [place] | + + + + | 2020-07-25 00:00 | Tobacco dependence | [facility] | | | | Illness Management | + + + + | 2020-07-25 00:00 | Tobacco dependence | [facility] | | | | [place] | + + + + | 2020-07-25 00:00 | Tobacco dependence | [facility] | | | | [place] | + + + + | 2020-07-25 00:00 | Tobacco dependence | [facility] | | | | [facility] [place] | + + + + | 2020-07-28 09:18:01 | Malignant neoplasm of | [facility] - | | | upper lobe, left bronchus | [place] | | | or lung | | + + + + | 2020-08-11 10:48:39 | Malignant neoplasm of | [facility] - | | | upper lobe, left bronchus | [place] | | | or lung | | + + + + | 2020-08-15 13:12:55 | Malignant neoplasm of | [facility] - | | | upper lobe, left bronchus | [place] | | | or lung | | + + + + | 2020-08-18 00:00 | ca - lung cancer | [facility] | | | | Illness Management | + + + + | 2020-08-18 00:00 | ca - lung cancer | [facility] | | | | [place] | + + + + | 2020-08-18 00:00 | ca - lung cancer | [facility] | | | | [place] | + + + + | 2020-08-18 00:00 | ca - lung cancer | [facility] | | | | [facility] [place] | + + + + | 2020-08-18 00:00 | Lung cancer | [facility] | | | | Illness Management | + + + + | 2020-08-18 00:00 | Lung cancer | [facility] | | | | [place] | + + + + | 2020-08-18 00:00 | Lung cancer | [facility] | | | | [place] | + + + + | 2020-08-18 00:00 | Lung cancer | [facility] | | | | [facility] [place] | + + + + | 2020-08-18 05:50 | Malignant neoplasm of | [facility] - | | | upper lobe, left bronchus | [place] | | | or lung | | + + + + | 2020-08-18 05:50 | Malignant neoplasm of | [facility] - | | | unspecified part of left | [place] | | | bronchus or lung | | + + + + | 2020-08-18 05:50 | Deficiency of other | [facility] - | | | specified B group vitamins | [place] | + + + + | 2020-08-18 05:50 | Nicotine dependence, | [facility] - | | | unspecified, uncomplicated | [place] | + + + + | 2020-08-18 05:50 | Anxiety disorder, | [facility] - | | | unspecified | [place] | + + + + | 2020-08-18 05:50 | Other ill-defined heart | [facility] - | | | diseases | [place] | + + + + | 2020-08-18 05:50 | Peripheral vascular | [facility] - | | | disease, unspecified | [place] | + + + + | 2020-08-18 05:50 | Panlobular emphysema | [facility] - | | | | [place] | + + + + | 2020-08-18 05:50 | Esophageal obstruction | [facility] - | | | | [place] | + + + + | 2020-08-18 05:50 | Hemorrhage of anus and | [facility] - | | | rectum | [place] | + + + + | 2020-08-18 05:50 | Unspecified | [facility] - | | | osteoarthritis, unspecified | [place] | | | site | | + + + + | 2020-08-18 05:50 | Spondylosis without | [facility] - | | | myelopathy or | [place] | | | radiculopathy, lumbar | | | | region | | + + + + | 2020-08-18 05:50 | Fibromyalgia | [facility] - | | | | [place] | + + + + | 2020-08-18 05:50 | Unspecified convulsions | [facility] - | | | | [place] | + + + + | 2020-08-18 05:50 | Food in esophagus causing | [facility] - | | | other injury, initial | [place] | | | encounter | | + + + + | 2020-08-18 05:50 | Tobacco use | [facility] - | | | | [place] | + + + + | 2020-09-09 15:55:59 | Malignant neoplasm of | [facility] - | | | unspecified part of left | [place] | | | bronchus or lung | | + + + + | 2020-09-10 09:44:54 | Malignant neoplasm of | [facility] - | | | unspecified part of left | [place] | | | bronchus or lung | | + + + + | 2020-09-23 12:08:23 | Malignant neoplasm of | [facility] - | | | upper lobe, left bronchus | [place] | | | or lung | | + + + + | 2020-09-23 16:37:09 | Malignant neoplasm of | [facility] - | | | upper lobe, left bronchus | [place] | | | or lung | | + + + + | 2020-11-12 09:45:07 | Malignant neoplasm of | [facility] - | | | upper lobe, left bronchus | [place] | | | or lung | | + + + + | 2020-11-12 09:45:07 | Tobacco use | [facility] - | | | | [place] | + + + + | 2020-12-04 00:00 | disease caused by 2018 | [facility] | | | novel coronavirus | Illness Management | + + + + | 2020-12-04 00:00 | disease caused by 2019 | [facility] | | | novel coronavirus | [place] | + + + + | 2020-12-04 00:00 | disease caused by 2019 | [facility] | | | novel coronavirus | [place] | + + + + | 2020-12-04 00:00 | disease caused by 2018 | [facility] | | | novel coronavirus | [facility] [place] | + + + + | 2020-12-04 00:00 | COVID | [facility] | | | | Illness Management | + + + + | 2020-12-04 00:00 | COVID | [facility] | | | | [place] | + + + + | 2020-12-04 00:00 | COVID | [facility] | | | | [place] | + + + + | 2020-12-04 00:00 | COVID | [facility] | | | | [facility] [place] | + + + + | 2020-12-05 13:15:37 | COVID-19 | [facility] - | | | | [place] | + + + + | 2021-03-23 12:56:50 | Cardiac murmur, | [facility] - | | | unspecified | [place] | + + + + | 2021-04-10 16:16:47 | Esophageal obstruction | [facility] | | | | Care | + + + + | 2021-04-10 16:16:52 | Esophageal obstruction | [facility] | | | | Care | + + + + | 2021-05-20 10:15:56 | Malignant neoplasm of | [facility] - | | | upper lobe, left bronchus | [place] | | | or lung | | + + + + | 2021-06-10 12:31:08 | Malignant neoplasm of | [facility] - | | | upper lobe, left bronchus | [place] | | | or lung | | + + + + | 2021-06-12 08:05:51 | Malignant neoplasm of | [facility] - | | | upper lobe, left bronchus | [place] | | | or lung | | + + + + | 2021-06-12 08:05:51 | Malignant neoplasm of | [facility] - | | | unspecified part of | [place] | | | unspecified bronchus or | | | | lung | | + + + + | 2021-06-12 08:05:51 | Malignant neoplasm of | [facility] - | | | unspecified part of left | [place] | | | bronchus or lung | | + + + + | 2021-06-24 11:35:48 | Malignant neoplasm of | [facility] - | | | upper lobe, left bronchus | [place] | | | or lung | | + + + + | 2021-06-28 16:21 | Black or Bloody Stool | [facility] - | | | | [place] | + + + + | 2021-06-28 16:21 | Gastrointestinal | [facility] - | | | hemorrhage, unspecified | [place] | + + + + | 2021-06-28 16:21 | Other specified abnormal | [facility] - | | | findings of blood chemistry | [place] | | | | | + + + + | 2021-07-01 10:48:39 | Malignant neoplasm of | [facility] - | | | upper lobe, left bronchus | [place] | | | or lung | | + + + + | 2021-07-07 10:43:42 | Malignant neoplasm of | [facility] - | | | upper lobe, left bronchus | [place] | | | or lung | | + + + + | 2021-07-08 10:30:17 | Colonoscopy | [facility] - | | | | [place] | + + + + | 2021-07-08 10:30:17 | Hemorrhage of anus and | [facility] - | | | rectum | [place] | + + + + | 2021-07-14 15:05:05 | Follow-up | [facility] - | | | | [place] | + + + + | 2021-07-14 15:05:05 | Malignant neoplasm of | [facility] - | | | upper lobe, left bronchus | [place] | | | or lung | | + + + + | 2021-07-14 15:05:05 | Malignant neoplasm of | [facility] - | | | unspecified part of left | [place] | | | bronchus or lung | | + + + + | 2021-07-15 08:03:32 | Malignant neoplasm of | [facility] - | | | upper lobe, left bronchus | [place] | | | or lung | | + + + + | 2021-07-15 08:43:09 | Malignant neoplasm of | [facility] - | | | upper lobe, left bronchus | [place] | | | or lung | | + + + + | 2021-07-15 08:43:09 | Chronic obstructive | [facility] - | | | pulmonary disease, | [place] | | | unspecified | | + + + + | 2021-07-21 00:00 | radiology result abnormal | [facility] | | | (finding) | Illness Management | + + + + | 2021-07-21 00:00 | radiology result abnormal | [facility] | | | (finding) | [place] | + + + + | 2021-07-21 00:00 | radiology result abnormal | [facility] | | | (finding) | [place] | + + + + | 2021-07-21 00:00 | radiology result abnormal | [facility] | | | (finding) | [facility] [place] | + + + + | 2021-07-21 00:00 | Abnormal findings on | [facility] | | | diagnostic imaging of other | Illness Management | | | specified body structures | | + + + + | 2021-07-21 00:00 | Abnormal findings on | [facility] | | | diagnostic imaging of other | [place] | | | specified body structures | | + + + + | 2021-07-21 00:00 | Abnormal findings on | [facility] | | | diagnostic imaging of other | [place] | | | specified body structures | | + + + + | 2021-07-21 00:00 | Abnormal findings on | [facility] | | | diagnostic imaging of other | [facility] [place] | | | specified body structures | | + + + + | 2021-07-27 15:15:31 | Malignant neoplasm of | [facility] - | | | unspecified part of | [place] | | | unspecified bronchus or | | | | lung | | + + + + | 2021-07-27 15:15:31 | Abnormal findings on | [facility] - | | | diagnostic imaging [...] 2021-07-27 15:56:26 | Abnormal findings on | [facility] - | | | diagnostic imaging of other | [place] | | | specified body structures | | + + + + | 2021-07-28 07:43:55 | Malignant neoplasm of | [facility] - | | | upper lobe, left bronchus | [place] | | | or lung | | + + + + | 2021-07-28 07:43:55 | Malignant neoplasm of | [facility] - | | | unspecified part of | [place] | | | unspecified bronchus or | | | | lung | | + + + + | 2021-07-28 07:43:55 | Abnormal findings on | [facility] - | | | diagnostic imaging of other | [place] | | | specified body structures | | + + + + | 2021-07-28 08:38:08 | Malignant neoplasm of | [facility] - | | | unspecified part of | [place] | | | unspecified bronchus or | | | | lung | | + + + + | 2021-07-28 08:38:08 | Abnormal findings on | [facility] - | | | diagnostic imaging of other | [place] | | | specified body structures | | + + + + | 2021-08-05 00:00 | neutropenic fever | [facility] | | | | Illness Management | + + + + | 2021-08-05 00:00 | neutropenic fever | [facility] | | | | [place] | + + + + | 2021-08-05 00:00 | neutropenic fever | [facility] | | | | [place] | + + + + | 2021-08-05 00:00 | neutropenic fever | [facility] | | | | [facility] [place] | + + + + | 2021-08-05 00:00 | Neutropenic fever | [facility] | | | | Illness Management | + + + + | 2021-08-05 00:00 | Neutropenic fever | [facility] | | | | [place] | + + + + | 2021-08-05 00:00 | Neutropenic fever | [facility] | | | | [place] | + + + + | 2021-08-05 00:00 | Neutropenic fever | [facility] | | | | [facility] [place] | + + + + | 2021-08-05 15:51 | Vomiting | [facility] - | | | | [place] | + + + + | 2021-08-05 16:30 | Vomiting | [facility] - | | | | [place] | + + + + | 2021-08-05 16:30 | Imaging @ [facility] | [facility] - | | | System @ Computerized | [place] | | | Tomography (CT Scan) @ | | | | Cerebral Ventricle(s) | | + + + + | 2021-08-05 16:30 | Imaging @ [facility] | [facility] - | | | System @ Computerized | [place] | | | Tomography (CT Scan) @ | | | | Sella Turcica/Pituitary | | | | Gland | | + + + + | 2021-08-05 16:30 | Neutropenia, unspecified | [facility] - | | | | [place] | + + + + | 2021-08-05 16:30 | 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) | [place] | + + + + | 2021-08-05 16:30 | Acute kidney failure, | [facility] - | | | unspecified | [place] | + + + + | 2021-08-05 16:30 | Nausea with vomiting, | [facility] - | | | unspecified | [place] | + + + + | 2021-08-05 16:30 | Fever presenting with | [facility] - | | | conditions classified | [place] | | | elsewhere | | + + + + | 2021-08-18 07:50:49 | Imaging @ [facility] | [facility] - | | | System @ Computerized | [place] | | | Tomography (CT Scan) @ | | | | Cerebral Ventricle(s) | | + + + + | 2021-08-18 07:50:49 | Malignant neoplasm of | [facility] - | | | unspecified part of | [place] | | | unspecified bronchus or | | | | lung | | + + + + | 2021-08-18 07:50:49 | Abnormal findings on | [facility] - | | | diagnostic imaging of other | [place] | | | specified body structures | | + + + + | 2021-08-18 08:36:45 | Malignant neoplasm of | [facility] - | | | unspecified part of | [place] | | | unspecified bronchus or | | | | lung | | + + + + | 2021-08-18 08:36:45 | Abnormal findings on | [facility] - | | | diagnostic imaging of other | [place] | | | specified body structures | | + + + + | 2021-09-04 10:46:25 | Consult | [facility] - | | | | [place] | + + + + | 2021-09-04 10:46:25 | Centrilobular emphysema | [facility] - | | | | [place] | + + + + | 2021-09-08 07:48:16 | Malignant neoplasm of | [facility] - | | | upper lobe, left bronchus | [place] | | | or lung | | + + + + | 2021-09-08 07:48:16 | Malignant neoplasm of | [facility] - | | | unspecified part of | [place] | | | unspecified bronchus or | | | | lung | | + + + + | 2021-09-08 07:48:16 | Abnormal findings on | [facility] - | | | diagnostic imaging of other | [place] | | | specified body structures | | + + + + | 2021-09-08 08:49:05 | Malignant neoplasm of | [facility] - | | | unspecified part of | [place] | | | unspecified bronchus or | | | | lung | | + + + + | 2021-09-08 08:49:05 | Abnormal findings on | [facility] - | | | diagnostic imaging of other | [place] | | | specified body structures | | + + + + | 2021-09-29 08:06:19 | Malignant neoplasm of | [facility] - | | | upper lobe, left bronchus | [place] | | | or lung | | + + + + | 2021-09-29 08:07:04 | Malignant neoplasm of | [facility] - | | | upper lobe, left bronchus | [place] | | | or lung | | + + + + | 2021-09-29 08:07:04 | Malignant neoplasm of | [facility] - | | | unspecified part of | [place] | | | unspecified bronchus or | | | | lung | | + + + + | 2021-09-29 08:07:04 | Chronic obstructive | [facility] - | | | pulmonary disease, | [place] | | | unspecified | | + + + + | 2021-09-29 08:07:04 | Abnormal findings on | [facility] - | | | diagnostic imaging of other | [place] | | | specified body structures | | + + + + | 2021-09-29 09:09:08 | Malignant neoplasm of | [facility] - | | | unspecified part of | [place] | | | unspecified bronchus or | | | | lung | | + + + + | 2021-09-29 09:09:08 | Abnormal findings on | [facility] - | | | diagnostic imaging of other | [place] | | | specified body structures | | + + + + | 2021-10-20 08:46:57 | Malignant neoplasm of | [facility] - | | | upper lobe, left bronchus | [place] | | | or lung | | + + + + | 2021-10-20 08:46:57 | Encounter for palliative | [facility] - | | | care | [place] | + + + + | 2021-10-20 10:40:29 | Malignant neoplasm of | [facility] - | | | unspecified part of | [place] | | | unspecified bronchus or | | | | lung | | + + + + | 2021-10-20 10:40:29 | Abnormal findings on | [facility] - | | | diagnostic imaging of other | [place] | | | specified body structures | | + + + + | 2021-10-20 12:05:45 | Malignant neoplasm of | [facility] - | | | unspecified part of | [place] | | | unspecified bronchus or | | | | lung | | + + + + | 2021-10-20 12:05:45 | Abnormal findings on | [facility] - | | | diagnostic imaging of other | [place] | | | specified body structures | | + + + + | 2021-10-27 08:48:50 | Malignant neoplasm of | [facility] - | | | upper lobe, left bronchus | [place] | | | or lung | | + + + + | 2021-10-27 08:48:50 | Encounter for palliative | [facility] - | | | care | [place] | + + + + | 2021-10-27 13:32:51 | Malignant neoplasm of | [facility] - | | | unspecified part of | [place] | | | unspecified bronchus or | | | | lung | | + + + + | 2021-10-27 13:32:51 | Abnormal findings on | [facility] - | | | diagnostic imaging of other | [place] | | | specified body structures | | + + + + | 2021-10-27 14:40:02 | Malignant neoplasm of | [facility] - | | | unspecified part of | [place] | | | unspecified bronchus or | | | | lung | | + + + + | 2021-10-27 14:40:02 | Abnormal findings on | [facility] - | | | diagnostic imaging of other | [place] | | | specified body structures | | + + + + | 2021-11-17 00:00 | under care of palliative | [facility] | | | care physician (finding) | [place] | + + + + | 2021-11-17 00:00 | under care of palliative | [facility] | | | care physician (finding) | [place] | + + + + | 2021-11-17 00:00 | Palliative care by | [facility] | | | specialist | [place] | + + + + | 2021-11-17 00:00 | Palliative care by | [facility] | | | specialist | [place] | + + + + | 2021-11-17 08:53:12 | Malignant neoplasm of | [facility] - | | | upper lobe, left bronchus | [place] | | | or lung | | + + + + | 2021-11-17 08:53:12 | Generalized anxiety | [facility] - | | | disorder | [place] | + + + + | 2021-11-17 08:53:12 | Encounter for palliative | [facility] - | | | care | [place] | + + + + | 2021-11-17 12:52:52 | Follow-up | [facility] - | | | | [place] | + + + + | 2021-11-17 12:52:52 | Infusion/injection | [facility] - | | | | [place] | + + + + | 2021-11-17 12:52:52 | Malignant neoplasm of | [facility] - | | | unspecified part of | [place] | | | unspecified bronchus or | | | | lung | | + + + + | 2021-11-17 12:52:52 | Abnormal findings on | [facility] - | | | diagnostic imaging of other | [place] | | | specified body structures | | + + + + | 2021-11-17 14:07:36 | Malignant neoplasm of | [facility] - | | | unspecified part of | [place] | | | unspecified bronchus or | | | | lung | | + + + + | 2021-11-17 14:07:36 | Abnormal findings on | [facility] - | | | diagnostic imaging of other | [place] | | | specified body structures | | + + + + | 2021-11-23 00:00 | dysphagia (disorder) | [facility] | | | | [place] | + + + + | 2021-11-23 00:00 | dysphagia (disorder) | [facility] | | | | [place] | + + + + | 2021-11-23 00:00 | Other dysphagia | [facility] | | | | [place] | + + + + | 2021-11-23 00:00 | Other dysphagia | [facility] | | | | [place] | + + + + | 2021-11-23 13:24:44 | New Patient Consult | [facility] - | | | | [place] | + + + + | 2021-11-23 13:24:44 | Other dysphagia | [facility] - | | | | [place] | + + + + | 2021-12-08 13:53:13 | Malignant neoplasm of | [facility] - | | | unspecified part of | [place] | | | unspecified bronchus or | | | | lung | | + + + + | 2021-12-08 13:53:13 | Pneumonia, unspecified | [facility] - | | | organism | [place] | + + + + | 2021-12-08 13:53:13 | Abnormal findings on | [facility] - | | | diagnostic imaging of other | [place] | | | specified body structures | | + + + + | 2021-12-22 00:00 | diarrhea caused by drug | [facility] | | | | [place] | + + + + | 2021-12-22 00:00 | diarrhea caused by drug | [facility] | | | | [place] | + + + + | 2021-12-22 00:00 | Drug-induced diarrhea | [facility] | | | | [place] | + + + + | 2021-12-22 00:00 | Drug-induced diarrhea | [facility] | | | | [place] | + + + + | 2021-12-22 08:52:16 | Malignant neoplasm of | [facility] - | | | upper lobe, left bronchus | [place] | | | or lung | | + + + + | 2021-12-22 08:52:16 | 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) | [place] | + + + + | 2021-12-22 08:52:16 | Encounter for palliative | [facility] - | | | care | [place] | + + + + | 2021-12-22 13:20:25 | Malignant neoplasm of | [facility] - | | | unspecified part of | [place] | | | unspecified bronchus or | | | | lung | | + + + + | 2021-12-22 13:20:25 | Pneumonia, unspecified | [facility] - | | | organism | [place] | + + + + | 2021-12-22 13:20:25 | Toxic gastroenteritis and | [facility] - | | | colitis | [place] | + + + + | 2021-12-22 14:37:20 | Toxic gastroenteritis and | [facility] - | | | colitis | [place] | + + + + | 2021-12-24 15:13:14 | Malignant neoplasm of | [facility] - | | | unspecified part of | [place] | | | unspecified bronchus or | | | | lung | | + + + + | 2021-12-24 15:13:14 | Toxic gastroenteritis and | [facility] - | | | colitis | [place] | + + + + | 2021-12-29 13:35:35 | Malignant neoplasm of | [facility] - | | | upper lobe, left bronchus | [place] | | | or lung | | + + + + | 2021-12-29 13:35:35 | Malignant neoplasm of | [facility] - | | | unspecified part of | [place] | | | unspecified bronchus or | | | | lung | | + + + + | 2021-12-29 13:35:35 | Abnormal findings on | [facility] - | | | diagnostic imaging of other | [place] | | | specified body structures | | + + + + | 2022-01-05 07:48:34 | Malignant neoplasm of | [facility] - | | | unspecified part of | [place] | | | unspecified bronchus or | | | | lung | | + + + + | 2022-01-06 08:34:53 | Malignant neoplasm of | [facility] - | | | upper lobe, left bronchus | [place] | | | or lung | | + + + + | 2022-01-06 08:34:53 | Generalized anxiety | [facility] - | | | disorder | [place] | + + + + | 2022-01-06 08:34:53 | 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) | [place] | + + + + | 2022-01-06 08:34:53 | Encounter for palliative | [facility] - | | | care | [place] | + + + + | 2022-01-11 13:59:14 | Malignant neoplasm of | [facility] - | | | unspecified part of | [place] | | | unspecified bronchus or | | | | lung | | + + + + | 2022-01-19 09:03:30 | Malignant neoplasm of | [facility] - | | | upper lobe, left bronchus | [place] | | | or lung | | + + + + | 2022-01-19 09:03:30 | Generalized anxiety | [facility] - | | | disorder | [place] | + + + + | 2022-01-19 09:03:30 | 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) | [place] | + + + + | 2022-01-19 09:03:30 | Encounter for palliative | [facility] - | | | care | [place] | + + + + | 2022-01-19 13:25:57 | Malignant neoplasm of | [facility] - | | | lower lobe, unspecified | [place] | | | bronchus or lung | | + + + + | 2022-01-19 13:25:57 | Malignant neoplasm of | [facility] - | | | unspecified part of | [place] | | | unspecified bronchus or | | | | lung | | + + + + | 2022-01-19 13:25:57 | Abnormal findings on | [facility] - | | | diagnostic imaging of other | [place] | | | specified body structures | | + + + + | 2022-01-19 14:53:13 | Malignant neoplasm of | [facility] - | | | unspecified part of | [place] | | | unspecified bronchus or | | | | lung | | + + + + | 2022-01-19 14:53:13 | Abnormal findings on | [facility] - | | | diagnostic imaging [...] 00:00 | Malignant neoplasm of lung | [facility] | | | | | + + + + | 2022-10-01 00:00 | Malnutrition | [facility] | + + + + | 2022-10-01 00:00 | Urinary tract infection | [facility] | + + + + | [...] BRONCH EBUS MALLIKA 02/22 | OR - [facility] | | | NODE | Pc - Main Office | + + + + | 2021-02-26 00:00 | TOTAL HYSTERECTOMY | [place] - [facility] | | | | Pc - Main Office | + + + + | 2021-02-27 00:00 | TOTAL HYSTERECTOMY | [place] - [facility] | | | | Pc - Main Office | + + + + | 2021-03-26 00:00 | TOTAL HYSTERECTOMY | [place] - [facility] | | | | Pc - Main Office | + + + + | 2021-09-08 00:00 | HC COMPREHENSIVE METABOLIC | [facility] | | | PANEL | [place] | + + + + | 2021-10-27 00:00 | HC COMPREHENSIVE METABOLIC | [facility] | | | PANEL | [place] | + + + + | 2021-09-08 00:00 | HC T4 FREE (THYROXINE | [facility] | | | FREE) | [place] | + + + + | 2021-09-08 00:00 | HC TSH | [facility] | | | | [place] | + + + + | 2021-09-08 00:00 | HC T3 FREE | [facility] | | | | [place] | + + + + | 2021-09-08 00:00 | HC CBC W AUTO DIFFERENTIAL | [facility] | | | | [place] | + + + + | 2021-10-27 00:00 | HC CBC W AUTO DIFFERENTIAL | [facility] | | | | [place] | [...] + + | | 2019-02-26 | [facility] | COMPARISON: | (missing) | (missing) | [...] + + | | 2019-04-14 | [facility] | 1.13 | :1 | (missing) | [...] | | | | | | | [id number] | | | + + + + [...] + | 2020-09-02 00:00 | Ex-smoker | [facility] | | | | [place] | + + + + | 2021-02-26 00:00 | Current Some Day Smoker | [place] - [facility] | | | | Pc - Main Office | + + + + | 2021-02-27 00:00 | Current Some Day Smoker | [place] - [facility] | | | | Pc - Main Office | + + + + | 2021-03-26 00:00 | Current Some Day Smoker | [place] - [facility] | | | | - Main Office | + + + + | 2021-05-21 00:00 | Current smoker | [facility] | | | | [place] | + + + + | 2021-06-10 00:00 | Smokes tobacco daily | [facility] | | | | Illness Management | + + + + | 2021-06-10 00:00 | Smokes tobacco daily | [facility] | | | | [place] | + + + + | 2021-06-10 00:00 | Smokes tobacco daily | [facility] | | | | [place] | + + + + | 2021-06-10 00:00 | Smokes tobacco daily | [facility] | | | | [facility] [place] | + + + + | 2021-09-09 00:00 | Smokes tobacco daily | [facility] | | | | [place] | + + + + | 2021-09-30 00:00 | Smokes tobacco daily | [facility] | | | | Illness Management | + + + + | 2021-09-30 00:00 | Smokes tobacco daily | [facility] | | | | [place] | + + + + | 2021-10-21 00:00 | Smokes tobacco daily | [facility] | | | | [place] | + + + + | 2021-10-28 00:00 | Smokes tobacco daily | [facility] | | | | [place] | + + + + | 2021-11-18 00:00 | Smokes tobacco daily | [facility] | | | | [place] | + + + + | 2021 00:00 | Smokes tobacco daily | [facility] | | | | [place] | + + + + | 2021-12-23 00:00 | Smokes tobacco daily | [facility] | | | | [place] | + + + + | 2021-12-25 00:00 | Smokes tobacco daily | [facility] | | | | [place] | + + + + | 2021-12-31 00:00 | Smokes tobacco daily | [facility] | | | | [place] | + + + + | 2022-01-20 00:00 | Smokes tobacco daily | [facility] | | | | [place] | + + + + | 2022-09-07 00:00 | Unknown if ever smoked | [facility] | + + + + | 2022-10-01 00:00 | Unknown if ever smoked | [facility] | + + + + Vital [...]
[~2022-10-06 12:01] MED LIST: MACROBID 100 M100 MG PO; MEGESTROL625 MG/5 M PO; ONDANSETRON ODT8 MG PO
[2022-10-06] MEDS ORDERED: CYCLOBENZAPRINE5 MG PO (12:30)
[2022-10-06] MEDS ORDERED: OXYCODONE HCL5 MG PO (12:31)
[2022-10-06] MEDS ORDERED: TRAZODONE HCL50 MG PO (12:31)
[2022-10-06 12:49] LABS: EOSINOPHILS 0.3 % (0-6); HEMOGLOBIN 9.6 g/dL (12.0-18.0); MCH 28.5 (27-36)
[2022-10-06 12:51] LABS: BASOPHILS 0.1 % (0-2); HEMATOCRIT 28.1 % (35.0-50.0); LYMPHOCYTES 14.9 % (24-44); MCHC 34.1 g/dl (30-36); MCV 83.7 fl (81-99); MONOCYTES 2.9 % (0-12); NEUTROPHILS 81.8 % (39-80); PLATELET COUNT 226 K/uL (140-440); RBC 3.36 M/ul (4.3-5.7); RDW 15.5 (10.5-15.0)
[2022-10-06 13:07] LABS: BILIRUBIN, URINE POSITIVE (negative); BLOOD/HGB, URINE NEGATIVE (Negative); KETONE, URINE NEGATIVE (Negative); LEUK ESTERASE, URINE NEGATIVE (negative); NITRITE, URINE POSITIVE (negative); PH, URINE 6.5 (5-7)
[2022-10-06 13:08] LABS: LACTIC ACID, BLOOD 1.5 mmol/L (0.4-2.0)
[2022-10-06 13:14] LABS: ALBUMIN 1.7 g/dL (3.4-5.0); ALBUMIN/GLOBULIN RATIO 0.44 (1.1-2.4); ANION GAP 10.1 (7-21); BILIRUBIN, TOTAL 0.9 ng/dL (0.2-1.0); BUN/CREATININE RATIO 26.78 (6.0-28.6); CALCIUM 7.9 mg/dL (8.5-10.1); CREATININE, SERUM 0.56 mg/dL (0.55-1.02); POTASSIUM 3.1 mmol/L (3.5-5.1); PROTEIN, TOTAL 5.6 g/dL (6.4-8.2)
[2022-10-06 13:19] LABS: BACTERIA, URINE 4+ /hpf (negative)
[2022-10-06 13:20] LABS: CASTS, URINE NONE SEEN \\lpf; COLLECTION TYPE, URINE CATH; CRYSTALS, URINE NONE SEEN (0-1+)
[2022-10-06 13:21] LABS: RED BLOOD CELLS, URINE 0-1 /hpf (0-5)
[2022-10-06 13:22] LABS: EPITHELIAL CELLS, URINE SQUAMOUS 1+ /lpf (0-1+)
[2022-10-06 13:23] LABS: REFLEX CULTURE, URINE Yes (No)
[2022-10-06 13:50] LABS: INFLUENZA B NAA NEGATIVE (NEGATIVE); RESPIRATORY SYNCYTIAL VIR NAA NEGATIVE (NEGATIVE)
[2022-10-06 16:55] VITALS: BP 147/70
--- NOTE | 2022-10-06 17:00 | NUR ---
PT TO FLOOR VIA STRETCHER WITH RN BRITTANY. PT AWAKE AND TALKING. UNABLE TO MOVE SELF TO BED, ASSISTED HER TO ROLL. DRAW SHEET HURT HER SHINGLES ON HER BUTTOCKS. SHINGLES SCABBED BUT SOME OPEN ALL THE WAY ACROSS HER LOW BACK AND BUTTOCKS. RATES ABD PAIN 8\\10. HAS NOT HAD A BM IN "A LONG TIME". GIVEN HOT TEA PER REQUEST. AND A HIGH PROTIEN ENSURE. PUREWICK PLACED WITH INSTRUCTIONS. PORT ACCESSED IN ED, HOOKED TO [facility] AND IVF. CALL [facility] [place].
--- NOTE | 2022-10-06 19:54 | NUR ---
REPORT RECEIVED FROM DALTON SAENZ. pt RESTING IN BED WITH PUREWICK IN PLACE. VISITORS IN ROOM. CONTACT PRECAUTIONS IN PLACE.
--- NOTE | 2022-10-06 20:33 | NUR ---
ANTIBIOTIC COMPLETE, INFUSING POTASSIUM. FRIENDS AT BEDSIDE. NO OTHER NEEDS AT THIS TIME.
[2022-10-06 21:38] VITALS: BP 129/61
--- NOTE | 2022-10-06 21:49 | NUR ---
IN pt ROOM FOR VS. VSS. 2L OXYGEN BY RI IN PLACE. WASH CLOTH PROVIDED FOR pt PER REQUEST. pt DRINKING WATER. COMPLAINS OF 8/10 ABDOMINAL PAIN AND GENERAL PAIN ALL OVER. pt ALSO REPORTS BACK PAIN "FROM SHINGLES". LYING ON LEFT SIDE DUE TO PAIN. REFUSES PRN TYLENOL. REQUESTS HOME MEDICATIONS, REPORTS TAKING OXYCODONE FOR PAIN. PHONE CALL TO MD KRISTINE TO PLACE ORDER.
--- NOTE | 2022-10-06 22:20 | NUR ---
IN ROOM FOR MEDICATION ADMINISTRATION. REPORTS 8/10 PAIN. PRN MEDICATION ADMINISTERED. pt UNABLE TO SWALLOW PILL PER pt REPORT. REFUSES TO ATTEMPT MEDICATION CRUSHED IN APPLESAUCE OR PUDDING. MEDICATION CRUSHED AND MIXED WITH WATER, ADMINISTERED IN [place] PER REQUEST. pt REFUSES REPOSITIONING. ASSESSMENT COMPLETE. PORT FLUSHED WNL, BRISK BLOOD RETURN. CALL [facility] IN [place].
--- NOTE | 2022-10-07 00:20 | NUR ---
CHECKED ON pt. RESTING IN BED WITH EYES CLOSED, BREATHING UNLABORED. 1.5L OXYGEN BY NC IN PLACE. FRIENDS PRESENT IN ROOM.
[2022-10-07 02:00] VITALS: BP 122/52
--- NOTE | 2022-10-07 02:05 | NUR ---
IN ROOM FOR VS. pt AWAKENS TO VOICE, RATES PAIN 8-9/10. PRN PAIN MEDICATION ADMINISTERED CRUSHED IN APPLE SAUCE. pt TOLERATES WELL. ATTENDS CHANGED, INCONTINENT OF URINE. URINE CONCENTRATED, ODOROUS. WHILE CHANGING pt, SEVERAL SCABBED AREAS ON BUTTOCKS OPEN, STUCK TO ATTENDS. SALINE USED TO GENTLY SEPARATE ATTENDS FROM SKIN. NON-ADHERANT GAUZE IN PLACE. NEW ATTENDS AND PUREWICK IN PLACE. OXYGEN TITRATED TO RA, SPO2 93%. REPOSITIONED IN BED. CALL LIGTH IN REACH. FRIENDS REMAIN IN ROOM. IVF INFUSING PORT WNL.
[2022-10-07 05:56] VITALS: BP 139/68
--- NOTE | 2022-10-07 06:18 | NUR ---
pt SLEEPING, AWAKENS TO VOICE. RATES PAIN 8-9/10 ALL OVER. PRN PAIN MEDICATION ADMINSITERED, CRUSHED IN APPLESAUCE. ATTENDS WET, CHANGED AT THIS TIME. NEW PUREWICK IN PLACE. LABS DRAWN FROM PORT PER POLICY. IVF INFUSING WNL. DRINKS OF JUICE PROVIDED. CALL LIGHT IN REACH. pt DENIES ADDITIONAL NEEDS. FRIENDS SLEEPING IN ROOM.
[2022-10-07 06:19] LABS: BASOPHILS 0.3 % (0-2); LYMPHOCYTES 15.9 % (24-44); MCV 85.1 fl (81-99); RDW 15.7 (10.5-15.0)
[2022-10-07 06:20] LABS: EOSINOPHILS 0.4 % (0-6); HEMATOCRIT 25.1 % (35.0-50.0); HEMOGLOBIN 8.3 g/dL (12.0-18.0); MCH 28.2 (27-36); MCHC 33.2 g/dl (30-36); NEUTROPHILS 80.4 % (39-80); PLATELET COUNT 193 K/uL (140-440); RBC 2.95 M/ul (4.3-5.7)
[2022-10-07 06:33] LABS: ALBUMIN 1.3 g/dL (3.4-5.0); ALBUMIN/GLOBULIN RATIO 0.38 (1.1-2.4); ANION GAP 9.8 (7-21); BILIRUBIN, TOTAL 0.5 ng/dL (0.2-1.0); BUN/CREATININE RATIO 23.91 (6.0-28.6); CALCIUM 7.4 mg/dL (8.5-10.1); CREATININE, SERUM 0.46 mg/dL (0.55-1.02); MAGNESIUM 1.3 mg/dL (1.8-2.4); PHOSPHORUS, INORGANIC 1.7 mg/dL (2.5-4.9); POTASSIUM 3.8 mmol/L (3.5-5.1); PROTEIN, TOTAL 4.7 g/dL (6.4-8.2)
--- NOTE | 2022-10-07 07:15 | NUR ---
REPORT RECEIVED FROM DALTON GARCIA. PT RESTING IN BED WITH EYES CLOSED. RR EVEN AND UNLABORED. FAMILY/FRIENDS IN ROOM. NO NEEDS IDENTIFIED AT THIS TIME. CALL LIGHT IN REACH.
--- NOTE | 2022-10-07 09:05 | NUR ---
IN WITH DR. RUIZ. MEDICATIONS ADMINISTERED, SEE MAR. PORT FLUSHED WITH 20ML NS AND BRISK BLOOD RETURN NOTED. IV MEDICATIONS ADMINSTERED, SEE MAR. PT REPORTS PAIN AND FRIENDS IN ROOM REPORT THAT PT "HAS A HARD TIME TAKING PILLS." DR. RUIZ TO ORDER NEW PRN PAIN MEDICATION IV. WILL RETURN WITH PRN PAIN MEDICAITON WHEN AVAILABLE. CONSENT FORM SIGNED BY PT FOR PHOTOS OF WOUNDS ON BUTTOCKS. PHOTOS TAKEN. PT DENIES ANY OTHER NEEDS AT THIS TIME. CALL LIGHT IN REACH. FRIENDS IN ROOM.
[2022-10-07 09:07] VITALS: BP 141/69
--- NOTE | 2022-10-07 09:30 | NUR ---
PATIENT IN ROOM WITH DAUGHTERS. LIVES IN [place] WITH SIGNIFICANT OTHER, [place] THERE ARE STEPS TO GET INSIDE WHICH PATIENT STRUGGLES TO USE AND BOYFRIEND HAD RECENT BACK SURGERY IS UNABLE TO ASSIST HER WITH STAIRS. USES A WALKER AND A CANE AT HOME WITH AMBULATION AND HAS OXYGEN THROUGH [employer] WHICH SHE USES PRN. [place] DRIVES PATIENT AND DOES MOST OF HOUSEHOLD TASKS. PATIENT STATES THEY HAVE FOOD AND ARE ABLE TO OBTAIN MEDICATIONS BUT SHE IS CONCERNED ABOUT [facility] AND AFFORDING HER NEEDS SINCE SHE IS UNABLE TO WORK. DAUGHTERS ASK QUESTIONS REGARDING PLACEMENT AND HOSPICE. LIST OF FACILITES FOR PLACEMENT AND INFORMATION REGARDING HOSPICE PROVIDED. DAUGHTERS AND BOYFRIEND WANT TO FURTHER DISCUSS OPTIONS WITH PATIENT BEFORE THEY MAKE ANY DECISIONS.
--- NOTE | 2022-10-07 10:14 | NUR ---
IN TO ADMINISTER MEDICATION, SEE APR. PT REPORTING PAIN 8/10 "ALL OVER." PRN PAIN MEDICATION ADMINISTERED, SEE APR. PORT PULSATILE FLUSHED WITH 10ML. BRISK BLOOD RETURN NOTED. IV MEDICAITON ADMINISTERED, SEE APR. ASSESSMENT COMPLETE. LUNG SOUNDS DIMINISHED THROUGHOUT ALL LOBES. BOWEL TONES ACTIVE. HEART TONES IRREGULAR. PHYSICAL THERAPY IN ROOM. NO OTHER NEEDS FROM THIS RN AT THIS TIME. CALL LIGHT IN REACH.
--- NOTE | 2022-10-07 11:25 | NUR ---
IN TO ROUND ON PT. PORT FLUSHED WITH 10ML OF NS. BRISK BLOOD RETURN NOTED. IV MEDICATION STARTED, SEE APR. PT REPORTING PAIN 09/30. OFFERED PRN TYLENOL AND PT REFUSES. PT LAYING ON LEFT SIDE IN BED VISITING WITH FRIENDS/FAMILY. BREAKFAST TRAY REMOVED. PT DENIES ANY NEEDS AT THIS TIME. CALL LIGHT IN REACH.
--- NOTE | 2022-10-07 12:19 | NUR ---
THIS RN CALLS DOWN TO MED SURG. AFTER READING THROUGH H&P AND PROG NOTES IT WAS UNCLEAR IF THERE WAS AN ACTUAL WOUND TO BE CONSULTED ON. SPOKE WITH CARLITO CORDOBA RN, HER PRIMARY RN. PT HAD SCABBED OVER SHINGLES ON THE COCCYX AREA, THE SCABS HAD STUCK TO THE BRIEF AND CAME OFF. THEY HAVE BEEN PUTTING NON-ADHERENT PADS ON THE AREA, BUT THEY ARE STILL STICKING. GENERALLY SHINGLES DOES NOT REQUIRE A DRESSING. THIS WOUND CARE NURSE RECOMMENDS GETTING DESITIN OR SOME OTHER BARRIER CREAM. IT WILL HELP ABSORB ANY DRAINAGE, BUT ALL PREVENT THE BRIEF STICKING TO THE SKIN. NAUN IS EDUATED THAT IF THAT DOES NOT WORK, THIS RN WILL COME DOWN AND LOOK AT THE AREA FOR FURTHER EVALUATION.
--- NOTE | 2022-10-07 12:44 | NUR ---
IN TO TAKE LUNCH TRAY IN ROOM. PT RESTING IN BED WITH EYES CLOSED. RR EVEN AND UNLABORED. PT IN SEMI-FOWLERS. FRIENDS IN ROOM. NO NEEDS IDENTIFIED AT THIS TIME. CALL LIGHT IN REACH.
[2022-10-07 13:04] VITALS: BP 127/55
--- NOTE | 2022-10-07 13:09 | NUR ---
FAMILY/FRIENDS TO NURSES STATION REPORTING THAT PT WOULD LIKE TO BE TURNED. THIS RN AND RANDALL MOREIRA IN ROOM. OFFERED BED BATH AND SHAMPOO CAP, PT REFUSED. PT NOTED TO BE INCONTINENT OF URINE. NEW ATTENDS PLACED, RADHA-CARE PROVIDED. NEW PUREWICK PLACED. PT TURNED FROM LEFT SIDE TO RIGHT SIDE. RANDALL CONROY IN ROOM ATTEMPTING TO ASSISTING PT WITH ORAL CARE. NO OTHER NEEDS FROM THIS RN AT THIS TIME. CALL LIGHT IN REACH.
--- NOTE | 2022-10-07 15:28 | NUR ---
IN RANDALL MOREIRA REPORTING PTs SIGNIFICANT OTHER IS REQUESTING TO TALK TO RN. CHRIS RN IN ROOM TALKING WITH SIGNIFICANT OTHER. SIGNIFICANT OTHER STATES "CHRIS ANSWERED MY QUESTIONS." ASSESSMENT COMPLETE. LUNG SOUNDS CLEAR IN RUL AND JULIENNE. DIMINISHED IN RLL AND LLL. BOWEL TONES ACTIVE. HEART TONES IRREGULAR. RANDALL CONROY IN TO ASSIST WITH BOOSTING PT. PT INCONTINENT OR URINE. RADHA-CARE PROVIDED. NEW ATTENDS IN PLACE. NEW PUREWICK PLACED. WAFFLE BED PLACED UNDER PT AND INFLATED TO PTs COMFORT. PT ON RIGHT SIDE RR EVEN AND UNLABORED. PT REPORTS BEING COMFORTABLE. PT IN SEMI-FOWLERS POSITION IN BED. SIGNIFICANT OTHER ASKING TO SWAB PTs MOUTH. PTs MOUTH SWABED AND NOTED THAT LOWER FRONT TOOTH IS LOOSE. PT DENIES ANY OTHER NEEDS AT THIS TIME. CALL LIGHT IN REACH.
[2022-10-07 17:31] VITALS: BP 133/65
--- NOTE | 2022-10-07 17:48 | NUR ---
IN ROOM TO ASSIST RANDALL MOREIRA WITH VITALS. NOTED PTs HAND IS COOL TO TOUCH. ONCE GOOD WAVE FORM NOTED FOR O2 SATURATION O2 SATS IN HIGH 90's TO 100% ON RA. PTs RR NOTED TO BE 26. PT DENIES FEELING SOB. PT DENIES ANY NEEDS AT THIS TIME. CALL LIGHT IN REACH. FAMILY/FRIENDS IN ROOM.
--- NOTE | 2022-10-07 18:04 | NUR ---
THIS RN CALLED DR. RUIZ TO INFORM HIM OF PTs RR OF 26. NO NEW ORDERS AT THIS TIME. AWARE.
--- NOTE | 2022-10-07 18:28 | NUR ---
IN TO ADMINISTER PRN PAIN MEDICATION, SEE MAR. PT REPORTING PAIN 10/10 GENERALIXZED. PT REQUESTING TO BE TURNED. PT TURNED TO LEFT SIDE AND PILLOW PLACED UNDER BACK FOR SUPPORT. COUGH AND THICK ESCUDERO COLORED SECRETIONS NOTED. PT REQUESTING TO BE SUCTIONED. PT SUCTIONED. PT DENIES ANY OTHER NEEDS AT THIS TIME. CALL LIGHT IN REACH.
--- NOTE | 2022-10-07 19:04 | NUR ---
IN IV PUMP ALARMING, RESOLVED. NEW BAG OF FLUIDS STARTED. PT NOTED TO BE 87-88% ON RA WHILE RESTING IN BED WITH EYES CLOSED. 1.5L OXYMASK APPLIED AND O2 SATS INCREASE TO 91%. RR OF 22 NOTED. PT CONTINUES TO REST IN BED. NO OTHER NEEDS IDENTIFIED. CALL LIGHT IN REACH.
--- NOTE | 2022-10-07 19:43 | NUR ---
RECEIVED REPORT FROM DAY SHIFT RN. PATIENT IS RESTING IN BED WITH EYES CLSOED, CPOX READINGS ARE WNL. FRIENDS AT BEDSIDE. NO NEEDS NOTED. CALL LIGHT IN REACH.
[2022-10-07 20:29] VITALS: BP 139/64
--- NOTE | 2022-10-07 21:04 | NUR ---
PATIENTS VITALS TAKEN AND RECORDED. PATIENT INCONT URINE. [facility], AND NEW PUREWICK PLACED. PATIENT REPOSITIONED IN BED. INTAKE AND OUTPUT RECORDED. PATIENT IS ON 1.5L VIA OXYMASK AND CPOX IN PLACE. HEEL PROTECTORS PLACED ON PATIENT. PATIENT REPORTS 10/10 PAIN "ALL OVER". PRN PAIN MEDICATION GIVEN PER ORDER ORAL CARE COMPLETED. SCABS NOTED ON PATIENTS BOTTOM ADN BARRIER CREAM AND NONADHERENT DRESSING IN PLACE PER WOUND CARE ORDER. PATIENT HAS FRIENDS AT BEDSIDE. PATIENT DENIES ANY FURTHER NEEDS. CALL LIGHT IN REACH. IV INFUSING IN RIGHT PORT. PORT DRESSING C/D/I/.
--- NOTE | 2022-10-07 22:00 | NUR ---
PATIENT IS RESTING IN BED WITH EYES CLOSED, CPOX READINGS ARE WNL. CALL LIGHT IN REACH. IV INFUSING PER ORDER.
--- NOTE | 2022-10-08 00:50 | NUR ---
PATIENT IS RESTING IN BED WITH EYES CLSOED, CPOX READINGS ARE WNL. CALL LIGHT IN REACH.
[2022-10-08 02:03] VITALS: BP 133/64
--- NOTE | 2022-10-08 02:22 | NUR ---
PATIENTS VITALS TAKEN AND RECORDED. INTAKE AND OUTPUT RECORDED. PATIENTS ATTEDN IS DRY. PATIENT HAS PUREWICK IN PLACE. PATIENT REPORTS 10/10 PAIN ALL OVER. PRN PAIN MEDICATION GIVEN PER ORDER. PATIENT IS ON 1L VIA OXYMASK. CPOX IN USE. PATIENT DENIES ANY FURTHER NEEDS. CALL LIGHT IN REACH.
--- NOTE | 2022-10-08 04:09 | NUR ---
PATIENT IS RESTING IN BED WITH EYES CLSOED, CPOX READINGS ARE WNL. CALL LIGHT IN REACH.
[2022-10-08 05:58] VITALS: BP 137/65
[2022-10-08 06:24] LABS: BASOPHILS 0.3 % (0-2); HEMOGLOBIN 8.3 g/dL (12.0-18.0)
--- NOTE | 2022-10-08 06:25 | NUR ---
PATIENTS VITALS TAKEN AND RECORDED. PATIENTS ATTEND CHANGED AND RADHA CARE COMPLETED. PATIENT REPOSITIONED IN BED. NEW PUREWICK PLACED. PATIENT REPORTS 9/10 PAIN, PNR PAIN MEDICATION GIVEN PER ORDER. PATIENTS IV INFUSING STOPPED FOR 5MIN, 20 ML FLUSHED, 15ML WASTED, AND BLOOD DRAWN AND PLACED IN APPROPRIATE TUBES AND SENT TO LAB. PATIENT AND FAMILY DENY ANY FURTHER NEEDS. CALL LIGHT IN REACH. IV INFUSING PER ORDER. PATIENT REMAINS ON 1L VIA OXYMASK. CPOX IN USE.
[2022-10-08 06:26] LABS: EOSINOPHILS 0.5 % (0-6); HEMATOCRIT 24.8 % (35.0-50.0); LYMPHOCYTES 16.3 % (24-44); MCH 28.7 (27-36); MCHC 33.7 g/dl (30-36); MCV 85.2 fl (81-99); MONOCYTES 2.7 % (0-12); NEUTROPHILS 80.2 % (39-80); PLATELET COUNT 181 K/uL (140-440); RBC 2.91 M/ul (4.3-5.7); RDW 15.5 (10.5-15.0)
[2022-10-08 06:41] LABS: ALBUMIN 1.3 g/dL (3.4-5.0); ALBUMIN/GLOBULIN RATIO 0.39 (1.1-2.4); ANION GAP 10.9 (7-21); BILIRUBIN, TOTAL 0.5 ng/dL (0.2-1.0); BUN/CREATININE RATIO 21.62 (6.0-28.6); CALCIUM 7.4 mg/dL (8.5-10.1); CREATININE, SERUM 0.37 mg/dL (0.55-1.02); POTASSIUM 3.9 mmol/L (3.5-5.1); PROTEIN, TOTAL 4.6 g/dL (6.4-8.2)
[2022-10-08 06:50] LABS: MAGNESIUM 1.7 mg/dL (1.8-2.4); PHOSPHORUS, INORGANIC 2.6 mg/dL (2.5-4.9)
--- NOTE | 2022-10-08 07:27 | NUR ---
PATIENT IS RESTING IN BED, EYES CLOSED, RESPIRATIONS EVEN AND NON LABORED. PATIENT HAS NO NOTABLE DISTRESS. PERSONAL SUPPLIES AND CALL LIGHT WITHIN REACH. NO CURRENT NEEDS, PERSONAL SUPPLIES AND CALL LIGHT WITHIN REACH.
[2022-10-08 08:13] VITALS: BP 121/52
--- NOTE | 2022-10-08 08:56 | NUR ---
PATIENT IS SLEEPING ON HER RIGHT SIDE. HER COMPANY JUST STEPPED OUT FOR A LITTLE BIT.
--- NOTE | 2022-10-08 10:17 | NUR ---
LE 1010: THIS RN GOES DOWN TO MED/SURG. WITH THE PRIMARY RN, EYES ARE PUT ON THE PT AND THE AREA OF CONCERN ON HER BUTTOCK. IT IS NOTED THAT THERE ARE STILL NON-ADHERENT PADS OVER THE AREAS, THAT ARE STUCK TO THE PT'S SKIN AND VERY PAINFUL TO EVEN TOUCH. THERE WAS NO DESITIN OR BARRIER CREAM IN THE ROOM ADVISED YESTERDAY AND ACCORDING TO THE NURSE TREATMENT ORDER. THE AREA IS VERY CHARACTERISITIC OF SHINGLES. UNFORTUNATELY, THERE IS NO DEFINITIVE DRESSING TREATMENT THAT WILL BE EFFECTIVE. IT IS RE-RECOMMENDED THAT THEY GET DESITIN TO APPLY TO THE AREA, TO MANAGE DRAINAGE AND KEEP HER BRIEF FROM STICKING TO THE WOUNDED AREAS. IT IS VERABLIZED TO PRIMARY RN THAT A LIBERAL AMOUNT SHOULD BE APPLIED TO THE AREA, APPLY PRN, AND WITH SOILED AREAS. ONLY CLEANING AWAY SOILED PORTIONS, THEN REAPPLY. BECAUSE IT IS SHINGLES, IT IS NOT AN ACTUAL WOUND, IT IS A RASH THAT NEEDS TO BE MANAGED BY A PHYSICIAN.
[2022-10-08] MEDS ORDERED: BENZONATATE200 MG PO (10:59)
[2022-10-08] MEDS ORDERED: DEXAMETHASONE4 MG PO (11:00)
[2022-10-08] MEDS ORDERED: ZESTRIL5 MG PO (11:01)
[2022-10-08] MEDS ORDERED: PROTONIX40 MG PO (11:05)
[2022-10-08] MEDS ORDERED: POTASSIUM CHLO10 ME2 PO (11:06)
[2022-10-08] MEDS ORDERED: ZANAFLEX4 MG PO (11:30)
[2022-10-08] MEDS ORDERED: NEURONTIN300 MG PO (11:30)
[2022-10-08] MEDS ORDERED: ATIVAN1 MG PO (11:31)
--- NOTE | 2022-10-08 11:32 | NUR ---
MED REC COMPLETE
--- NOTE | 2022-10-08 11:52 | NUR ---
PATIENT REPOSITIONED AT THIS TIME. DRESSING REMOVED FROM BACK/BUTTOCK RASH SITES. DESITIN CREAM THEN PLACED OVER OPEN RASH SITES PER WOUND CARE NURSE ORDERS; PATIENT TOLERATED WOUND CARES FAIRLY. PATIENT DECLINED TO EAT HER BREAKFAST THIS MORNING, SHE REPORTS DECREASED APPETITE. FRIENDS AND SIGNIFICANT OTHER AT BEDSIDE ASSISTING WITH CARES.
--- NOTE | 2022-10-08 12:01 | NUR ---
Spoke with daughters, signifant other. Prefer to take patient home on hospice. SO states he is going to talk with his children about taking her to their home and have Hopice care. Prefer to use [facility]. All family members in agreeance.
--- NOTE | 2022-10-08 12:16 | NUR ---
[facility]
--- NOTE | 2022-10-08 13:17 | NUR ---
MORPHINE 2MG IV ADMIN FOR REPORTS OF 8/10 GENERALIZED PAIN.
[2022-10-08 14:19] VITALS: BP 135/63
--- NOTE | 2022-10-08 14:58 | NUR ---
PATIENT RESTING ON RIGHT SIDE, EYES CLOSED, RESPIRATIONS EVEN AND NON LABORED. PATIENT IS ON 1L OYGEN PER OXYMASK, SP02 92%. PATIENT HAS NO NOTABLE DISTRESS. PERSONAL SUPPLIES AND CALL LIGHT WITHIN REACH.
--- NOTE | 2022-10-08 15:30 | NUR ---
RECEIVED REPORT FROM DALTON FINN. PT IS SLEEPING IN BED WITH EYES CLOSED. RESPIRATIONS EVEN AND REGULAR. FAMILY ASKED TO HOLD OFF ON GIVING THE PO DECADRON UNTIL THE PATIENT WAKES UP. CALL LIGHT WITHIN REACH NO FURTHER NEEDS VOICED.
--- NOTE | 2022-10-08 16:00 | NUR ---
PT REFUSED PO DECADRON. PT STATED SHE "JUST DOES NOT WANT TO TAKE IT". EDUCATION PROVIDED.
[2022-10-08 18:05] VITALS: BP 135/62
--- NOTE | 2022-10-08 19:45 | NUR ---
REPORT RECEIVED FROM DAY SHIFT RN. PT LYING IN BED. UPON ASSESSMENT PT STATES SHE WAS IN PAIN. PAIN MEDICATION GIVEN AT THIS TIME. NO OTHER NEEDS AT THIS TIME. PURWICK IN PLACE. CALL LIGHT WITHIN REACH.
[2022-10-08 21:50] VITALS: BP 132/61
--- NOTE | 2022-10-08 22:00 | NUR ---
IN TO GET VS, PT ASKING FOR PAIN MED, RN INFORMED
[2022-10-09 06:08] LABS: RBC 2.77 M/ul (4.3-5.7)
[2022-10-09 06:10] LABS: HEMOGLOBIN 7.9 g/dL (12.0-18.0)
[2022-10-09 06:13] LABS: BASOPHILS 0.3 % (0-2); EOSINOPHILS 0.3 % (0-6); PLATELET COUNT 180 K/uL (140-440)
[2022-10-09 06:14] LABS: HEMATOCRIT 23.4 % (35.0-50.0); LYMPHOCYTES 16.2 % (24-44); MCH 28.5 (27-36); MCHC 33.7 g/dl (30-36); MCV 84.7 fl (81-99); MONOCYTES 3.6 % (0-12); NEUTROPHILS 79.6 % (39-80)
[2022-10-09 06:19] LABS: ANION GAP 11.5 (7-21); BUN/CREATININE RATIO 18.18 (6.0-28.6); CALCIUM 7.2 mg/dL (8.5-10.1); CREATININE, SERUM 0.33 mg/dL (0.55-1.02); MAGNESIUM 1.8 mg/dL (1.8-2.4); POTASSIUM 3.5 mmol/L (3.5-5.1)
[2022-10-09 06:39] VITALS: BP 144/60
--- NOTE | 2022-10-09 09:05 | NUR ---
ADMIN MORPHINE 2MG IV FOR REPORTS OF 6/10 GENERALIZED PAIN. FLUIDS INFUSING PER PROVIDER ORDER. PATIENT REPORTS SHE IS COMFORTABLE AT THIS TIME, DECLINED REPOSITIONING. PATIENT TOLERATING SMALL AMOUNTS OF FOOD. PT REMAINS ALERT AND ORIENTED X4. NO CURRENT NEEDS, PERSONAL SUPPLIES AND CALL LIGHT WITHIN REACH.
[2022-10-09 09:08] VITALS: BP 135/67
--- NOTE | 2022-10-09 13:55 | NUR ---
ADMIN MORPHINE 2MG IV FOR REPORTS OF GENERALIZED PAIN. PATIENT REPOSITIONED AT THIS TIME. DESITIN CREAM TO RASH, RADHA CARE DONE. PURE WICK REPLACED AT THIS TIME. PATIENT PROVIDED WITH HER LUNCH. FAMILY AT BEDSIDE ASSISTING [facility] CARES. PORT REMAINS PATENT, FLUIDS INFUSING PER PROVIDER ORDER. PATIENT REMAINS ON 1L BLOWBY, SP02 90% AT THIS TIME. NO CURRENT NEEDS, PERSONAL SUPPLIES AND CALL LIGHT WITHIN REACH.
[2022-10-09 14:20] VITALS: BP 153/68
--- NOTE | 2022-10-09 16:48 | NUR ---
PATIENT RESTING IN BED, EYES CLOSED, RESPIRATIONS EVEN AND NON LABORED. PATIENT IS ON 1L OXYGEN PER OXYMASK, SP02 93%. IV FLUIDS INFUSING PER PROVIDER ORDER. NO CURRENT NEEDS. CALL LIGHT WITHIN REACH.
[2022-10-09 17:51] VITALS: BP 128/64
--- NOTE | 2022-10-09 19:16 | NUR ---
GOT REPORT FROM HAT PARTS CUTTER MACHINE NURSE.PATIENT HAS FAMILY IN ROOM. SHE WAS ASKED BY POLITICAL SCIENCE PROFESSOR IF SHE WOULD LIKE A BED BATH AND SHE WOULD. DAY SHIFT NURSE INTO GIVE PAIN MEDICATION.
--- NOTE | 2022-10-09 19:18 | NUR ---
Morphine 2mg IV admin for reports of 6/10 generalized pain.
[2022-10-09 19:41] VITALS: BP 110/47
--- NOTE | 2022-10-09 19:50 | NUR ---
Into do evening assessment. Helped FLOOR TECH give bed bath. Patient has 1L oxgyen on with oxymask. Patient was rotated onto her left side with a pillow between her legs. New suction set up for patient. New gown placed on patient. Patient has family members sleeping in room. Patient has IV fluids running. Patient has pulse ox on and heal protectors.
--- NOTE | 2022-10-09 21:41 | NUR ---
Into give patient evening medications. Patient refused all oral medications. Patient states they are to hard to swallow. Advised patient I could crush them for her and she advised this nurse she is just not up to taking them.
--- NOTE | 2022-10-09 22:10 | NUR ---
PATIENT CURRENTLY SLEEPING ON HER LEFT SIDE. PATIENT HAS OXY MASK ON WITH CONT PULSE OX. REGULAR RESPIRATIONS NOTED. FAMILY ASLEEP IN ROOM. BED IN LOW, BED ALARM ON.
--- NOTE | 2022-10-09 23:30 | NUR ---
Placed new purewick. Patient advised this nurse her pain is lots better since the morphine. Patient changed positions to her back at this time.
--- NOTE | 2022-10-10 02:37 | NUR ---
PATIENT REPOSITIONED IN BED. PATIENT REPORTS 5/10 PAIN, PRN PAIN GIVEN PER ORDER. PATIENT PROVIDED OJ. PATIENT DENIES ANY FURTHER NEEDS. CALL LIGHT IN REACH.
--- NOTE | 2022-10-10 04:19 | NUR ---
PATIENT IS RESTING IN BED ON LEFT SIDE WITH EYES CLOSED, CPOX READINGS ARE WNL. CALL LIGHT IN REACH.
[2022-10-10 05:19] VITALS: BP 141/58
[2022-10-10 06:29] LABS: HEMATOCRIT 23.3 % (35.0-50.0); HEMOGLOBIN 7.9 g/dL (12.0-18.0); MCH 28.6 (27-36); MCV 83.9 fl (81-99); PLATELET COUNT 177 K/uL (140-440)
[2022-10-10 06:30] LABS: BASOPHILS 0.3 % (0-2); EOSINOPHILS 0.4 % (0-6); LYMPHOCYTES 13.9 % (24-44); MONOCYTES 3.8 % (0-12); NEUTROPHILS 81.6 % (39-80); RBC 2.77 M/ul (4.3-5.7)
--- NOTE | 2022-10-10 06:32 | NUR ---
PATIENT REPOSITIONEDI NBED. VITALS TAKEN AND RECORDED. PATIENTS PUREWICK AND ATTEND CHANGED. RADHA CARE COMPLETED. DESENEX PLACED ON SHINGLES ARE ON BACK SIDE. PATIENT IS NOW LYING ON RIGHT SIDE. PATIENT HAS HEEL PROTECTORS IN PLACE. PATIENTS IV STOPPED INFUSION FOR 5MIN, PORT FLUSHED WITH 20ML ON NS, WASTED 10ML OF BLOOD, BLOOD DRAWN AND PLACED IN APPROPRIATE TUBES AND SENT TO LAB. PATIENT RATES HER PAIN AT A 10/10, PRN PAIN MEDICATION GIVEN PER ORDER. BITES OF FROZEN ORANGE ICE GIVEN PER PATIENT REQUEST. PATIENT TITRATED TO 2L VIA OXYMASK. PATIENT DENIES ANY FURTHER NEEDS. CALL LIGHT IN REACH.
[2022-10-10 06:40] LABS: ANION GAP 9.1 (7-21); BUN/CREATININE RATIO 17.5 (6.0-28.6); CALCIUM 7.4 mg/dL (8.5-10.1); CREATININE, SERUM 0.4 mg/dL (0.55-1.02); POTASSIUM 3.1 mmol/L (3.5-5.1)
--- NOTE | 2022-10-10 06:43 | NUR ---
CPOX ALARMING, SATS 82, OXYMASK OFF, PT LAYING ON HER RIGHT SIDE. MASK PLACED ON, INCREASED O2 TO 4L, UNTIL SATS ABOVE 90, BACK TO 2L OM, WITH SATS 92
--- NOTE | 2022-10-10 07:44 | NUR ---
PT RESTING EYES CLOSED AT TIME OF SHIFT REPORT. 3 VISITORS PRESENT IN THE ROOM SLEEPING. PT SATS 99% ON 4 L02 TURNED DOWN TO 2 LPM NC. CALL LIGHT AND NEEDED ITEMS IN REACH. PT APPEARS RELAXED AND COMFORTABLE.
--- NOTE | 2022-10-10 08:40 | NUR ---
SATS DIP TO 70s-80s ON 2 LPM. 02 INCREASED SLOW RECOVERY. SATS UP TO 9 LPM OXY MASK SATS MID 80'S
--- NOTE | 2022-10-10 10:41 | NUR ---
DR RUIZ IN TO SEE PT. SATS HAVE BEEN CONSISTANTLY LOW DESPITE 02 ADJUSTMENT. PT COUGHS AND IS ABLE TO EXPELL A LARGE CHUNK OF MUCOUS SATS UP IN THE 90'S TO 100%. TITRATING 02 DOWN AT THIS TIME. PT SPEAKS WITH HE OFFERS XRAY AND LABS FOR FURTHER ASSESSMENT PT AGREES. BLOOD CULTURES DRAWN AT THIS TIME. VISITORS X3 REMAIN IN THE ROOM, VERY INVOLVED IN CARE NEEDS OF THIS PT. PT CONTINUES TO COUGH AND MOVE SECRETIONS. MORPHINE ADMINISTERED PER PT REQUEST. SHE AGREES SHE IS COMFORTABLE NOW, CONTINUES TO COUGH AND MOVE SECRETIONS.
[2022-10-10 10:53] VITALS: BP 133/66
--- NOTE | 2022-10-10 11:31 | NUR ---
PT RESTING EYES CLOSED SATS 99% 02 ON 4LPM LEFT UNDISTURBED
[2022-10-10 13:22] VITALS: BP 111/61
--- NOTE | 2022-10-10 14:22 | NUR ---
PT USES CALL LIGHT APPROPRIATELY. RESTING IN BED, BREATHING UNLABORED, REQUESTS PAIN MEDICATIONS. AGREES IT'S EFFECTIVE A SHORT TIME LATER. ENSURE OFFERED PT REFUSES, HAS A FEW BITES OF CHEESECAKE PROVIDED BY VISITORS. ASSISTED TO REPOSITION
[2022-10-10 17:15] VITALS: BP 121/76
--- NOTE | 2022-10-10 19:31 | NUR ---
REPORT RECEIVED FROM DALTON BARRON. ISOLATION PRECAUTIONS IN PLACE. VISITORS IN ROOM WITH pt.
[2022-10-10 21:57] VITALS: BP 137/57
--- NOTE | 2022-10-10 22:00 | NUR ---
pt SLEEPING, AWAKENS TO VOICE. INCONTINENT OF URINE, ATTENDS CHANGED. DESITIN APPLIED TO BUTTOCKS. pt RATES PAIN 8/10. PRN MORPHINE ADMINISTERED. pt REPOSITIONED. ASSESSMENT COMPLETE. VSS, 3L OXYGEN BY OXYMASK IN PLACE. WARM BLANKETS PROVIDED. CALL LIGHT IN REACH. FRIENDS IN ROOM. PUREWICK IN PLACE.
--- NOTE | 2022-10-10 23:20 | NUR ---
ON FLOOR, DISCUSSED ORDERS, CHEST XRAY REVIEWED BY MD, VERBAL ORDER TO DC SL. KRISTINE LAMBERT TO ORDER ADDITIONAL ANTIBIOTIC.
--- NOTE | 2022-10-11 00:09 | NUR ---
pt SLEEPING, BREATHING UNLABORED. OXYMASK IN PLACE. IV ANTIBIOTIC INFUSING WNL.
--- NOTE | 2022-10-11 01:11 | NUR ---
NOTIFIED BY RT THAT pt HAS REMOVED OXYGEN. pt AWAKE WHEN RN ENTERS ROOM. OXYMASK REAPPLIED. pt REPORTS PAIN 8/10 ALL OVER. PRN MEDICATION ADMINISTERED. REPOSITIONED pt TO LEFT SIDE WITH PILLOW UNDER RIGHT HIP. CALL LIGHT WITHIN REACH.
--- NOTE | 2022-10-11 03:30 | NUR ---
CHECKED ON pt. RESTING IN BED WITH EYES CLOSED. OXYGEN BY OXYMASK IN PLACE. NO DISTRESS NOTED.
[2022-10-11 05:27] VITALS: BP 128/60
--- NOTE | 2022-10-11 05:40 | NUR ---
pt FOUND WITH OXYGEN OFF, FINGERS COLD TO TOUCH. SPO2 READS 72% ON RA. pt RESTING IN BED COMFORTABLY, NO RESPIRATORY DISTRESS NOTED. OXYGEN REAPPLIED, TITRATED TO BRING SPO2 >92% THEN BACK DOWN TO 3L BY OXYMASK. INCONTINENT OF URINE, ATTENDS CHANGED. DESITIN APPLIED TO SHINGLES/SORES ON BUTTOCKS. WARM BLANKETS PROVIDED. pt RATES PAIN 9/10, PRN MORPHINE ADMINISTERED. pt STRAIGHTENED IN BED, REPOSITIONED TO BACK AT THIS TIME. pt ON WAFFLE MATTRESS. CALL LIGHT IN REACH.
--- NOTE | 2022-10-11 07:32 | NUR ---
pt resting soundly at sneha of shift report. oxy mask in place 02 3lpm. call light on bed next to pt. visitors x2 present.
--- NOTE | 2022-10-11 08:54 | NUR ---
Called and notified hospice patient is ready for DC today. States they will call back shortly to verify acceptance and patient needs at home.
[2022-10-11 09:02] VITALS: BP 125/62
--- NOTE | 2022-10-11 09:02 | NUR ---
PT RESTING IN BED. I ENTER ROOM, PT OXY MASK OFF. OXY MASK PUT BACK ON. PT SATING AT 78%. I WAIT 2-3 MINUTES AND THEN O2 IS STILL ONLY AT 83%. I GO TO TO NOTIFY RN, SATS COME BACK UP AND ARE NOW AT 90%. RN NOTIFIED. VITALS AND IS AND OS COMPLETE. PT BRIEF CHECKED AND PUREWICK CHECKED AND IS CLEAN AND DRY. NO NEEDS. BREAKFAST TRAY LEFT IN THERE. CALL LIGHT WITHIN REACH
--- NOTE | 2022-10-11 09:11 | NUR ---
SPOKE WITH [facility]. STATE THEY ARE AWATING CONFIRMATION OF DELIVERY TIME OF HOSPITAL BED AND OTHER EQUIPMENT WHICH WILL LIKELY BE TOMORROW. WILL CALL WITH DEFINITE TIME TODAY.
--- NOTE | 2022-10-11 09:15 | NUR ---
CONNECTED WITH FAMILY MEMBER IN [facility]. EXERCISED MINISTRY OF PRESENCE SHE TALKED OF HER OWN HEALTH STRUGGLES AND CONCERN REGARDING PATIENT'S READINESS FOR THIS NEXT STEP. STATES SHE WILL HELP WITH TRANSITION MUCH POSSIBLE.
--- NOTE | 2022-10-11 09:36 | NUR ---
PT HAS REMAINED DOZING THIS SHIFT AWAKENS TO VOICE, BUT REMAINS SLEEPY. PT REMOVES OXY MASK ALLOWS IT TO BE REPLACED AT TIMES REFUSES AT OTHER TIMES. PT APPEARS RELAXED. REPOSITIONED AND FLOATED ON PILLOWS NO INDICATION OF PAIN WITH MOVEMENT. PT REFUSES BREAKFAST AND OFFER OF FOOD ITEMS. VISITORS REMAIN PRESENT X3
--- NOTE | 2022-10-11 10:54 | NUR ---
SPOKE WITH HOSPICE. EQUIPMENT SHOULD ARRIVE TOMORROW BY 1000. REQUEST PATIENT DC BY 1200 TOMORROW SO NURSE CAN ADMIT PATIENT TO HOSPICE TOMORROW. ELVIRA, SIGNIFICANT OTHER, UPDATED.
--- NOTE | 2022-10-11 11:21 | NUR ---
FAMILY IN ROOM, DISCUSS DC TRANSPORTATION. FAMILY FEELS THEY CAN TRANSPORT IN PRIVATE VEHICLE BUT UNSURE. WILL RETURN TO DISCUSS FURTHER WHEN SIGNIFICANT OTHER, ELVIRA, RETURNS.
--- NOTE | 2022-10-11 12:08 | NUR ---
PT REQUESTS PAIN MED FOR THE FIRST TIME THIS SHIFT. ALLOWS THIS HOME CARE CONSULTANT TO PLACE OXY MASK SHE HAS REMOVED AND LEFT ON HER CHEST. FRIENDS X2 CONTINUE TO BE PRESENT AND HYPERVIGILANT REGAURDING CARE. PT APPEARS RELAXED AND WITHOUT DISTRESS
[2022-10-11 13:37] VITALS: BP 129/57
--- NOTE | 2022-10-11 15:19 | NUR ---
PT REPOSITIONED AND UNDERGARMENT CHANGED. OXY MASK RE-APPLIED. PT DENIES OTHER NEEDS APPEARS VERY SLEEPY AT THIS TIME. VISITOR REMAINS PRESENT IN THE ROOM.
--- NOTE | 2022-10-11 16:17 | NUR ---
DR VINSON IN TO SEE PT
[2022-10-11 18:19] VITALS: BP 136/52
--- NOTE | 2022-10-11 18:46 | NUR ---
PT REQUESTS PAIN MEDICATIONS. 2 MG MORPHINE ADMINISTERED. REPOSITIONED AND RADHA CARE PROVIDED, PURE WIK CHANGED. WARM BLANKET PROVIDED PER REQUEST. PT CONTINUES TO REMOVE HER OXY MASK, BREATHING EVEN AND UNLABORED. FRIENDS X2 IN THE ROOM
--- NOTE | 2022-10-11 19:30 | NUR ---
REPORT RECEIVED FROM DALTON BARRON. pt RESTING IN BED WITH EYES CLOSED. pt ON LEFT SIDE, OXYMASK IN PLACE. NO DISTRESS NOTED. FRIEND IN ROOM.
[2022-10-11 21:21] VITALS: BP 122/68
--- NOTE | 2022-10-11 21:30 | NUR ---
pt CALLING OUT IN PAIN, RATES PAIN 9/10 ALL OVER. PRN PAIN MEDICATION ADMINISTERED. pt REPOSTIONED IN BED WITH PILLOW UNDER RIGHT HIP. ATTENDS DRY. PUREWICK IN PLACE AND FUNCTIONING. ASSESSMENT COMPLETE. HEEL PROTECTORS REMOVED PER pt REQUEST. 4L OXYGEN BY OXYMASK IN PLACE. VSS. CALL LIGHT IN REACH. FRIENDS IN ROOM.
--- NOTE | 2022-10-11 23:08 | NUR ---
pt RESTING IN BED WITH EYES CLOSED, RR 20. 4L OXYGEN BY OXYMASK IN PLACE.
--- NOTE | 2022-10-12 00:53 | NUR ---
pt AWAKE, REPORTS PAIN, DOES NOT RATE. REQUESTING PRN MORPHINE. pt DROWSY, PRN PAIN MEDICATION ADMINISTERED. PUREWICK FUNCTIONING. ATTENDS DRY. REPOSITIONED TO FLOATING WITH PILLOWS UNDER EACH HIP BILATERALLY. CALL LIGHT IN REACH. pt CLOSING EYES.
--- NOTE | 2022-10-12 02:42 | NUR ---
CHECKED ON pt. OXYGEN OFF, REAPPLIED BY RN. pt SLEEPING, AWAKENS BRIEFLY THEN CLOSES EYES. NO DISTRESS NOTED. BREATHING EVEN AND UNLABORED.
[2022-10-12 06:24] VITALS: BP 125/56
--- NOTE | 2022-10-12 06:51 | NUR ---
pt AWAKENS TO VOICE WHEN RN ENTERS ROOM, RATES PAIN "HIGH". PRN MORPHINE ADMINSITERED. EXTREMITIES COLD TO TOUCH, OXYGEN REMOVED BY pt. WARM BLANKETS APPLIED TO HANDS, OXYMASK APPLIED WITH 4L OXYGEN BY NC, SPO2 INCREASES TO WNL. PUREWICK CHANGED. INCONTINENT OF URINE, NEW ATTENDS IN PLACE, SORE OPENS ON BUTTOCKS. DESITIN CREAM APPLIED. REPOSITIONED IN BED. pt HAS CALL LIGHT IN REACH. BED IN LOW POSITION.
--- NOTE | 2022-10-12 07:57 | NUR ---
Verbal report received from DALTON Quevedo. Pt resting in bed at time of report.
--- NOTE | 2022-10-12 09:08 | NUR ---
[facility] called and scheduled non-emergent transport from hospital to home. Will be at facility to transport patient at 1100.
--- NOTE | 2022-10-12 09:46 | NUR ---
Informed family of transportation set up with [facility] at 1100 this morning for transport to home.
[2022-10-12 10:32] VITALS: BP 130/56
--- NOTE | 2022-10-12 11:00 | NUR ---
VERBAL ORDERS FROM DR VINSON TO LEAVE PATIENT'S PORT ACCESSED UPON DISCHARGE FOR EASE FOR HOSPICE CAREGIVERS AND PATIENT COMFORT.
--- NOTE | 2022-10-12 11:18 | NUR ---
[facility] present, collects Pt for transportation home.
[2022-10-12 11:19] VITALS: BP 130/56
== END 2022-10-12 11:18 | disposition hospice, home (50) | DRG 871 ==
LOC: ED 12:01 → MS 16:06
PROVIDERS: Student in an Organized Health Care Education/Training Program; ADMIT Family Medicine; ATTEND Internal Medicine
PROC: 3E03329 Introduction of Other Anti-infective into Peripheral Vein, Percutaneous Approach (ICD-10-PCS; principal; 2022-10-06)
PROC: 02HV33Z Insertion of Infusion Device into Superior Vena Cava, Percutaneous Approach (ICD-10-PCS; 2022-10-06)
PROC: 0T9B70Z Drainage of Bladder with Drainage Device, Via Natural or Artificial Opening (ICD-10-PCS; 2022-10-06)
DX: A41.9 Sepsis, unspecified organism (principal); J18.9 Pneumonia, unspecified organism; J96.01 Acute respiratory failure with hypoxia; N39.0 Urinary tract infection, site not specified; Z68.1 Body mass index [BMI] 19.9 or less, adult; B96.20 Unspecified Escherichia coli [E. coli] as the cause of diseases classified elsewhere; Z66 Do not resuscitate; B02.9 Zoster without complications; E87.6 Hypokalemia; E83.42 Hypomagnesemia; E83.39 Other disorders of phosphorus metabolism; F17.210 Nicotine dependence, cigarettes, uncomplicated; Z20.822 Contact with and (suspected) exposure to COVID-19; R62.7 Adult failure to thrive; E86.0 Dehydration; D63.8 Anemia in other chronic diseases classified elsewhere; Z79.2 Long term (current) use of antibiotics; Z98.890 Other specified postprocedural states; Z88.0 Allergy status to penicillin; Z79.899 Other long term (current) drug therapy; Z85.118 Personal history of other malignant neoplasm of bronchus and lung; Z92.3 Personal history of irradiation; Z99.81 Dependence on supplemental oxygen; Z90.49 Acquired absence of other specified parts of digestive tract; Z79.891 Long term (current) use of opiate analgesic
CPT/HCPCS: 36415; 51701; 71045; 80048; 80053; 81001; 83605; 83735; 84100; 85025; 85060; 87040; 87077; 87088; 87186; 87502; 92610; 94760; 94762; 97161; 97165; 99285-25; 99406; A9270; C9803; J0456; J0696; J1650; J2270; J2405; J3475; J3480; J3490; J7030; J7060; J7121; J8540; U0002